=== PATIENT | female | born 1985 | race Caucasian/White ===

== ENCOUNTER 2023-05-04 15:25 | Outpatient (OUT) | payer OTHER, SELFPAY ==
[2023-05-04 16:00] LABS: Microalbumin Urine Random <1.3 mg/dL (<=30.0)
[2023-05-04 16:38] LABS: Alanine Aminotransferase 21 U/L (14-59); Albumin Globulin Ratio 0.9; Albumin Level 3.6 g/dL (3.4-5.0); Alkaline Phosphatase 139 U/L (46-116); Anion Gap 12.1; Aspartate Amino Transferase 11 U/L (15-37); Bilirubin Total 0.2 mg/dL (0.2-1.0); Calcium 8.8 mg/dL (8.5-10.1); Carbon Dioxide 26.2 mmol/L (21.0-32.0); Chloride 107 mmol/L (98-107); Estimated GFR (African America >60 (>=60); Estimated GFR (Non-African Ame >60 (>=60); Glucose 77 mg/dL (74-106); Potassium 3.3 mmol/L (3.5-5.1); Sodium 142 mmol/L (136-145); Total Protein 7.6 g/dL (6.4-8.2)
[2023-05-04 16:55] LABS: Estimated Average Glucose 117 mg/dL; Glycohemoglobin A1C 5.7 % (4.5-6.2)
[2023-05-05 06:08] LABS: HIV Ab/p24 Ag Screen Non Reactive (Non Reactive)
[2023-05-05 10:55] LABS: Gamma Glutamyl Transpeptidase 23 U/L (8-55)
== END 2023-05-04 15:26 | disposition home or self-care (01) ==
LOC: LAB 15:29
PROVIDERS: PCP Nurse Practitioner Primary Care; Visit Provider Nurse Practitioner Primary Care
DX: R73.03 Prediabetes (principal)
CPT/HCPCS: 36415; 80053; 82043; 82977; 83036; 87389

== ENCOUNTER 2023-05-12 15:46 | Outpatient (OUT) | payer OTHER, SELFPAY ==
[2023-05-12 16:17] LABS: Erythrocyte Sedimentation Rate 27 mm/hr (<=20)
[2023-05-14 04:07] LABS: Immunoglobulin A, Qn 586 mg/dL (87-352); Rheumatoid Factor (RF) <10.0 IU/mL (<14.0)
[2023-05-14 14:12] LABS: ANA Direct Negative (Negative); C-Peptide, Serum 2.4 ng/mL (1.1-4.4)
[2023-05-14 21:07] LABS: Anti-MPO Antibodies 1.3 units (0.0-0.9); Anti-PR3 Antibodies <0.2 units (0.0-0.9); Cytoplasmic (C-ANCA) <1:20 titer (Neg:<1:20); Perinuclear (P-ANCA) <1:20 titer (Neg:<1:20)
== END 2023-05-12 15:47 | disposition home or self-care (01) ==
LOC: LAB 15:47
PROVIDERS: PCP Nurse Practitioner Primary Care; Visit Provider Internal Medicine
DX: D47.2 Monoclonal gammopathy (principal); R21 Rash and other nonspecific skin eruption
CPT/HCPCS: 36415; 82784; 83516; 84681; 85652; 86038; 86430

== ENCOUNTER 2023-05-14 10:15 | Emergency (ER) | payer OTHER, SELFPAY ==
[2023-05-14 10:23] VITALS: BP 136/82; PULSE 98; RESP 20; TEMP 36.7; O2SAT 96; BMI 53.0
--- NOTE | 2023-05-14 11:17 | ED_ITS ---
HPI - General Adult General Chief complaint: Abdominal Pain Stated complaint: L KIDNEY PAIN/FATIGUE/SWELLING Time Seen by Provider: 05/14/23 11:05 History of Present Illness HPI narrative: patient here for evaluation of weight gain. She says she has gained approximately 20 pounds in the last several days. She has not had a change in her medications at all. She has a number of medical disorders including pseudotumor cerebri thyroid disorder elevation of her cholesterol and hypertension. She also has some underlying psychiatric disease. 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 She does not any chest pain or shortness of breath. No history of congestive heart failure. She also has a thyroid disorder. She does have a neurologist and primary care doctor they're seeing her. To her knowledge her kidneys recovered fine and they've never been a problem previously. She's had a history of kidney stone in the past but she passed it spontaneously. She's not been running a fever. She does not have any history of deep vein thrombosis. No shortness of breath. Is not have a redness or tenderness in her thighs. Related Data Home Medications Medication Instructions Recorded Confirmed acetazolamide 500 mg 500 mg PO Q24H 05/14/23 05/14/23 capsule,extended release acetylcysteine 600 mg capsule (NAC) 600 mg PO BID 05/14/23 05/14/23 albuterol sulfate 2.5 mg/3 mL 2.5 mg continuous nebulization Q6H 05/14/23 05/14/23 (0.083 %) solution for nebulization PRN shortness of breath or wheezing albuterol sulfate 90 mcg/actuation 2 inh inhalation Q4H PRN shortness 05/14/23 05/14/23 aerosol inhaler (Ventolin HFA) of breath or wheezing azelastine 137 mcg (0.1 %) nasal 1 spray intranasal DAILY 05/14/23 05/14/23 spray aerosol baclofen 10 mg tablet 10 mg PO Q12H PRN muscle spasm 05/14/23 05/14/23 cdbeorryzthjdfb-tlzzaygotfkjxhj-FK 5 ml PO Q8H PRN cold symptoms 05/14/23 05/14/23 2 mg-30 mg-10 mg/5 mL oral syrup cetirizine 10 mg tablet 10 mg PO Q12H 05/14/23 05/14/23 diclofenac sodium 1 % topical gel 2 g topical BID 05/14/23 05/14/23 duloxetine 30 mg capsule,delayed 30 mg PO DAILY 05/14/23 05/14/23 release duloxetine 60 mg capsule,delayed 60 mg PO DAILY 05/14/23 05/14/23 release (Cymbalta) fluconazole 150 mg tablet 150 mg PO DAILY 05/14/23 05/14/23 fluticasone 500 mcg-salmeterol 50 1 inh inhalation Q12H 05/14/23 05/14/23 mcg/dose blistr powdr for inhalation (Wixela Inhub) gabapentin 300 mg capsule 300 mg PO Q12H 05/14/23 05/14/23 hydroxyzine HCl 50 mg tablet 50 mg PO Q6H 05/14/23 05/14/23 levothyroxine 25 mcg tablet 25 mcg PO DAILY 05/14/23 05/14/23 liraglutide 0.6 mg/0.1 mL (18 mg/3 0.6 mg subcut DAILY 05/14/23 05/14/23 mL) subcutaneous pen injector ([email or web address] 3-True) lisdexamfetamine 30 mg capsule 30 mg PO DAILY 05/14/23 05/14/23 (Vyvanse) losartan 100 mg tablet 100 mg PO DAILY 05/14/23 05/14/23 nicotine 14 mg/24 hr daily 1 patch transdermal DAILY 05/14/23 05/14/23 transdermal patch omeprazole 20 mg capsule,delayed 20 mg PO DAILY 05/14/23 05/14/23 release pregabalin 75 mg capsule (Lyrica) 75 mg PO BID 05/14/23 05/14/23 quetiapine 300 mg tablet 300 mg PO DAILY 05/14/23 05/14/23 sumatriptan succinate 100 mg See Rx Instructions PO .COMPLEX 05/14/23 05/14/23 tablet (Imitrex) tiotropium bromide 1.25 2 inh inhalation QAM 05/14/23 05/14/23 mcg/actuation mist for inhalation (Spiriva Respimat) verapamil 180 mg 24 hr 180 mg PO DAILY 05/14/23 05/14/23 capsule,extended release Allergies Allergy/AdvReac Type Severity Reaction Status Date / Time amoxicillin AdvReac Severe yeast Verified 05/14/23 10:31 infection lithium AdvReac Severe kidney Verified 05/14/23 10:31 failure NSAIDS (Non-Steroidal AdvReac Severe kidney Verified 05/14/23 10:31 Anti-Inflamma failure PFSH PFSH Social History Smoking status: Light tobacco smoker Exam Narrative Exam Narrative: awake alert pleasant oriented ?3 in no distress vital signs are essentially normalGENERAL: Well hydrated, appears well, No obvious distress, Awake, Alert, Oriented x 3, Cognition intact HEENT: Normocephalic, No evidence of trauma, injury or infection, airway intact. Conjuntiva normal, no pallor or scleral icterus NECK: Supple, no meningeal irritation, full ROM, non-tender, No JVD CHEST: Symmetrical, no injury, non-tender, RESP: LCTA, no wheeze, rales, rhonchi,no subcutaneous emphysema, no labored respirations CARDIO: Normal rate and rhythm, No murmur, Rub, or ectopy during auscultation. ABD: Non-tender, normal BS, no guarding, rebound or rigidity. No pulsatile, masses. No organomegaly NEURO: Neuro at baseline, No motor deficits, CN 2-12 Normal, Mentation inctact. EXTREMITIES: No edema, good tissue perfusion, no venous cords, non-tender SKIN: No petechiae, purpura, or abnormal bruising, warm, dry, no rash Constitutional Vital Signs, click to edit/add: Last Vital Signs Temp 98.1 F 05/14/23 10:23 Pulse 98 H 05/14/23 10:23 Resp 20 05/14/23 10:23 BP 136/82 H 05/14/23 10:23 Pulse Ox 96 05/14/23 10:23 Course Vital Signs Vital signs: Vital Signs Temperature 98.1 F 05/14/23 10:23 Pulse Rate 98 H 05/14/23 10:23 Respiratory Rate 20 05/14/23 10:23 Blood Pressure 136/82 H 05/14/23 10:23 Pulse Oximetry 96 05/14/23 10:23 Temperature 98.1 F 05/14/23 10:23 Pulse Rate 98 H 05/14/23 10:23 Respiratory Rate 20 05/14/23 10:23 Blood Pressure 136/82 H 05/14/23 10:23 Pulse Oximetry 96 05/14/23 10:23 Medical Decision Making MDM Narrative Medical decision making narrative: patient's BUN/creatinine are essentially normal. Her potassium is a touch on the low side which may be from medication. Her chest x-ray does not show any evidence of failure and her also to her examination [place] does not disclose any rales either. She does have substantial weight gain but I don't see any evidence of heart failure based on her clinical exam imaging or laboratory testing. Will give her prescription for potassium supplementation MR follow-up with her primary care physician Lab Data Labs: Lab Results 05/14/23 Range/Units 10:38 WBC 10.2 (4.0-11.0) 10^3/uL RBC 4.42 (4.20-5.40) 10^6/uL Hgb 11.7 L (12.0-16.0) g/dL Hct 37.8 (36.0-48.0) % MCV 85.5 (81.0-99.0) fL MCH 26.5 L (26.7-34.0) pg MCHC 31.0 (29.9-35.2) g/dL RDW 19.1 H (11.0-15.0) % Plt Count 485 H (150-450) 10^3/uL MPV 10.1 (9.5-13.5) fL Neut % (Auto) 65.1 (43.0-75.0) % Lymph % (Auto) 27.5 (20.5-60.0) % [place] % (Auto) 4.7 (1.7-12.0) % Eos % (Auto) 1.7 (0.9-7.0) % Baso % (Auto) 0.6 (0.2-2.0) % Neut # (Auto) 6.6 H (1.4-6.5) 10^3/uL Lymph # (Auto) 2.8 (1.2-3.8) 10^3/uL [place] # (Auto) 0.5 (0.3-0.8) 10^3/uL Eos # (Auto) 0.2 (0.0-0.7) 10^3/uL Baso # (Auto) 0.1 (0.0-0.1) 10^3/uL Abs Immat Gran (auto) 0.04 H (0.00-0.03) 10^3/uL Imm/Tot Granulo (auto) 0.4 (0.0-0.5) % Sodium 138 (136-145) mmol/L Potassium 3.1 L (3.5-5.1) mmol/L Chloride 104 (98-107) mmol/L Carbon Dioxide 22.6 (21.0-32.0) mmol/L Anion Gap 14.5 BUN 9.0 (7.0-18.0) mg/dL Creatinine 0.87 (0.55-1.02) mg/dL Est GFR ( Amer) >60 (>=60) Est GFR (Non-Af Amer) >60 (>=60) BUN/Creatinine Ratio 10.3 Glucose 97 (74-106) mg/dL Calcium 8.7 (8.5-10.1) mg/dL Total Bilirubin 0.2 (0.2-1.0) mg/dL AST 9 L (15-37) U/L ALT 22 (14-59) U/L Alkaline Phosphatase 160 H (46-116) U/L Troponin I High Sens <4.0 L (4.0-51.3) pg/mL Total Protein 8.0 (6.4-8.2) g/dL Albumin 3.7 (3.4-5.0) g/dL Globulin 4.3 g/dL Albumin/Globulin Ratio 0.9 TSH 2.464 (0.358-3.740) uIU/mL Discharge Plan Discharge Chief Complaint: Abdominal Pain Clinical Impression: Acute hypokalemia Patient Disposition: Home, Self-Care Time of Disposition Decision: 12:59 Prescriptions / Home Meds: No Action acetazolamide 500 mg capsule, extended release 500 mg PO Q24H acetylcysteine [NAC] 600 mg capsule 600 mg PO BID albuterol sulfate 2.5 mg /3 mL (0.083 %) solution for nebulization 2.5 mg continuous nebulization Q6H PRN (Reason: shortness of breath or wheezing) albuterol sulfate [Ventolin HFA] 90 mcg/actuation HFA aerosol inhaler 2 inh INHALATION Q4H PRN (Reason: shortness of breath or wheezing) azelastine 137 mcg (0.1 %) aerosol,spray 1 spray INTRANASAL DAILY baclofen 10 mg tablet 10 mg PO Q12H PRN (Reason: muscle spasm) ojhxuxzlxqoqzsa-fibvywfuq-OV 2-30-10 mg/5 mL syrup 5 ml PO Q8H PRN (Reason: cold symptoms) cetirizine 10 mg tablet 10 mg PO Q12H diclofenac sodium 1 % gel 2 g TOPICAL BID duloxetine 30 mg capsule,delayed release(DR/EC) 30 mg PO DAILY fluconazole 150 mg tablet 150 mg PO DAILY fluticasone propion-salmeterol [Wixela Inhub] 500-50 mcg/dose blister with device 1 inh INHALATION Q12H gabapentin 300 mg capsule 300 mg PO Q12H levothyroxine 25 mcg tablet 25 mcg PO DAILY Vyvanse 30 mg capsule 30 mg PO DAILY duloxetine [Cymbalta] 60 mg capsule,delayed release(DR/EC) 60 mg PO DAILY quetiapine 300 mg tablet 300 mg PO DAILY hydroxyzine HCl 50 mg tablet 50 mg PO Q6H pregabalin [Lyrica] 75 mg capsule 75 mg PO BID nicotine 14 mg/24 hr patch 24 hour 1 patch transdermal DAILY Spiriva Respimat 1.25 mcg/actuation mist 2 inh inhalation QAM verapamil 180 mg capsule,ext rel. pellets 24 hr 180 mg PO DAILY sumatriptan succinate [Imitrex] 100 mg tablet See Rx Instructions .ROUTE .COMPLEX Rx Instructions: take 1 tab at onset of headache; if no relief, may repeat 1 tab after at least 2 hrs; max = 2 tabs/24 hrs losartan 100 mg tablet 100 mg PO DAILY omeprazole 20 mg capsule,delayed release(DR/EC) 20 mg PO DAILY Victoza 3-True 0.6 mg/0.1 mL (18 mg/3 mL) pen injector 0.6 mg subcut DAILY Instructions: Hypokalemia (ED) Additional Instructions: potassium supplementation, follow up with her primary care doctor or neurologist for any medication adjustments Stand Alone Forms: Portal Instructions Referrals: RAFI HARTMANN APRN [Primary Care Provider] - 1 week
--- NOTE | 2023-05-14 11:21 | ECG_ITS ---
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
--- NOTE | 2023-05-14 11:21 | XR_ITS ---
The [address] [address] Patient Name: GERBER GARCIA MRN: [id number] date: 1985 Sex: F Assigned Patient Location: ER Current Patient Location: ER Accession/Order Number: [id number] Exam Date: 05/14/2023 11:38 Report Date: 05/14/2023 12:03 At the request of: MELVIN KEITH Procedure: XR chest 1V EXAM: XR chest 1V HISTORY: Dyspnea. COMPARISON: None. TECHNIQUE: AP erect portable chest radiograph performed. FINDINGS: The trachea is midline. The cardiomediastinal silhouette and hilar shadows are normal. The lung volumes are normal. The lung shahid are clear. There is no pneumothorax or osseous abnormality. XR/XR chest 1V IMPRESSION: Unremarkable AP erect portable chest radiograph. Electronically authenticated by: MARLENE REYNOLDS Date: 05/14/2023 12:03
[2023-05-14 11:30] LABS: Basophils Absolute Auto 0.1 10^3/uL (0.0-0.1); Basophils Percent Auto 0.6 % (0.2-2.0); Eosinophils Absolute Auto 0.2 10^3/uL (0.0-0.7); Eosinophils Percent Auto 1.7 % (0.9-7.0); Hematocrit 37.8 % (36.0-48.0); Hemoglobin 11.7 g/dL (12.0-16.0); Immature Granulocytes Abs Auto 0.04 10^3/uL (0.00-0.03); Immature Granulocytes Pct Auto 0.4 % (0.0-0.5); Lymphocytes Absolute Auto 2.8 10^3/uL (1.2-3.8); Lymphocytes Percent Auto 27.5 % (20.5-60.0); Mean Corpuscular Hemoglobin 26.5 pg (26.7-34.0); Mean Corpuscular Volume 85.5 fL (81.0-99.0); Mean Platelet Volume 10.1 fL (9.5-13.5); Monocytes Absolute Auto 0.5 10^3/uL (0.3-0.8); Monocytes Percent Auto 4.7 % (1.7-12.0); Neutrophils Absolute Auto 6.6 10^3/uL (1.4-6.5); Neutrophils Percent Auto 65.1 % (43.0-75.0); Platelet Count 485 10^3/uL (150-450); Red Blood Count 4.42 10^6/uL (4.20-5.40); Red Cell Distribution Width 19.1 % (11.0-15.0); White Blood Count 10.2 10^3/uL (4.0-11.0)
[2023-05-14 11:45] LABS: Alanine Aminotransferase 22 U/L (14-59); Albumin Globulin Ratio 0.9; Albumin Level 3.7 g/dL (3.4-5.0); Alkaline Phosphatase 160 U/L (46-116); Anion Gap 14.5; Aspartate Amino Transferase 9 U/L (15-37); BUN Creatinine Ratio 10.3; Bilirubin Total 0.2 mg/dL (0.2-1.0); Calcium 8.7 mg/dL (8.5-10.1); Carbon Dioxide 22.6 mmol/L (21.0-32.0); Chloride 104 mmol/L (98-107); Estimated GFR (African America >60 (>=60); Estimated GFR (Non-African Ame >60 (>=60); Globulin 4.3 g/dL; Glucose 97 mg/dL (74-106); Potassium 3.1 mmol/L (3.5-5.1); Sodium 138 mmol/L (136-145)
[2023-05-14 11:53] LABS: Thyroid Stimulating Hormone 2.464 uIU/mL (0.358-3.740); Troponin I High Sensitivity <4.0 pg/mL (4.0-51.3)
[2023-05-14] MEDS: POTASSIUM CHLORIDE 10 MEQ ER TABLET 20 MEQ PO (12:44)
== END 2023-05-14 13:08 | disposition home or self-care (01) ==
PROVIDERS: Emergency Provider Emergency Medicine Emergency Medical Services; PCP Nurse Practitioner Primary Care
DX: E87.6 Hypokalemia (principal); I10 Essential (primary) hypertension; E78.00 Pure hypercholesterolemia, unspecified; E07.9 Disorder of thyroid, unspecified; G93.2 Benign intracranial hypertension; F99 Mental disorder, not otherwise specified; Z79.890 Hormone replacement therapy; F17.210 Nicotine dependence, cigarettes, uncomplicated; Z79.899 Other long term (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
CPT/HCPCS: 36415; 71045; 80053; 84443; 84484; 85025; 93005; 99285

== ENCOUNTER 2023-05-21 09:16 | Outpatient (OUT) | payer OTHER, SELFPAY ==
[2023-05-22 13:09] LABS: Albumin 3.4 g/dL (2.9-4.4); Alpha-1-Globulin 0.2 g/dL (0.0-0.4); Alpha-2-Globulin 0.7 g/dL (0.4-1.0); Anti-CCP Ab, IgG/IgA 3 units (0-19); Gamma Globulin 0.9 g/dL (0.4-1.8); Protein, Total 6.4 g/dL (6.0-8.5)
[2023-05-22 15:08] LABS: Free Lambda Lt Chains,S 19.8 mg/L (5.7-26.3); Kappa/Lambda Ratio,S 1.82 (0.26-1.65)
[2023-05-22 21:07] LABS: Anti-GBM Antibodies <0.2 units (0.0-0.9)
== END 2023-05-21 09:17 | disposition home or self-care (01) ==
LOC: LAB 09:17
PROVIDERS: PCP Nurse Practitioner Primary Care; Visit Provider Internal Medicine
DX: R30.0 Dysuria (principal); D47.2 Monoclonal gammopathy; R21 Rash and other nonspecific skin eruption; R74.8 Abnormal levels of other serum enzymes
CPT/HCPCS: 36415; 81003; 83516; 84155; 84165; 86200; 87086

== ENCOUNTER 2023-05-21 14:26 | Outpatient (REF) | payer OTHER, SELFPAY ==
[2023-05-21 14:50] LABS: Bilirubin Urine NEGATIVE (NEGATIVE); Blood Urine MODERATE (NEGATIVE); Clarity Urine CLEAR (CLEAR); Color Urine LT. YELLOW (YELLOW); Glucose Urine UA NEGATIVE (NEGATIVE); Ketones Urine NEGATIVE (NEGATIVE); Leukocyte Esterase Urine NEGATIVE (NEGATIVE); Nitrite Urine NEGATIVE (NEGATIVE); Protein Urine NEGATIVE (NEG/TRACE); Specific Gravity Urine <=1.005 (1.005-1.025); Urobilinogen Urine 0.2 EU/dL (0.2-1.0)
== END 2023-05-21 14:27 | disposition home or self-care (01) ==
LOC: LAB 14:26
PROVIDERS: PCP Nurse Practitioner Primary Care; Visit Provider Nurse Practitioner Primary Care
DX: R30.0 Dysuria (principal)
CPT/HCPCS: 81003; 87086

== ENCOUNTER 2023-06-04 12:41 | Emergency (ER) | payer OTHER, SELFPAY ==
[2023-06-04 12:51] VITALS: BP 153/88; PULSE 88; RESP 18; TEMP 36.6; O2SAT 99; BMI 53.0
--- NOTE | 2023-06-04 13:01 | US_ITS ---
The [place] [id number] Patient Name: GERBER GARCIA MRN: [id number] date: 1985 Sex: F Assigned Patient Location: ER Current Patient Location: ED.MAIN Accession/Order Number: [id number] Exam Date: 06/04/2023 13:10 Report Date: 06/04/2023 13:47 At the request of: BONNIE NARAYANAN Procedure: US venous doppler LE LT EXAMINATION: US venous doppler LE LT HISTORY: pain, swelling of left leg COMPARISON: No relevant comparison available. FINDINGS: REGION: Left lower extremity THROMBI: None. COMPRESSIBILITY: Normal compressibility. FLOW: Normal waveform and antegrade flow between 5 and 20 cm/s. OTHER: None. US/US venous doppler LE LT IMPRESSION: 1. No deep vein thrombus within the left lower extremity. Electronically authenticated by: MARIVEL JOHNSON Date: 06/04/2023 13:47
--- NOTE | 2023-06-04 13:01 | ED_ITS ---
HPI - General Adult General Chief complaint: Extremity Injury, Lower Stated complaint: LT LEG SWELLING/PAIN Time Seen by Provider: 06/04/23 12:51 Source: patient Mode of arrival: walk-in Limitations: no limitations History of Present Illness HPI narrative: [age] female presents for pain and swelling in her left leg. She's had it for about five days. No injury or back pain. She is worried about a blood clot. The entire leg is symptomatic. She's never had a deep vein thrombosis. No chest pain or shortness of breath and the pain is moderate and it feels like it feels like tightness. Related Data Home Medications Medication Instructions Recorded Confirmed acetazolamide 500 mg 500 mg PO Q24H 05/14/23 05/14/23 capsule,extended release acetylcysteine 600 mg capsule (NAC) 600 mg PO BID 05/14/23 05/14/23 albuterol sulfate 2.5 mg/3 mL 2.5 mg continuous nebulization Q6H 05/14/23 05/14/23 (0.083 %) solution for nebulization PRN shortness of breath or wheezing albuterol sulfate 90 mcg/actuation 2 inh inhalation Q4H PRN shortness 05/14/23 05/14/23 aerosol inhaler (Ventolin HFA) of breath or wheezing azelastine 137 mcg (0.1 %) nasal 1 spray intranasal DAILY 05/14/23 05/14/23 spray aerosol baclofen 10 mg tablet 10 mg PO Q12H PRN muscle spasm 05/14/23 05/14/23 tkyjalyfupyqdlo-mwxqoqnkypgyhkq-KZ 5 ml PO Q8H PRN cold symptoms 05/14/23 05/14/23 2 mg-30 mg-10 mg/5 mL oral syrup cetirizine 10 mg tablet 10 mg PO Q12H 05/14/23 05/14/23 diclofenac sodium 1 % topical gel 2 g topical BID 05/14/23 05/14/23 duloxetine 30 mg capsule,delayed 30 mg PO DAILY 05/14/23 05/14/23 release duloxetine 60 mg capsule,delayed 60 mg PO DAILY 05/14/23 05/14/23 release (Cymbalta) fluconazole 150 mg tablet 150 mg PO DAILY 05/14/23 05/14/23 fluticasone 500 mcg-salmeterol 50 1 inh inhalation Q12H 05/14/23 05/14/23 mcg/dose blistr powdr for inhalation (Wixela Inhub) gabapentin 300 mg capsule 300 mg PO Q12H 05/14/23 05/14/23 hydroxyzine HCl 50 mg tablet 50 mg PO Q6H 05/14/23 05/14/23 levothyroxine 25 mcg tablet 25 mcg PO DAILY 05/14/23 05/14/23 liraglutide 0.6 mg/0.1 mL (18 mg/3 0.6 mg subcut DAILY 05/14/23 05/14/23 mL) subcutaneous pen injector ([employer] 3-True) lisdexamfetamine 30 mg capsule 30 mg PO DAILY 05/14/23 05/14/23 (Vyvanse) losartan 100 mg tablet 100 mg PO DAILY 05/14/23 05/14/23 nicotine 14 mg/24 hr daily 1 patch transdermal DAILY 05/14/23 05/14/23 transdermal patch omeprazole 20 mg capsule,delayed 20 mg PO DAILY 05/14/23 05/14/23 release pregabalin 75 mg capsule (Lyrica) 75 mg PO BID 05/14/23 05/14/23 quetiapine 300 mg tablet 300 mg PO DAILY 05/14/23 05/14/23 sumatriptan succinate 100 mg See Rx Instructions PO .COMPLEX 05/14/23 05/14/23 tablet (Imitrex) tiotropium bromide 1.25 2 inh inhalation QAM 05/14/23 05/14/23 mcg/actuation mist for inhalation (Spiriva Respimat) verapamil 180 mg 24 hr 180 mg PO DAILY 05/14/23 05/14/23 capsule,extended release Previous Rx's Medication Instructions Recorded acetaminophen 300 mg-codeine 30 mg 1 tab PO Q6H PRN pain #20 tabs 06/04/23 tablet methylprednisolone 4 mg tablets in 4 mg PO DAILY #21 ea 06/04/23 a dose pack (Medrol (Ture)) Allergies Allergy/AdvReac Type Severity Reaction Status Date / Time amoxicillin AdvReac Severe yeast Verified 05/14/23 10:31 infection lithium AdvReac Severe kidney Verified 05/14/23 10:31 failure NSAIDS (Non-Steroidal AdvReac Severe kidney Verified 05/14/23 10:31 Anti-Inflamma failure Review of Systems ROS Narrative A ten point review of systems is negative except as noted above. PFSH PFSH Social History Smoking status: Light tobacco smoker Exam Narrative Exam Narrative: Nurses note and vital signs reviewed and patient is not hypoxic. General: The patient appears well and in no apparent distress. Patient is resting comfortably on cart. Skin: Warm, dry, no pallor noted. There is no rash noted. Head: Normocephalic, atraumatic Eye: Normal conjunctiva, no drainage Ears, Nose, Mouth, and Throat: oral mucosa is moist. Nares patent. Cardiovascular: Regular Rate and Rhythm Respiratory: Patient is in no distress, no accessory muscle use, lungs are clear to auscultation, no wheezing, rales or rhonchi Back: non-tender GI: obese soft and nontender Musculoskeletal: both legs are obese. I cannot determine if there is swelling or not. There is no bruising or erythema. Neurological: A&O, normal speech Psychiatric: Cooperative Constitutional Vital Signs, click to edit/add: Last Vital Signs Temp 97.8 F 06/04/23 12:51 Pulse 88 06/04/23 12:51 Resp 18 06/04/23 12:51 BP 153/88 H 06/04/23 12:51 Pulse Ox 99 06/04/23 12:51 Course Vital Signs Vital signs: Vital Signs Temperature 97.8 F 06/04/23 12:51 Pulse Rate 88 06/04/23 12:51 Respiratory Rate 18 06/04/23 12:51 Blood Pressure 153/88 H 06/04/23 12:51 Pulse Oximetry 99 06/04/23 12:51 Temperature 97.8 F 06/04/23 12:51 Pulse Rate 88 06/04/23 12:51 Respiratory Rate 18 06/04/23 12:51 Blood Pressure 153/88 H 06/04/23 12:51 Pulse Oximetry 99 06/04/23 12:51 Medical Decision Making MDM Narrative Medical decision making narrative: Doppler is negative and she'll be treated symptomatically. Follow up with PCP. Treatment diagnosis and follow-up were discussed with the patient. Differential Diagnosis Differential Diagnosis: deep vein thrombosis, muscle strain, lumbar radiculopathy Imaging Data venous Doppler: Radiologist's impression: no acute findings Discharge Plan Discharge Chief Complaint: Extremity Injury, Lower Clinical Impression: Left leg pain Patient Disposition: Home, Self-Care Time of Disposition Decision: 13:39 Condition: Good Mode of Transportation: Private Vehicle Prescriptions / Home Meds: New methylprednisolone [Medrol (True)] 4 mg tablets,dose pack 4 mg PO DAILY Qty: 21 0RF acetaminophen-codeine 300-30 mg tablet 1 tab PO Q6H PRN (Reason: pain) Qty: 20 0RF No Action acetazolamide 500 mg capsule, extended release 500 mg PO Q24H acetylcysteine [NAC] 600 mg capsule 600 mg PO BID albuterol sulfate 2.5 mg /3 mL (0.083 %) solution for nebulization 2.5 mg continuous nebulization Q6H PRN (Reason: shortness of breath or wheezing) albuterol sulfate [Ventolin HFA] 90 mcg/actuation HFA aerosol inhaler 2 inh INHALATION Q4H PRN (Reason: shortness of breath or wheezing) azelastine 137 mcg (0.1 %) aerosol,spray 1 spray INTRANASAL DAILY baclofen 10 mg tablet 10 mg PO Q12H PRN (Reason: muscle spasm) spdlyibswtjbgxv-xcyvdsorn-ZM 2-30-10 mg/5 mL syrup 5 ml PO Q8H PRN (Reason: cold symptoms) cetirizine 10 mg tablet 10 mg PO Q12H diclofenac sodium 1 % gel 2 g TOPICAL BID duloxetine 30 mg capsule,delayed release(DR/EC) 30 mg PO DAILY fluconazole 150 mg tablet 150 mg PO DAILY fluticasone propion-salmeterol [Wixela Inhub] 500-50 mcg/dose blister with device 1 inh INHALATION Q12H gabapentin 300 mg capsule 300 mg PO Q12H levothyroxine 25 mcg tablet 25 mcg PO DAILY Vyvanse 30 mg capsule 30 mg PO DAILY duloxetine [Cymbalta] 60 mg capsule,delayed release(DR/EC) 60 mg PO DAILY quetiapine 300 mg tablet 300 mg PO DAILY hydroxyzine HCl 50 mg tablet 50 mg PO Q6H pregabalin [Lyrica] 75 mg capsule 75 mg PO BID nicotine 14 mg/24 hr patch 24 hour 1 patch transdermal DAILY Spiriva Respimat 1.25 mcg/actuation mist 2 inh inhalation QAM verapamil 180 mg capsule,ext rel. pellets 24 hr 180 mg PO DAILY sumatriptan succinate [Imitrex] 100 mg tablet See Rx Instructions .ROUTE .COMPLEX Rx Instructions: take 1 tab at onset of headache; if no relief, may repeat 1 tab after at least 2 hrs; max = 2 tabs/24 hrs losartan 100 mg tablet 100 mg PO DAILY omeprazole 20 mg capsule,delayed release(DR/EC) 20 mg PO DAILY Victoza 3-True 0.6 mg/0.1 mL (18 mg/3 mL) pen injector 0.6 mg subcut DAILY Instructions: Leg Pain (ED) Stand Alone Forms: Portal Instructions Referrals: RAFI HARTMANN APRN [Primary Care Provider] - 1 week
== END 2023-06-04 13:58 | disposition home or self-care (01) ==
PROVIDERS: Emergency Provider Emergency Medicine; PCP Nurse Practitioner Primary Care
DX: M79.605 Pain in left leg (principal); E66.9 Obesity, unspecified; F17.210 Nicotine dependence, cigarettes, uncomplicated; Z79.899 Other long term (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; Z79.890 Hormone replacement therapy; Z68.43 Body mass index [BMI] 50.0-59.9, adult
CPT/HCPCS: 93971; 99284

== ENCOUNTER 2023-06-05 10:47 | Outpatient (OUT) | payer OTHER, SELFPAY ==
[2023-06-05 11:28] LABS: Alanine Aminotransferase 27 U/L (14-59); Albumin Globulin Ratio 0.9; Albumin Level 3.3 g/dL (3.4-5.0); Alkaline Phosphatase 129 U/L (46-116); Anion Gap 9.5; Aspartate Amino Transferase 15 U/L (15-37); BUN Creatinine Ratio 8.8; Bilirubin Total 0.2 mg/dL (0.2-1.0); Calcium 8.3 mg/dL (8.5-10.1); Carbon Dioxide 26.1 mmol/L (21.0-32.0); Chloride 106 mmol/L (98-107); Estimated GFR (African America >60 (>=60); Estimated GFR (Non-African Ame >60 (>=60); Globulin 3.7 g/dL; Glucose 111 mg/dL (74-106); Magnesium 2.1 mg/dL (1.8-2.4); Potassium 3.6 mmol/L (3.5-5.1); Sodium 138 mmol/L (136-145)
== END 2023-06-05 10:48 | disposition home or self-care (01) ==
PROVIDERS: PCP Nurse Practitioner Primary Care; Visit Provider Nurse Practitioner Primary Care
DX: R06.01 Orthopnea (principal); R06.09 Other forms of dyspnea; R60.9 Edema, unspecified
CPT/HCPCS: 36415; 80053; 83735; 83880

== ENCOUNTER 2023-06-10 13:38 | Outpatient (OUT) | payer OTHER, SELFPAY ==
--- NOTE | 2023-06-10 | ECG_ITS ---
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
--- NOTE | 2023-06-10 13:54 | XR_ITS ---
The [place] [id number] Patient Name: GERBER GARCIA MRN: [id number] date: 1985 Sex: F Assigned Patient Location: CARD Current Patient Location: Accession/Order Number: [id number] Exam Date: 06/10/2023 13:57 Report Date: 06/11/2023 09:08 At the request of: RAFI HARTMANN Procedure: XR chest 2V EXAMINATION: XR chest 2V HISTORY: Orthopnea R06.9, Dyspnea On Exertion R06.09 COMPARISON: XR chest 07/07/2022 FINDINGS: LUNGS: No significant pulmonary parenchymal abnormalities. VASCULATURE: No increased pulmonary vasculature. PLEURA: No pneumothorax, effusion, or pleural thickening. CARDIAC: No cardiomegaly or cardiac silhouette abnormality. MEDIASTINUM: No visible mass or adenopathy. BONES: No fracture or visible bone lesion. OTHER: Negative. XR/XR chest 2V IMPRESSION: 1. Normal chest. Electronically authenticated by: MARIVEL JOHNSON Date: 06/11/2023 09:08
== END 2023-06-10 13:39 | disposition home or self-care (01) ==
LOC: CARD 13:38
PROVIDERS: PCP Nurse Practitioner Primary Care; Visit Provider Nurse Practitioner Primary Care
DX: R06.01 Orthopnea (principal); R06.09 Other forms of dyspnea; R60.9 Edema, unspecified
CPT/HCPCS: 71046; 93005

== ENCOUNTER 2023-06-15 08:10 | Outpatient (OUT) | payer OTHER, SELFPAY ==
--- NOTE | 2023-06-15 08:45 | CA_ITS ---
Patient: GERBER GARCIA Exam Date: 06/15/2023 : 1985 Gender:F Ordering : RAFI HARTMANN Admission #: [id number] Family : Order #: [id number] CLICK HERE TO VIEW EXAM ECHOCARDIOGRAM REPORT PROCEDURE: CA ECHO DOPPLER COMPLETE INDICATIONS: Dyspnea on exertion, peripheral edema, hypertension COMPARISON: None. DESCRIPTION: COMPLETE ECHOCARDIOGRAM Real-time transthoracic echocardiography with 2D, M-mode, spectral and color flow Doppler performed. QUALITY: Technical quality was good. LEFT VENTRICLE: Normal chamber size. Borderline left ventricular hypertrophy. LV EF: Normal left ventricular ejection fraction, (>55%). DIASTOLIC: Normal diastolic function. ATRIAL SEPTUM: Visually appears intact. LEFT ATRIUM: Normal chamber size. RIGHT ATRIUM: Normal chamber size. RIGHT VENTRICLE: Normal chamber size. Normal right ventricular systolic function. TRICUSPID VALVE: Normal mobility and thickness. No stenosis with trivial regurgitation. No evidence of pulmonary hypertension. RVSP 17 mmHg MITRAL VALVE: Normal mobility and thickness. No evidence of mitral valve stenosis. There is no mitral annular calcification. No mitral regurgitation. AORTIC VALVE: Normal trileaflet appearance. No visible sclerosis. Normal leaflet mobility. No evidence of aortic valve stenosis. Trivial aortic regurgitation. AORTIC ROOT: Normal diameter and appearance. PULMONIC VALVE: Normal thickness and mobility. No stenosis. No regurgitation. PERICARDIUM: No evidence of pericardial effusion. IVC: Collapses with inspirations. CONCLUSION: Global left ventricular systolic function is normal; visually estimated ejection fraction is 60 to 65%. No regional wall motion abnormalities. Borderline left ventricular hypertrophy. Right ventricle is normal in size and systolic function. No significant valvular abnormalities. Adult Echocardiography Procedure Report Left Ventricle LVEDD (3.7 - 5.6 cm): 5.00 cm LVESD (2.2 - 4.0 cm): 3.22 cm LVIVS thickness (0.6 - 1.2 cm): 1.00 cm LVPW thickness (0.5 - 1.0 cm): 1.07 cm e': 0.15 m/s E - e': 7.81 LVOT Max Gradient: 4.04 mm[Hg] LVOT Area (cm2): 1.00 m/s Peak Velocity (LVOT): 1.00 m/s LVOT Diameter 2.27 cm Left Atrium LA Volume Index (2D A2C): 26.18 ml/m2 Left Atrium Systolic Dimension: 3.16 cm Mitral Valve MV E to A Ratio: 1.68 Mitral Valve A-Wave Peak Velocity: 0.69 m/s Mitral Valve E-Wave Peak Velocity: 1.17 m/s Right Ventricle Aorta AO Root Diam: 2.94 cm Ascending Ao Diam: 2.68 cm Aortic Valve AoV Area (Peak Negro): 2.89 cm2, 2.89 cm2 Peak Velocity(Antegrade Flow): 1.41 m/s Peak Gradient(Antegrade Flow): 7.93 mm[Hg] Tricuspid Valve Peak Velocity (Regurgitant Flow): 1.90 m/s Pulmonic Valve Peak Velocity: 1.12 m/s Peak Gradient: 4.86 mm[Hg], 5.12 mm[Hg] Right Atrium Right Atrium Systolic Pressure: 59.30 ml, 59.30 ml Dictated by: Kevin Baltazar M.D. on 06/16/2023 at 15:20 Approved by: Kevin Baltazar M.D. on 06/16/2023 at 15:22
== END 2023-06-15 08:11 | disposition home or self-care (01) ==
LOC: CARD 08:11
PROVIDERS: PCP Nurse Practitioner Primary Care; Visit Provider Nurse Practitioner Primary Care
DX: R06.01 Orthopnea (principal); R06.09 Other forms of dyspnea; R60.9 Edema, unspecified
CPT/HCPCS: 93306

== ENCOUNTER 2023-08-13 14:38 | Outpatient (OUT) | payer OTHER, SELFPAY ==
[2023-08-14 04:07] LABS: Immunoglobulin A, Qn 574 mg/dL (87-352)
== END 2023-08-13 14:39 | disposition home or self-care (01) ==
LOC: LAB 14:39
PROVIDERS: PCP Nurse Practitioner Primary Care; Visit Provider Internal Medicine
DX: D47.2 Monoclonal gammopathy (principal)
CPT/HCPCS: 36415; 82784

== ENCOUNTER 2023-08-18 11:47 | Outpatient (OUT) | payer OTHER, SELFPAY ==
[2023-08-20 10:09] LABS: Albumin, U 23.7 % (.); Alpha-2-Globulin, U 16.1 % (.); Beta Globulin, U 33.4 % (.); Gamma Globulin, U 23.9 % (.); M-Spike, % Comment: % (Not Observed); Protein,Total,Urine 7.6 mg/dL (Not Estab.)
== END 2023-08-18 11:48 | disposition home or self-care (01) ==
LOC: LAB 11:49
PROVIDERS: PCP Nurse Practitioner Primary Care; Visit Provider Internal Medicine
DX: D47.2 Monoclonal gammopathy (principal)
CPT/HCPCS: 84156; 84166; 86335

== ENCOUNTER 2023-09-22 11:24 | Outpatient (OUT) | payer OTHER, SELFPAY ==
[2023-09-22 17:58] LABS: Percent Iron Saturation 13.9 %
== END 2023-09-22 11:25 | disposition home or self-care (01) ==
LOC: LAB 11:26
PROVIDERS: PCP Nurse Practitioner Primary Care
DX: G25.81 Restless legs syndrome (principal); D50.9 Iron deficiency anemia, unspecified
CPT/HCPCS: 36415; 83540; 83550

== ENCOUNTER 2024-01-22 15:41 | Outpatient (OUT) | payer OTHER, SELFPAY ==
--- OUTSIDE RECORDS SUMMARY | 2024-01-22 15:48 | XMS_ITS | CCD ---
Author Organization [facility] Care Team Providers Care Parachute Supervisor Name Role Phone PHYSICIAN, DEFAULT Unavailable Unavailable PHYSICIAN, DEFAULT Unavailable Unavailable VICTORINA, GINA SKEEL Unavailable Unavailab le VICTORINA, GINA SKEEL Unavailable Unavailab le SELF, REFERRED Unavailable Unavailable ANTWAN CORNEJO Unavailable Unavailable Raji Guerrero Primary Care Provider [phone] Raji Guerrero Primary Care Provider [phone] ELTON RODRIGUEZ Referring Unavaila ble RAJI GUERRERO Primary Care Unavailable Raji Guerrero DO Primary Care Provider RAJI GUERRERO Primary Care Unavailable ELTON RODRIGUEZ Referring Unavaila ble RAJI GUERRERO Primary Care Unavailable FAROOQ SON W Referring Unavailable RAJI GUERRERO Primary Care Unavailable NILAM UNGER Referring Unavailabl e JESUS MORA Admitting Unavailable JESUS MORA Attending Unavailable CHODISETTJazmyne, SUBRAHMANYAM Consulting Unavail able KIANA ALCANTARA Consulting Unavailable JACKS, FAROOQ W Referring Unavailable YOLANDA RAJI E Primary Care Unavailable DO Raji Guerrero Primary Care Provider [phone] DO Desean Massey Emergency Provider [phone] MD Krzysztof Patel Admit Provider MD Krzysztof Patel Attending Provider MD Antwan Sierra Emergency Provider MD Licha Russ Admit Provider [phone] MD Licha Russ Attending Provider SHAMMO MIC Attending Unavailable SHAMMO, MIC Primary Care Unavailable SHAMMO, MIC Admitting Unavailable SHAMMO, MIC Consulting Unavailable SHAMMO, MIC Attending Unavailable SHAMMO, MIC Primary Care Unavailable SHAMMO, MIC Admitting Unavailable WEST, DR BUCK Rausch Consulting Unavailable SHAMMO, MIC Consulting Unavailable SHAMMO, MIC Admitting Unavailable SHAMMO, MIC Primary Care Unavailable SHAMMO, MIC Consulting Unavailable SHAMMO, MIC Attending Unavailable SAHRA ., MISSY Attending Unavailable SAHRA ., MISSY Admitting Unavailable SHAMMO, MIC Primary Care Unavailable SAHRA ., MISSY Consulting Unavailable ZIEBER, DR MARIVEL Mccormack Consulting Unavailable SAMSA, VALENTE Attending Unavailable SAMSA, VALENTE Admitting Unavailable SHAMMO, MIC Primary Care Unavailable SAMSA, VALENTE Consulting Unavailable SHAMMO, MIC Consulting Unavailable SHAMMO, MIC Attending Unavailable SHAMMO, MIC Admitting Unavailable SHAMMO, MIC Primary Care Unavailable SHAMMO, MIC Consulting Unavailable SHAMMO, MIC Attending Unavailable SHAMMO, MIC Admitting Unavailable SHAMMO, MIC Primary Care Unavailable SHAMMO, MIC Consulting Unavailable ZIEBER, DR MARIVEL Mccormack Consulting Unavailable SHAMMO, MIC Attending Unavailable SHAMMO, MIC Admitting Unavailable SHAMMO, MIC Primary Care Unavailable SHAMMO, MIC Consulting Unavailable BALL, DR SCOTT Attending Unavailable BALL, DR SCOTT Admitting Unavailable BALL, DR SCOTT Consulting Unavailable BALL, DR SCOTT Primary Care Unavailable ZIEBER, DR MARIVEL Mccormack Consulting Unavailable URMILA ., ESDRAS Attending Unavailable URMILA ., ESDRAS Admitting Unavailable BALL, DR SCOTT Primary Care Unavailable MARKER ., DR GUTIERREZ Consulting Unavailable URMILA ., ESDRAS Consulting Unavailable LORNA DIOP Consulting Unavailable BALL, DR SCOTT Primary Care Unavailable REINECK, DR MELVIN Bagley Attending Unavailabl e REINDHARMESH, DR MELVIN Bagley Admitting Unavailabl e REINECK, DR MELVIN Bagley Consulting Unavailabl e ZIEBMARY, DR MARIVEL Mccormack Consulting Unavailable REINECK, DR MELVIN Bagley Attending Unavailabl e REINECK, DR MELVIN Bagley Admitting Unavailabl e BALL, DR SCOTT Primary Care Unavailable SAHRA ., MISSY Consulting Unavailable Sarah Beth Deleon Unavailable Shammo, Mic Unavailable NILAM HANSON Referring Unavailab le VINCNILAM CUEVAS Referring Unavailab NILAM Ling Attending Unavailab le Shammo WATER PUMPER, Mic Primary Care Provider Shammo, Mic Unavailable Unavailable SHAMMO, MIC Primary Care Unavailable OEHLMAN DO, CHHAYA Attending Unavailable Shammo, Mic Unavailable Unavailable NILAM HANSON Attending Unavailab le SHAMMO, MIC Primary Care Unavailable KARAMLOU, ALEXIS Referring Unavailable SAMSA, VALENTE P Referring Unavailable KARAMLOU, ALEXIS Attending Unavailable SHAMMO, MIC Primary Care Unavailable LANE, SOMJITA Attending Unavailable SHAMMO, MIC Primary Care Unavailable LANE, SOMJITA Referring Unavailable LANE, SOMJITA Attending Unavailable DEION BOBBYYN Referring Unavailable BANDYOPADHYAY, ANASUA Attending Unavailabl e SHAMMO, MIC Primary Care Unavailable VINCENT, NILAM Mckeon Attending Unavailab le VINCENT, NILAM Mckeon Attending Unavailab le VINCENT, NILAM Mckeon Attending Unavailab le VINCENT, NILAM Mckeon Attending Unavailab le VINCENT, NILAM Mckeon Attending Unavailab le SHAMMO, MIC TWAN Primary Care Physician Shammo, Mic T Attending Unavailable Shammo, Mic T Primary Care Unavailable Shammo, Mic T Admitting Unavailable Sarmini, Mata Talal Attending Unavaila ble SHAMMO, MIC Primary Care Unavailable Sarmini, Mata Talal Admitting Unavaila ble Sarmini, Mata Talal Attending Unavaila ble SHAMMO, MIC Primary Care Unavailable NONE, XXXX Admitting Unavailable NONE, XXXX Attending Unavailable NONE, XXXX Referring Unavailable SHAMMO, MIC Primary Care Unavailable Allergies Allergy Classification Reported Allergen(s) Allergy Type Date of Onset Reaction(s) Facility NSAIDs (2 sources) Ibuprofen Drug Allergy 0 [facility] Penicillins (antibiotic) (2 sources) Amoxicillin Drug Allergy 0 [facility] (20 sources) Amoxicillin; Translations: [Amoxicillin] Drug Allergy 5 Other: See Comments, Intolerance, Eruption of skin (disorder) [facility] (20 sources) Gluten; Translations: [Gluten] Allergy to substance 9 GI Upset, Unknown [facility] (5 sources) Oats Allergy to substance 1 Diarrhea [facility] (5 sources) NSAIDS (Non-Steroidal Anti-Inflamma Allergy to substance 1 Unknown Reaction [facility] (5 sources) dairy Allergy to substance 2 Diarrhea [facility] (2 sources) Ibuprofen; Translations: [IBUPROFEN] Drug Allergy 0 [facility] (4 sources) NSAIDs; Translations: [NSAIDS (NON-STEROIDAL ANTI-INFLAMMATO RY DRUG)] Drug allergy (disorder) 3 [facility] (3 sources) Lisinopril Drug Allergy 4 Unknown, Unknown Reaction [facility] (14 sources) [place]; Translations: [LITHIUM] Drug Allergy 3 Mental Status Change, Unknown [facility] (20 sources) Non-steroidal anti-inflammato ry agent Drug allergy 3 Other: See Comments, Unknown [facility] (2 sources) Bee pollen Drug Allergy 4 Unknown, Unknown Reaction [facility] (6 sources) liraglutide; Translations: [LIRAGLUTIDE] Drug Allergy [address] [facility] (3 sources) Ibuprofen Drug Allergy 0 Other: See Comments [facility] (4 sources) Gluten; Translations: [Glutens] Drug allergy Diarrhea (finding) [facility] (3 sources) Non-steroidal anti-inflammato ry agent; Translations: [NSAIDs] Drug allergy History of - kidney disease (context-depend ent category) [facility] Comment on above: Has history of kidne y failure (1 source) NSAIDs; Translations: [NSAIDs] Propensity to adverse reactions (disorder) [facility] Repository Medications Current Medications Medication Drug Class(es) Dates Sig (Normalized) Sig (Original) [id number] 200 actuat albuterol 0.09 mg/actuat metered dose inhaler (20 sources) beta2-Adrenergic Agonist Start: 01-13-2024 Albuterol Sulfate Active INHALATION January 13, 2024 12:00am Start: 01-21-2023 take 1 puff(s) by in halation four times daily VENTOLIN HFA 90 mcg/actuation inhaler Inhale 1 Puff as instructed four times daily. 0 01/21/2023 Active Start: 01-26-2021 End: 08-25-2023 take 2 puff(s) by inhalation every four hours as needed albuterol HFA (VENTOLIN HFA) 90 mcg/actuation inhaler Inhale 2 Puffs as instructed every 4 hours as needed. 0 01/26/2021 08/25/2023 Discontinued (Discontinued by Patient) Start: 01-26-2021 albuterol sulf ate HFA 108 (90 Base) MCG/ACT inhaler Inhale 2 puffs into the lungs every 6-8 hours as needed 0 01/26/2021 Active Start: 01-31-2020 take 1 mg by inhalat ion every six hours albuterol 0.083% Inh Lynnette 3 mL mg, mL, NEB, q6hr, Refill(s) 0 Start Date: 01/31/20 Status: Ordered End: 08-25-2023 take 2.5 mg by inhalation every six hours as needed albuterol (PROVENTIL) 2.5 mg /3 mL (0.083 %) nebulizer solution Inhale 2.5 mg as instructed every 6 hours as needed. 0 08/25/2023 Discontinued (Discontinued by Patient) ALBUTEROL IN Inh ruth into the lungs 0 Active Comment on above: Inhale 1 Puff as ins tructed four times daily. Inhale 2.5 mg as ins tructed every 6 hours as needed. Inhale 2 Puffs as in structed every 4 hours as needed. ascorbic acid 1000 mg oral tablet (2 sources) Vitamin C Start: 12-17-2020 Ascorbic Acid (VITAMIN C) 1000 MG tablet baclofen 10 mg oral tablet (20 sources) gamma-Aminobutyric Acid-ergic Agonist Start: 01-13-2024 take 10 mg by mouth once daily Baclofen Active 10 MG PO Daily January 13, 2024 12:00am Start: 11-12-2023 BACLOFEN 10 MG TABLET BACLOFEN 10 MG TABLET Start Date: 11/12/23 Status: Ordered Start: 02-25-2023 End: 08-25-2023 take 5-10 mg by mouth every twelve hours as needed baclofen 10 mg tablet Take 0.5-1 tablets by mouth twice daily as needed (spasms or pain). 60 tablet 2 06/25/2023 Active Comment on above: Take 0.5-1 tablets b y mouth twice daily as needed (spasms or pain). Calcium Carbonate (3 sources) Start: 021 Tums as directed, Refills(s) 0 Start Date: 01/16/21 Status: Ordered cholecalciferol 0.025 mg oral capsule (15 sources) Vitamin D Start: End: take 1 capsule by mouth once daily Cholecalciferol (Vitamin D3) Active 1 CAP PO Daily January 18, 2019 12:00am Comment on above: Take 1 capsule by mo [facility] once daily. clindamycin 0.01 mg/mg topical gel (8 sources) Lincosamide Antibacterial Start: Clindamycin Phosphate Active 1 APPLIC TOPICAL Daily February 10, 2022 12:00am Start: 09-09-2020 clindamycin To p 1% Gel APPLY TO FACE EVERY MORNING Start Date: 01/16/21 Status: Ordered cyclobenzaprine hydrochloride 10 mg oral tablet (5 sources) Muscle Relaxant Start: 01-16-2021 take 1 tablet by mouth three times daily as needed for muscle spasms cyclobenzaprine 10 mg Tab 10 mg = 1 tab(s), Oral, TID, PRN for spasm, # 30 tab(s), Refills(s) 0 Start Date: 01/16/21 Status: Ordered Start: 09-23-2020 take 1 tablet by [facility] every eight hours as needed for pain cyclobenzaprine (FLEXERIL) 10 MG tablet TAKE 1 TABLET BY MOUTH EVERY 8 HOURS NEEDED FOR PAIN 0 09/23/2020 Active docusate sodium 50 mg / sennosides, half-way 8.6 mg oral tablet (2 sources) Start: 12-21-2020 senna-docusate (STOOL SOFTENER LAXATIVE) 8.6-50 MG per tablet doxepin hydrochloride 10 mg oral capsule (5 sources) Tricyclic Antidepressant Start: 11-21-2020 take 1-2 capsules by mouth once daily at bedtime doxepin 10 mg Cap TAKE 1 TO 2 CAPSULES BY MOUTH EVERY DAY AT BEDTIME Start Date: 01/16/21 Status: Ordered DULoxetine 30 mg delayed release oral capsule (20 sources) Serotonin and Norepinephrine Reuptake Inhibitor Start: 01-13-2024 take 30 mg by mouth once daily Duloxetine Active 30 MG PO Daily January 13, 2024 12:00am Start: 02-15-2022 End: 08-25-2023 take 60 mg by mouth once daily Duloxetine Active 60 MG PO Daily February 15, 2022 12:00am Start: 01-29-2022 End: 02-15-2022 take 40 mg by mouth once daily Duloxetine Discontinued 40 MG PO Daily January 29, 2022 12:00am February 15, 2022 10:32am Start: 03-29-2020 take 1 capsule by mo uth twice daily DULoxetine (CYMBALTA) 60 MG extended release capsule Take 60 mg by mouth 2 times daily 0 03/29/2020 Active Start: 01-25-2020 take 20 mg by mouth once daily duloxetine 20 mg, Oral, Daily, Refills(s) 0 Start Date: 01/25/20 Status: Ordered Start: 01-17-2019 End: 01-29-2022 take 20 mg by mouth twice daily Duloxetine Discontinue d 20 MG PO Twice daily January 17, 2019 12:00am January 29, 2022 4:57pm take 1 capsule by mo [facility] every twenty-four hours DULoxetine HCl 30 MG 1 capsule Orally Once a day Not-Taking take 1 capsule by mo uth once daily DULoxetine (CYMBALTA) 20 MG extended release capsule Take 20 mg by mouth daily 0 Active Comment on above: Take 60 mg by mouth every morning. Take 60 mg by mouth. famotidine 10 mg oral tablet (4 sources) Histamine-2 Receptor Antagonist Start: 10-03-2021 take 10 mg by mouth once daily before mealtime Pepcid AC 10 mg, Oral, Daily, Refills(s) 0 Start Date: 10/03/21 Status: Ordered take 1 tablet by guy every twenty-four hours Pepcid 20 MG 1 tablet at bedtime as needed Orally Once a day Active ferrous sulfate 325 mg delayed release oral tablet (7 sources) Start: 01-13-2024 take 325 mg by mouth once daily Ferrous Sulfate Active 325 MG PO Daily January 13, 2024 12:00am Start: 12-17-2020 take 1 tablet by guy th once daily ferrous sulfate (IRON 325) 325 (65 Fe) MG tablet TAKE 1 TABLET BY MOUTH EVERY DAY 0 12/17/2020 Active Ferrous Sulfate (IRON) 325 (65 Fe) MG TABS Take by mouth daily 0 Active fluticasone (6 sources) Corticosteroid Fluticasone Prop ionate (FLONASE NA) by Nasal route as needed 0 Active Fluticasone Propion-Salmeterol (19 sources) Corticosteroid, beta2-Adrenergic Agonist Start: 01-13-2024 Fluticasone Propion-Salmeterol (Wixela Inhub) 500-50 mcg/dose blister with device Active 1 INH INHALATION Twice daily January 13, 2024 12:00am Start: 02-04-2023 take 1 puff(s) by in halation twice daily WIXELA INHUB 500-50 mcg/dose dsdv Inhale 1 Puff as instructed twice daily. 0 02/04/2023 Active Start: 08-04-2022 End: 08-25-2023 take 1 puff(s) by mouth every twelve hours fluticasone-salmeterol (WIXELA INHUB) 500-50 mcg/dose dsdv INHALE 1 PUFF BY MOUTH EVERY 12 HOURS 0 08/04/2022 08/25/2023 Discontinued (Duplicate Entry) Start: 08-04-2022 take 1 puff(s) by mo uth every twelve hours fluticasone-salmeterol (WIXELA INHUB) 500-50 mcg/dose dsdv INHALE 1 PUFF BY MOUTH EVERY 12 HOURS 0 08/04/2022 Active take 1 puff(s) by mo uth every twelve hours in the morning Wixela Inhub 500-50 MCG/ACT INHALE 1 PUFF BY MOUTH EVERY 12 HOURS Inhalation for 30 Days 1 puff in the morning, 1 puff at night Active Comment on above: Inhale 1 Puff as ins tructed twice daily. INHALE 1 PUFF BY GUY EVERY 12 HOURS hydroCHLOROthiazide 25 mg oral tablet (4 sources) Thiazide Diuretic take 1 tablet by mouth once daily in the morning hydroCHLOROthiazide (HYDRODIURIL) 25 MG tablet Take 25 mg by mouth every morning 0 Active hydrOXYzine pamoate 25 mg oral capsule (9 sources) Antihistamine Start : 01-12 take 25 mg by mouth twice daily Hydroxyzine Pamoate Active 25 MG PO Twice daily January 13, 2024 12:00am Start: 06-23-2023 End: 08-25-2023 take 1 capsule by mouth twice daily as needed for anxiety hydrOXYzine pamoate (VISTARIL) 25 mg capsule TAKE 1 CAPSULE BY MOUTH 2 TIMES A DAY NEEDED FOR ANXIETY. 0 06/23/2023 08/25/2023 Discontinued (Duplicate Entry) Start: 02-15-2022 take 50 mg by mouth every six hours Hydroxyzine Pamoate Active 50 MG PO Q6H 30 February 15, 2022 12:00am End: 08-25-2023 take 1 tablet by mouth every six hours as needed hydrOXYzine HCl (ATARAX) 50 mg tablet Take 50 mg by mouth four times daily as needed. 0 08/25/2023 Discontinued (Discontinued by Patient) Comment on above: Take 50 mg by mouth four times daily as needed. TAKE 1 CAPSULE BY MO UTH 2 TIMES A DAY NEEDED FOR ANXIETY. lisdexamfetamine dimesylate 30 mg oral capsule (20 sources) Central Nervous System Stimulant Start: 024 take 1 capsule by mouth once daily Lisdexamfetamine (Vyvanse) 30 mg capsule Active 30 MG PO Daily January 13, 2024 12:00am Start: 11-12-2023 Vyvanse 30 mg oral capsule Refill(s) 0 Start Date: 11/12/23 Status: Ordered Start: 06-08-2023 End: 08-25-2023 lisdexamfetamine (VYVANSE) 3 0 mg capsule Take 30 mg by mouth. 0 06/08/2023 08/25/2023 Discontinued (Duplicate Entry) Start: 12-07-2020 take 1 capsule by mo uth in the morning VYVANSE 30 MG capsule TAKE 1 CAPSULE BY MOUTH IN THE MORNING 0 12/07/2020 Active Start: 01-25-2020 Vyvanse 40 mg, qAM, Refill(s) 0 Start Date: 01/25/20 Status: Ordered take 1 capsule by mo uth every twenty-four hours lisdexamfetamine (VYVANSE) 30 mg capsule Take 1 capsule by mouth q 24 HR. 0 Active take 1 capsule by mo uth once daily in the morning lisdexamfetamine (VYVANSE) 50 MG capsule Take 50 mg by mouth every morning. 0 Active Comment on above: Take 1 capsule by mo uth q 24 HR. Take 30 mg by mouth. lisinopril 10 mg oral tablet (14 sources) Angiotensin Converting Enzyme Inhibitor Start: 01-25-2020 take 10 mg by mouth once daily lisinopril 10 mg, Oral, Daily, Refills(s) 0 Start Date: 01/25/20 Status: Ordered Start: 01-17-2019 take 10 mg by mouth once daily Lisinopril Active 10 MG PO Daily January 17, 2019 12:00am take 1 tablet by guy th once daily in the morning lisinopril (PRINIVIL;ZESTRIL) 20 MG tablet Take 20 mg by mouth every morning 0 Active lithium carbonate 300 mg oral tablet (20 sources) Start: 04-07-2020 take 1 tablet by mouth twice daily, then take 1 tablet by mouth in the morning, then take 3 tablets by mouth in the evening lithium 300 MG tablet Take 300 mg by mouth 2 times daily Patient takes 300 mg in the morning and 900 mg in the evening 0 04/07/2020 Active Start: 01-21-2019 End: 08-28-2021 take 900 mg by mouth at bedtime [place] Carbonate Disc ontinued 900 MG PO Bedtime January 21, 2019 12:00am August 28, 2021 4:23pm Start: 01-17-2019 End: 08-28-2021 take 300 mg by mouth once daily in the morning [place] Carbonate Discontinued 300 MG PO Every morning January 21, 2019 10:04am August 28, 2021 4:23pm Start: 01-17-2019 End: 01-21-2019 take 600 mg by mouth at bedtime [place] Carbonate Disc ontinued 600 MG PO Bedtime January 17, 2019 12:00am January 21, 2019 10:03am losartan potassium 100 mg oral tablet (20 sources) Angiotensin 2 Receptor Candy Start: 01-13-2024 take 100 mg by mouth once daily Losartan Active 100 MG PO Daily January 13, 2024 12:00am Start: 11-12-2023 losartan 100 m g Tab Refills(s) 0 Start Date: 11/12/23 Status: Ordered Start: 06-09-2023 End: 08-25-2023 take 1 tablet by mouth once losartan (COZAAR) 100 mg t ablet Take 1 tablet by mouth every afternoon. 0 06/09/2023 Active Comment on above: Take 1 tablet by guy th once daily. Take 1 tablet by guy th every afternoon. Magnesium (1 source) Magnesium Active Multi-Day Plus Minerals (3 sources) Start: 01-17-20 21 take 1 tablet by mouth once daily Multi-Day Plus Minerals 1 tab(s), Oral, Daily, Refill(s) 0 Start Date: 01/16/21 Status: Ordered Multiple Vitamins-Minerals (THERAPEUTIC MULTIVITAMIN-MINERALS ) tablet (2 sources) take 1 tablet by mouth once daily Multiple Vitamins-Minerals (THERAPEUTIC MULTIVITAMIN-MINERAL S) tablet Take 1 tablet by mouth daily 0 Active Multivitamin preparation (1 source) Multivitamin Act ernestine NAC 600 MG (1 source) take 1 capsule by mouth twice daily NAC 600 MG 1 capsule Orally bid Active naproxen 500 mg oral tablet (4 sources) Nonsteroidal Anti-inflammatory Drug Start: 04-20-20 20 take 1 tablet by mouth twice daily as needed naproxen (NAPROSYN) 500 MG tablet Take 1 po bid PRN 60 tablet 3 04/20/2020 Active Nutritional Supplements (BOOST HIGH PROTEIN) POWD (2 sources) Nutritional Supplements (BOOST HIGH PROTEIN) POWD Take by mouth 0 Active OLANZapine 5 mg oral tablet (3 sources) Atypical Antipsychotic Start: 02-16-20 take 5 mg by mouth every twelve hours Olanzapine Active 5 MG PO Every 12 hours February 15, 2022 12:00am omeprazole 20 mg delayed release oral capsule (20 sources) Proton Pump Inhibitor Start: 08-28-20 21 End: 08-25-20 23 omeprazole 20 mg Cap-DR Refills(s) 0 Start Date: 11/12/23 Status: Ordered take 1 tablet by mouth once brandan y omeprazole 20 MG EC tablet Take 20 mg by mouth daily 0 Active Comment on above: Take 20 mg by mouth once daily. Take 20 mg by mouth. ondansetron 4 mg oral tablet (20 sources) Serotonin-3 Receptor Antagonist Start: 1 End: 3 take 1 tablet by mouth three times daily as needed for nausea ondansetron 4 mg Tab TAKE 1 TABLET BY MOUTH 3 TIMES DAILY NEEDED FOR NAUSEA OR VOMITING Start Date: 01/16/21 Status: Ordered Start: 04-20-2020 take 1 tablet by guy th three times daily as needed for nausea ondansetron (ZOFRAN) 4 MG tablet Take 1 tablet by mouth 3 times daily as needed for Nausea or Vomiting 30 tablet 2 04/20/2020 Active Ondansetron HCl (ZOFRAN PO) Take by mouth as needed 0 Active Comment on above: Take 4 mg by mouth. TAKE 1 TABLET BY GUY TH 3 TIMES DAILY NEEDED FOR NAUSEA OR VOMITING phentermine hydrochloride 37.5 mg oral tablet (2 sources) Sympathomimetic Amine Anorectic take 1 tablet by mouth once daily before breakfast phentermine (ADIPEX-P) 37.5 MG tablet Take 37.5 mg by mouth every morning (before breakfast). 0 Active polyethylene glycol 3350 58143 mg powder for oral solution (7 sources) Osmotic Laxative Start: take 17 g by mouth once daily Polyethylene Glycol 3350 Active 17 GM PO Daily January 13, 2024 12:00am Start: 11-12-2023 take 17 g by mouth once daily Miralax 3350 17 gram packet 17 gm, Oral, Daily, # 100 EA, Refills(s) 6, Pharmacy: [facility]/pharmacy #[id number], 160, cm, 11/12/23 13:15:00 EST, Height/Length Dosing, 135, kg, 11/12/23 13:15:00 EST, Weight Dosing Start Date: 11/12/23 Status: Ordered polyethylene gly col 3350 (MIRALAX) 17 gram/dose powder 1 scoop mixed with 8 ounces of fluid Orally Once a day 0 Active Comment on above: 1 scoop mixed with 8 ounces of fluid Orally Once a day pregabalin 100 mg oral capsule (16 sources) Start: 01-13-2024 take 100 mg by mouth three times daily Pregabalin Active 100 MG PO Three times daily January 13, 2024 12:00am Start: 02-25-2023 End: 08-25-2023 take 1 capsule by mouth twice daily pregabalin (LYRICA) 75 mg capsule TAKE 1 CAPSULE BY MOUTH TWICE DAILY FOR 150 DAYS. 0 03/25/2023 Active Comment on above: Take 1 capsule by mo [facility] twice daily for 150 days. Progesterone (2 sources) Progesterone PROGESTERONE [facility] vaginally as needed 0 Active 1 ml promethazine hydrochloride 25 mg/ml injection (2 sources) Phenothiazine Start: 05-03-2020 promethazine (PHENERGAN) injection 12.5 mg Start: 05-02-2020 promethazine ( PHENERGAN) tablet 12.5 mg 24 hr QUEtiapine 300 mg extended release oral tablet (20 sources) Atypical Antipsychotic Start: 01-13-2024 take 300 mg by mouth once daily Quetiapine Active 300 MG PO Daily January 13, 2024 12:00am Start: 11-12-2023 quetiapine 300 mg oral ER Tab Refills(s) 0 Start Date: 11/12/23 Status: Ordered Start: 03-26-2023 take 1 tablet by gyu th every twenty-four hours QUEtiapine XR (SEROQUEL XR) 300 mg 24 hr tablet Take 300 mg by mouth. 0 03/26/2023 Active Start: 02-05-2023 End: 08-25-2023 take 1 tablet by mouth once daily QUEtiapine ER (SEROQUEL XR) 200 mg 24 hr tablet Take 1 tablet by mouth once daily. Taking 300 mg daily 0 02/05/2023 08/25/2023 Discontinued (Discontinued by Patient) Start: 02-15-2022 take 100 mg by mouth once daily at bedtime Quetiapine Active 100 MG PO Daily at bedtime February 15, 2022 12:00am Comment on above: Take 1 tablet by guy th once daily. Take 300 mg by mouth . Take 1 tablet by guy th once daily. Taking 300 mg daily rizatriptan 10 mg oral tablet (9 sources) Serotonin-1b and Serotonin-1d Receptor Agonist Start: 01-13-2024 take 10 mg by mouth every two hours Rizatriptan Active 10 MG PO Every 2 hours January 13, 2024 12:00am Start: 11-12-2023 rizatriptan 10 mg Tab Refills(s) 0 Start Date: 11/12/23 Status: Ordered Start: 07-08-2023 rizatriptan (M AXALT) 10 mg tablet TAKE ONE TAB AT HEADACHE ONSET,MAY REPEAT IN 2 HOURS IF NEEDED, MAX 2/DAY 4 DAYS OUT OF THE WEEK 0 07/08/2023 Active Comment on above: TAKE ONE TAB AT HEAD ACHE ONSET,MAY REPEAT IN 2 HOURS IF NEEDED, MAX 2/DAY 4 DAYS OUT OF THE WEEK rOPINIRole 0.5 mg oral tablet (20 sources) Nonergot Dopamine Agonist Start: 01-31-2020 take 2 tablets by mouth at bedtime Requip 0.5 mg Tab mg tab(s), Oral, Bedtime, Refills(s) 0 Start Date: 01/31/20 Status: Ordered Start: 06-14-2018 End: 08-25-2023 take 0.5 mg by mouth at bedtime Ropinirole Active 0.5 MG PO Bedtime January 17, 2019 12:00am Comment on above: Take 1 tablet by guy th once daily. 3 ml sodium chloride 9 mg/ml injection (4 sources) Start: 06-16-2020 sodium chloride flush 0.9 % injection 10 mL Start: 05-02-2020 0.9 % sodium c hloride infusion Start: 05-02-2020 sodium chlorid e flush 0.9 % injection 10 mL SUMAtriptan 100 mg oral tablet (20 sources) Serotonin-1b and Serotonin-1d Receptor Agonist Start: 12-28-2021 End: 08-25-2023 take 100 mg by mouth once daily Sumatriptan Succinate Active 100 MG PO Daily January 29, 2022 12:00am Start: 01-16-2021 take 1 tablet by guy th every two hours, then take 2 tablets by mouth every twenty-four hours SUMAtriptan 100 mg Tab 100 mg = 1 tab(s), Oral, Daily, PRN for migraine headache, may repeat dose after 2 hours up to a maximum of 200 mg in 24 hours, # 18 tab(s), Refills(s) 0 Start Date: 01/16/21 Status: Ordered Start: 12-26-2020 SUMAtriptan (I MITREX) 100 MG tablet Take one at [place] onset . May repeat in 1 hour . No more 2 per day 4 days out of the wek 18 tablet 5 12/26/2020 Active Comment on above: Take 1 tablet by guy th as needed. TAKE 1 TAB BY MOUTH AT ONSET OF HEADACHE*MAY REPEAT IN 1 HOUR*NO MORE THAN 2 PER DAY/4 DAYS PER WEEK traZODone hydrochloride 50 mg oral tablet (7 sources) Serotonin Reuptake Inhibitor Start: take 50 mg by mouth once daily at bedtime Trazodone Active 50 MG PO Daily at bedtime 15 15 February 15, 2022 12:00am take 1 tablet by mouth once brandan y traZODone (DESYREL) 50 MG tablet Take 50 mg by mouth nightly 0 Active tretinoin 0.5 mg/ml topical cream (13 sources) Retinoid Start: 02-10-2022 Tretinoin Acti ve 1 APPLIC TOPICAL Daily at bedtime February 10, 2022 12:00am Start: 08-28-2021 End: 01-29-2022 Tretinoin Discontinued 1 VIVIANA LIC TOPICAL Daily at bedtime August 28, 2021 12:00am January 29, 2022 4:59pm Start: 01-16-2021 tretinoin topi grant 0.05% cream APPLY TO FACE EVERY DAY AT BEDTIME Start Date: 01/16/21 Status: Ordered tretinoin (RETIN -A) 0.05 % cream Apply topically nightly Apply topically nightly. 0 Active verapamil hydrochloride 180 mg extended release oral tablet (20 sources) Calcium Channel Candy Start: 01-13-2024 take 180 mg by mouth once daily Verapamil Active 180 MG PO Daily January 13, 2024 12:00am Start: 01-29-2022 End: 01-29-2022 Verapamil Discontinued MG PO January 29, 2022 12:00am January 29, 2022 5:00pm Start: 08-28-2021 take 180 mg by mouth at bedtim e Verapamil Active 180 MG PO Bedtime August 28, 2021 12:00am Start: 12-26-2020 End: 08-25-2023 take 180 mg by mouth once daily at bedtime verapamil 180 mg, Oral, Once a day (at bedtime), ER, Refills(s) 0 Start Date: 01/16/21 Status: Ordered Start: 06-25-2020 take 1 tablet by guy th once daily verapamil (CALAN SR) 120 MG extended release tablet Take 1 tablet by mouth nightly 30 tablet 5 06/25/2020 Active Start: 06-17-2020 verapamil ER 1 80 mg 24 hr capsule Comment on above: TAKE ONE TABLET BY M OUTH ONCE DAILY AT NIGHT Vitamin D (2 sources) Vitamin D 125mcg (5000 iu) 2 softgels in the morning Active Vitamin D Oral (3 sources) Start: 10-03-2021 Vitamin D Oral 50,000 International_Unit, Oral, Daily, Refills(s) 0 Start Date: 10/03/21 Status: Ordered Completed/Discontinued Medications Medication Drug Class(es) Dates Sig (Normalized) Sig (Original) acetaminophen 500 mg oral tablet (13 sources) Start: 08-28-2021 End: 01-29-2022 take 1000 mg by mouth every six hours Acetaminophen Discontinued 1000 MG PO Q6H August 28, 2021 12:00am January 29, 2022 4:58pm Start: 01-16-2021 take 1000 mg by mout h three times daily as needed for pain acetaminophen 1,000 mg, Oral, TID, PRN as needed for pain, Rapid release, Refills(s) 0 Start Date: 01/16/21 Status: Ordered Start: 05-02-2020 acetaminophen (TYLENOL) tablet 650 mg End: 08-25-2023 acetaminophen (TYLENOL) 500 mg tablet Take 500 mg by mouth. 0 08/25/2023 Discontinued (Discontinued by Patient) Comment on above: Take 500 mg by mouth . 12 hr acetaZOLAMIDE 500 mg extended release oral capsule (20 sources) Carbonic Anhydrase Inhibitor Start: take 1 capsule by mouth once daily acetaZOLAMIDE 500 mg oral capsule, extended release 500 mg = 1 cap(s), Oral, Daily, # 30 cap(s), Refills(s) 0 Start Date: 01/16/21 Status: Ordered Start: 12-26-2020 End: 08-25-2023 take 500 mg by mouth twice daily Acetazolamide Discontinued 500 MG PO Twice daily August 28, 2021 12:00am January 29, 2022 4:58pm Start: 05-01-2020 End: 07-30-2020 take 1 tablet by mouth twice daily acetaZOLAMIDE (DIAMOX) 250 MG tablet Indications: Pseudotumor cerebri Take 1 tablet by mouth 2 times daily 60 tablet 2 05/01/2020 07/30/2020 Active Comment on above: Take 500 mg by mouth twice daily. Take 1 capsule by mo uth twice daily. Albuterol Sulfate (Proair Hfa) 90 mcg/actuation Hfa Aerosol Inhaler (5 sources) Start: 9 End: take 1 puff(s) by inhalation every four to six hours Albuterol Sulfate (Proair Hfa) 90 mcg/actuation Hfa Aerosol Inhaler Discontinued 1 PUFF INHALATION EVERY 4-6 HOURS January 17, 2019 2:15am August 28, 2021 4:23pm Start: 01-17-2019 End: 08-28-2021 take 1 puff(s) by inhalation every four to six hours Albuterol Sulfate (Proair Hfa) 90 mcg/actuation Hfa Aerosol Inhaler Discontinued 1 PUFF INHALATION EVERY 4-6 HOURS January 17, 2019 12:00am August 28, 2021 4:23pm Start: 01-17-2019 End: 08-28-2021 take 1 puff(s) by inhalation every four to six hours Albuterol Sulfate (Proair Hfa) 90 mcg/actuation Hfa Aerosol Inhaler Discontinued 1 PUFF INHALATION EVERY 4-6 HOURS January 16, 2019 11:00pm August 28, 2021 3:23pm cariprazine 3 mg oral capsule (5 sources) Atypical Antipsychotic Start: 09-02-2019 End: 08-28-2021 take 1 capsule by mouth once daily Cariprazine (Vraylar) 3 mg Capsule Discontinued 3 MG PO Daily September 02, 2019 1:00am August 28, 2021 4:23pm Cinnamon Preparation (2 sources) Non-Standardized Food Allergenic Extract Cinnamon 600mg 2 capsules in the morning Not-Taking Cinnamon 600mg 2 capsules in the morning Active furosemide 20 mg oral tablet (2 sources) Loop Diuretic Start: 06-05-2023 End: 08-25-2023 furosemide (LASIX) 20 mg tablet gabapentin 300 mg oral capsule (13 sources) Anti-epileptic Agent Start: 02-09-2023 End: 02-25-2023 take 1 capsule by mouth twice daily gabapentin (NEURONTIN) 300 mg capsule Take 300 mg by mouth twice daily. 0 02/09/2023 02/25/2023 Discontinued Start: 08-28-2021 take 600 mg by mouth once brandan y Gabapentin Active 600 MG PO Daily August 28, 2021 4:18pm Start: 08-28-2021 take 600 mg by mouth twice jane ly Gabapentin Active 600 MG PO Twice daily August 28, 2021 12:00am Start: 12-26-2020 End: 03-28-2021 take 1 tablet by mouth three times daily gabapentin 600 mg Tab TAKE 1 TABLET BY MOUTH THREE TIMES A DAY Start Date: 01/16/21 Status: Ordered Comment on above: Take 300 mg by mouth twice daily. gadoteridol (PROHANCE) injection 20 mL (1 source) Start: 06-16-2020 End: 06-16-2020 gadoteridol (PROHANCE) injection 20 mL 1 ml heparin sodium, porcine 1000 unt/ml injection (5 sources) Unfractionated Heparin, Anti-coagulant Start: 05-02-2020 End: 05-02-2020 heparin (porcine) injection 1,200 Units Start: 05-02-2020 End: 05-02-2020 heparin (porcine) injection 1,300 Units Start: 05-02-2020 End: 05-02-2020 heparin (porcine) injection Start: 05-02-2020 heparin (porci ne) injection 5,000 Units iv contrast (will be provided with radiology test) (4 sources) Start: 02-25-2023 End: 02-26-2023 inject 1 dose intravenously once iv contrast (will be provided with radiology test) MRI Brain Inject, intravenously, once for 1 dose.No IV access, insert saline lock prior to beginning of sedation, infusion, injection of imaging exam.Discontinue saline lock post exam. If Pt. has a central line or IVAD, may access for administration according to line specific nursing protocol.Once exam is complete flush line and de-access according to line specific nursing protocol in the MR contrast administration guidelines link 1 Each 0 02/25/2023 02/26/2023 Start: 02-25-2023 End: 02-26-2023 iv contrast (will be provide d with radiology test) MRI CSP Inject, intravenously, once for 1 dose. No IV access, insert saline lock prior to the beginning of sedation, infusion, injection of imaging exam. Discontinue saline lock post exam. If Pt. has a central line or IVAD, may access for administration according to line specific nursing protocol. Once exam is complete flush line and de-access according to line specific nursing protocol in the MR contrast administration guidelines link. 1 Each 0 02/25/2023 02/26/2023 Start: 02-25-2023 End: 02-26-2023 inject 1 dose intravenously once iv contrast (will be provided with radiology test) MRI Brain Inject, intravenously, once for 1 dose.No IV access, insert saline lock prior to beginning of sedation, infusion, injection of imaging exam.Discontinue saline lock post exam. If Pt. has a central line or IVAD, may access for administration according to line specific nursing protocol.Once exam is complete flush line and de-access according to line specific nursing protocol in the MR contrast administration guidelines link 1 Each 0 02/25/2023 02/26/2023 Active Start: 02-25-2023 End: 02-26-2023 iv contrast (will be provide d with radiology test) MRI CSP Inject, intravenously, once for 1 dose. No IV access, insert saline lock prior to the beginning of sedation, infusion, injection of imaging exam. Discontinue saline lock post exam. If Pt. has a central line or IVAD, may access for administration according to line specific nursing protocol. Once exam is complete flush line and de-access according to line specific nursing protocol in the MR contrast administration guidelines link. 1 Each 0 02/25/2023 02/26/2023 Active Comment on above: MRI Brain Inject, in travenously, once for 1 dose.No IV access, insert saline lock prior to beginning of sedation, infusion, injection of imaging exam.Discontinue saline lock post exam. If Pt. has a central line or IVAD, may access for administration according to line specific nursing protocol.Once exam is complete flush line and de-access according to line specific nursing protocol in the MR contrast administration guidelines link MRI CSP Inject, intr avenously, once for 1 dose. No IV access, insert saline lock prior to the beginning of sedation, infusion, injection of imaging exam. Discontinue saline lock post exam. If Pt. has a central line or IVAD, may access for administration according to line specific nursing protocol. Once exam is complete flush line and de-access according to line specific nursing protocol in the MR contrast administration guidelines link. levothyroxine sodium 0.025 mg oral tablet (20 sources) l-Thyroxine Start: 023 take 0.5 tablet by mouth once daily levothyroxine (SYNTHROID) 25 mcg tablet Take 0.5 tablets by mouth once daily. 0 02/09/2023 Active Start: 01-25-2020 take 25 ug by mouth once daily Synthroid 25 mcg, Oral, Daily, Refills(s) 0 Start Date: 01/25/20 Status: Ordered Start: 01-17-2019 End: 08-25-2023 take 25 ug by mouth once daily in the morning Levothyroxine Active 25 MCG PO Every morning January 17, 2019 12:00am take 0.5 tablet by m outh once daily in the morning Levothyroxine Sodium 25 MCG TAKE 1/2 TABLET BY MOUTH IN THE MORNING ON AN EMPTY STOMACH Oral Once a day for 30 days E039,Unavailable Active take 25 ug by mouth once daily in the morning LEVOTHYROXINE SODIUM PO Take 25 mcg by mouth every morning 0 Active Comment on above: Take 0.5 tablets by mouth once daily. Take 1 tablet by guy th once daily. 3 ml liraglutide 6 mg/ml pen injector (12 sources) GLP-1 Receptor Agonist Start: 02-18-2023 End: 08-25-2023 VICTOZA 3-DEB 0.6 mg/0.1 mL (18 mg/3 mL) Inject 1 mg subcutaneously once daily. 0 02/18/2023 08/25/2023 Discontinued (Discontinued by Patient) inject 0.6 mg by sub cutaneous injection once daily Victoza 18 MG/3ML 0.6mg Subcutaneous Daily for 30 days Active Comment on above: Inject 1 mg subcutan eously once daily. lurasidone hydrochloride 40 mg oral tablet (20 sources) Atypical Antipsychotic Start: 08-28-20 End: 02-03-20 22 take 1 tablet by mouth once daily in the evening Lurasidone (Latuda) 40 mg Tablet Discontinued 80 MG PO Every evening August 28, 2021 12:00am February 02, 2022 11:13am Start: 01-21-2019 End: 09-02-2019 take 1 tablet by mouth once daily at bedtime Lurasidone (Latuda) 80 mg Tablet Discontinued 80 MG PO Daily at bedtime January 21, 2019 12:00am September 02, 2019 9:02am Start: 01-17-2019 End: 01-21-2019 take 1 tablet by mouth at bedtime Lurasidone (Latuda) 60 mg tablet Discontinued 60 MG PO Bedtime January 17, 2019 12:00am January 21, 2019 10:04am take 1 tablet by guy th once daily lurasidone (LATUDA) 20 MG TABS tablet Take 20 mg by mouth nightly 0 Active Medical Marijuana (5 sources) Start: 08-28-2021 End: 02-02-2022 Medical Marijuana Discontinu ed 1 DOSE PO As Directed August 28, 2021 4:18pm February 02, 2022 11:13am Start: 08-28-2021 Medical Mariju marcella Active 1 DOSE PO As Directed August 28, 2021 4:18pm Start: 08-28-2021 End: 02-02-2022 Medical Marijuana Discontinu ed 1 DOSE PO As Directed August 28, 2021 12:00am February 02, 2022 11:13am Start: 08-28-2021 End: 02-02-2022 Medical Marijuana Discontinu ed 1 DOSE PO As Directed August 27, 2021 11:00pm February 02, 2022 10:13am 24 hr nicotine 0.583 mg/hr transdermal system (16 sources) Cholinergic Nicotinic Agonist Start: 04-25-2023 End: 08-25-2023 apply 1 dose transdermal route every hour at bedtime nicotine (NICODERM) 14 mg/24 hr APPLY 1 PATCH IN THE AM, REMOVE AT BEDTIME 0 04/25/2023 08/25/2023 Discontinued (Discontinued by Patient) Start: 02-02-2022 Nicotine Activ e 1 EACH TRANSDERML Daily February 02, 2022 12:00am Start: 05-02-2020 nicotine (KAREN DERM CQ) 21 MG/24HR 1 patch Start: 01-21-2019 End: 08-28-2021 Nicotine Discontinued 1 EACH TRANSDERML Daily January 21, 2019 12:00am August 28, 2021 4:23pm apply 1 dose transde rmal route once daily Nicotine 14 MG/24HR 1 patch to skin Transdermal Once a day Active apply 1 dose transde rmal route every twenty-four hours nicotine (NICODERM CQ) 14 MG/24HR Place 1 patch onto the skin every 24 hours 0 Active Comment on above: APPLY 1 PATCH IN THE AM, REMOVE AT BEDTIME nystatin [id number] unt/ml oral suspension (18 sources) Polyene Antifungal Start: 01-21-2023 End: 08-25-2023 take 5 mL by mouth four times daily nystatin (MYCOSTATIN) 100,000 unit/mL suspension SWISH AND SWALLOW 5ML BY MOUTH 4 TIMES A DAY 0 01/21/2023 08/25/2023 Discontinued (Duplicate Entry) nystatin (MYCOST ATIN) 100,000 unit/mL suspension Take 1 Units by mouth as needed. 0 Active take 5 mL by mouth f our times daily as needed Nystatin [id number] UNIT/ML SWISH AND SWALLO W 5ML BY MOUTH 4 TIMES A DAY Mouth/Throat PRN for 5 days Active Comment on above: Take 1 Units by mout h as needed. SWISH AND SWALLOW 5M L BY MOUTH 4 TIMES A DAY 24 hr paliperidone 6 mg extended release oral tablet (4 sources) Atypical Antipsychotic Start: 02-03-20 End: 02-16-20 take 1 tablet by mouth once daily at bedtime Paliperidone (Invega) 6 mg tablet extended release 24 hr Discontinued 6 MG PO Daily at bedtime February 02, 2022 12:00am February 15, 2022 10:32am potassium chloride 20 meq extended release oral tablet (4 sources) Start: 06-05-20 End: 08-25-20 potassium chloride 20 mEq TbER Start: 05-03-2020 End: 05-03-2020 potassium chloride (KLOR-CON M) extended release tablet 20 mEq Start: 05-03-2020 potassium chlo ride 10 mEq/100 mL IVPB (Peripheral Line) 60 actuat tiotropium 0.13904 mg/actuat inhalation spray (18 sources) Anticholinergic Start: 12-13-2022 End: 08-25-2023 tiotropium bromide (SPIRIVA RESPIMAT) 1.25 mcg/actuation mist take 1.25 ug by inhalation in morning Spiriva Respimat 1.25 MCG/ACT 2 puffs Inhalation in the morning for 30 days Active Comment on above: Inhale 2 Puffs as in structed once daily. Problems Active Problems Problem Classification Problem Date Documented Da te Episodic/Chronic Acute and unspecified renal failure (4 sources) Acute injury of kidney; Translations: [Acute kidney failure, unspecified] Onset: 0 Resolved: 0 05-02-2020 Episodic Acute and unspecified renal failure (10 sources) Acute injury of kidney; Translations: [CARMENZA (acute kidney injury) ([facility])] Onset: 0 05-02-2020 Acute bronchitis (5 sources) Acute bronchitis due to other specified organisms; Translations: [Acute bronchitis] Onset: 2 Episodic Administrative/social admission (1 source) Persons encountering health services in other specified circumstances Episodic Alcohol-related disorders (3 sources) H/O: alcoholism 01-25-2020 Chronic Anxiety disorders (18 sources) Anxiety; Translations: [Anxiety disorder, unspecified] Onset: 2 01-17-2019 Chronic Asthma (19 sources) Asthma; Translations: [Unspecified asthma, uncomplicated] Onset: 2 01-17-2019 Chronic Attention-deficit, conduct, and disruptive behavior disorders (2 sources) Attention deficit hyperactivity disorder; Translations: [Attention-deficit hyperactivity disorder, unspecified type] Chronic Attention-deficit, conduct, and disruptive behavior disorders (2 sources) Attention-deficit hyperactivity disorder, unspecified type Chronic Blindness and vision defects (6 sources) Visual hallucinations; Translations: [Visual hallucinations] 01-30-2022 Episodic Calculus of urinary tract (1 source) Kidney stone; Translations: [Calculus of kidney] Episodic Cardiac dysrhythmias (2 sources) Palpitations; Translations: [Palpitations] Onset: 6 Episodic Coma; stupor; and brain damage (4 sources) Excessive daytime sleepiness - normal night sleep; Translations: [Somnolence] Episodic Contraceptive and procreative management (4 sources) Presence of (intrauterine) contraceptive device; Translations: [Initiation of transdermal contraception] Resolved: 0 Episodic Deficiency and other anemia (1 source) Anemia due to chronic blood loss; Translations: [Iron deficiency anemia secondary to blood loss (chronic)] Chronic Diabetes mellitus without complication (4 sources) Prediabetes; Translations: [Other abnormal glucose] Onset: 9 Resolved: 0 Episodic Diseases of mouth; excluding dental (1 source) Xerostomia; Translations: [Dry mouth, unspecified] Episodic Diseases of white blood cells (7 sources) Leukocytosis; Translations: [Elevated white blood cell count, unspecified] Onset: 0 05-02-2020 Chronic Disorders of lipid metabolism (5 sources) Pure hypercholesterolemia, unspecified; Translations: [Hyperlipidemia] Onset: 3 Chronic Endometriosis (4 sources) Endometriosis, unspecified; Translations: [Endometriosis] 01-25-2020 Chronic Esophageal disorders (10 sources) Gastroesophageal reflux disease; Translations: [Gastro-esophageal reflux disease without esophagitis] Onset: 5 01-17-2019 Chronic Essential hypertension (17 sources) Essential hypertension; Translations: [Essential (primary) hypertension] Onset: 0 05-02-2020 Chronic Fluid and electrolyte disorders (1 source) Hypokalemia; Translations: [Hypokalemia] Episodic Genitourinary symptoms and ill-defined conditions (5 sources) Urinary incontinence; Translations: [Unspecified urinary incontinence] 01-25-2020 Chronic Headache; including migraine (11 sources) Tension-type headache; Translations: [Tension-type headache, unspecified, not intractable] Onset: 6 01-17-2019 Chronic Immunizations and screening for infectious disease (6 sources) Encounter for screening for infections with a predominantly sexual mode of transmission; Translations: [Encounter for screening for other viral diseases] Onset: 2 Resolved: 2 01-13-2024 Episodic Inflammatory diseases of female pelvic organs (1 source) Acute vaginitis; Translations: [Acute vaginitis] Episodic Joint disorders and dislocations; trauma-related (4 sources) Chronic instability of knee, left knee; Translations: [CHRONIC INSTABILITY KNEE LEFT KNEE] Onset: 2 Chronic Menstrual disorders (4 sources) Irregular periods; Translations: [Irregular menstruation, unspecified] Resolved: 0 Chronic Miscellaneous mental health disorders (1 source) Abnormal sexual function; Translations: [Unspecified sexual dysfunction not due to a substance or known physiological condition] Chronic Mood disorders (20 sources) Bipolar disorder; Translations: [Bipolar disorder, unspecified] Onset: 6 Resolved: 0 05-02-2020 Chronic Multiple myeloma (2 sources) Multiple myeloma; Translations: [Multiple myeloma not having achieved remission] Onset: 3 08-25-2023 Chronic Mycoses (3 sources) Candidal vulvovaginitis; Translations: [Candidiasis of vulva and vagina] Onset: 2 Resolved: 2 Episodic Neoplasms of unspecified nature or uncertain behavior (1 source) Monoclonal gammopathy of uncertain significance; Translations: [Monoclonal gammopathy] 08-25-2023 Chronic Nutritional deficiencies (7 sources) Vitamin D deficiency; Translations: [Vitamin D deficiency, unspecified] 05-03-2020 Chronic Other aftercare (1 source) Long-term current use of inhaled steroid; Translations: [termite inspector (current) use of inhaled steroids] Episodic Other aftercare (1 source) History and physical examination, follow-up; Translations: [Encounter for follow-up examination after completed treatment for conditions other than malignant neoplasm] Episodic Other and unspecified benign neoplasm (1 source) Benign neoplasm of left adrenal gland; Translations: [BENIGN NEOPLASM LEFT ADRENAL GLAND] Onset: 2 Episodic Other circulatory disease (1 source) Elevated blood-pressure reading without diagnosis of hypertension; Translations: [Elevated blood-pressure reading, without diagnosis of hypertension] Episodic Other connective tissue disease (1 source) Muscle pain; Translations: [Myalgia, unspecified site] Episodic Other connective tissue disease (1 source) Pain in right foot; Translations: [Pain in right foot] Episodic Other connective tissue disease (4 sources) Fibromyalgia; Translations: [Fibromyalgia] 01-25-2020 Episodic Other diseases of veins and lymphatics (1 source) Peripheral venous insufficiency; Translations: [Venous insufficiency (chronic) (peripheral)] Episodic Other endocrine disorders (1 source) Disorder of adrenal gland; Translations: [Other specified disorders of adrenal gland] Chronic Other gastrointestinal disorders (1 source) Irritable bowel syndrome without diarrhea; Translations: [IRRITABLE BOWEL SYND W/O DIARRHEA] Onset: 2 Chronic Other gastrointestinal disorders (1 source) Irritable bowel syndrome; Translations: [Irritable bowel syndrome without diarrhea] Chronic Other hereditary and degenerative nervous system conditions (3 sources) Restless legs syndrome; Translations: [RESTLESS LEGS SYNDROME] Onset: 2 Chronic Other hereditary and degenerative nervous system conditions (3 sources) Restless legs; Translations: [Restless legs syndrome] Chronic Other hereditary and degenerative nervous system conditions (1 source) Mild cognitive disorder ; Translations: [Mild cognitive impairment, so stated] Chronic Other infections; including parasitic (5 sources) Lyme disease; Translations: [Lyme disease, unspecified] 01-17-2019 Episodic Other liver diseases (2 sources) Steatosis of liver; Translations: [Fatty (change of) liver, not elsewhere classified] Chronic Other liver diseases (2 sources) Fatty (change of) liver, not elsewhere classified Chronic Other liver diseases (1 source) Alkaline phosphatase raised; Translations: [Abnormal levels of other serum enzymes] 08-25-2023 Episodic Other lower respiratory disease (1 source) Other specified respiratory disorders; Translations: [OTHER SPEC RESPIRATORY DISORDERS] Onset: 2 Episodic Other lower respiratory disease (1 source) Disorder of respiratory system; Translations: [Other specified respiratory disorders] Episodic Other lower respiratory disease (1 source) Hemoptysis; Translations: [Hemoptysis] Episodic Other lower respiratory disease (1 source) Solitary nodule of lung; Translations: [Solitary pulmonary nodule] Episodic Other nervous system disorders (7 sources) Metabolic encephalopathy; Translations: [Metabolic encephalopathy] Onset: 0 05-02-2020 Chronic Other nervous system disorders (7 sources) Disorder of brain; Translations: [Encephalopathy, unspecified] 05-02-2020 Chronic Other nervous system disorders (13 sources) Benign intracranial hypertension; Translations: [Benign intracranial hypertension] Onset: 0 05-02-2020 Chronic Other nervous system disorders (2 sources) Chronic pain; Translations: [Other chronic pain] Chronic Other nervous system disorders (4 sources) Benign intracranial hypertension; Translations: [Benign intracranial hypertension] Onset: 3 Chronic Other nervous system disorders (2 sources) Other chronic pain Chronic Other nervous system disorders (1 source) Paresthesia; Translations: [Paresthesia of skin] Episodic Other non-traumatic joint disorders (2 sources) Multiple joint pain; Translations: [Pain in unspecified joint] 07-15-2023 Episodic Other non-traumatic joint disorders (1 source) Pain in unspecified joint; Translations: [Polyarthralgia] Onset: 3 Episodic Other nutritional; endocrine; and metabolic disorders (8 sources) Morbid obesity; Translations: [Morbid (severe) obesity due to excess calories] Onset: 0 05-02-2020 Chronic Other nutritional; endocrine; and metabolic disorders (2 sources) Obesity; Translations: [Obesity, unspecified] Chronic Other nutritional; endocrine; and metabolic disorders (2 sources) Obesity, unspecified Chronic Other nutritional; endocrine; and metabolic disorders (2 sources) Body mass index 40+ - severely obese; Translations: [Body mass index (BMI) 50.0-59.9, adult] Onset: 6 Chronic Other nutritional; endocrine; and metabolic disorders (3 sources) History of nutritional deficiency 01-25-2020 Episodic Other screening for suspected conditions (not mental disorders or infectious disease) (20 sources) Thyroid function tests abnormal; Translations: [Brightwood level high - toxic] Onset: 0 Resolved: 0 05-02-2020 Episodic Other skin disorders (4 sources) Localized swelling, mass and lump, neck; Translations: [LOCALIZED SWELLING MASS AND LUMP NECK] Onset: 3 Episodic Other upper respiratory disease (1 source) Allergic rhinitis due to pollen; Translations: [Allergic rhinitis due to pollen] Chronic Other upper respiratory disease (4 sources) Nasal congestion; Translations: [NASAL CONGESTION] Onset: 2 Episodic Other upper respiratory infections (2 sources) Chronic sinusitis; Translations: [Chronic sinusitis, unspecified] 01-13-2024 Chronic Pneumonia (except that caused by tuberculosis or sexually transmitted disease) (3 sources) Pneumonia, unspecified organism; Translations: [Pneumonia] Onset: 2 Episodic Poisoning by nonmedicinal substances (2 sources) Brightwood poisoning; Translations: [Toxic effect of other metals, accidental (unintentional), initial encounter] 05-02-2020 Chronic Poisoning by nonmedicinal substances (2 sources) Toxic effect of other metals, accidental (unintentional), subsequent encounter; Translations: [Late effect of toxic effects of nonmedical substances] Resolved: 0 Episodic Poisoning by psychotropic agents (5 sources) Brightwood poisoning; 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] 05-02-2020 Episodic Residual codes; unclassified (3 sources) Obstructive sleep apnea syndrome; Translations: [Obstructive sleep apnea (adult) (pediatric)] Chronic Residual codes; unclassified (2 sources) Obstructive sleep apnea (adult) (pediatric) Chronic Residual codes; unclassified (1 source) Periodic limb movement disorder; Translations: [Periodic limb movement disorder] Chronic Residual codes; unclassified (4 sources) Auditory hallucinations; Translations: [Auditory hallucinations] 01-30-2022 Episodic Residual codes; unclassified (2 sources) Auditory hallucinations; Translations: [Hallucinations] Episodic Residual codes; unclassified (1 source) Postprocedural state finding; Translations: [Other specified postprocedural states] Episodic Residual codes; unclassified (1 source) Edema, unspecified; Translations: [Edema, unspecified type] Onset: 3 Episodic Residual codes; unclassified (3 sources) H/O: Disorder 01-25-2020 Episodic Schizophrenia and other psychotic disorders (12 sources) Paranoid disorder; Translations: [Delusional disorders] 02-11-2022 Chronic Screening and history of mental health and substance abuse codes (1 source) Nicotine dependence; Translations: [Personal history of nicotine dependence] Episodic Sexually transmitted infections (not HIV or hepatitis) (1 source) Human papilloma virus deoxyribonucleic acid test positive, high risk on vaginal specimen; Translations: [Cervical high risk human papillomavirus (HPV) DNA test positive] Episodic Spondylosis; intervertebral disc disorders; other back problems (1 source) Cervical spondylosis with myelopathy; Translations: [Other spondylosis with myelopathy, cervical region] Chronic Spondylosis; intervertebral disc disorders; other back problems (10 sources) Sciatica; Translations: [Sciatica, unspecified side] Onset: 3 Episodic Substance-related disorders (9 sources) Nicotine dependence; Translations: [Nicotine dependence, unspecified, uncomplicated] Onset: 9 Resolved: 0 01-17-2019 Chronic Comment on above: Added secondary to d ocumentation in Social History. Suicide and intentional self-inflicted injury (7 sources) Suicidal thoughts; Translations: [Suicidal ideations] 01-17-2019 Episodic Thyroid disorders (15 sources) Hypothyroidism; Translations: [Hypothyroidism, unspecified] Onset: 9 Resolved: 0 01-17-2019 Chronic Unclassified (1 source) CONTACT W/AND (SUSP) EXPOS COVID-19; Translations: [CONTACT W/AND (SUSP) EXPOS COVID-19] Onset: 2 Unclassified (2 sources) COUGH, UNSPECIFIED; Translations: [COUGH, UNSPECIFIED] Onset: 2 Unclassified (1 source) Dietary counseling and surveillance; Translations: [Dietary counseling and surveillance] Onset: 3 Viral infection (3 sources) Cytomegalovirus infection 01-25-2020 Episodic Viral infection (1 source) COVID-19; Translations: [COVID-19] Onset: 2 Past or Other Problems Problem Classification Problem Date Documented Da te Episodic/Chronic Abdominal pain (1 source) Pelvic and perineal pain; Translations: [Pelvic and perineal pain] Resolved: 11-30-2017 Episodic Allergic reactions (1 source) Dermatitis, unspecified; Translations: [DERMATITIS UNSPECIFIED] Onset: 06-23-2022 Episodic Conditions associated with dizziness or vertigo (1 source) Dizziness and giddiness; Translations: [Dizziness and giddiness] Onset: 08-28-2014 Episodic Deficiency and other anemia (7 sources) Normocytic anemia; Translations: [Anemia, unspecified] Onset: 05-02-2020 05-02-2020 Episodic Esophageal disorders (1 source) Esophageal disorders; Translations: [Gastro-esophageal reflux disease with esophagitis, without bleeding] Onset: 06-21-2019 Resolved: 11-07-2019 Gastrointestinal hemorrhage (1 source) Hematemesis; Translations: [Hematemesis] Resolved: 02-11-2022 Episodic Genitourinary symptoms and ill-defined conditions (6 sources) Female genital organ symptoms; Translations: [Unspecified symptom associated with female genital organs] Onset: 08-11-2012 Episodic Lymphadenitis (1 source) Lymphadenopathy; Translations: [Enlargement of lymph nodes] Onset: 12-05-2015 Episodic Malaise and fatigue (4 sources) Asthenia; Translations: [Weakness] Onset: 12-05-2015 Resolved: 08-08-2020 Episodic Nausea and vomiting (1 source) Nausea; Translations: [Nausea] Resolved: 08-08-2020 Episodic Other aftercare (5 sources) Encounter for therapeutic drug level monitoring; Translations: [Other custodial (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] Onset: 12-07-2017 Episodic Other aftercare (1 source) Other 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 terminal (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; Translations: [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] Onset: 07-10-2022 Episodic Other aftercare (1 source) Encounter for follow-up examination after completed treatment for conditions other than malignant neoplasm; Translations: [Follow-up exam] Onset: 06-17-2023 Episodic Other and unspecified benign neoplasm (1 source) Benign neoplasm of left adrenal gland; Translations: [Benign neoplasm of left adrenal gland] Onset: 07-08-2022 Episodic Other eye disorders (1 source) Conjunctival hemorrhage; Translations: [Conjunctival hemorrhage] Onset: 12-06-2014 Episodic Other female genital disorders (4 sources) Other specified noninflammatory disorders of vagina; Translations: [OTH SPEC NONINFLAMMATORY D/O VAGINA] Onset: 10-06-2022 Episodic Other female genital disorders (1 source) Non-infective leukorrhea; Translations: [Leukorrhea, not specified as infective] Onset: 08-22-2012 Episodic Other female genital disorders (1 source) Noninflammatory disorder of the vagina; Translations: [Other specified noninflammatory disorders of vagina] Resolved: 02-11-2022 Episodic Other gastrointestinal disorders (1 source) Oropharyngeal dysphagia; Translations: [Dysphagia, oropharyngeal phase] Onset: 12-06-2014 Episodic Other lower respiratory disease (3 sources) Shortness of breath; Translations: [SHORTNESS OF BREATH] Onset: 07-08-2022 Episodic Other lower respiratory disease (3 sources) Wheezing; Translations: [WHEEZING] Onset: 07-07-2022 Episodic Other nervous system disorders (1 source) Normal pressure hydrocephalus; Translations: [(Idiopathic) normal pressure hydrocephalus] Resolved: 06-04-2020 Chronic Other nutritional; endocrine; and metabolic disorders (1 source) Abnormal weight gain; Translations: [Abnormal weight gain] Resolved: 08-08-2020 Episodic Other skin disorders (1 source) Hypertrophic condition of skin; Translations: [Other hypertrophic disorders of the skin] Resolved: 08-08-2020 Episodic Other upper respiratory disease (1 source) Acute bronchospasm; Translations: [ACUTE BRONCHOSPASM] Onset: 07-09-2022 Episodic Other upper respiratory infections (2 sources) Acute sinusitis; Translations: [Acute sinusitis, unspecified] Onset: 06-29-2013 Episodic Otitis media and related conditions (2 sources) Dysfunction of bilateral eustachian tubes; Translations: [Other specified disorders of Eustachian tube, bilateral] Onset: 03-16-2015 Resolved: 02-11-2022 Episodic Residual codes; unclassified (1 source) Acquired absence of other specified parts of digestive tract; Translations: [ACQ ABSENCE OTH PART DIGESTV TRACT] Onset: 06-23-2022 Episodic Residual codes; unclassified (1 source) Other specified health status; Translations: [Health status] Resolved: 08-08-2020 Episodic Residual codes; unclassified (1 source) Insomnia; Translations: [Insomnia, unspecified] Resolved: 12-17-2020 Episodic Systemic lupus erythematosus and connective tissue disorders (1 source) Autoimmune disease; Translations: [Autoimmune disease, not elsewhere classified] Onset: 06-20-2019 Resolved: 11-07-2019 Chronic Unclassified (1 source) COUGH, UNSPECIFIED; Translations: [COUGH, UNSPECIFIED] Onset: 06-21-2022 Urinary tract infections (8 sources) Acute cystitis; Translations: [Acute cystitis without hematuria] Onset: 05-02-2020 Resolved: 08-08-2020 05-02-2020 Episodic Results Test Name Value Interpretation Reference Range Facil ity Provider Letteron 12-09-2023 Provider Letter December 09, 2023 [facility] [address] [place] [id number] : 1985 Dear Mercy, We have been trying to reach you with no success. Please call our office at [phone] in regards to scheduling a follow up from your [facility]. Thank you for your prompt attention to this matter. Sincerely, [facility] Normal [facility] Physician Orderon 11-18-2023 Physician Order [id number]# 1.00TIFF Normal [facility] Postoperative Documentson Postoperative Documents [id number]# 1.00TIFF [facility] AMA Ab Scron 11-17-2023 Mitochondria M2 IgG Qn (S) <20.0 Invalid Interpretation Code 0.0-20.0 [facility] Comment on above: Result Comment: Nega tive 0.0 - 20.0 Equivocal 20.1 - 24.9 Positive >24.9 Mitochondrial (M2) Antibodies are found in 90-96% of patients with primary biliary cirrhosis. Performed at: [facility] [address] [place], [place] [id number] PhD Oswald Hanson Performed By: #### 2 697208, 0232142, 4228572, 53281686, 7416270, 49194687, 2615560495, 53304427, 45869449, 24635521, 41611074, 9124600, 63560418, 58365962, 3394123 #### [facility] [address] [place] [address] Mitochondria M2 IgG Qn (S) <20.0 Invalid Interpretation Code 0.0-20.0 [facility] Comment on above: Result Comment: Nega tive 0.0 - 20.0 Equivocal 20.1 - 24.9 Positive >24.9 Mitochondrial (M2) Antibodies are found in 90-96% of patients with primary biliary cirrhosis. Performed at: [facility] [address] [place], [place] [id number] PhD Oswald Hanson Performed By: #### 2 583332, 6647391, 3388620, 52445136, 3287776, 67521239, 5673250177, 69968412, 16132628, 54350366, 34239208, 1036958, 90542272, 35976981, 0653420 #### [facility] [address] [place] [address] MARCELLA w/Reflex if POSon 2023 Nuclear Ab Ql (S) Negative Invalid Interpretation Code Negative [facility] Comment on above: Result Comment: Perf ormed at: [facility] [address] [place], [place] [id number] PhD Oswald Hanson Performed By: #### 2 564124, 9878531, 0681565, 62698027, 4404897, 65880916, 0912579147, 93462915, 77932093, 73128548, 44745688, 8720578, 74294058, 58184835, 4801441 #### [facility] [address] [place] [address] Alpha 1 Antitrpon 11-17-2023 Alpha 1 antitrypsin [Mass/Vol] 137 mg/dL Invalid Interpretation Code 100-188 [facility] Comment on above: Result Comment: Perf ormed at: [facility] [address] [place], [place] [id number] PhD Oswald Hanson Performed By: #### 2 706904, 6214861, 1512938, 92080969, 9967284, 00293441, 9458709819, 98539570, 79645598, 37100341, 80931888, 7317164, 83707063, 04851200, 2363685 #### [facility] [address] [place] [address] Celiac Disease Comprehensive on 11-17-2023 Endomysium IgA Ql (S) Negative Invalid Interpretation Code Negative [facility] Comment on above: Performed By: #### 2 389797, 1200666, 7667633, 85493847, 6534957, 70951554, 1212280055, 69272641, 45794632, 37722743, 03148555, 2766402, 99138885, 55318495, 8178666 #### [facility] [address] [place] [address] Gliadin peptide IgA Qn (S) 8 unit(s) Invalid Interpretation Code 0 [facility] Comment on above: Result Comment: Nega tive 0 - 19 Weak Positive 20 - 30 Moderate to Strong Positive >30 Performed By: #### 2 488348, 0680693, 8486647, 98908263, 2841740, 35358062, 1574408826, 19254790, 07048998, 60021575, 71786708, 2911629, 13678076, 67809324, 7964324 #### [facility] [address] [place] [address] Gliadin peptide IgG Qn (S) 4 unit(s) Invalid Interpretation Code 0 [facility] Comment on above: Result Comment: Nega tive 0 - 19 Weak Positive 20 - 30 Moderate to Strong Positive >30 Performed By: #### 2 505999, 5792745, 5256129, 09628121, 0129651, 25828907, 9287834071, 62368043, 29777088, 05921094, 74900937, 1169621, 13965745, 28810260, 9158985 #### [facility] [address] [place] [address] IgA [Mass/Vol] 590 mg/dL High 87-352 [facility] Comment on above: Result Comment: Perf ormed at: [facility] [id number] PhD Oswald Hanson Performed By: #### 2 329769, 5721820, 9952453, 95262302, 4826589, 74967586, 9638152550, 49052218, 12997215, 53960772, 57266449, 7612163, 17758565, 23867435, 7228839 #### [facility] [address] [place] [address] tTG IgA Qn (S) <2 Invalid Interpretation Code 0-3 [facility] Comment on above: Result Comment: Nega tive 0 - 3 Weak Positive 4 - 10 Positive >10 Tissue Transglutaminase (tTG) has been identified as the endomysial antigen. Studies have demonstr- ated that endomysial IgA antibodies have over 99% specificity for gluten sensitive enteropathy. Performed By: #### 2 867547, 8327914, 0866062, 60005269, 4643336, 71373586, 0114678254, 30810071, 64012711, 71653153, 21464577, 0867577, 87100616, 90010759, 3216775 #### [facility] [address] [place] [address] tTG IgG Qn (S) <2 Invalid Interpretation Code 0-5 [facility] Comment on above: Result Comment: Nega tive 0 - 5 Weak Positive 6 - 9 Positive >9 Performed By: #### 2 414103, 3261638, 8259456, 96925843, 5509393, 90292429, 6213471274, 26123966, 28552924, 44846628, 22417198, 6301105, 74244723, 23821344, 2571930 #### [facility] [address] [place] [address] Ceruloplasminon 11-17-2023 Ceruloplasmin [Mass/Vol] 35.5 mg/dL Invalid Interpretation Code 19.0-39.0 [facility] Comment on above: Result Comment: Perf ormed at: [facility] [address] [id number] PhD Oswald Hanson Performed By: #### 2 328467, 3533632, 4731321, 55320669, 0133752, 97513491, 3752439494, 93283032, 08595966, 20200310, 83049677, 1293810, 27616955, 39913225, 9282603 #### [facility] [address] [place] [address] IgG, Quant.on 11-17-2023 IgG [Mass/Vol] 999 mg/dL Invalid Interpretation Code 295-2686 [facility] Comment on above: Result Comment: Perf ormed at: [address] [id number] PhD Oswald Hanson Performed By: #### 2 625251, 3601241, 8337077, 92485008, 3817653, 24296255, 9133868891, 16683340, 77521885, 24499550, 10269958, 0366133, 48557217, 49266337, 1517842 #### [facility] [address] [place] [address] Smooth Muscle Abon 4 Actin smooth muscle IgG Qn (S) 2 unit(s) Invalid Interpretation Code 0-19 [facility] Comment on above: Result Comment: Nega tive 0 - 19 Weak positive 20 - 30 Moderate to strong positive >30 Actin Antibodies are found in 52-85% of patients with autoimmune hepatitis or chronic active hepatitis and in 22% of patients with primary biliary cirrhosis. Performed at: [address] [id number] PhD Oswald Hanson Performed By: #### 2 676902, 4745091, 5261488, 60954765, 3078545, 67857477, 1859581794, 29993308, 72900611, 60724956, 30017798, 6653355, 96822907, 74870292, 6894226 #### [facility] [address] [place] [address] CBC w/ Auto Diffon 4 Platelet SEE COMMENT Invalid Interpretation Code 150.0-500.0 [facility] Comment on above: Result Comment: Plat elet clumping present, platelet count appears increased on slide. Performed By: #### 2 446641, 2612615, 2033800, 44363231, 9682853, 43216101, 6886005151, 99720383, 61534263, 87439343, 01156890, 6259581, 91076787, 27309953, 1840285 #### [facility] [address] [place] [address] Basophil Absolute 0.0 E9/L Normal 0.0-0.2 [facility] Comment on above: Performed By: #### 2 712525, 3420963, 7351366, 80561757, 0257238, 59751255, 2706240065, 93571108, 00983455, 56536581, 21593446, 6905333, 21403322, 24007347, 7031778 #### [facility] [address] [place] [address] Basophils/100 WBC (Bld) 0.4 % Normal 0.0-2.0 [facility] Comment on above: Performed By: #### 2 323516, 7602268, 0509930, 03116131, 0105420, 46964770, 5378410418, 98804563, 99535435, 81044317, 61602612, 7846208, 94523969, 26790933, 7336282 #### [facility] [address] [place] [address] Eos Absolute 0.1 E9/L Normal 0.0-0.5 [facility] Comment on above: Performed By: #### 2 981632, 9626986, 6975381, 39130168, 9214868, 41063145, 2504770362, 49554812, 72032653, 66495337, 43667907, 9588853, 71090008, 11018276, 8467282 #### [facility] [address] [place] [address] Eosinophils/100 WBC (Bld) 1.1 % Normal 0.0-8.0 [facility] Comment on above: Performed By: #### 2 570630, 9298652, 9795957, 30820899, 0868321, 06015614, 3440897915, 98918652, 59463252, 92031049, 70843502, 1242723, 29557694, 86439658, 3710539 #### [facility] [address] [place] [address] Erythrocyte distribution width (RBC) [Ratio] 21.0 % High 10.9-14.2 [facility] Comment on above: Performed By: #### 2 168972, 9533752, 5787180, 64309117, 1559947, 34646300, 7944417782, 02268831, 57454087, 30090087, 50091032, 2028705, 93209857, 01661395, 7655630 #### [facility] [address] [place] [address] Hematocrit (Bld) [Volume fraction] 38.0 % Normal 34.0-46.0 [facility] Comment on above: Performed By: #### 2 607933, 7296799, 8590677, 89713074, 2365455, 12408759, 9965389090, 92581403, 57359178, 03350471, 43521665, 3674419, 37586304, 41022124, 9931962 #### [facility] [address] [place] [address] Hemoglobin (Bld) [Mass/Vol] 12.1 g/dL Normal 12.0-16.0 [facility] Comment on above: Performed By: #### 2 738638, 1468241, 2352794, 53709824, 8530116, 70149008, 8320355005, 07172907, 40194014, 46515820, 66028079, 4874181, 57249639, 84964548, 6413338 #### [facility] [address] [place] [address] Lymph Absolute 2.9 E9/L Normal 1.0-4.0 [facility] Comment on above: Performed By: #### 2 518768, 0257316, 8520023, 38786917, 5721138, 11864325, 1690689067, 20979702, 95565648, 92948729, 82641159, 6769473, 46931631, 05881365, 2383449 #### [facility] [address] [place] [address] Lymphocytes/100 WBC (Bld) 24.2 % Normal 14.0-50.0 [facility] Comment on above: Performed By: #### 2 826112, 9509240, 9050245, 19361908, 1387540, 94830615, 3767461176, 98728562, 03291547, 41294047, 28169365, 6676046, 72197536, 73001703, 9862633 #### [facility] [address] [place] [address] MCH (RBC) [Entitic mass] 27.0 pg Normal 27.0-34.0 [facility] Comment on above: Performed By: #### 2 223641, 4368603, 4503211, 39413093, 1818559, 43894541, 3075313142, 32443954, 10626568, 80146968, 68517658, 9480297, 63277874, 65202201, 3061448 #### [facility] [address] [place] [address] MCHC (RBC) [Mass/Vol] 31.8 g/dL Normal 31.4-36.0 [facility] Comment on above: Performed By: #### 2 104363, 5279118, 3726008, 80985181, 1470701, 19865201, 0194086114, 25601565, 04432252, 20433207, 24451913, 6801381, 63853809, 87012776, 1970774 #### [facility] [address] [place] [address] MCV (RBC) [Entitic vol] 84.9 fL Normal 80.0-100.0 [facility] Comment on above: Performed By: #### 2 877269, 7902967, 5493746, 71499487, 8577297, 47411903, 8142486214, 95456031, 61045288, 53370898, 97098264, 3868970, 50382343, 58452263, 8798924 #### [facility] [address] [place] [address] [place] Absolute 0.6 E9/L Normal 0.2-1.0 [facility] Comment on above: Performed By: #### 2 557800, 5942033, 2405500, 71953057, 8423574, 78229718, 6698462786, 37092202, 91355221, 69239749, 99746518, 8312259, 25109777, 15390110, 6287803 #### [facility] [address] [place] [address] Monocytes/100 WBC (Bld) 4.8 % Normal 4.0-14.0 [facility] Comment on above: Performed By: #### 2 637523, 6535778, 8705858, 15413030, 6022772, 33478310, 4536311082, 11170245, 98105372, 33252326, 90204838, 3046362, 36673689, 53277315, 4105397 #### [facility] [address] [place] [address] Neutro Absolute 8.4 E9/L High 2.0-7.5 [facility] Comment on above: Performed By: #### 2 216891, 3705204, 9613085, 60765785, 1076267, 30997971, 8017626077, 34646614, 93611934, 44572657, 32581355, 1427558, 00415942, 16665574, 9569372 #### [facility] [address] [place] [address] Neutro Auto 69.5 % Normal 36.0-75.0 [facility] Comment on above: Performed By: #### 2 725613, 4919763, 1612364, 86369634, 0129412, 26502901, 5054663941, 15874215, 82169355, 68633747, 81514750, 0047234, 77056380, 44096749, 8809868 #### [facility] [address] [place] [address] Platelet mean volume (Bld) [Entitic vol] 8.8 fL Normal 6.4-10.8 [facility] Comment on above: Performed By: #### 2 962110, 7758302, 8025314, 54022735, 7507319, 52506812, 0994567751, 24764168, 67105669, 38204652, 65764443, 0572113, 84180117, 69518818, 2517830 #### [facility] [address] [place] [address] RBC 4.5 E12/L Normal 4.3-5.9 [facility] Comment on above: Performed By: #### 2 892453, 0319329, 8548920, 13100045, 7503395, 19352523, 8062453956, 32663583, 26635374, 34067881, 71790436, 4599515, 76109870, 13364923, 4605520 #### [facility] [address] [place] [address] WBC 12.0 E9/L High 4.0-11.0 [facility] Comment on above: Performed By: #### 2 391367, 1207808, 7735320, 86644851, 0477547, 78094705, 2546549888, 11271597, 16435802, 59836876, 82294562, 3001976, 14554191, 40192287, 0544162 #### [facility] [address] [place] [address] CHEMISTRYOrdered By: SYSTEM SYSTEM on 11-16-2023 Albumin [Mass/Vol] 4.0 g/dL Normal 3.3 - 5.0 gm/dL R emisol Chem Albumin/Globulin [Mass ratio] 1.4 {ratio} Normal 1.1 - 2.2 Remisol Chem Alk Phos 138 [iU]/d High 21 - 98 Int._Unit/L Remisol Chem ALT 15 [iU]/d Normal 6 - 46 Int._Unit/L Remiso l Chem Anion gap [Moles/Vol] 10 mmol/L Normal 6 - 16 mEq/L Remisol Chem AST 13 [iU]/d Normal 5 - 43 Int._Unit/L Remiso l Chem Bili Total 0.2 mg/dL Normal 0.0 - 1.1 mg/dL Remisol Chem Calcium [Mass/Vol] 8.9 mg/dL Normal 8.9 - 11.1 mg/dL Remisol Chem Chloride [Moles/Vol] 111 mmol/L Normal 101 - 111 mmol/ L Remisol Chem CO2 [Moles/Vol] 21 mmol/L Normal 21 - 31 mmol/L Remis ol Chem Cobalamin (Vitamin B12) [Mass/Vol] 159 pg/mL Normal 50 - 1500 pg/mL Remisol Chem Creatinine [Mass/Vol] 0.9 mg/dL Normal 0.5 - 1.3 mg/dL Remisol Chem eGFR 84 mL/min/1.73 m2 Normal >=59mL/min/1.73 m2 Remisol Chem Ferritin Lvl 4 ng/mL Low 11 - 307 ng/mL Remisol Chem Folate Lvl 7.2 ng/mL Normal >=6.7ng/mL Remisol Chem Globulin (S) [Mass/Vol] 2.9 g/dL Normal 1.4 - 4.0 gm/dL Remisol Chem Glucose [Mass/Vol] 107 mg/dL Normal 55 - 199 mg/dL Re misol Chem Iron [Mass/Vol] 13 ug/dL Low 35 - 153 mcg/dL Oneil lynnette Chem Potassium [Moles/Vol] 3.4 mmol/L Low 3.5 - 5.3 mmol/L Remisol Chem Protein [Mass/Vol] 6.9 g/dL Normal 6.0 - 7.8 gm/dL R emisol Chem Sodium [Moles/Vol] 139 mmol/L Normal 135 - 145 mmol/L Remisol Chem TIBC 445 ug/dL High 250 - 400 mcg/dL Remisol Chem Transferrin [Mass/Vol] 318 mg/dL Normal 200 - 370 mg/dL Remisol Chem Urea nitrogen [Mass/Vol] 6 mg/dL Normal 5 - 21 mg/dL Remisol Chem Urea nitrogen/Creatinine [Mass ratio] 7 mg/mg Low 10 - 20 Remisol Chem CMPon 11-16-2023 Albumin [Mass/Vol] 4.0 g/dL Normal 3.3-5.0 [facility] Comment on above: Performed By: #### 2 750612, 7476002, 0429030, 72568965, 4007752, 71654954, 9109884120, 58688141, 16936330, 41770238, 79075233, 1364370, 64767354, 00862652, 7623691 #### [facility] [address] [place] [address] Albumin/Globulin [Mass ratio] 1.4 {ratio} Normal 1.1-2.2 [facility] Comment on above: Performed By: #### 2 418284, 8111831, 3941268, 74317634, 0708481, 45575422, 3809200290, 89746314, 02681906, 82793260, 73541172, 7452678, 24808118, 78424969, 0174879 #### [facility] [address] [place] [address] Alk Phos 138 Int._Unit/L High 21-98 [facility] Comment on above: Performed By: #### 2 902442, 3724782, 5291960, 40567211, 1158672, 30751231, 7269111308, 45369618, 25600202, 83990406, 92754483, 5380899, 54436394, 38304742, 1655291 #### [facility] [address] [place] [address] ALT 15 Int._Unit/L Normal 6-46 [facility] Comment on above: Performed By: #### 2 058852, 5595684, 3996885, 95696933, 8251800, 47489999, 1491098158, 85477136, 89554149, 35737978, 06971904, 1800760, 12001899, 17628870, 0263750 #### [facility] [address] [place] [address] Anion gap [Moles/Vol] 10 mmol/L Normal 6-16 [facility] Comment on above: Performed By: #### 2 929515, 1040794, 1934589, 44962943, 9508422, 93669093, 4528122766, 37821973, 53920810, 72319450, 16350786, 1131486, 46134272, 60282408, 7987442 #### [facility] [address] [place] [address] AST 13 Int._Unit/L Normal 5-43 [facility] Comment on above: Performed By: #### 2 926592, 4084952, 2832220, 21187341, 4691680, 42397843, 8686023549, 59370635, 44173978, 90065056, 68931397, 1881293, 06240931, 77468237, 6392228 #### [facility] [address] [place] [address] Bili Total 0.2 mg/dL Normal 0.0-1.1 [facility] Comment on above: Performed By: #### 2 895621, 4061231, 4151304, 55654513, 3475838, 33760994, 7832623722, 89943939, 00182628, 89244887, 27084074, 2404410, 93075344, 49912174, 1152965 #### [facility] [address] [place] [address] BUN/Creat Ratio 7 No Units Low 10-20 [facility] Comment on above: Performed By: #### 2 766338, 9856223, 1464151, 74077659, 1807838, 13412517, 9453841239, 64818056, 82195298, 20736765, 60120701, 5998380, 12688450, 13327441, 7138779 #### [facility] [address] [place] [address] Calcium [Mass/Vol] 8.9 mg/dL Normal 8.9-11.1 [facility] Comment on above: Performed By: #### 2 866107, 9025370, 4966772, 06374088, 0754733, 53469229, 2471748030, 29383218, 76773428, 21433696, 61420376, 3864650, 05242310, 34788255, 8980043 #### [facility] [address] [place] [address] Chloride [Moles/Vol] 111 mmol/L Normal 101-111 [facility] Comment on above: Performed By: #### 2 461945, 9363100, 2600721, 10265611, 9662119, 60772932, 7693338162, 43572422, 43758152, 17400227, 66865036, 9146034, 39161333, 34733768, 6992076 #### [facility] [address] [place] [address] CO2 [Moles/Vol] 21 mmol/L Normal 21-31 [facility] Comment on above: Performed By: #### 2 158769, 2894965, 9355090, 63509921, 2567843, 55592460, 5797428451, 07616133, 13391077, 92599409, 63819469, 8899513, 68001202, 69499005, 7068367 #### [facility] [address] [place] [address] Creatinine [Mass/Vol] 0.9 mg/dL Normal 0.5-1.3 [facility] Comment on above: Performed By: #### 2 113560, 7447690, 0370160, 57969382, 1066275, 84717059, 2818754111, 21250733, 22254033, 59455916, 93218139, 4052158, 26852391, 69450187, 9912041 #### [facility] [address] [place] [address] Globulin (S) [Mass/Vol] 2.9 g/dL Normal 1.4-4.0 [facility] Comment on above: Performed By: #### 2 305215, 2745465, 1565742, 71266874, 1455972, 13863584, 6053002542, 15291824, 49985421, 41382304, 70448637, 4037623, 13596574, 97862706, 4241748 #### [facility] [address] [place] [address] Glucose [Mass/Vol] 107 mg/dL Normal 55-199 [facility] Comment on above: Performed By: #### 2 591029, 8910348, 8546931, 34856487, 4100391, 06305047, 7971920120, 04759310, 10453071, 97884075, 50119189, 1356333, 50810338, 65099129, 2457444 #### [facility] [address] [place] [address] Potassium [Moles/Vol] 3.4 mmol/L Low 3.5-5.3 [facility] Comment on above: Performed By: #### 2 328464, 5506186, 8087515, 98268789, 4879038, 52810727, 6974575699, 08351429, 77908690, 20283280, 46122921, 8102708, 07126989, 32342470, 8228346 #### [facility] [address] [place] [address] Protein [Mass/Vol] 6.9 g/dL Normal 6.0-7.8 [facility] Comment on above: Performed By: #### 2 905306, 1153114, 4041087, 13349157, 7833037, 67258476, 3576366453, 87434940, 19891555, 11095001, 28560929, 8253166, 62093331, 49373302, 2054358 #### [facility] [address] [place] [address] Sodium [Moles/Vol] 139 mmol/L Normal 135-145 [facility] Comment on above: Performed By: #### 2 320297, 2903702, 4653764, 37787790, 9003508, 00120905, 9562104788, 39358522, 86778668, 54245947, 30954092, 0545581, 33769529, 31872699, 7401577 #### [facility] [address] [place] [address] Urea nitrogen [Mass/Vol] 6 mg/dL Normal 5-21 [facility] Comment on above: Performed By: #### 2 517062, 0706337, 2641508, 48171171, 9797186, 03713849, 8850813579, 01391469, 52095449, 10164717, 42679352, 6170253, 11448309, 64050866, 6939746 #### [facility] [address] [place] [address] Consent for Treatmenton 10-27 Consent for Treatment [id number] .00TIFF Normal [facility] Consent for Treatment [id number]#1 .00TIFF Normal [facility] Ferritinon 11-16-2023 Ferritin Lvl 4 ng/mL Low 11-307 [facility] Comment on above: Performed By: #### 2 243018, 3455443, 6936793, 55674958, 3288283, 51011135, 7261226096, 79310966, 37532181, 20455430, 85399437, 6901963, 52446629, 74665395, 3700698 #### [facility] [address] [place] [address] Folateon 11-16-2023 Folate Lvl 7.2 ng/mL Normal >=6.7 [facility] Comment on above: Performed By: #### 2 822424, 0526569, 7809239, 57159007, 8482689, 92516616, 0686197521, 74312497, 57890049, 87375391, 08270763, 6815813, 60841157, 68314209, 2880002 #### [facility] [address] [place] [address] HEMATOLOGYOrdered By: SYSTEM SYSTEM on 11-16-2023 Basophil Absolute 0.0 E9/L Normal 0.0 - 0.2 E9/L Rem isol Heme Basophils/100 WBC (Bld) 0.4 % Normal 0.0 - 2.0 % Remisol Heme Eos Absolute 0.1 E9/L Normal 0.0 - 0.5 E9/L Remisol Heme Eosinophils/100 WBC (Bld) 1.1 % Normal 0.0 - 8.0 % Remisol Heme Erythrocyte distribution width (RBC) [Ratio] 21.0 % High 10.9 - 14.2 % Remisol Heme Hematocrit (Bld) [Volume fraction] 38.0 % Normal 34.0 - 46.0 % Remisol Heme Hemoglobin (Bld) [Mass/Vol] 12.1 g/dL Normal 12.0 - 16.0 gm/dL Remisol Heme Lymph Absolute 2.9 E9/L Normal 1.0 - 4.0 E9/L Remiso l Heme Lymphocytes/100 WBC (Bld) 24.2 % Normal 14.0 - 50.0 % Remisol Heme MCH (RBC) [Entitic mass] 27.0 pg Normal 27.0 - 34.0 pg Remisol Heme MCHC (RBC) [Mass/Vol] 31.8 g/dL Normal 31.4 - 36.0 gm/dL Remisol Heme MCV (RBC) [Entitic vol] 84.9 fL Normal 80.0 - 100.0 fL Remisol Heme [place] Absolute 0.6 E9/L Normal 0.2 - 1.0 E9/L Remisol Heme Monocytes/100 WBC (Bld) 4.8 % Normal 4.0 - 14.0 % Remisol Heme Neutro Absolute 8.4 E9/L High 2.0 - 7.5 E9/L Remis ol Heme Neutro Auto 69.5 % Normal 36.0 - 75.0 % Remisol Heme Platelet mean volume (Bld) [Entitic vol] 8.8 fL Normal 6.4 - 10.8 fL Remisol Heme RBC 4.5 E12/L Normal 4.3 - 5.9 E12/L Remisol Heme WBC 12.0 E9/L High 4.0 - 11.0 E9/L Rem[facility] Hem[facility] HEMATOLOGYOrdered By: Radha Koenig on 11-16-2023 Platelet SEE COMMENT Invalid Interpretation Code 150.0 - 500.0 [facility] Comment on above: Result Comment: Plat elet clumping present, platelet count appears increased on slide. Ironon 11-16-2023 Iron 13 microgram/dL Low 35-153 [facility] Comment on above: Performed By: #### 2 305590, 6892180, 7533706, 87436588, 7980203, 32232571, 3658853827, 07104951, 31146218, 38573302, 87643855, 1991071, 70615048, 44571533, 4639491 #### [facility] [address] [place] [address] TIBC Calculatedon 11-16-2023 TIBC 445 microgram/dL High 250-400 [facility] Comment on above: Performed By: #### 2 727816, 6570711, 7611561, 75159761, 7781144, 04549348, 4324134001, 19241918, 51684433, 21902705, 56736834, 1762430, 66403835, 35868098, 8199425 #### [facility] [address] [place] [address] Transferrin [Mass/Vol] 318 mg/dL Normal 200-370 [facility] Comment on above: Performed By: #### 2 812878, 8163652, 7350867, 42827468, 3335915, 76621702, 2581649200, 75791789, 33604022, 92386617, 39392951, 8405773, 34619832, 06750933, 0750022 #### [facility] [address] [place] [address] Vit B12on 11-16-2023 Cobalamin (Vitamin B12) [Mass/Vol] 159 pg/mL Normal 50-1500 [facility] Comment on above: Performed By: #### 2 937812, 4276899, 1478334, 83884361, 7711663, 96546170, 0039676237, 13992247, 23440661, 77446834, 61232620, 4181127, 93345558, 06876271, 9890864 #### [facility] [address] [place] [address] eGFRon 11-16-2023 eGFR 84 mL/min/1.73 m2 Normal >=59 [facility] Comment on above: Order Comment: Order added by Discern Expert. Performed By: #### 2 914772, 9184422, 4112746, 44908648, 3489932, 22291011, 7669002731, 32473367, 72233021, 21281144, 85601305, 2847931, 47723047, 47469395, 5836147 #### [facility] [address] [place] [address] Consent for Procedure/Surger yon 11-13-2023 Consent for Procedure/Surgery [id number] .00TIFF Normal [facility] Consent for Procedure/Surgery [id number]. 00TIFF Normal [facility] Ambulatory Visit Summaryon 0 11-12-2023 Ambulatory Visit Summary [facility] :1985 Visit Date:11/12/2023 Ambulatory Visit Instructions Your Diagnosis Elevated LFTs Anemia Your Care Team Attending Physician - Esperanza Cerna MD Primary Care Physician - MIC MADDOX CNP This Is Your Medications List polyethylene glycol 3350 (Miralax 3350 17 gram packet) Contact prescribing physician if questions or concerns Misc Prescription (BACLOFEN 10 MG TABLET) acetaZOLAMIDE (acetaZOLAMIDE 500 mg oral capsule, extended release) acetaminophen albuterol (albuterol 0.083% Inh Lynnette 3 mL) calcium carbonate (Tums) clindamycin topical (clindamycin Top 1% Gel) cyclobenzaprine (cyclobenzaprine 10 mg Tab) doxepin (doxepin 10 mg Cap) duloxetine ergocalciferol (Vitamin D Oral) famotidine (Pepcid AC) gabapentin (gabapentin 600 mg Tab) levothyroxine (Synthroid) lisdexamfetamine (Vyvanse 30 mg oral capsule) lisdexamfetamine (Vyvanse) lisinopril losartan (losartan 100 mg Tab) lurasidone (Latuda 40 mg oral tablet) multivitamin with minerals (Multi-Day Plus Minerals) omeprazole (omeprazole 20 mg Cap-DR) ondansetron (ondansetron 4 mg Tab) quetiapine (quetiapine 300 mg oral ER Tab) rizatriptan (rizatriptan 10 mg Tab) ropinirole (Requip 0.5 mg Tab) sumatriptan (SUMAtriptan 100 mg Tab) tretinoin topical (tretinoin topical 0.05% cream) verapamil Procedures Performed Ablation (08/2020), Lumbar puncture (05/2020), Extraction of impacted wisdom tooth (2002), Cholecystectomy, Colonoscopy, CS - section, H/O: tubal ligation. Discharge Vitals Heart Rate (Peripheral) 86 Respiratory Rate 18 Blood Pressure 137/77 Height 160 cm Height 63 in Weight 135 kg Weight 297 lb BMI 52.73 What to do next You Need to Complete the Following [id number], Blood, Routine collect, 11/12/23, Order for future visit, Lab Collect, Anemia, Print Label By Order Location [facility] w/Reflex if POS, Blood, Routine collect, 11/12/23, Order for future visit, Lab Collect, Elevated LFTs Invalid Interpretation Code Anemia, Print Label By Order Location\.br\ Antimitochondrial Antibody, Quantitative, Blood, Routine collect, 11/12/23, Order for future visit, Lab Collect, Anemia, Print Label By Order Location\.br\ CBC w/ Auto Diff, Blood, Routine collect, 11/12/23, Order for future visit, Lab Collect, Anemia, Print Label By Order Location\.br\ Celiac Disease Comprehensive, Blood, Routine collect, 11/12/23, Order for future visit, Lab Collect, Elevated LFTs [facility] Gastroenterology Office/Clin ic Noteon 11-12-2023 Gastroenterology Office/Clinic Note HPI Staff Patient is a 38 year old female who was referred by [facility] for elevated LFT's. Oncology note states they referred patient for ongoing elevated alk phos to rule out underlying autoimmune processes such as primary sclerosing cholangitis . Denies previous EGD. No recent US, but had a full body CT and labs at outside facility (see below). Had Colonoscopy at [facility] with Dr. Cornejo in 2014 & 2016? She had a full body CT completed 09/11/23 @ [facility]: IMPRESSION: NO OSTEOLYTIC LESION. 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 ABDOMEN/Pelvis: The unenhanced appearance of the liver, spleen, right adrenal gland, and pancreas are unremarkable. Cholecystectomy clips. No hydroureteronephrosis . 2.6 cm hypoattenuating structure in the region of the left adrenal gland. No dilated bowel. No lymphadenopathy by size criteria. Scattered atherosclerotic calcifications without aneurysmal dilatation. Iron/TIBC drawn 09/22/23 @ [facility] CBC/CMP 06/16/23 @ [facility]: HGB (L) 10.8 HCT (L) 35.8 MCH (L) 25.8 MCHC (L) 30.2 RDW (H) 19.9 Platelet (H) 454 ALP (H) 137 Sodium (L) 133 Anion Gap (L) 7 Glucose (H) 102 TSH 1.29 HCV AB <0.1 (09/17/22 @ [facility]) HEP A AB, IGM - NEGATIVE HBsAG Screen - NEGATIVE HEP B CORE AB, IGM - NEGATIVE HEP B SUF AG - NONREACTIVE History of Present Illness has chronic constipation, controlled with miralax and prune juice, just started 2 years ago, before that she had loose stools 2-3 BM day Reports she was told she had mild elevation in LFTs since 2019 per her report Reports toxic level of lithium at that time required dialysis, in [place] has chronic itching for years due to eczema, no FH of liver disease no alcohol use She is following with hematology for normocytic anemia, Hb >10 recently Assessment/Plan 1. Elevated LFTs (R79.89: Other specified abnormal findings of blood chemistry) We do not have the most recent blood work done from month ago, but from [facility] labs, she had minimal elevation in alk phos, she reported she had abnormal liver enzymes since 2019 when she had the lithium toxic level Will repeat CBC and CMP with chronic liver disease panel Will get celiac disease panel and FibroScan Given the anemia, it is reasonable to get an EGD and colonoscopy as well and confirm B12 and folate levels She had negative hepatitis panel with A, B and C serologies For the constipation continue MiraLAX and prune juice, if not controlled will upgrade therapy, TSH was checked recently normal Imaging in August 2023 at [facility] showed incidental adrenal lesion, otherwise unremarkable Follow-up No qualifying data available Problem List/Past Medical History Ongoing Bipolar depression CMV infection Endometriosis Fibromyalgia H/O insomnia H/O vitamin D deficiency History of alcoholism Hypertension Mixed stress and urge urinary incontinence Post traumatic stress disorder (PTSD) Smoker Historical No qualifying data Procedure/Surgical History Ablation (08/2020), Lumbar puncture (05/2020), Extraction of impacted wisdom tooth (2002), Cholecystectomy, Colonoscopy, CS - section, H/O: tubal ligation. Medications acetaminophen, 1000 mg, Oral, TID, PRN acetaZOLAMIDE 500 mg oral capsule, extended release, 500 mg= 1 cap(s), Oral, Daily albuterol 0.083% Inh Lynnette 3 mL, NEB, q6hr, Not taking BACLOFEN 10 MG TABLET, 0 clindamycin Top 1% Gel, Not taking cyclobenzaprine 10 mg Tab, 10 mg= 1 tab(s), Oral, TID, PRN, Not taking doxepin 10 mg Cap, Not taking duloxetine, 20 mg, Oral, Daily gabapentin 600 mg Tab, Not taking Latuda 40 mg oral tablet, 40 mg= 1 tab(s), Oral, Daily, Not taking lisinopril, 10 mg, Oral, Daily, Not taking losartan 100 mg Tab Multi-Day Plus Minerals, 1 tab(s), Oral, Daily, Not taking omeprazole 20 mg Cap-DR ondansetron 4 mg Tab, Not taking Pepcid AC, 10 mg, Oral, Daily, Not taking quetiapine 300 mg oral ER Tab Requip 0.5 mg Tab, Oral, Bedtime, Not taking rizatriptan 10 mg Tab SUMAtriptan 100 mg Tab, 100 mg= 1 tab(s), Oral, Daily, PRN, Not taking Synthroid, 25 mcg, Oral, Daily tretinoin topical 0.05% cream, Not taking Tums, Not taking verapamil, 180 mg, Oral, Once a day (at bedtime) Vitamin D Oral, [address] International_Unit, Oral, Daily, Not taking Vyvanse, 40 mg, qAM, Not taking Vyvanse 30 mg oral capsule Allergies Glutens (Diarrhea) NSAIDs (History of kidney disease) amoxicillin (Rash) Social History Alcohol - High Risk, 01/31/2020 Past, Wine, Liquor, Previous treatment: Outpatient., 01/16/2021 Substance Abuse - High Risk, 01/31/2020 Marijuana, benzo and opiates, 01/31/2020 Tobacco - High Risk, 01/31/2020 Former smoker, quit more than 30 days ago Tobacco Use:. Current vaping or e-cigarette use Smokeless Tobacco Use:. Cigarettes, Vaping, Yes, 11/12/2023 Family History Alcoholism: Father. Anemia: Grandparent. Cancer: Father and (more content not included)... [facility] Comment on above: Result Comment: Elec tronically Signed By: Nehemiah BARBER, Esperanza Shankar\.br\Date and Time Signed: 11/12/23 13:33 EST Insurance Correspondenceon 0 11-12-2023 Insurance Correspondence [id number]# 1.00TIFF [facility] ([facility]) [facility] ([id number]) 1985 F T Date Time Provider Department 09/30/23 [facility] During your visit today, we recorded the following information about you: Munira Marrero 09/30/2023 3:48 PM Signed Patient was notified about rescheduling appointment. She is going to follow up with gastro closer to home. Allergies As of Date: 09/30/2023 Noted Allergy Reaction AMOXICILLIN 02/25/2023 14 - Other: See Comments AMOXICILLIN 06/16/2023 5 - Intolerance Comments: Pt reports it gives her bad yeast infections GLUTEN 09/02/2019 8 - GI Upset 16 - Unknown IBUPROFEN 10/26/2019 14 - Other: See Comments LIRAGLUTIDE 05/28/2023 7 - Swelling LITHIUM 06/16/2023 1 - Mental Status Change LITHIUM 07/15/2023 16 - Unknown NSAIDS (NON-STEROIDAL ANTI-INFLAM* 3 14 - Other: See Comments Comments: kidney failure NSAIDS (NON-STEROIDAL ANTI-INFLAM* 3 16 - Unknown Comments: Pt reports it effects her kdineys Date Reviewed: 08/25/2023 Reviewed by: Alexis Hussein MD - Fully Assessed Prescriptions as of 10/01/2023 - polyethylene glycol 3350 (MIRALAX) 17 gram/dose powder 1 scoop mixed with 8 ounces of fluid Orally Once a day - ondansetron (ZOFRAN) 4 mg tablet TAKE 1 TABLET BY MOUTH 3 TIMES DAILY NEEDED FOR NAUSEA OR VOMITING - rizatriptan (MAXALT) 10 mg tablet TAKE ONE TAB AT HEADACHE ONSET,MAY REPEAT IN 2 HOURS IF NEEDED, MAX 2/DAY 4 DAYS OUT OF THE WEEK - verapamil ER 180 mg 24 hr capsule - baclofen 10 mg tablet Take 0.5-1 tablets by mouth twice daily as needed (spasms or pain). - pregabalin (LYRICA) 75 mg capsule TAKE 1 CAPSULE BY MOUTH TWICE DAILY FOR 150 DAYS. - QUEtiapine XR (SEROQUEL XR) 300 mg 24 hr tablet Take 300 mg by mouth. - acetaZOLAMIDE SR (DIAMOX SEQUELS) 500 mg capsule Take 500 mg by mouth twice daily. - VENTOLIN HFA 90 mcg/actuation inhaler Inhale 1 Puff as instructed four times daily. - DULoxetine (CYMBALTA) 60 mg capsule Take 60 mg by mouth every morning. - WIXELA INHUB 500-50 mcg/dose dsdv Inhale 1 Puff as instructed twice daily. - levothyroxine (SYNTHROID) 25 mcg tablet Take 0.5 tablets by mouth once daily. - lisdexamfetamine (VYVANSE) 30 mg capsule Take 1 capsule by mouth q 24 HR. - losartan (COZAAR) 100 mg tablet Take 1 tablet by mouth once daily. - nystatin (MYCOSTATIN) 100,000 unit/mL suspension Take 1 Units by mouth as needed. - omeprazole (PRILOSEC) 20 mg capsule Take 20 mg by mouth once daily. - tiotropium bromide (SPIRIVA RESPIMAT) 1.25 mcg/actuation mist Inhale 2 Puffs as instructed once daily. Problem List As Of Date: 09/30/2023 (None) Encounter Status:Closed by MUNIRA MARRERO on 10/01/23 Normal [facility] Physician Referralon 023 Physician Referral [id number]# 1.00TIFF Normal [facility] 09-21-2023 CNPN Telephone ([facility]) [facility] ([id number]) 1985 F T Date Time Provider Department 09/21/23 ALEXIS HUSSEIN [facility] During your visit today, we recorded the following information about you: An Cisneros 09/21/2023 1:50 PM Signed This patient called this morning wanting to be referred to Dr. Esperanza Cerna (digestive health at [facility] in [place], [place]). Originally, she was referred to Dr. Carey, but would now like to follow-up with Dr. Cerna instead. Eva AND Fernando: Can we send the referral to Dr. Cerna at [facility] in [place], [place] and follow-up please? Thank you, Brittany Bey 09/21/2023 2:09 PM Signed Eva: Information ready for you. Lucila Segundo 09/21/2023 2:38 PM Signed Records faxed to Dr. Cerna. Brittany Thayer 09/23/2023 11:[address] Cerna office spoke with Brissa. Patient is scheduled to see Dr Cerna on 11/12/23 @ 1:00. Brittany Flores Allergies As of Date: 09/21/2023 Noted Allergy Reaction AMOXICILLIN 02/25/2023 14 - Other: See Comments AMOXICILLIN 06/16/2023 5 - Intolerance Comments: Pt reports it gives her bad yeast infections GLUTEN 09/02/2019 8 - GI Upset 16 - Unknown IBUPROFEN 10/26/2019 14 - Other: See Comments LIRAGLUTIDE 05/28/2023 7 - Swelling LITHIUM 06/16/2023 1 - Mental Status Change LITHIUM 07/15/2023 16 - Unknown NSAIDS (NON-STEROIDAL ANTI-INFLAM* 3 14 - Other: See Comments Comments: kidney failure NSAIDS (NON-STEROIDAL ANTI-INFLAM* 3 16 - Unknown Comments: Pt reports it effects her kdineys Date Reviewed: 08/25/2023 Reviewed by: Alexis Hussein MD - Fully Assessed Prescriptions as of 09/24/2023 - polyethylene glycol 3350 (MIRALAX) 17 gram/dose powder 1 scoop mixed with 8 ounces of fluid Orally Once a day - ondansetron (ZOFRAN) 4 mg tablet TAKE 1 TABLET BY MOUTH 3 TIMES DAILY NEEDED FOR NAUSEA OR VOMITING - rizatriptan (MAXALT) 10 mg tablet TAKE ONE TAB AT HEADACHE ONSET,MAY REPEAT IN 2 HOURS IF NEEDED, MAX 2/DAY 4 DAYS OUT OF THE WEEK - verapamil ER 180 mg 24 hr capsule - baclofen 10 mg tablet Take 0.5-1 tablets by mouth twice daily as needed (spasms or pain). - pregabalin (LYRICA) 75 mg capsule TAKE 1 CAPSULE BY MOUTH TWICE DAILY FOR 150 DAYS. - QUEtiapine XR (SEROQUEL XR) 300 mg 24 hr tablet Take 300 mg by mouth. - acetaZOLAMIDE SR (DIAMOX SEQUELS) 500 mg capsule Take 500 mg by mouth twice daily. - VENTOLIN HFA 90 mcg/actuation inhaler Inhale 1 Puff as instructed four times daily. - DULoxetine (CYMBALTA) 60 mg capsule Take 60 mg by mouth every morning. - WIXELA INHUB 500-50 mcg/dose dsdv Inhale 1 Puff as instructed twice daily. - levothyroxine (SYNTHROID) 25 mcg tablet Take 0.5 tablets by mouth once daily. - lisdexamfetamine (VYVANSE) 30 mg capsule Take 1 capsule by mouth q 24 HR. - losartan (COZAAR) 100 mg tablet Take 1 tablet by mouth once daily. - nystatin (MYCOSTATIN) 100,000 unit/mL suspension Take 1 Units by mouth as needed. - omeprazole (PRILOSEC) 20 mg capsule Take 20 mg by mouth once daily. - tiotropium bromide (SPIRIVA RESPIMAT) 1.25 mcg/actuation mist Inhale 2 Puffs as instructed once daily. Problem List As Of Date: 09/21/2023 (None) Encounter Status:Closed by AN CISNEROS on 09/24/23 [facility] 09-14-2023 CNPN Telephone (HEMASA) [facility] ([id number]) 1985 [facility] Date Time Provider Department 09/14/23 NATHAN ESCAMILLA During your visit today, we recorded the following information about you: Ntahan Escamilla RN 09/14/2023 10:57 AM Signed ----- Message from Shelia Jorge RN sent at 09/14/2023 10:52 AM EST ----- ----- Message ----- From: Alexis Hussein MD Sent: 09/13/2023 6:40 PM EST To: Shelia Jorge RN Call with engative CT and she has an adenoma on the adrenal gland which needs to be monitored Nathan Escamilla RN 09/14/2023 10:59 AM Signed Pt notified of Danny message and results. She was unaware of the adenoma within the adrenal gland. Discussed finding with her and the recommendation to monitor. She is agreeable and denies any additional questions, needs or concerns at this time. Danny: will you monitor or would you like a referral placed? CHANG Pinto Kasra, MD 09/14/2023 12:01 PM Signed I can when I see her next Allergies As of Date: 09/14/2023 Noted Allergy Reaction AMOXICILLIN 02/25/2023 14 - Other: See Comments AMOXICILLIN 06/16/2023 5 - Intolerance Comments: Pt reports it gives her bad yeast infections GLUTEN 09/02/2019 8 - GI Upset 16 - Unknown IBUPROFEN 10/26/2019 14 - Other: See Comments LIRAGLUTIDE 05/28/2023 7 - Swelling LITHIUM 06/16/2023 1 - Mental Status Change LITHIUM 07/15/2023 16 - Unknown NSAIDS (NON-STEROIDAL ANTI-INFLAM* 3 14 - Other: See Comments Comments: kidney failure NSAIDS (NON-STEROIDAL ANTI-INFLAM* 3 16 - Unknown Comments: Pt reports it effects her kdineys Date Reviewed: 08/25/2023 Reviewed by: Alexis Hussein MD - Fully Assessed Reason for Visit: Results [95] Prescriptions as of 09/14/2023 - polyethylene glycol 3350 (MIRALAX) 17 gram/dose powder 1 scoop mixed with 8 ounces of fluid Orally Once a day - ondansetron (ZOFRAN) 4 mg tablet TAKE 1 TABLET BY MOUTH 3 TIMES DAILY NEEDED FOR NAUSEA OR VOMITING - rizatriptan (MAXALT) 10 mg tablet TAKE ONE TAB AT HEADACHE ONSET,MAY REPEAT IN 2 HOURS IF NEEDED, MAX 2/DAY 4 DAYS OUT OF THE WEEK - verapamil ER 180 mg 24 hr capsule - baclofen 10 mg tablet Take 0.5-1 tablets by mouth twice daily as needed (spasms or pain). - pregabalin (LYRICA) 75 mg capsule TAKE 1 CAPSULE BY MOUTH TWICE DAILY FOR 150 DAYS. - QUEtiapine XR (SEROQUEL XR) 300 mg 24 hr tablet Take 300 mg by mouth. - acetaZOLAMIDE SR (DIAMOX SEQUELS) 500 mg capsule Take 500 mg by mouth twice daily. - VENTOLIN HFA 90 mcg/actuation inhaler Inhale 1 Puff as instructed four times daily. - DULoxetine (CYMBALTA) 60 mg capsule Take 60 mg by mouth every morning. - WIXELA INHUB 500-50 mcg/dose dsdv Inhale 1 Puff as instructed twice daily. - levothyroxine (SYNTHROID) 25 mcg tablet Take 0.5 tablets by mouth once daily. - lisdexamfetamine (VYVANSE) 30 mg capsule Take 1 capsule by mouth q 24 HR. - losartan (COZAAR) 100 mg tablet Take 1 tablet by mouth once daily. - nystatin (MYCOSTATIN) 100,000 unit/mL suspension Take 1 Units by mouth as needed. - omeprazole (PRILOSEC) 20 mg capsule Take 20 mg by mouth once daily. - tiotropium bromide (SPIRIVA RESPIMAT) 1.25 mcg/actuation mist Inhale 2 Puffs as instructed once daily. Problem List As Of Date: 09/14/2023 (None) Encounter Status:Closed by NATHAN ESCAMILLA on 09/14/23 Normal [facility] CT WB SKULL TO KNEE WO IVCON on 09-11-2023 CT WB SKULL TO KNEE WO IVCON * * *Final Report* * * DATE OF EXAM: Sep 11 2023 3:38PM [facility] [place] WB SKULL TO KNEE WO IVCON / PROCEDURE REASON: Multiple myeloma not having achieved remission (HCC) * * * * Physician Interpretation * * * * HISTORY: Multiple myeloma not having achieved remission (HCC) . Examination: Whole-Body Low Dose CT Without Contrast 09/11/2023 3:38 PM History: 37 years old Female with Multiple myeloma not having achieved remission (HCC) Technique: Low dose whole body CT protocol was acquired in the axial plane without contrast from the vertex to the mid tibial diaphysis. MQ: [id number] CT Dose-Length Product (DLP): [address] Dose Reduction Employed: mAs-kVp adjusted based on patient size-age Comparison: None available. RESULT: Please note that this low dose non-contrast examination with free breathing technique is limited for detection of some intrathoracic, solid abdominal organ, and vascular pathologies. Additionally, study is insensitive for detection of diffuse pattern of myelomatous marrow infiltration. OSSEOUS STRUCTURES: Counting reference: Lumbosacral junction. For the purposes of this report, L4-5 is considered the level of the iliac crest and assume there are 5 lumbar-type vertebrae. Anatomic variant: None. Calvarium: There is no well circumscribed lytic lesion measuring 5 mm or greater. Spine: There is no well circumscribed lytic lesion measuring 5 mm or greater. Vertebral body heights are preserved. There are mild degenerative changes throughout the cervical spine. Upper extremities: There is no well circumscribed lytic lesion measuring 5 mm or greater. There are no suspicious findings noted in the intramedullary cavities. Ribs/Sternum: There is no well circumscribed lytic lesion measuring 5 mm or greater. Bony pelvis: : There is no well circumscribed lytic lesion measuring 5 mm or greater. Lower extremities: There is no well circumscribed lytic lesion measuring 5 mm or greater. There are no suspicious findings noted in the intramedullary cavities. NON-OSSEOUS STRUCTURES Soft tissues: No soft tissue mass. Head/neck: Limited low dose evaluation of intra-cranial structures show No acute intracranial process.. No pathologically enlarged cervical adenopathy. Mucosal thickening in the bilateral maxillary sinuses, more prominent on the left. CHEST: Lines, tubes, and devices: None. Thoracic inlet, heart, and mediastinum: No lymphadenopathy in the axillary, mediastinal, or hilar regions within limitations of non-contrast exam. No gross cardiac enlargement or pericardial effusion. Chest wall is unremarkable. No coronary artery atherosclerotic calcifications are noted, although the study is not optimized for coronary assessment. Lung parenchyma and pleura: No consolidation. No suspicious pulmonary nodule is noted within limitations of reduced dose and free breathing technique. No pleural effusion. Central airways are patent. ABDOMEN/Pelvis: The unenhanced appearance of the liver, spleen, right adrenal gland, and pancreas are unremarkable. Cholecystectomy clips. No hydroureteronephrosis . 2.6 cm hypoattenuating structure in the region of the left adrenal gland. No dilated bowel. No lymphadenopathy by size criteria. Scattered atherosclerotic calcifications without aneurysmal dilatation. Unremarkable unenhanced appearance of pelvic organs and urinary bladder. IMPRESSION: NO OSTEOLYTIC LESION. 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 [facility] Transcribe Date/Time: Sep 11 2023 7:21P Dictated by : STEPHANE SIDHU MD This examination was interpreted and the report reviewed and electronically signed by: STEPHANE SIDHU MD on Sep 12 2023 9:07PM EST [id number] N Normal [facility] CNOVSPon 08-25-2023 CNOVSP Visit (SP) Office (HEMASA) [facility] ([id number]) 1985 F [facility] Date Time Provider Department 08/25/23 11:30 AM ALEXIS HUSSEIN During your visit today, we recorded the following information about you: Temperature Pulse Respiration Blood pressure 97.8 degrees 81/minute 16/minute 128/67 Weight Height 139.6 kg 1.6 m Alexis Hussein MD 08/25/2023 1:01 PM Signed PATIENT NAME: Mercy Hebert CLINIC NO.: [id number] ATTENDING PHYSICIAN: Alexis Hussein MD DATE OF SERVICE: August 25, [address] Valente Andino thank you for referring Miss Mercy Hebert for an opinion regarding IgA gammopathy. CHIEF COMPLAINT: I have abnormal labs HPI: Mercy Hebert is a 37 year old year old female with past medical history significant for obesity, bipolar disorder, fibromyalgia follows rheum on Lyrica and baclofen, asthma followed by Dr. Chakraborty, hypertension, previous history of mono: During close follow-up with Dr. Dow was noted to have an elevated IgA. Additional laboratory studies were done including a serum protein electrophoresis which did not reveal an M spike. Serum free light chain ratio which was slightly elevated free kappa light chain and a ratio of 1.82. Urine protein at pheresis in which the M protein could not be quantified due to low numbers but Bence-Betancourt protein was identified. The patient has had chronic pain mostly in the mid back to the hips for more than a year and a half. She states that marijuana smoke helps. She has undergone an autoimmune work-up by Dr. Andino including negative MARCELLA negative ANCA titers. Antimyeloperoxidase antibody slightly elevated, HIV negative. She is clinic for evaluation of monoclonal gammopathy. Current Outpatient Medications Medication Sig polyethylene glycol 3350 (MIRALAX) 17 gram/dose powder 1 scoop mixed with 8 ounces of fluid Orally Once a day ondansetron (ZOFRAN) 4 mg tablet TAKE 1 TABLET BY MOUTH 3 TIMES DAILY NEEDED FOR NAUSEA OR VOMITING rizatriptan (MAXALT) 10 mg tablet TAKE ONE TAB AT HEADACHE ONSET,MAY REPEAT IN 2 HOURS IF NEEDED, MAX 2/DAY 4 DAYS OUT OF THE WEEK verapamil ER 180 mg 24 hr capsule baclofen 10 mg tablet Take 0.5-1 tablets by mouth twice daily as needed (spasms or pain). acetaZOLAMIDE SR (DIAMOX SEQUELS) 500 mg capsule Take 1 capsule by mouth twice daily. pregabalin (LYRICA) 75 mg capsule TAKE 1 CAPSULE BY MOUTH TWICE DAILY FOR 150 DAYS. QUEtiapine XR (SEROQUEL XR) 300 mg 24 hr tablet Take 300 mg by mouth. acetaZOLAMIDE SR (DIAMOX SEQUELS) 500 mg capsule Take 500 mg by mouth twice daily. VENTOLIN HFA 90 mcg/actuation inhaler Inhale 1 Puff as instructed four times daily. DULoxetine (CYMBALTA) 60 mg capsule Take 60 mg by mouth every morning. WIXELA INHUB 500-50 mcg/dose dsdv Inhale 1 Puff as instructed twice daily. levothyroxine (SYNTHROID) 25 mcg tablet Take 0.5 tablets by mouth once daily. lisdexamfetamine (VYVANSE) 30 mg capsule Take 1 capsule by mouth q 24 HR. losartan (COZAAR) 100 mg tablet Take 1 tablet by mouth once daily. nystatin (MYCOSTATIN) 100,000 unit/mL suspension Take 1 Units by mouth as needed. omeprazole (PRILOSEC) 20 mg capsule Take 20 mg by mouth once daily. tiotropium bromide (SPIRIVA RESPIMAT) 1.25 mcg/actuation mist Inhale 2 Puffs as instructed once daily. hydrOXYzine pamoate (VISTARIL) 25 mg capsule TAKE 1 CAPSULE BY MOUTH 2 TIMES A DAY NEEDED FOR ANXIETY. nicotine (NICODERM) 14 mg/24 hr APPLY 1 PATCH IN THE AM, REMOVE AT BEDTIME baclofen 10 mg tablet TAKE 0.5-1 TABLETS BY MOUTH TWICE DAILY NEEDED (SPASMS OR PAIN). acetaminophen (TYLENOL) 500 mg tablet Take 500 mg by mouth. albuterol (PROVENTIL) 2.5 mg /3 mL (0.083 %) nebulizer solution Inhale 2.5 mg as instructed every 6 hours as needed. albuterol HFA (VENTOLIN HFA) 90 mcg/actuation inhaler Inhale 2 Puffs as instructed every 4 hours as needed. DULoxetine (CYMBALTA) 60 mg capsule Take 60 mg by mouth. fluticasone-salmetero l (WIXELA INHUB) 500-50 mcg/dose dsdv INHALE 1 PUFF BY MOUTH EVERY 12 HOURS furosemide (LASIX) 20 mg tablet levothyroxine (SYNTHROID) 25 mcg tablet Take 1 tablet by mouth once daily. lisdexamfetamine (VYVANSE) 30 mg capsule Take 30 mg by mouth. losartan (COZAAR) 100 mg tablet Take 1 tablet by mouth every afternoon. nystatin (MYCOSTATIN) 100,000 unit/mL suspension SWISH AND SWALLOW 5ML BY MOUTH 4 TIMES A DAY omeprazole (PRILOSEC) 20 mg capsule Take 20 mg by mouth. ondansetron (ZOFRAN) 4 mg tablet Take 4 mg by mouth. potassium chloride 20 mEq TbER SUMAtriptan (IMITREX) 100 mg tablet TAKE 1 TAB BY MOUTH AT ONSET OF HEADACHE*MAY REPEAT IN 1 HOUR*NO MORE THAN 2 PER DAY/4 DAYS PER WEEK tiotropium bromide (SPIRIVA RESPIMAT) 1.25 mcg/actuation mist verapamil SR (CALAN SR) 180 mg CR tablet TAKE ONE TABLET BY MOUTH ONCE DAILY AT NIGHT hydrOXYzine HCl (ATARAX) 50 mg tablet Take 50 mg by mouth four time (more content not included)... Normal [facility] 08-25-2023 [facility] Telephone ([facility]) [facility] ([id number]) 1985 F T Date Time Provider Department 08/25/23 ALEXIS HUSSEIN [facility] During your visit today, we recorded the following information about you: Thalia Anguiano 08/25/2023 11:56 AM Signed GI consult Aurelio Hernandez, Dr. Hussein saw this patient today and he would like to refer her to Dr. Carey. Thanks! Dx: Elevated alkaline phosphatase level Lucila Noel RN 08/26/2023 10:57 AM Signed Schedulers, please schedule pt for next available, non-urgent office visit Patient is referred to GI for elevated alk phos, which is not new Alk phos in 2019 was 138, May 2023 137 Thank you Lucila Tay Ma Radha 08/27/2023 3:45 PM Signed Spoke with patient and scheduled as requested. Allergies As of Date: 08/25/2023 Noted Allergy Reaction AMOXICILLIN 02/25/2023 14 - Other: See Comments AMOXICILLIN 06/16/2023 5 - Intolerance Comments: Pt reports it gives her bad yeast infections GLUTEN 09/02/2019 8 - GI Upset 16 - Unknown IBUPROFEN 10/26/2019 14 - Other: See Comments LIRAGLUTIDE 05/28/2023 7 - Swelling LITHIUM 06/16/2023 1 - Mental Status Change LITHIUM 07/15/2023 16 - Unknown NSAIDS (NON-STEROIDAL ANTI-INFLAM* 14 - Other: See Comments Comments: kidney failure NSAIDS (NON-STEROIDAL ANTI-INFLAM* 16 - Unknown Comments: Pt reports it effects her kdineys Date Reviewed: 08/25/2023 Reviewed by: Alexis Hussein MD - Fully Assessed Reason for Visit: Consult [173] Prescriptions as of 08/27/2023 - polyethylene glycol 3350 (MIRALAX) 17 gram/dose powder 1 scoop mixed with 8 ounces of fluid Orally Once a day - ondansetron (ZOFRAN) 4 mg tablet TAKE 1 TABLET BY MOUTH 3 TIMES DAILY NEEDED FOR NAUSEA OR VOMITING - rizatriptan (MAXALT) 10 mg tablet TAKE ONE TAB AT HEADACHE ONSET,MAY REPEAT IN 2 HOURS IF NEEDED, MAX 2/DAY 4 DAYS OUT OF THE WEEK - verapamil ER 180 mg 24 hr capsule - baclofen 10 mg tablet Take 0.5-1 tablets by mouth twice daily as needed (spasms or pain). - pregabalin (LYRICA) 75 mg capsule TAKE 1 CAPSULE BY MOUTH TWICE DAILY FOR 150 DAYS. - QUEtiapine XR (SEROQUEL XR) 300 mg 24 hr tablet Take 300 mg by mouth. - acetaZOLAMIDE SR (DIAMOX SEQUELS) 500 mg capsule Take 500 mg by mouth twice daily. - VENTOLIN HFA 90 mcg/actuation inhaler Inhale 1 Puff as instructed four times daily. - DULoxetine (CYMBALTA) 60 mg capsule Take 60 mg by mouth every morning. - WIXELA INHUB 500-50 mcg/dose dsdv Inhale 1 Puff as instructed twice daily. - levothyroxine (SYNTHROID) 25 mcg tablet Take 0.5 tablets by mouth once daily. - lisdexamfetamine (VYVANSE) 30 mg capsule Take 1 capsule by mouth q 24 HR. - losartan (COZAAR) 100 mg tablet Take 1 tablet by mouth once daily. - nystatin (MYCOSTATIN) 100,000 unit/mL suspension Take 1 Units by mouth as needed. - omeprazole (PRILOSEC) 20 mg capsule Take 20 mg by mouth once daily. - tiotropium bromide (SPIRIVA RESPIMAT) 1.25 mcg/actuation mist Inhale 2 Puffs as instructed once daily. Problem List As Of Date: 08/25/2023 (None) Encounter Status:Closed by RADHA TAY MA on 08/27/23 [facility] CNOVkaycee 07-15-2023 CNOV Office Visit (RHEUMN ) [facility] ([id number]) 1985 F Date Time Provider Department 07/15/23 1:00 PM ROMERO SHERMAN During your visit today, we recorded the following information about you: Pulse Blood pressure Weight 68/minute 127/71 140 kg Romero Sherman APRN.WATER PUMPER 07/15/2023 5:12 PM Signed Rheumatology CONSULTATION Date of Service: 07/15/2023 Patient: Mercy Hebert Medical Record: [id number] Primary Care Physician: No primary care provider on file. Last Rheumatology visit: None at [facility] Referring Provider: No referring provider defined for this encounter. History of Present Illness Mercy Hebert is a 37 year old Declined female who presents on 07/15/2023 for an in-person visit for evaluation of Joint Pain. Mercy reports a current pain level of 6 (Other: See Comment). She describes the pain as Aching, Bloating, Burning, Contraction, Numbness, Radiating, Sharp, Shooting, Sore, Spasm, Stiffness, Tightness, Tingling. The pain is Continuous, and has lasted for 36 Unknown. Interventions tried include Medication, Reposition, Relaxation, Aromatherapy to promote a healing environment, Cold, Distractions, Education, Emotional Support/Reassurance, Exercise, Heat, Music, Pillow support, Positioning, Other: See comment. Pain is all the time (full body spasms often) and gets worse throughout the day with joint stiffness all the time. I medicate with medical marijuana in the evening to relax my body to get more comfortable for sleep.. Mercy Hebert has a past medical history of ADD (attention deficit disorder), Anxiety state, Asthma, Bipolar 2 disorder (HCC), Cervical stenosis of spine, Chronic pain, Essential hypertension, GERD (gastroesophageal reflux disease), Hypothyroidism, Insomnia, Intracranial hypertension, Migraines, PTSD (post-traumatic stress disorder), Renal lithiasis, Restless leg syndrome, Schizoaffective disorder ([facility]), and Sleep apnea.. There is no problem list on file for this patient. Self referred - fatigue, chronic pain Dr Mic Maddox is her PCP. Overall body pain all the time. States her joints are very stiff. Feels Pain in her both heels which is more prominent in the AM. Stopped gluten for a week which she thinks helping her. Stiffness in the AM from mid back to buttock areas. Noticed Joint swelling intermittently in her wrists. 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 She had lumbar puncture in 2019 secondary to suspicion of intracranial hypertension. Result was unremarkable per patient. C/o LBP since then. New Rash medial side of the left elbow for a week. Dry rash between 2nd and 3rd fingers for a month. C/o Brain fog all the time. Had seen neurologist in [place]. Hx of schizoaffective disorder sees psychiatrist every 4-6 weeks. Also sees therapist. C/o body spasm. Takes baclofen which helps has Medical marijuana card. Uses marijuana in different forms - smoke, edible and lotion. She also uses vape. Every day she feel Off balance - feels wobbly. Cardiac work up was unremarkable. Reports had EKG, ECHO She logged in to online account which showed Previous lab from outside of [facility], CCP, ANCA, ESR are negative Did PT couple of years ago. Chronic pain got worse. No known family hx of autoimmune disorder. Denies Chest pain, shortness of breath, history of pleural effusion or pericarditis, oral/nasal ulcers, photosensitivity, rash, history of DVT/PE/ANDor miscarriages (X1, very early in the ), renal disease, seizures, dry eyes, dry mouth, cervical lymphadenopathy or parotid gland swelling, Raynaud's phenomenon, alopecia, psoriasis, history of iritis/uveitis or scleritis, nail pitting, dactylitis, history of sacroilitis or inflammatory bowel disease, arm weakness in raising arms above head, leg weakness in standing up from a seated position, skin tightening, dysphagia, changes in vision, scalp tenderness, jaw claudication, stiffness in shoulders/hip girdle, auricular or nasal chondritis Pain Evaluation Pain Evaluation 04/11/2023 07/13/2023 07/13/2023 07/15/2023 07/15/2023 Pain Score 7 6 6 6 6 Location Other: See Comment Other: See Comment Other: See Comment Other: See Comment - Description Burning;Numbness;Radi ating;Shooting;Sore;S pasm;Stiffness;Tightn ess Aching;Bloating;Burni ng;Contraction;Numbne ss;Radiating;Sharp;Sh ooting;Sore; Spasm;Stiffness;Tight ness;Tingling Aching;Bloating;Burni ng;Contraction;Numbne ss;Radiating;Sharp;Sh ooting;Sore; Spasm;Stiffness;Tight ness;Tingling Aching;Bloating;Burni ng;Contraction;Numbne ss;Radiating;Sharp;Sh ooting;Sore; Spasm;Stiffness;Tight ness;Tingling - Duration (#) 36 36 36 36 - Duration (Timeframe) Months Months Months Months Unknown Frequency Continuous Continuous Continuous Continuous Continuous Intervention Medication;Reposition ;Relaxation;Aromather apy to promote a healing environment;Cold;Dist ractions;Ed (more content not included)... Normal [facility] No Panel Informationon 07-15 [facility] XR HAND/WRIST SURVEY 1V PA B ILon 07-15-2023 XR HAND/WRIST SURVEY 1V PA ERNESTO * * *Final Report* * * DATE OF EXAM: Jul 15 2023 3:53PM AOX [id number] - XR HAND/WRIST SURVEY 1V PA ERNESTO / PROCEDURE REASON: Polyarthralgia * * * * Physician Interpretation * * * * HISTORY (as given from clinical provider): Polyarthralgia . Additional history provided by the performing technologist (if any): None TECHNIQUE: XR HAND/WRIST SURVEY 1V PA ERNESTO COMPARISON: None RESULT: No evidence of fracture or other acute bone abnormality. Joints are normal. No erosions. No other significant abnormality. [employer] Former: [facility] Transcribe Date/Time: Jul 15 2023 4:34P Dictated by : BHAVANI NAVARRETE MD This examination was interpreted and the report reviewed and electronically signed by: BHAVANI NAVARRETE MD on Jul 15 2023 4:34PM EST [id number] N Normal [facility] XR KNEE 4V AP/PA/LAT/MERCH B ILon 07-15-2023 XR KNEE 4V AP/PA/LAT/MERCH ERNESTO * * *Final Report* * * DATE OF EXAM: Jul 15 2023 3:53PM AOX [id number] - XR KNEE 4V AP/PA/LAT/MERCH ERNESTO / PROCEDURE REASON: Polyarthralgia * * * * Physician Interpretation * * * * HISTORY (as given from clinical provider): Polyarthralgia . Additional history provided by the performing technologist (if any): None TECHNIQUE: XR KNEE 4V AP/PA/LAT/MERCH ERNESTO COMPARISON: None RESULT: Mild tricompartmental osteoarthritis bilaterally. No erosions. No other significant abnormality. [employer] Former: [facility] Transcribe Date/Time: Jul 15 2023 4:34P Dictated by : BHAVANI NAVARRETE MD This examination was interpreted and the report reviewed and electronically signed by: BHAVANI NAVARRETE MD on Jul 15 2023 4:34PM EST [id number] N Normal [facility] XR SHLDR >/=3V AP/WILMER AP/OTH R LTon 07-15-2023 XR SHLDR >/=3V AP/WILMER AP/OTHR LT * * *Final Report* * * DATE OF EXAM: Jul 15 2023 3:53PM AOX [id number] - XR SHLDR >/=3V AP/WILMER AP/OTHR LT / PROCEDURE REASON: Polyarthralgia * * * * Physician Interpretation * * * * HISTORY (as given from clinical provider): Polyarthralgia . Additional history provided by the performing technologist (if any): None TECHNIQUE: XR SHLDR >/=3V AP/WILMER AP/OTHR LT COMPARISON: RESULT: No evidence of fracture or other acute bone abnormality. Joints are normal. No erosions. No other significant abnormality. [employer] Former: [facility] Transcribe Date/Time: Jul 15 2023 4:33P Dictated by : BHAVANI NAVARRETE MD This examination was interpreted and the report reviewed and electronically signed by: BHAVANI NAVARRETE MD on Jul 15 2023 4:33PM EST [id number] N Normal [facility] XR SHLDR >/=3V AP/WILMER AP/OTH R RTon 07-15-2023 XR SHLDR >/=3V AP/WILMER AP/OTHR RT * * *Final Report* * * DATE OF EXAM: Jul 15 2023 3:53PM AOX 5253 - XR SHLDR >/=3V AP/WILMER AP/OTHR RT / PROCEDURE REASON: Polyarthralgia * * * * Physician Interpretation * * * * HISTORY (as given from clinical provider): Polyarthralgia . Additional history provided by the performing technologist (if any): None TECHNIQUE: XR SHLDR >/=3V AP/WILMER AP/OTHR RT COMPARISON: None RESULT: No evidence of fracture or other acute bone abnormality. Joints are normal. No erosions. No other significant abnormality. [facility] Former: [facility] Transcribe Date/Time: Jul 15 2023 4:33P Dictated by : BHAVANI NAVARRETE MD This examination was interpreted and the report reviewed and electronically signed by: BHAVANI NAVARRETE MD on Jul 15 2023 4:33PM EST [id number] Normal [facility] CNOVon 06-17-2023 CNOV Office Visit (UROLMN ) MERCY HEBERT ([id number]) 1985 F Date Time Provider Department 06/17/23 9:30 AM CHER LYNCH During your visit today, we recorded the following information about you: Pulse Blood pressure Weight 79/minute 112/79 140.1 kg Cher Lynch PA 06/17/2023 11:17 AM Signed [facility] FEMALE PATIENT - HISTORY AND PHYSICAL EXAMINATION Consultation requested by Dr. Bobby for an opinion regarding microscopic hematuria. My final recommendations will be communicated back to the requesting physician by way of shared Medical record or letter to requesting physician via US mail. PATIENT: Mercy Hebert (37 year old) PCP: Mic Maddox CNP CHIEF COMPLAINT: ED follow up, microscopic hematuria HISTORY OF PRESENT ILLNESS: Mercy Hebert is a 37 year old female who presents for ED follow up and microscopic hematuria She is referred by Dr. Bobby She presented to [place] ED on 06/16/2023 for general body swelling. An acute process was not found, however she was incidentally noted to have microscopic hematuria on UA 3+ hemoglobin and 6-10 RBC/HPF Notes that May 09, she gained 20 lbs overnight. 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 No longer takes lithium She notes that she is currently menstruating - this began about 2 days ago She has never had microscopic or gross hematuria before Positive hx of kidney stones 2 years ago - passed this on her own Denies any current urinary issues - denies frequency, urgency or dysuria Denies recent unintentional weight loss, fever or chills PMH: hx of CARMENZA requiring dialysis, pseudotumor cerebri, asthma, HTN, hypothyroidism, hx of encephalopathy, bipolar disorder, hx of vitamin D deficiency, hx of anemia, GERD, IBS, fatty liver, endometriosis, CARMEN on C-PAP, schizoaffective disorder PSH: , cholecystectomy, 2 ex-laps, tubal ligation Social hx: former smoker quit 1.5 years ago 10 pack year hx Family hx: father with kidney cancer REVIEW OF SYSTEMS: CONSTITUTIONAL: no recent illnesses, normal energy levels, no pain GASTROINTESTINAL: positive constipation, no diarrhea, no bloody stool GENITOURINARY: see history of present illness HISTORY: No past medical history on file. No past surgical history on file. No family history on file. MEDICATIONS: Current Outpatient Medications Medication Sig baclofen 10 mg tablet TAKE 0.5-1 TABLETS BY MOUTH TWICE DAILY NEEDED (SPASMS OR PAIN). acetaminophen (TYLENOL) 500 mg tablet Take 500 mg by mouth. acetaZOLAMIDE SR (DIAMOX SEQUELS) 500 mg capsule Take 1 capsule by mouth twice daily. albuterol (PROVENTIL) 2.5 mg /3 mL (0.083 %) nebulizer solution Inhale 2.5 mg as instructed every 6 hours as needed. albuterol HFA (VENTOLIN HFA) 90 mcg/actuation inhaler Inhale 2 Puffs as instructed every 4 hours as needed. DULoxetine (CYMBALTA) 60 mg capsule Take 60 mg by mouth. fluticasone-salmetero l (WIXELA INHUB) 500-50 mcg/dose dsdv INHALE 1 PUFF BY MOUTH EVERY 12 HOURS furosemide (LASIX) 20 mg tablet levothyroxine (SYNTHROID) 25 mcg tablet Take 1 tablet by mouth once daily. lisdexamfetamine (VYVANSE) 30 mg capsule Take 30 mg by mouth. losartan (COZAAR) 100 mg tablet Take 1 tablet by mouth every afternoon. nystatin (MYCOSTATIN) 100,000 unit/mL suspension SWISH AND SWALLOW 5ML BY MOUTH 4 TIMES A DAY omeprazole (PRILOSEC) 20 mg capsule Take 20 mg by mouth. ondansetron (ZOFRAN) 4 mg tablet Take 4 mg by mouth. potassium chloride 20 mEq TbER pregabalin (LYRICA) 75 mg capsule TAKE 1 CAPSULE BY MOUTH TWICE DAILY FOR 150 DAYS. QUEtiapine XR (SEROQUEL XR) 300 mg 24 hr tablet Take 300 mg by mouth. SUMAtriptan (IMITREX) 100 mg tablet TAKE 1 TAB BY MOUTH AT ONSET OF HEADACHE*MAY REPEAT IN 1 HOUR*NO MORE THAN 2 PER DAY/4 DAYS PER WEEK tiotropium bromide (SPIRIVA RESPIMAT) 1.25 mcg/actuation mist verapamil SR (CALAN SR) 180 mg CR tablet TAKE ONE TABLET BY MOUTH ONCE DAILY AT NIGHT hydrOXYzine HCl (ATARAX) 50 mg tablet Take 50 mg by mouth four times daily as needed. No current facility-administered medications for this visit. PHYSICAL EXAMINATION: VITALS: BP 112/79 (BP Site: Left Arm, BP Position: Sitting, BP Cuff Size: Extra Large Adult) Pulse 79 Wt (!) 140.1 kg (308 lb 12.8 oz) BMI 54.70 kg/m? GENERAL: alert, in no acute distress, normal affect RESPIRATORY: normal effort, regular rate, no audible wheeze ABDOMEN: soft, non-tender, non-distended GENITOURINARY: no flank tenderness EXTREMITIES: warm, no dependent edema, no malformations OFFICE DATA: URINALYSIS: pending OTHER DATA: Creatinine Date Value Ref Range Status 06/16/2023 0.89 0.58 - 0.96 mg/dL Final ASSESSMENT: Mercy Hebert is (more content not included)... Normal [facility] URINALYSIS, REFLEX MICROSCOP ICon 06-17-2023 Bilirubin Ql (U) Negative Negative [facility] Clarity (Unsp spec) Clear Clear [facility] Color (U) Colorless Yellow [facility] Epithelial cells LM.HPF (Urine sed) [#/Area] Few [facility] Glucose Test strip (U) [Mass/Vol] Negative Trace, Negative [facility] Hemoglobin Ql (U) 2+ Abnormal Negative, Trace Cl [facility] Ketones Ql (U) Negative Negative, Trace [facility] Leukocyte esterase Test strip Ql (U) Negative Negative, 25 Sukhi/uL [facility] Nitrite Ql (U) Negative Negative [facility] pH (U) 6.5 [pH] 5.0 - 8.0 [facility] Protein (U) [Mass/Vol] Negative Trace, Negative [facility] RBC LM.HPF (Urine sed) [#/Area] 0-3 /HPF 0-3 /HPF [facility] Specific gravity (U) [Rel density] 1.005 1.005 - 1.030 [facility] Urobilinogen Ql (U) Negative Negative [facility] WBC LM.HPF (Urine sed) [#/Area] 0-5 /HPF 0-5 /HPF [facility] Bilirubin Ql (U) Negative Normal Negative [facility] Comment on above: Order Comment: Speci men Type: URINE SPECIMENOrdering Facility: [facility] Address: [address] [place] [address] Performed By: #### L [id number] ####[facility] [id number] [place] [address] [place] Clarity (Unsp spec) Clear Normal Clear [facility] Comment on above: Order Comment: Speci men Type: URINE SPECIMENOrdering Facility: [facility] Address: [address] [place] [address] Performed By: #### L [id number] ####[facility] [id number] [place] [address] [place] Color (U) Colorless Normal Yellow [facility] Comment on above: Order Comment: Speci men Type: URINE SPECIMENOrdering Facility: [facility] Address: [address] [place] [address] Performed By: #### L [id number] ####[facility] [id number] [place] [address] [place] Epithelial cells LM.HPF (Urine sed) [#/Area] Few Normal [facility] Comment on above: Order Comment: Speci men Type: URINE SPECIMENOrdering Facility: [facility] Address: [address] [place] [address] Performed By: #### L [id number] ####[facility] [id number] [place] [address] [place] Glucose Test strip (U) [Mass/Vol] Negative Normal Trace, Negative [facility] Comment on above: Order Comment: Speci men Type: URINE SPECIMENOrdering Facility: [facility] Address: [address] [place] [address] Performed By: #### L [id number] ####[facility] [id number] [place] [address] [place] Hemoglobin Ql (U) 2+ Abnormal Negative, Trace Cl [facility] Comment on above: Order Comment: Speci men Type: URINE SPECIMENOrdering Facility: [facility] Address: [address] [place] [address] Performed By: #### L [id number] ####[facility] [id number] [place] [address] [place] Ketones Ql (U) Negative Normal Negative, Trace [facility] Comment on above: Order Comment: Speci men Type: URINE SPECIMENOrdering Facility: [facility] Address: [address] [place] [address] Performed By: #### L [id number] ####[facility] [id number] [place] [address] [place] Leukocyte esterase Test strip Ql (U) Negative Normal Negative, 25 Sukhi/uL [facility] Comment on above: Order Comment: Speci men Type: URINE SPECIMENOrdering Facility: [facility] Address: [address] [place] [address] Performed By: #### L [id number] ####[facility] [id number] [place] [address] [place] Nitrite Ql (U) Negative Normal Negative [facility] Comment on above: Order Comment: Speci men Type: URINE SPECIMENOrdering Facility: [facility] Address: [address] [place], [place] [id number] Performed By: #### L [id number] ####[facility] [id number] [place] [address] [place] pH (U) 6.5 [pH] Normal 5.0-8.0 [facility] Comment on above: Order Comment: Speci men Type: URINE SPECIMENOrdering Facility: [facility] Address: [address] [address] Performed By: #### L [id number] ####[facility] [id number] [address] STATES [facility] Protein (U) [Mass/Vol] Negative Normal Trace, Negative [facility] Comment on above: Order Comment: Speci men Type: URINE SPECIMENOrdering Facility: [facility] Address: [address] [address] Performed By: #### L [id number] ####[facility] [id number] [place] [address] [place] RBC LM.HPF (Urine sed) [#/Area] 0-3 /HPF Normal 0-3 /HPF [facility] Comment on above: Order Comment: Speci men Type: URINE SPECIMENOrdering Facility: [facility] Address: [address] Performed By: #### L [id number] ####[facility] [id number] [place] [address] [place] Specific gravity (U) [Rel density] 1.005 Normal 1.005-1.030 [facility] Comment on above: Order Comment: Speci men Type: URINE SPECIMENOrdering Facility: [facility] Address: [address] [place], [place] [id number] Performed By: #### L [id number] ####[facility] [id number] [place] [address] [place] Urobilinogen Ql (U) Negative Normal Negative [facility] Comment on above: Order Comment: Speci men Type: URINE SPECIMENOrdering Facility: [facility] Address: [address] [place], [place] [address] Performed By: #### L [id number] ####[facility] [id number] [place] [address] [place] WBC LM.HPF (Urine sed) [#/Area] 0-5 /HPF Normal 0-5 /HPF [facility] Comment on above: Order Comment: Speci men Type: URINE SPECIMENOrdering Facility: [facility] Address: [address] [place] [address] Performed By: #### L [id number] ####[facility] [id number] [place] [address] [place] CBC W Auto Differential pane l (Bld)on 06-16-2023 Basophils (Bld) [#/Vol] 0.04 10*3/uL Normal <0.11 [facility] Comment on above: Order Comment: Speci men Type: BLOOD SPECIMEN [facility] Address: [address] [place] [address] Performed By: #### 5 7021-8 #### [facility] [place] [id number] [address] [place] [address] [place] Basophils/100 WBC (Bld) 0.4 % Normal [facility] Comment on above: Order Comment: Speci men Type: BLOOD SPECIMEN [facility] Address: [address] [place] [address] Performed By: #### 5 7021-8 #### [facility] [place] [id number] [address] [place] [address] [place] Differential cell count method Nom (Bld) Auto Normal [facility] Comment on above: Order Comment: Speci men Type: BLOOD SPECIMEN [facility] Address: [address] [place] [address] Performed By: #### 5 7021-8 #### [facility] [place] [id number] [address] [place] [address] [place] Eosinophils (Bld) [#/Vol] 0.11 10*3/uL Normal <0.46 [facility] Comment on above: Order Comment: Speci men Type: BLOOD SPECIMEN [facility] Address: [address] [address] Performed By: #### 5 7021-8 #### [facility] [place] [id number] [address] [place] [address] [place] Eosinophils/100 WBC (Bld) 1.0 % Normal [facility] Comment on above: Order Comment: Speci men Type: BLOOD SPECIMEN [facility] Address: [address] [address] Performed By: #### 5 7021-8 #### [facility] [place] [id number] [address] [place] [address] [place] Erythrocyte distribution width (RBC) [Ratio] 19.9 % High 11.5-15.0 [facility] Comment on above: Order Comment: Speci men Type: BLOOD SPECIMEN [facility] Address: [address] [address] Performed By: #### 5 7021-8 #### [facility] [place] [id number] [address] [place] [address] [place] Hematocrit (Bld) [Volume fraction] 35.8 % Low 36.0-46.0 [facility] Comment on above: Order Comment: Speci men Type: BLOOD SPECIMEN [facility] Address: [address] [address] Performed By: #### 5 7021-8 #### [facility] [place] [id number] [address] [place] [address] [place] Hemoglobin (Bld) [Mass/Vol] 10.8 g/dL Low 11.5-15.5 [facility] Comment on above: Order Comment: Speci men Type: BLOOD SPECIMEN [facility] Address: [address] [address] Performed By: #### 5 7021-8 #### [facility] [place] [id number] [address] [place] [address] [place] Immature granulocytes (Bld) [#/Vol] 0.04 10*3/uL Normal <0.10 [facility] Comment on above: Order Comment: Speci men Type: BLOOD SPECIMEN [facility] Address: [address] [address] Performed By: #### 5 7021-8 #### [facility] CLIA [id number] [place] Immature granulocytes/100 WBC (Bld) 0.4 % Normal [facility] Comment on above: Order Comment: Speci men Type: BLOOD SPECIMEN [facility] Address: [address] [address] Performed By: #### 5 7021-8 #### [facility] [place] [id number] [address] [place] [address] [place] Lymphocytes (Bld) [#/Vol] 3.25 10*3/uL Normal 1.00-4.00 [facility] Comment on above: Order Comment: Speci men Type: BLOOD SPECIMEN [facility] Address: [address] [address] Performed By: #### 5 7021-8 #### [facility] [place] [id number] [address] [place] Lymphocytes/100 WBC (Bld) 30.5 % Normal [facility] Comment on above: Order Comment: Speci men Type: BLOOD SPECIMEN [facility] Address: [address] [address] Performed By: #### 5 7021-8 #### [facility] [place] [id number] [address] [place] [address] [place] MCH (RBC) [Entitic mass] 25.8 pg Low 26.0-34.0 [facility] Comment on above: Order Comment: Speci men Type: BLOOD SPECIMEN [facility] Address: [address] [address] Performed By: #### 5 7021-8 #### [facility] CLIA [id number] [address] [place] [address] [place] MCHC (RBC) [Mass/Vol] 30.2 g/dL Low 30.5-36.0 [facility] Comment on above: Order Comment: Speci men Type: BLOOD SPECIMEN [facility] Address: [address] [place] [address] Performed By: #### 5 7021-8 #### [facility] [place] [id number] [place] [address] [place] MCV (RBC) [Entitic vol] 85.6 fL Normal 80.0-100.0 [facility] Comment on above: Order Comment: Speci men Type: BLOOD SPECIMEN [facility] Address: [address] [place] [address] Performed By: #### 5 7021-8 #### [facility] [place] [id number] [address] [place] [address] [place] Monocytes (Bld) [#/Vol] 0.52 10*3/uL Normal <0.87 [facility] Comment on above: Order Comment: Speci men Type: BLOOD SPECIMEN [facility] Address: [address] [place] [address] Performed By: #### 5 7021-8 #### [facility] [place] [id number] [place] [address] [place] Monocytes/100 WBC (Bld) 4.9 % Normal [facility] Comment on above: Order Comment: Speci men Type: BLOOD SPECIMEN [facility] Address: [address] [place] [address] Performed By: #### 5 7021-8 #### [facility] [place] [id number] [address] [place] [address] [place] Neutrophils (Bld) [#/Vol] 6.69 10*3/uL Normal 1.45-7.50 [facility] Comment on above: Order Comment: Speci men Type: BLOOD SPECIMEN [facility] Address: [address] Performed By: #### 5 7021-8 #### [facility] [place] [id number] [address] [place] [address] [place] Neutrophils/100 WBC (Bld) 62.8 % Normal [facility] Comment on above: Order Comment: Speci men Type: BLOOD SPECIMEN [facility] Address: [address] Performed By: #### 5 7021-8 #### [facility] IA [id number] [address] [place] [address] [place] Nucleated RBC (Bld) [#/Vol] 10*3/uL Normal <0.01 [facility] Comment on above: Order Comment: Speci men Type: BLOOD SPECIMEN [facility] Address: [address] Performed By: #### 5 7021-8 #### [facility] IA [id number] [address] [place] [address] [place] Nucleated RBC/100 WBC (Bld) [Ratio] 0.0 /100 WBC Normal [facility] Comment on above: Order Comment: Speci men Type: BLOOD SPECIMEN [facility] Address: [address] Performed By: #### 5 7021-8 #### [facility] [place] [id number] [address] [place] [address] [place] Platelet mean volume (Bld) [Entitic vol] 9.5 fL Normal 9.0-12.7 [facility] Comment on above: Order Comment: Speci men Type: BLOOD SPECIMEN [facility] Address: [address] Performed By: #### 5 7021-8 #### [facility] [place] [id number] [address] [facility] [address] [place] Platelets (Bld) [#/Vol] 454 10*3/uL High 150-400 [facility] Comment on above: Order Comment: Speci men Type: BLOOD SPECIMEN [facility] Address: [address] Performed By: #### 5 7021-8 #### [facility] CLIA [id number] [address] [place], [place] [address] [place] [address] [place] [facility] RBC (Bld) [#/Vol] 4.18 10*6/uL Normal 3.90-5.20 [facility] Comment on above: Order Comment: Speci men Type: BLOOD SPECIMEN [facility] Address: [address] Performed By: #### 5 7021-8 #### [facility] CLIA [id number] [address] OF [facility] WBC (Bld) [#/Vol] 10.65 10*3/uL Normal 3.70-11.00 [facility] Comment on above: Order Comment: Speci men Type: BLOOD SPECIMEN [facility] Address: [address] Performed By: #### 5 7021-8 #### [facility] [place] [id number] [address] [place] [address] [place] [facility] [place] Comprehensive metabolic 2000 panelon 06-16-2023 Albumin [Mass/Vol] 4.0 g/dL Normal 3.9-4.9 [facility] Comment on above: Order Comment: Speci men Type: BLOOD SPECIMEN [facility] Address: [address] Performed By: #### 1 9123-9, 45199-1, 01002-5, 3016-3 #### [facility] IA [id number] OF [facility] ALP [Catalytic activity/Vol] 137 U/L High 34-123 [facility] Comment on above: Order Comment: Speci men Type: BLOOD SPECIMEN [facility] Address: [address] [address] Performed By: #### 1 9123-9, 25786-1, 07074-6, 3016-3 #### [facility] CLIA [id number] [address] [place] [address] [place] ALT [Catalytic activity/Vol] 12 U/L Normal 7-38 [facility] Comment on above: Order Comment: Speci men Type: BLOOD SPECIMEN [facility] Address: [address] Performed By: #### 1 9123-9, 53019-3, 90657-2, 3016-3 #### [facility] CLIA [id number] [address] [place] [address] [place] Anion gap [Moles/Vol] 7 mmol/L Low 9-18 [facility] Comment on above: Order Comment: Speci men Type: BLOOD SPECIMEN [facility] Address: [address] [place] [address] Performed By: #### 1 9123-9, 78917-7, 74318-8, 3016-3 #### [facility] CLIA [id number] [address] [place], [place] [address] [place] [address] [place] AST [Catalytic activity/Vol] 13 U/L Normal 13-35 [facility] Comment on above: Order Comment: Speci men Type: BLOOD SPECIMEN [facility] Address: [address] [place] [address] Performed By: #### 1 9123-9, 93935-2, 50114-9, 3016-3 #### [facility] CLIA [id number] [address] [place] [address] [place] Bilirubin [Mass/Vol] 0.2 mg/dL Normal 0.2-1.3 [facility] Comment on above: Order Comment: Speci men Type: BLOOD SPECIMEN [facility] Address: [address] [place] [address] Performed By: #### 1 9123-9, 35117-9, 18359-3, 3016-3 #### [facility] CLIA [id number] [address] [place] [address] [place] Calcium [Mass/Vol] 9.1 mg/dL Normal 8.5-10.2 [facility] Comment on above: Order Comment: Speci men Type: BLOOD SPECIMEN [facility] Address: [address] [place] [address] Performed By: #### 1 9123-9, 69214-8, 74077-0, 3016-3 #### [facility] CLIA [id number] [address] [place] [address] [place] Chloride [Moles/Vol] 103 mmol/L Normal 97-105 [facility] Comment on above: Order Comment: Speci men Type: BLOOD SPECIMEN [facility] Address: [address] [place] [address] Performed By: #### 1 9123-9, 38926-9, 74962-6, 3016-3 #### [facility] CLIA [id number] [address] [place] [address] [place] CO2 [Moles/Vol] 23 mmol/L Normal 22-30 [facility] Comment on above: Order Comment: Speci men Type: BLOOD SPECIMEN [facility] Address: [address] [place] [address] Performed By: #### 1 9123-9, 99086-4, 52682-5, 3016-3 #### [facility] CLIA [id number] [address] [place] [address] [place] Creatinine [Mass/Vol] 0.89 mg/dL Normal 0.58-0.96 [facility] Comment on above: Order Comment: Speci men Type: BLOOD SPECIMEN Ordering Facility: [facility] Address: [address] [place] [address] Performed By: #### 1 9123-9, 00628-8, 57576-1, 3016-3 #### [facility] CLIA [id number] [address] [place] [address] [place] Creatinine and Glomerular filtration rate.predicted panel (S/P/Bld) 86 mL/min/1.73m??? Normal >=60 [facility] Comment on above: Order Comment: Rylie ha Type: BLOOD SPECIMEN Ordering Facility: [facility] Address: [address] [place], [place] [address] Result Comment: Caitlin mated Glomerular Filtration Rate (eGFR) is calculated using the 2020 CKD-EPI creatinine equation. This equation utilizes serum creatinine, sex, and age as parameters. The creatinine assay has traceable calibration to isotope dilution-mass spectrometry. Refer to KDIGO guidelines for clinical interpretation. In patients with unstable renal function, e.g. those with acute kidney injury, the eGFR may not accurately reflect actual GFR. Performed By: #### 1 9123-9, 24831-9, 89587-2, 3016-3 #### [facility] CLIA [id number] [place] [address] [place] Glucose [Mass/Vol] 102 mg/dL High 74-99 [facility] Comment on above: Order Comment: Rylie ha Type: BLOOD SPECIMEN Ordering Facility: [facility] Address: [address] [place], [place] [id number] Result Comment: The [place] Diabetes Association (ADA) provides guidance for cutoff values for fasting glucose and random glucose. The ADA defines fasting as no caloric intake for at least 8 hours. Fasting plasma glucose results between 100 to 125 mg/dL indicate increased risk for diabetes (prediabetes). Fasting plasma glucose results greater than or equal to 126 mg/dL meet the criteria for diagnosis of diabetes. In the absence of unequivocal hyperglycemia, results should be confirmed by repeat testing. In a patient with classic symptoms of hyperglycemia or hyperglycemic crisis, random plasma glucose results greater than or equal to 200 mg/dL meet the criteria for diagnosis of diabetes. Reference: Standards of Medical Care in Diabetes 2016, [place] Diabetes Association. Diabetes Care. 2016.39(Suppl 1). Performed By: #### 1 9123-9, 13131-0, 14964-1, 3016-3 #### [facility] CLIA [id number] [address] [place] [address] [place] Potassium [Moles/Vol] 3.8 mmol/L Normal 3.7-5.1 [facility] Comment on above: Order Comment: Speci men Type: BLOOD SPECIMEN Ordering Facility: [facility] Address: [address] [place] [address] Performed By: #### 1 9123-9, 64473-2, 17073-8, 3016-3 #### [facility] CLIA [id number] [address] [place] [address] [place] Protein [Mass/Vol] 6.9 g/dL Normal 6.3-8.0 [facility] Comment on above: Order Comment: Speci men Type: BLOOD SPECIMEN Ordering Facility: [facility] Address: [place] [address] Performed By: #### 1 9123-9, 26928-1, 97106-0, 3016-3 #### [facility] CLIA [id number] [address] [place] [address] [place] Sodium [Moles/Vol] 133 mmol/L Low 136-144 [facility] Comment on above: Order Comment: Speci men Type: BLOOD SPECIMEN Ordering Facility: [facility] Address: [address] [place] [address] Performed By: #### 1 9123-9, 42685-8, 56146-4, 3016-3 #### [facility] CLIA [id number] [address] [place] [address] [place] Urea nitrogen [Mass/Vol] 7 mg/dL Normal 7-21 [facility] Comment on above: Order Comment: Speci men Type: BLOOD SPECIMEN Ordering Facility: [facility] Address: [address] [place] [address] Performed By: #### 1 9123-9, 09671-3, 27013-7, 3016-3 #### [facility] CLIA [id number] [address] [place] [address] [place] ED NOTEon 06-16-2023 ED NOTE HNO ID: [id number] Author: Crystal Alberto RN Service: ? Author Type: Registered Nurse Type: ED Notes Filed: 06/16/2023 6:38 PM Note Text: .Patient discharged home in stable condition. Patient verbalized understanding of discharge instructions and paperwork. Patient aware to follow up with PCP. Patient verbalized understand to return to ED if S/S return. Patient left ED in no acute distress. [facility] ED NOTE HNO ID: [id number] Author: Jessica Gutierrez RN Service: ? Author Type: Registered Nurse Type: ED Notes Filed: 06/16/2023 2:28 PM Note Text: Pt arrived to the ED from home with complaints of generalized body swelling, weakness, and intermittent confusion since May 09. Pt AAOx3 in triage and stable at this time. [facility] ED PROV NOTEon 06-16-2023 ED PROV NOTE HNO ID: [id number] Author: Chhaya Bobby DO Service: Emergency Medicine Author Type: Physician Type: ED Provider Notes Filed: 06/16/2023 7:21 PM Note Text: ED Provider Note Patient Name: Mercy Greenberg : 1985 SERVICE DATE: 06/16/23 History Patient presents with: Edema: Generalized all over body Weakness HPI Pt is a 37 yoF with a hx of migraines, chronic pain and PTSD on medical marijuana, presenting to the ED for evaluation of edema. Patient reports approximately 1 month ago she woke up and gained 22 pounds overnight. States she has been seen at an outside ED several times however they have not found a cause. Reports she feels that her entire body is swollen from her ankles up to her neck. Also reports intermittent shortness of breath and chest discomfort. None currently. Reports a nonproductive cough worse when lying flat. No history of heart failure or heart disease. Denies any fever but endorses chills and nasal congestion. No calf pain. Denies any urinary symptoms. Does report generalized weakness and fatigue. Chart reviewed: - following with neurology for migraines No past medical history on file. No past surgical history on file. No family history on file. Social History Tobacco Use Smoking status: Not on file Smokeless tobacco: Not on file Substance and Sexual Activity Alcohol use: Not on file Drug use: Not on file Sexual activity: Not on file ALLERGIES Allergen Reactions Amoxicillin Intolerance Pt reports it gives her bad yeast infections [place] Mental Status Change Nsaids (Non-Steroid* Unknown Pt reports it effects her kdineys Review of Systems Constitutional: Positive for chills and fatigue. Negative for appetite change and fever. HENT: Positive for congestion. Negative for sore throat. Respiratory: Positive for shortness of breath (none currently). Cardiovascular: Positive for chest pain (none currently) and leg swelling. Gastrointestinal: Positive for diarrhea and nausea. Negative for abdominal pain and vomiting. Genitourinary: Negative for difficulty urinating, dysuria and hematuria. Musculoskeletal: Negative for arthralgias. Skin: Negative for wound. Allergic/Immunologic: Negative for immunocompromised state. Neurological: Negative for dizziness, light-headedness and headaches. Hematological: Does not bruise/bleed easily. Psychiatric/Behaviora l: Negative for agitation. Physical Exam Vitals BP Pulse Temp Temp src Resp SpO2 Weight Height 06/16/23 1427 06/16/23 1427 06/16/23 1427 06/16/23 1427 06/16/23 1427 06/16/23 1427 06/16/23 1424 06/16/23 1424 136/66 72 36.8 ?C (98.2 ?F) Oral 18 98 % (!) 137 kg (302 lb) 1.6 m (5' 3 ) Physical Exam Constitutional: Nursing triage notes reviewed. Vital signs reviewed. Awake, Alert, and No acute distress HENT Head atraumatic, normocephalic Eyes No discharge and Nonicteric Neck Supple Lungs Clear to auscultation. No wheezes, rales, or rhonchi Heart Regular rate and rhythm, No murmurs, No rubs, and No gallops Abdomen Soft, Nondistended, Nontender. No rebound or guarding Back ROM to spine normal. Extremities. Full ROM all 4 extremities. Trace nonpitting edema equal to bilateral lower extremities. No calf tenderness. Neuro Alert and oriented. No gross focal deficit Skin No rash or lesion. Warm and dry Psych Normal affect, Good eye contact, Cooperative Diagnostic Testing ED Labs Ordered and Reviewed - No data to display Procedures ED Course / Clinical Impression ED Course as of 06/16/231917 Chhaya Bobby's Documentation ThuJun 16, 2023 1607 EKG personally reviewed and interpreted-normal sinus rhythm, heart rate 65. Normal axis, normal intervals. No ST elevations or depressions. No T wave inversions. 1630 XR CHEST 1V FRONTAL PORT No acute process 1652 CBC with Differential(!): WBC 10.65 RBC 4.18 Hemoglobin 10.8(!) Hematocrit 35.8(!) MCV 85.6 MCH 25.8(!) MCHC 30.2(!) RDW-CV 19.9(!) Platelet Count 454(!) MPV 9.5 Neut% 62.8 Abs Neut (ANC) 6.69 Lymph% 30.5 Abs Lymph 3.25 [place]% 4.9 Abs [place] 0.52 Eosin% 1.0 Abs Eosin 0.11 Baso% 0.4 Abs Baso 0.04 Immature Gran % 0.4 IMMATURE GRANS (ABS) 0.04 NRBC 0.0 Absolute nRBC <0.01 DTYPE Auto No leukocytosis. No clinically significant anemia or thrombocytosis. 1706 HCG Qualitative, Urine: Negative 1706 Urinalysis w Microscopic, reflex Culture(!): Color Light Yellow Clarity Clear Glucose, Urine Negative Bilirubin, Urine Negative Ketones, Urine Negative Specific [place], Ur 1.019 Hemoglobin/Blood,Ur 3+(!) pH, Urine 7.0 Protein, Urine 1+(!) Urobilinogen Normal Nitrites Negative Leukest Negative WBC, Urine 0-5 /HPF RBC, Urine 6-10 /HPF(!) Epithelial Cells Few Mild proteinuria and hgb. No signs of infection. 1725 Comp Metabolic Panel(!): Protein, Total 6.9 Albumin 4.0 Calcium 9.1 Bilirubin, Total 0.2 Alkaline Phosphatase 137 (more content not included)... Normal [facility] EKGon 06-16-2023 Electrocardiogram Ventricular Rate : 6 5 BPM Atrial Rate : 65 BPM P-R Interval : 171 ms QRS Duration : 102 ms Q-T Interval : 414 ms QTC Calculation(Bazett) : 431 ms Calculated P [place] : 70 degrees Calculated R [place] : 35 degrees Calculated T [place] : 42 degrees Sinus rhythm Low voltage, precordial leads Otherwise Normal ECG 1605 no STEMI Confirmed by CHHAYA BOBBY DO ([id number]), order editor LIZANDRO ROJO ([id number]) on 06/17/2023 8:38:25 AM NAME : MERCY GREENBERG PID : [id number] : 1985 Gender : Female Race : ORD : Procedure Date : Jun 16 2023 16:02:49 Edit Date : Jun 17 2023 08:38:27 Diagnosis: Sinus rhythm Low voltage, precordial leads Otherwise Normal ECG 1605 no STEMI Confirmed by CHHAYA BOBBY DO ([id number]), order editor LIZANDRO ROJO ([id number]) on 06/17/2023 8:38:25 AM Test Reason : Location : 302 : ED [facility] [place] [facility]- Overread By : CHHAYA BOBBY DO Edited By : LIZANDRO ROJO Referred By : , Acquired by : [id number], Normal [facility] HCG Preg Ur Qlon 06-16-2023 HCG ( test) Ql (U) Negative Normal Negative [facility] Comment on above: Order Comment: Rylie ha Type: BLOOD SPECIMEN Ordering Facility: [facility] Address: [address] [place] [phone] Result Comment: This test is intended to aid in the early detection of . Very dilute urine samples, as indicated by a low specific gravity, may not contain provider relations representative levels of hCG. This test detects intact hCG only. This test does not reliably detect hCG degradation products, including free-beta subunit and beta-core fragment. Therefore, this test may show reduced reactivity in urine after 8 weeks gestation. A number of conditions other than , including trophoblastic disease and certain non-trophoblastic neoplasms cause elevated levels of hCG. As with any assay employing mouse antibodies, the possibility exists for interference by human anti-mouse antibodies (HAMA) in the specimen. The test provides a presumptive diagnosis for . Performed By: #### 1 9123-9, 53619-4, 24059-0, 3016-3 #### [facility] CLIA [id number] [address] [facility] [place] [address] [place] HIGH SENSITIVITY TROPONIN T (INITIAL)on 06-16-2023 Troponin T.cardiac High sensitivity method [Mass/Vol] <6 Normal <12 [facility] Comment on above: Order Comment: Rylie ha Type: BLOOD SPECIMEN Ordering Facility: [facility] Address: [address] [place] [phone] Result Comment: When assessing risk for acute coronary syndromes: In patients undergoing blood draw greater than or equal to 2 hours from symptom onset, with history of very low to moderate risk and non-ischemic ECG, an initial hs-Troponin T less than 12 ng/L AND a 1 hour delta hs-Troponin T less than 3 ng/L should be considered very low risk for 30 day MACE. Performed By: #### 1 9123-9, 38850-1, 56874-5, 3016-3 #### [facility] CLIA [id number] [address] [facility] [place] [address] [place] HIGH SENSITIVITY TROPONIN T (SECOND)on 06-16-2023 Troponin T.cardiac High sensitivity method [Mass/Vol] <6 Normal <12 [facility] Comment on above: Order Comment: Rylie ha Type: BLOOD SPECIMEN Ordering Facility: [facility] Address: [address] [place] [place] [address] Result Comment: When assessing risk for acute coronary syndromes: In patients undergoing blood draw greater than or equal to 2 hours from symptom onset, with history of very low to moderate risk and non-ischemic ECG, an initial hs-Troponin T less than 12 ng/L AND a 1 hour delta hs-Troponin T less than 3 ng/L should be considered very low risk for 30 day MACE. Performed By: #### 1 9123-9, 45035-8, 18308-1, 6-3 #### [facility] CLIA [id number] [address] [facility] [place] [address] [place] Magnesium SerPl-mCncon 06-16 Magnesium [Mass/Vol] 2.2 mg/dL Normal 1.7-2.3 [facility] Comment on above: Order Comment: Rylie ha Type: BLOOD SPECIMEN Ordering Facility: [facility] Address: [address] [place] [id number] Performed By: #### 1 9123-9, 39393-7, 83141-3, 3016-3 #### [facility] CLIA [id number] [address] [facility] [place] [address] [place] NT-proBNP SerPl-ncon 06-16 Natriuretic peptide.B prohormone N-Terminal [Mass/Vol] 43 pg/mL Normal <125 [facility] Comment on above: Order Comment: Speci dilcia Type: BLOOD SPECIMEN Ordering Facility: [facility] Address: [place] Performed By: #### 1 9123-9, 70380-9, 99726-1, 3016-3 #### [facility] CLIA [id number] [address] [place] [address] [place] TSH SerPl-aCncon 06-16-2023 TSH Qn 1.290 m[IU]/L Normal 0.270-4.200 [facility] Comment on above: Order Comment: Specedilberto ha Type: BLOOD SPECIMEN Ordering Facility: [facility] Address: [place] [address] Result Comment: If t he patient is , TSH reference range varies by gestational period: First Trimester (weeks 9-12): 0.180-2.990 mIU/L Second Trimester: 0.110-3.980 mIU/L Third Trimester: 0.480-4.710 mIU/L Francisco Javier Siddiqui et al. A Practical Approach for the Verifications and Determination of Site- and Trimester-Specific Reference Intervals for Thyroid Function tests in . Thyroid, 2019:29:3:412-420. Desean E, et al. 2017 Guidelines of the [place] Thyroid Association for the Diagnosis and Management of Thyroid Disease during and the . Thyroid, 2017:27:3:315-389. Performed By: #### 1 9123-9, 60400-1, 44790-2, 3016-3 #### [facility] CLIA [id number] [address] [place] [address] [place] Urinalysis complete panel (U )on 06-16-2023 Bilirubin Ql (U) Negative Normal Negative [facility] Comment on above: Order Comment: Rylie ha Type: BLOOD SPECIMEN Ordering Facility: [facility] Address: [address] [place] [id number] Performed By: #### 1 9123-9, 37798-9, 79336-7, 3016-3 #### [facility] CLIA [id number] [address] [place] [place] [address] [place] Clarity (Unsp spec) Clear Normal Clear [facility] Comment on above: Order Comment: Speci men Type: BLOOD SPECIMEN Ordering Facility: [facility] Address: [address] [address] Performed By: #### 1 9123-9, 79943-9, 42727-0, 3016-3 #### [facility] CLIA [id number] [address] [place] [address] [place] Color (U) Light Yellow Normal yellow [facility] Comment on above: Order Comment: Speci men Type: BLOOD SPECIMEN Ordering Facility: [facility] Address: [address] [address] Performed By: #### 1 9123-9, 29087-7, 54128-2, 3016-3 #### [facility] [place] [id number] [place] [address] [place] Epithelial cells LM.HPF (Urine sed) [#/Area] Few Normal [facility] Comment on above: Order Comment: Speci men Type: BLOOD SPECIMEN Ordering Facility: [facility] Address: [address] [address] Performed By: #### 1 9123-9, 77168-4, 12146-7, 3016-3 #### [facility] [place] [id number] [address] [place] [address] [place] Glucose Test strip (U) [Mass/Vol] Negative Normal Trace, Negative [facility] Comment on above: Order Comment: Speci men Type: BLOOD SPECIMEN Ordering Facility: [facility] Address: [address] Performed By: #### 1 9123-9, 75991-2, 99799-0, 3016-3 #### [facility] [place] [id number] [place] [address] [place] Hemoglobin Ql (U) 3+ Abnormal Negative, Trace [facility] Comment on above: Order Comment: Speci men Type: BLOOD SPECIMEN Ordering Facility: [facility] Address: [address] [address] Performed By: #### 1 9123-9, 47623-3, 50905-9, 3016-3 #### [facility] CLIA [id number] [address] [place] [address] [place] Ketones Ql (U) Negative Normal Negative, Trace [facility] Comment on above: Order Comment: Speci men Type: BLOOD SPECIMEN Ordering Facility: [facility] Address: [address] [address] Performed By: #### 1 9123-9, 51515-1, 48155-4, 3016-3 #### [facility] CLIA [id number] [address] [place] [address] [place] Leukocyte esterase Test strip Ql (U) Negative Normal Negative, 25 [place]/uL [facility] Comment on above: Order Comment: Speci men Type: BLOOD SPECIMEN Ordering Facility: [facility] Address: [address] [address] Performed By: #### 1 9123-9, 09611-3, 76750-6, 3016-3 #### [facility] CLIA [id number] [address] [place] [address] [place] Nitrite Ql (U) Negative Normal Negative [facility] Comment on above: Order Comment: Speci men Type: BLOOD SPECIMEN Ordering Facility: [facility] Address: [address] [address] Performed By: #### 1 9123-9, 96071-0, 16541-5, 3016-3 #### [facility] CLIA [id number] [address] [place] [address] [place] pH (U) 7.0 [pH] Normal 5.0-8.0 [facility] Comment on above: Order Comment: Speci men Type: BLOOD SPECIMEN Ordering Facility: [facility] Address: [address] [address] Performed By: #### 1 9123-9, 95881-6, 32876-3, 3016-3 #### [facility] CLIA [id number] [address] [place] [address] [place] Protein (U) [Mass/Vol] 1+ Abnormal Trace, Negative [facility] Comment on above: Order Comment: Speci men Type: BLOOD SPECIMEN Ordering Facility: [facility] Address: [address] [place] [address] Performed By: #### 1 9123-9, 02165-4, 63811-6, 3016-3 #### [facility] [place] [id number] [address] [place] [address] [place] RBC LM.HPF (Urine sed) [#/Area] 6-10 /HPF Abnormal 0-3 /HPF [facility] Comment on above: Order Comment: Speci men Type: BLOOD SPECIMEN Ordering Facility: [facility] Address: [address] [place] [address] Performed By: #### 1 9123-9, 77137-6, 77157-7, 3016-3 #### [facility] [place] [id number] [address] [place] [address] [place] Specific gravity (U) [Rel density] 1.019 Normal 1.005-1.030 [facility] Comment on above: Order Comment: Speci men Type: BLOOD SPECIMEN Ordering Facility: [facility] Address: [address] [place] [address] Performed By: #### 1 9123-9, 84591-1, 91840-3, 3016-3 #### [facility] [place] [id number] [address] [place] [address] [place] Urobilinogen Ql (U) Normal Normal Negative [facility] Comment on above: Order Comment: Speci men Type: BLOOD SPECIMEN Ordering Facility: [facility] Address: [address] [place] [address] Performed By: #### 1 9123-9, 44898-8, 99500-8, 3016-3 #### [facility] CLIA [id number] [address] [place] [address] [place] WBC LM.HPF (Urine sed) [#/Area] 0-5 /HPF Normal 0-5 /HPF [facility] Comment on above: Order Comment: Speci men Type: BLOOD SPECIMEN Ordering Facility: [facility] Address: [place] [address] Performed By: #### 1 9123-9, 16706-9, 67491-1, 3016-3 #### [facility] CLIA [id number] [address] [facility] XR CHEST 1V FRONTAL PORTon 0 06-16-2023 XR CHEST 1V FRONTAL PORT * * *Final Report* * * DATE OF EXAM: Jun 16 2023 4:22PM VHX [id number] - XR CHEST 1V FRONTAL PORT / PROCEDURE REASON: Chest pain, nonspecific * * * * Physician Interpretation * * * * EXAMINATION: CHEST RADIOGRAPH (PORTABLE SINGLE VIEW AP) Exam Date/Time: 06/16/2023 4:22 PM CLINICAL HISTORY: Chest pain, nonspecific MQ: XCPR_5 Comparison: No prior RESULT: Lines, tubes, and devices: None. Lungs and pleura: The lungs are free of airspace opacities. No pleural effusion or pneumothorax is seen. Cardiomediastinal silhouette: Stable cardiomediastinal silhouette. Other: . IMPRESSION: No acute process [employer] Former: [facility] Transcribe Date/Time: Jun 16 2023 4:23P Dictated by : KOFI HERRERA MD This examination was interpreted and the report reviewed and electronically signed by: KOFI HERRERA MD on Jun 16 2023 4:25PM EST [id number] N Normal [facility] MERCY HEBERT ([id number]) 1985 F Date Time Provider Department 04/22/23 NILAM HANSONAV4 During your visit today, we recorded the following information about you: Snehal Small 04/24/2023 3:10 PM Signed 04/24/2023 Pt at this time wants to continue with medication management per my phone call to her and will reach out via COM DEV if she has any changes to this plan. Snehal Small [employer] Allergies As of Date: 04/22/2023 Noted Allergy Reaction AMOXICILLIN 02/25/2023 14 - Other: See Comments GLUTEN 09/02/2019 8 - GI Upset 16 - Unknown NSAIDS (NON-STEROIDAL ANTI-INFLAM* 14 - Other: See Comments Comments: kidney failure Date Reviewed: 04/09/2023 Reviewed by: Emili Greene RN - Fully Assessed Reason for Visit: Results [95] Prescriptions as of 04/24/2023 - acetaZOLAMIDE SR (DIAMOX SEQUELS) 500 mg capsule Take 500 mg by mouth twice daily. - VENTOLIN HFA 90 mcg/actuation inhaler Inhale 1 Puff as instructed four times daily. - Cholecalciferol, Vitamin D3, 25 mcg (1,000 unit) cap Take 1 capsule by mouth once daily. - DULoxetine (CYMBALTA) 60 mg capsule Take 60 mg by mouth every morning. - WIXELA INHUB 500-50 mcg/dose dsdv Inhale 1 Puff as instructed twice daily. - levothyroxine (SYNTHROID) 25 mcg tablet Take 0.5 tablets by mouth once daily. - VICTOZA 3-DEB 0.6 mg/0.1 mL (18 mg/3 mL) Inject 1 mg subcutaneously once daily. - lisdexamfetamine (VYVANSE) 30 mg capsule Take 1 capsule by mouth q 24 HR. - losartan (COZAAR) 100 mg tablet Take 1 tablet by mouth once daily. - nystatin (MYCOSTATIN) 100,000 unit/mL suspension Take 1 Units by mouth as needed. - omeprazole (PRILOSEC) 20 mg capsule Take 20 mg by mouth once daily. - EASY COMFORT PEN NEEDLES 31 gauge x 3/16 Inject 1 Each subcutaneously once daily. - QUEtiapine ER (SEROQUEL XR) 200 mg 24 hr tablet Take 1 tablet by mouth once daily. - rOPINIRole (REQUIP) 0.5 mg tablet Take 1 tablet by mouth once daily. - SUMAtriptan (IMITREX) 100 mg tablet Take 1 tablet by mouth as needed. - tiotropium bromide (SPIRIVA RESPIMAT) 1.25 mcg/actuation mist Inhale 2 Puffs as instructed once daily. - pregabalin (LYRICA) 75 mg capsule Take 1 capsule by mouth twice daily for 150 days. - baclofen (LIORESAL) 10 mg tablet Take 0.5-1 tablets by mouth twice daily as needed (spasms or pain). Problem List As Of Date: 04/22/2023 (None) Encounter Status:Closed by SNEHAL SMALL on 04/24/23 [facility] 04-09-2023 [facility] HNO ID: [id number] Author: RT Ryan(R) Service: Radiology Author Type: Inside Technical Sales Representative Type: Allied Health Filed: 04/09/2023 5:17 PM Note Text: Radiology Service Progress Note PATIENT NAME: [facility] He[facility] DATE OF SERVICE: April 09, 2023 TIME: 4:45 PM PATIENT IDENTITY VERIFICATION COMPLETED USING TWO (2) IDENTIFIERS: Name and Date of confirmed by patient verbally and Name and Date of confirmed by identification band. FALL SCREENING: Has the patient had 2 falls in the last year or 1 fall with injury or currently using an Ambulatory Assistive Device (Walker, Cane, Wheelchair, Crutches, etc.)? No PATIENT GENDER DATA: Female. status: : No status: NO. PATIENT RELEVANT IMPLANT DATA REVIEWED: Yes RADIOLOGY DEPARTMENT: MR; Exam(s) Completed: Head: Multiple Sclerosis PERIPHERAL IV DATA: Site assessment: Clean,Dry and Intact, Site disposition Discontinued SIGNED BY: RT Ryan(R) April 09, 2023 4:45 PM [facility] MRI BRAIN WO/W IVCONon 04-09 MRI BRAIN WO/W IVCON * * *Final Report* * * DATE OF EXAM: Apr 09 2023 5:25PM [facility] 0295 - MRI BRAIN WO/W IVCON / PROCEDURE REASON: Benign intracranial hypertension * * * * Physician Interpretation * * * * EXAMINATION: MRI BRAIN WO/W IVCON HISTORY: Benign intracranial hypertension. TECHNIQUE: Demyelinating brain MRI protocol without and with contrast including diffusion images. MQ: [id number] Contrast: 20 mL Dotarem IV COMPARISON: Images from prior outside CT head dated 05/02/2020 were referenced. Images from prior outside MRI brain dated 06/16/2020 were referenced. RESULT: Acute Change: There is no evidence of restricted diffusion to suggest an acute infarct. Hemorrhage: No evidence of acute hemorrhage on sequences obtained. Mass Lesion/ Mass Effect: No evidence of an intracranial mass or extra-axial fluid collection. No abnormal parenchymal or leptomeningeal enhancement is noted following contrast administration. No significant mass effect. Chronic Change: The white matter is within normal limits of signal intensity for age. Parenchyma: No significant volume loss for age. The brain parenchyma is otherwise within normal limits of signal intensity and morphology. Ventricles: Normal caliber and morphology. Skull Base: Hypothalamic and pituitary region are grossly normal. Craniocervical junction is normal. No significant marrow replacement process. Vasculature: Major intracranial arterial structures, and dural venous sinuses show typical flow void, suggesting patency by spin echo criteria. Other: The visualized paranasal sinuses and mastoid air cells are clear. The orbits and extracranial soft tissues are unremarkable. IMPRESSION: Unremarkable MRI brain with and without contrast. [employer] Former: [facility] Transcribe Date/Time: Apr 10 2023 8:26A Dictated by : TAE VICK MD This examination was interpreted and the report reviewed and electronically signed by: TAE VICK MD on Apr 10 2023 8:30AM EST [id number] Normal [facility] HEALTH 04-08-2023 ALLIED HEALTH HNO ID: [id number] Author: RT Barak(R) Service: Radiology Author Type: Technologist Type: Allied Health Filed: 04/08/2023 4:49 PM Note Text: Radiology Service Progress Note PATIENT NAME: Mercy Hebert DATE OF SERVICE: April 08, 2023 TIME: 4:49 PM PATIENT IDENTITY VERIFICATION COMPLETED USING TWO (2) IDENTIFIERS: Name and Date of confirmed by patient verbally and Name and Date of confirmed by identification band. FALL SCREENING: Has the patient had 2 falls in the last year or 1 fall with injury or currently using an Ambulatory Assistive Device (Walker, Cane, Wheelchair, Crutches, etc.)? No PATIENT GENDER DATA: Female. status: : No status: NO. PATIENT RELEVANT IMPLANT DATA REVIEWED: Yes RADIOLOGY DEPARTMENT: MR; Exam(s) Completed: Spine: Cervical spine PERIPHERAL IV DATA: Site assessment: Clean,Dry and Intact, Site disposition Discontinued SIGNED BY: Mary Nuñez RT(R) April 08, 2023 4:49 PM Normal [facility] MRI CERVICAL SPINE WO/W IVCO Non 04-08-2023 MRI CERVICAL SPINE WO/W IVCON * * *Final Report* * * DATE OF EXAM: Apr 08 2023 4:42PM [facility] 0298 - MRI CERVICAL SPINE WO/W IVCON / PROCEDURE REASON: Spinal stenosis of cervical region * * * * Physician Interpretation * * * * EXAMINATION: MRI CERVICAL SPINE WO/W IVCON CLINICAL HISTORY: Spinal stenosis of cervical region TECHNIQUE: Routine cervical spine MR protocol without and with intravenous gadolinium. 20 cc of intravenous Dotarem. MQ: [id number] COMPARISON: MR imaging dated 01/17/2021. RESULT: Counting reference: Craniocervical junction. Anatomic Variants: None. Localizer images: Noncontributory. Alignment: Slight straightening cervical lordosis with alignment otherwise normal. Craniocervical junction: Craniocervical junction is normal. Cord: Extradural defects are detailed below. Bone marrow signal/fracture: No evidence of pathologic marrow infiltration. No evidence of prior fracture. Posterior elements are intact. Cervical soft tissues: The paraspinal soft tissues are within normal limits. C2-C3: Canal and foramina are patent. C3-C4: Canal and foramina are patent. C4-C5: Canal and foramina are patent. C5-C6: Minimal flattening ventral cord by disc osteophyte formation. Unchanged. C6-C7: Disc osteophyte formation with mild flattening ventral cord. Comparable to prior exam. C7-T1: Minimal disc osteophyte formation without canal or foraminal stenosis. IMPRESSION: Degenerative changes most severe at C5-C6 and C6-C7 as itemized above. Findings appear comparable to prior exam. Anatomic Variant: None. Assume 7 cervical vertebrae with counting from the craniocervical junction. [employer] Former: JAG[employer] Transcribe Date/Time: Apr 09 2023 8:26A Dictated by : DAVE JONES MD This examination was interpreted and the report reviewed and electronically signed by: DAVE JONES MD on Apr 09 2023 8:30AM EST [id number] N [facility] NURSING PROGon 04-08-2023 NURSING PROG HNO ID: [id number] Author: Mitali Dang RN Service: Radiology Author Type: Registered Nurse Type: Nursing Progress Note Filed: 04/08/2023 3:38 PM Note Text: Radiology Service Progress Note DATE OF SERVICE: April 08, 2023 TIME: 3:31 PM PATIENT WEIGHT: 305 LBS PATIENT IDENTITY VERIFICATION COMPLETED USING TWO (2) STANDARD IDENTIFIERS: Name and Date of confirmed by patient verbally and Name and Date of confirmed by identification band. FALL SCREENING: Has the patient had 2 falls in the last year or 1 fall with injury or currently using an Ambulatory Assistive Device (Walker, Cane, Wheelchair, Crutches, etc.)? No PATIENT GENDER DATA: Female. status: : No status: NO. ALLERGIES: Reviewed and unchanged CONTRAST ALLERGY: No EXAM: MRI - CONTRAST TYPE: GROUP II IV SITE: Ambulatory: A peripheral IV was started in the Right forearm with a Angio cath: 20 gauge. 2 inch catheter via ultrasound IV SITE APPEARANCE: Clean,Dry and Intact SIGNATURE: Mitali Dang RN PATIENT NAME: [facility] Hebert DATE: April 08, 2023 TIME: 3:31 [facility] ([id number]) 1985 F Date Time Provider Department 04/07/23 NILAM HANSON During your visit today, we recorded the following information about you: Nilam Hanson DO 04/07/2023 12:17 PM Signed Received email regarding MRI brain needing [id number]. Called and spoke with Dr. Lewis and after discussion she approved the MRI brain with approval number [id number] exp 03/27-05/26/2923. 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 - VENTOLIN HFA 90 mcg/actuation inhaler Inhale 1 Puff as instructed four times daily. - Cholecalciferol, Vitamin D3, 25 mcg (1,000 unit) cap Take 1 capsule by mouth once daily. - DULoxetine (CYMBALTA) 60 mg capsule Take 60 mg by mouth every morning. - WIXELA INHUB 500-50 mcg/dose dsdv Inhale 1 Puff as instructed twice daily. - levothyroxine (SYNTHROID) 25 mcg tablet Take 0.5 tablets by mouth once daily. - VICTOZA 3-DEB 0.6 mg/0.1 mL (18 mg/3 mL) Inject 1 mg subcutaneously once daily. - lisdexamfetamine (VYVANSE) 30 mg capsule Take 1 capsule by mouth q 24 HR. - losartan (COZAAR) 100 mg tablet Take 1 tablet by mouth once daily. - nystatin (MYCOSTATIN) 100,000 unit/mL suspension Take 1 Units by mouth as needed. - omeprazole (PRILOSEC) 20 mg capsule Take 20 mg by mouth once daily. - EASY COMFORT PEN NEEDLES 31 gauge x 3/16 Inject 1 Each subcutaneously once daily. - QUEtiapine ER (SEROQUEL XR) 200 mg 24 hr tablet Take 1 tablet by mouth once daily. - rOPINIRole (REQUIP) 0.5 mg tablet Take 1 tablet by mouth once daily. - SUMAtriptan (IMITREX) 100 mg tablet Take 1 tablet by mouth as needed. - tiotropium bromide (SPIRIVA RESPIMAT) 1.25 mcg/actuation mist Inhale 2 Puffs as instructed once daily. - pregabalin (LYRICA) 75 mg capsule Take 1 capsule by mouth twice daily for 150 days. - baclofen (LIORESAL) 10 mg tablet Take 0.5-1 tablets by mouth twice daily as needed (spasms or pain). Problem List As Of Date: 04/07/2023 (None) Encounter Status:Closed by NILAM HANSON on 04/07/23 [facility] 04-02-2023 [facility] Telephone (NEUAV4) [facility] ([id number]) 1985 F Date Time Provider Department 04/02/23 NILAM HANSON NEUAV4 During your visit today, we recorded the following information about you: Nilam Hanson DO 04/02/2023 5:58 PM Signed Received email noting need for peer to peer for MRI Cervical spine. Called for peer to peer Reference # [id number] and discussed with Dr Jefferson and after discussion he reversed the denial and has approved the study. 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 - VENTOLIN HFA 90 mcg/actuation inhaler Inhale 1 Puff as instructed four times daily. - Cholecalciferol, Vitamin D3, 25 mcg (1,000 unit) cap Take 1 capsule by mouth once daily. - DULoxetine (CYMBALTA) 60 mg capsule Take 60 mg by mouth every morning. - WIXELA INHUB 500-50 mcg/dose dsdv Inhale 1 Puff as instructed twice daily. - levothyroxine (SYNTHROID) 25 mcg tablet Take 0.5 tablets by mouth once daily. - VICTOZA 3-DEB 0.6 mg/0.1 mL (18 mg/3 mL) Inject 1 mg subcutaneously once daily. - lisdexamfetamine (VYVANSE) 30 mg capsule Take 1 capsule by mouth q 24 HR. - losartan (COZAAR) 100 mg tablet Take 1 tablet by mouth once daily. - nystatin (MYCOSTATIN) 100,000 unit/mL suspension Take 1 Units by mouth as needed. - omeprazole (PRILOSEC) 20 mg capsule Take 20 mg by mouth once daily. - EASY COMFORT PEN NEEDLES 31 gauge x 3/16 Inject 1 Each subcutaneously once daily. - QUEtiapine ER (SEROQUEL XR) 200 mg 24 hr tablet Take 1 tablet by mouth once daily. - rOPINIRole (REQUIP) 0.5 mg tablet Take 1 tablet by mouth once daily. - SUMAtriptan (IMITREX) 100 mg tablet Take 1 tablet by mouth as needed. - tiotropium bromide (SPIRIVA RESPIMAT) 1.25 mcg/actuation mist Inhale 2 Puffs as instructed once daily. - pregabalin (LYRICA) 75 mg capsule Take 1 capsule by mouth twice daily for 150 days. - baclofen (LIORESAL) 10 mg tablet Take 0.5-1 tablets by mouth twice daily as needed (spasms or pain). Problem List As Of Date: 04/02/2023 (None) Encounter Status:Closed by [facility]ANSON on [facility]02/[facility] (NIQ) [facility] ([id number]) 1985 F Date Time Provider Department 03/11/23 NILAM HANSON During your visit today, we recorded the following information about you: Barbara Lundbergcarlosjorge luis Sandra 03/11/2023 3:58 PM Signed Patient called stating she hasn't been able to work due to the back pain and balance issues she saw Dr Hanson for on 02/24. 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 She is trying to apply for medicaid and food stamps and they are asking for a letter from the physician that says she cannot work. If Dr Hanson is willing to provide this, she would like the letter to be effective from her last appointment until her next appointment. Please let patient know. She can be reached at [phone]. Nilam Hanson DO 03/13/2023 12:42 PM Signed Amount of time being asked is rather excessive as next appointment with me is not until 07/2023. With her still seeing and co-managing her issues with local neurologist and family physician it may make more sense to have them be the ones to fill out this type of paperwork and would be seeing her more often. Snehal Small 03/13/2023 1:19 PM Signed 03/13/2023 Pt was called and this nurse spoke with [facility] regarding having the local Neurologist and PCP to address this request. Pt verbalized understanding and will proceed with them completing requested paperwork. Pt advise to reach out if any further issues. Snehal Small Lpn Allergies As of Date: 03/11/2023 Noted Allergy Reaction AMOXICILLIN 02/25/2023 14 - Other: See Comments GLUTEN 09/02/2019 8 - GI Upset 16 - Unknown NSAIDS (NON-STEROIDAL ANTI-INFLAM* 14 - Other: See Comments Comments: kidney failure Date Reviewed: 02/25/2023 Reviewed by: Nilam Hanson DO - Fully Assessed Reason for Visit: Patient Question [3117] Prescriptions as of 03/13/2023 - acetaZOLAMIDE SR (DIAMOX SEQUELS) 500 mg capsule Take 500 mg by mouth twice daily. - VENTOLIN HFA 90 mcg/actuation inhaler Inhale 1 Puff as instructed four times daily. - Cholecalciferol, Vitamin D3, 25 mcg (1,000 unit) cap Take 1 capsule by mouth once daily. - DULoxetine (CYMBALTA) 60 mg capsule Take 60 mg by mouth every morning. - WIXELA INHUB 500-50 mcg/dose dsdv Inhale 1 Puff as instructed twice daily. - levothyroxine (SYNTHROID) 25 mcg tablet Take 0.5 tablets by mouth once daily. - VICTOZA 3-DEB 0.6 mg/0.1 mL (18 mg/3 mL) Inject 1 mg subcutaneously once daily. - lisdexamfetamine (VYVANSE) 30 mg capsule Take 1 capsule by mouth q 24 HR. - losartan (COZAAR) 100 mg tablet Take 1 tablet by mouth once daily. - nystatin (MYCOSTATIN) 100,000 unit/mL suspension Take 1 Units by mouth as needed. - omeprazole (PRILOSEC) 20 mg capsule Take 20 mg by mouth once daily. - EASY COMFORT PEN NEEDLES 31 gauge x 3/16 Inject 1 Each subcutaneously once daily. - QUEtiapine ER (SEROQUEL XR) 200 mg 24 hr tablet Take 1 tablet by mouth once daily. - rOPINIRole (REQUIP) 0.5 mg tablet Take 1 tablet by mouth once daily. - SUMAtriptan (IMITREX) 100 mg tablet Take 1 tablet by mouth as needed. - tiotropium bromide (SPIRIVA RESPIMAT) 1.25 mcg/actuation mist Inhale 2 Puffs as instructed once daily. - pregabalin (LYRICA) 75 mg capsule Take 1 capsule by mouth twice daily for 150 days. - baclofen (LIORESAL) 10 mg tablet Take 0.5-1 tablets by mouth twice daily as needed (spasms or pain). Problem List As Of Date: 03/11/2023 (None) Encounter Status:Closed by SNEHAL SMALL on 03/13/23 [facility] 02-27-2023 [facility] Telephone (NEURAV) [facility] ([id number]) 1985 F Date Time Provider Department 02/27/23 NILAM HASNON During your visit today, we recorded the following information about you: Snehal Small 02/27/2023 11:34 AM Signed 02/27/2023 Pt's after visit note faxed to Dr. Alvin Das [phone], Valente Maddox [facility] [phone],Elton Rodriguez [place] [phone] all 3 with confirmations received. 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 - VENTOLIN HFA 90 mcg/actuation inhaler Inhale 1 Puff as instructed four times daily. - Cholecalciferol, Vitamin D3, 25 mcg (1,000 unit) cap Take 1 capsule by mouth once daily. - DULoxetine (CYMBALTA) 60 mg capsule Take 60 mg by mouth every morning. - WIXELA INHUB 500-50 mcg/dose dsdv Inhale 1 Puff as instructed twice daily. - levothyroxine (SYNTHROID) 25 mcg tablet Take 0.5 tablets by mouth once daily. - VICTOZA 3-DEB 0.6 mg/0.1 mL (18 mg/3 mL) Inject 1 mg subcutaneously once daily. - lisdexamfetamine (VYVANSE) 30 mg capsule Take 1 capsule by mouth q 24 HR. - losartan (COZAAR) 100 mg tablet Take 1 tablet by mouth once daily. - nystatin (MYCOSTATIN) 100,000 unit/mL suspension Take 1 Units by mouth as needed. - omeprazole (PRILOSEC) 20 mg capsule Take 20 mg by mouth once daily. - EASY COMFORT PEN NEEDLES 31 gauge x 3/16 Inject 1 Each subcutaneously once daily. - QUEtiapine ER (SEROQUEL XR) 200 mg 24 hr tablet Take 1 tablet by mouth once daily. - rOPINIRole (REQUIP) 0.5 mg tablet Take 1 tablet by mouth once daily. - SUMAtriptan (IMITREX) 100 mg tablet Take 1 tablet by mouth as needed. - tiotropium bromide (SPIRIVA RESPIMAT) 1.25 mcg/actuation mist Inhale 2 Puffs as instructed once daily. - pregabalin (LYRICA) 75 mg capsule Take 1 capsule by mouth twice daily for 150 days. - baclofen (LIORESAL) 10 mg tablet Take 0.5-1 tablets by mouth twice daily as needed (spasms or pain). Problem List As Of Date: 02/27/2023 (None) Encounter Status:Closed by SNEHAL SMALL on 02/27/23 [facility] 02-26-2023 [facility] Telephone (NEUAV4) [facility] ([id number]) 1985 F Date Time Provider Department 02/26/23 NILAM HANSONAV4 During your visit today, we recorded the following information about you: Snehal Small 02/26/2023 10:57 AM Signed 02/26/2023 Disc 1 [facility] testing from 02/06/21 through 05/02/2020 downloaded. Disc 2 [facility] testing from 10/15/2021 through 03/26/2020 downloaded. Original Discs mailed back to pts home address. 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 - VENTOLIN HFA 90 mcg/actuation inhaler Inhale 1 Puff as instructed four times daily. - Cholecalciferol, Vitamin D3, 25 mcg (1,000 unit) cap Take 1 capsule by mouth once daily. - DULoxetine (CYMBALTA) 60 mg capsule Take 60 mg by mouth every morning. - WIXELA INHUB 500-50 mcg/dose dsdv Inhale 1 Puff as instructed twice daily. - levothyroxine (SYNTHROID) 25 mcg tablet Take 0.5 tablets by mouth once daily. - VICTOZA 3-DEB 0.6 mg/0.1 mL (18 mg/3 mL) Inject 1 mg subcutaneously once daily. - lisdexamfetamine (VYVANSE) 30 mg capsule Take 1 capsule by mouth q 24 HR. - losartan (COZAAR) 100 mg tablet Take 1 tablet by mouth once daily. - nystatin (MYCOSTATIN) 100,000 unit/mL suspension Take 1 Units by mouth as needed. - omeprazole (PRILOSEC) 20 mg capsule Take 20 mg by mouth once daily. - EASY COMFORT PEN NEEDLES 31 gauge x 3/16 Inject 1 Each subcutaneously once daily. - QUEtiapine ER (SEROQUEL XR) 200 mg 24 hr tablet Take 1 tablet by mouth once daily. - rOPINIRole (REQUIP) 0.5 mg tablet Take 1 tablet by mouth once daily. - SUMAtriptan (IMITREX) 100 mg tablet Take 1 tablet by mouth as needed. - tiotropium bromide (SPIRIVA RESPIMAT) 1.25 mcg/actuation mist Inhale 2 Puffs as instructed once daily. - iv contrast (will be provided with radiology test) MRI Brain Inject, intravenously, once for 1 dose.No IV access, insert saline lock prior to beginning of sedation, infusion, injection of imaging exam.Discontinue saline lock post exam. If Pt. has a central line or IVAD, may access for administration according to line specific nursing protocol.Once exam is complete flush line and de-access according to line specific nursing protocol in the MR contrast administration guidelines link - iv contrast (will be provided with radiology test) MRI CSP Inject, intravenously, once for 1 dose. No IV access, insert saline lock prior to the beginning of sedation, infusion, injection of imaging exam. Discontinue saline lock post exam. If Pt. has a central line or IVAD, may access for administration according to line specific nursing protocol. Once exam is complete flush line and de-access according to line specific nursing protocol in the MR contrast administration guidelines link. - pregabalin (LYRICA) 75 mg capsule Take 1 capsule by mouth twice daily for 150 days. - baclofen (LIORESAL) 10 mg tablet Take 0.5-1 tablets by mouth twice daily as needed (spasms or pain). Problem List As Of Date: 02/26/2023 (None) Encounter Status:Closed by SNEHAL SMALL on 02/26/23 Normal [facility] CNOVon 02-25-2023 CNOV Office Visit (NEUAV4 ) [facility] ([id number]) 1985 F Date Time Provider Department 02/25/23 6:00 PM NILAM HANSON4 During your visit today, we recorded the following information about you: Pulse Blood pressure 93/minute 110/77 Nilam Hanson DO 02/26/2023 5:[address] [facility] [place] New Patient Consultation February 25, 2023 HPI: Ms. Hebert, who is accompanied today by her father, presents today secondary to issues of neurologic concerns. She states that she has a lumbar puncture in 06/22/2020 and had lower back pains since then. She describes having pain that began in the lower back that has spread to now involve the entire body. She notes activity seems to be the trigger. She states she has issues taking care of ADL's such as standing at the stove and cooking, cleaning. She has been seeing a local neurologist and had the spinal tap secondary to suspicion of intracranial hypertension. She believes the opening pressure was 27 and closing pressure 14 as via radiology.. In the spinal tap she states her anxiety was high and muscle were tense. She notes pain afterwards in the area of the procedure. She denies there was any redness or irritation. She did not have fever or stiffness in the neck afterwards. She cannot recall exactly how the pain spread onlyt that is begins in her lower back and then radiates down into her legs. After a few months she began to notice pain in other parts of the body including the neck. Currently she describes pain in her lower back that begins each morning and then pain throughout other parts of the body. She notes if she does any activities the pain intensifies and then lasts all day long. In the last two weeks she notes feeling weakness in the left upper extremity. She also feels a loss of balance as of two weeks ago. She can recall having a door handle hit her in the lower thoracic region as a door came back to hit her near the same time as only real change. In workup she saw the neurologist and had the spinal tap and was started on diamox at 500 mg BID and verapamil. She denies side effects to these and notes improvement in her overall headaches since these were started. For the weakness and pains she has had physical therapy targeted to the lower back and hips. She stopped this as it increased her overall pains. Her greatest pains are in the lower back. She had x-rays and MRI imaging brain and cervical, and lumbar spine. In this she was told that her brain and lumbar spine were normal. In the cervical spine showed two level discogenic changes with spinal stenosis C5-7 levels. She was referred to neurosurgery at [facility] in [place] and she was told that they did not want to pursue surgery at that time. This was all in 2020. After this she states not much else has been done. She has not had any repeat imaging since 2020. She walks 1/4 mile daily. She is taking gabapentin at 300 mg twice a day. She does not feels this controls he pains. She had been up to 600 mg twice a day but had tiredness with this so it was reduced back down to 300 mg twice a day as of 03/2022. She denies she has had wearing off effect. She can tell a difference when taken versus when not. She has been using essential oils on the bottom of her feet. She has also used tumeric with Devil's claw which she feels helps some. She is on duloxetine as via her psychiatrist for anxiety, depression, bipolar II, and schizoaffective, disorder. She takes the duloxetine at 60 mg in the AM. She denies side effects to this she is aware of. She tried a higher amount as of 2 weeks but then decreased this down due to her being on seroquel with manic episode/insomnia. She has an appointment with distributed generation project manager but has not seen one before. She has seen a pain specialist who wanted to try injections, she cannot recall to what area, she decided against this due to fear of needles. For pains she states she lies in bed. Tylenol is of minimal to no help, she cannot take NSAID's due to renal issues/failure. She has old prescription for muscle for cyclobenzaprine which helps reduce muscle tightness and spasms by 50%. She has not used this all that often until the last two weeks. She denies use of this or other muscle relaxant for the last 2 years. 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 He notes in the last 4-6 weeks she has not worked much and when working she stands or sits at the counter and the concrete floor felt to increase her pain. When trying to increase her work hours her lower back pains increased to the point she was off work for nearly 2 weeks. PAST MEDICAL HISTORY Diagnosis Date ADD (attention deficit disorder) Anxiety state Asthma Bipolar 2 disorder (HCC) Cervical stenosis of spine Chronic pain Essential hypertension GERD (gastroesophageal (more content not included)... Normal [facility] US THYROIDon 01-06-2023 US THYROID EXAMINATION: US THYROID HISTORY: Mass of neck COMPARISON: No relevant comparison available. FINDINGS: RIGHT LOBE: Incidental small colloid cyst. Normal size and echotexture of thyroid lobe. Lobe size: 4.4 x 1.3 x 1.6 cm LEFT LOBE: Normal size and echotexture. Lobe size: 3.2 x 1.2 x 1.5 cm ISTHMUS: Slightly thickened, but normal echotexture. Thickness: 5 mm IMPRESSION: 1. No abnormal or suspicious findings. Electronically authenticated by: MARIVEL JOHNSON Date: 2023-01-06 18:00 Normal [facility] GLYCOHEMOGLOBIN A1Con 2022 ADA RECOMMENDATION SEE BELOW Normal [facility] Comment on above: Result Comment: ADA RECOMMENDED LIMIT 4.0 - 6.0 ADA THERAPEUTIC TARGET < 7.0 ACTION SUGGESTED > 7.0 Performed By: #### I GETOT #### [facility] [address] [place] [address] Dr. Niharika Cortés Glucose [Mass/Vol] 117 mg/dL Normal [facility] Comment on above: Performed By: #### I GETOT #### [facility] [address] [place] [address] Dr. Niharika Cortés HbA1c (Bld) [Mass fraction] 5.7 % Normal 4.5-6.2 [facility] Comment on above: Performed By: #### I GETOT #### [facility] [address] [place] [address] Dr. Niharika Cortés LIPID PROFILEon 12-30-2022 CHOL-HDL RATIO NORM SEE BELOW Normal [facility] Comment on above: Result Comment: 3.3 - 4.4 LOW RISK 4.4 - 7.1 AVERAGE RISK 7.1 - 11.0 MODERATE RISK >11.0 HIGH RISK Performed By: #### I GETOT #### [facility] [address] [place] [address] Dr. Niharika Cortés Cholesterol [Mass/Vol] 151 mg/dL Normal <=200 [facility] Comment on above: Performed By: #### I GETOT #### [facility] [address] [place] [address] Dr. Niharika Cortés Cholesterol in HDL [Mass/Vol] 44 mg/dL Normal 40-60 [facility] Comment on above: Performed By: #### I GETOT #### [facility] [address] [place] [address] Dr. Niharika Cortés Cholesterol in LDL [Mass/Vol] 93.0 mg/dL Normal [facility] Comment on above: Performed By: #### I GETOT #### [facility] [address] [place] [address] Dr. Niharika Cortés Cholesterol.total/Ch olesterol in HDL [Mass ratio] 3.4 {ratio} Normal [facility] Comment on above: Performed By: #### I GETOT #### [facility] [address] [address] [address] Niharika Cortés HDL NORMAL > or = 60 mg/dl - LO W CARDIOVASCULAR RISK <40 mg/dl - HIGH CARDIOVASCULAR RISK Normal [facility] Comment on above: Performed By: #### I GETOT #### [facility] [address] [address] [address] Niharika Cortés LDL CALC NORMAL SEE BELOW Normal [facility] Comment on above: Result Comment: <100 mg/dl OPTIMAL 100 - 129 mg/dl NEAR OR ABOVE OPTIMAL 130 - 159 mg/dl BORDERLINE HIGH 160 - 189 mg/dl HIGH >190 mg/dl VERY HIGH Performed By: #### I GETOT #### [facility] [address] [address] [address] Niharika Cortés Triglyceride [Mass/Vol] 70 mg/dL Normal <=150 [facility] Comment on above: Performed By: #### I GETOT #### [facility] [address] [address] [address] Niharika Cortés VLDL CALC 14.0 mg/dL Normal [facility] Comment on above: Performed By: #### I GETOT #### [facility] [address] [address] [address] Niharika Cortés PROF 14(COMP METB)on 023 Albumin [Mass/Vol] 3.4 g/dL Normal 3.4-5.0 [facility] Comment on above: Performed By: #### I GETOT #### [facility] [address] [address] [address] Niharika Cortés Albumin/Globulin [Mass ratio] 0.9 {ratio} Normal [facility] Comment on above: Performed By: #### I GETOT #### [facility] [address] [address] [address] Niharika Cortés ALP [Catalytic activity/Vol] 137 U/L Critically high 46-116 [facility] Comment on above: Performed By: #### I GETOT #### [facility] [address] [address] [address] Niharika Cortés ALT [Catalytic activity/Vol] 20 U/L Normal 14-59 [facility] Comment on above: Performed By: #### I GETOT #### [facility] [address] [address] [address] Niharika Cortés Anion gap [Moles/Vol] 13.0 mmol/L Normal [facility] Comment on above: Performed By: #### I GETOT #### [facility] [address] [address] [address] Niharika Cortés AST [Catalytic activity/Vol] 14 U/L Critically low 15-37 [facility] Comment on above: Performed By: #### I GETOT #### [facility] [address] [place] [address] Dr. Niharika Cortés Bilirubin [Mass/Vol] 0.2 mg/dL Normal 0.2-1.0 [facility] Comment on above: Performed By: #### I GETOT #### [facility] [address] [address] [address] Niharika Cortés Calcium [Mass/Vol] 8.9 mg/dL Normal 8.5-10.1 [facility] Comment on above: Performed By: #### I GETOT #### [facility] [address] [address] [address] Niharika Cortés Chloride [Moles/Vol] 109 mmol/L Critically high 98-107 [facility] Comment on above: Performed By: #### I GETOT #### [facility] [address] [address] [address] Niharika Cortés CO2 [Moles/Vol] 24.2 mmol/L Normal 21.0-32.0 [facility] Comment on above: Performed By: #### I GETOT #### [facility] [address] [address] [address] Niharika Cortés Creatinine [Mass/Vol] 0.90 mg/dL Normal 0.55-1.02 [facility] Comment on above: Performed By: #### I GETOT #### [facility] [address] [address] [address] Niharika Cortés EGFR-AF BENINESE >60 Normal >=60 [facility] Comment on above: Performed By: #### I GETOT #### [facility] [address] [address] [address] Niharika Cortés EGFR-NON AF BENINESE >60 Normal >=60 [facility] Comment on above: Performed By: #### I GETOT #### [facility] [address] [address] [address] Niharika Cortés Globulin (S) [Mass/Vol] 3.5 g/dL Normal [facility] Comment on above: Performed By: #### I GETOT #### [facility] [address] [address] [address] Niharika Cortés Glucose [Mass/Vol] 96 mg/dL Normal 74-106 [facility] Comment on above: Performed By: #### I GETOT #### [facility] [address] [address] [address] Niharika Cortés Potassium [Moles/Vol] 3.5 mmol/L Normal 3.5-5.1 [facility] Comment on above: Performed By: #### I GETOT #### [facility] [address] [address] [address] Niharika Cortés Protein [Mass/Vol] 6.9 g/dL Normal 6.4-8.2 [facility] Comment on above: Performed By: #### I GETOT #### [facility] [address] [address] [address] Niharika Cortés Sodium [Moles/Vol] 143 mmol/L Normal 136-145 [facility] Comment on above: Performed By: #### I GETOT #### [facility] [address] [address] [address] Niharika Cortés Urea nitrogen [Mass/Vol] 9.0 mg/dL Normal 7.0-18.0 [facility] Comment on above: Performed By: #### I GETOT #### [facility] [address] [place] [address] Dr. Niharika Cortés Urea nitrogen/Creatinine [Mass ratio] 10.0 mg/mg Normal [facility] Comment on above: Performed By: #### I GETOT #### [facility] [address] [place] [address] Dr. Niharika Cortés TSH W/ REFLEX TO FT4on 12-30 TSH 0.963 uIU/mL Normal 0.358-3.740 [facility] Comment on above: Performed By: #### I GGSB #### [facility] [address] [place] [address] Dr. Niharika Cortés RESPIRATORY PANEL PLUSon Adenovirus Not detected Normal NOT DETECTED [facility] Comment on above: Performed By: #### I GETOT #### [facility] [address] [place] [address] Dr. Niharika Holder Parapertusis Not detected Normal NOT DETECTED [facility] Comment on above: Performed By: #### I GETOT #### [facility] [address] [place] [address] Dr. Niharika Holder Pertussis Not detected Normal NOT DETECTED [facility] Comment on above: Performed By: #### I GETOT #### [facility] [address] [place] [address] Dr. Niharika Cortés Chlamydia Pneumoniae Not detected Normal NOT DETECTED [facility] Comment on above: Performed By: #### I GETOT #### [facility] [address] [place] [address] Dr. Niharika Cortés Coronavirus 229E Not detected Normal NOT DETECTED [facility] Comment on above: Performed By: #### I GETOT #### [facility] [address] [place] [address] Dr. Niharika Cortés Coronavirus HKU1 Not detected Normal NOT DETECTED [facility] Comment on above: Performed By: #### I GETOT #### [facility] [address] [place] [address] Dr. Niharika Cortés Coronavirus NL63 Not detected Normal NOT DETECTED [facility] Comment on above: Performed By: #### I GETOT #### [facility] [address] [address] [address] Niharika Cortés Coronavirus OC43 Not detected Normal NOT DETECTED [facility] Comment on above: Performed By: #### I GETOT #### [facility] [address] [address] [address] Niharika Cortés Influenza A H1 2009 Not detected Normal NOT DETECTED [facility] Comment on above: Performed By: #### I GETOT #### [facility] [address] [address] [address] Niharika Cortés Influenza A H3 Not detected Normal NOT DETECTED [facility] Comment on above: Performed By: #### I GETOT #### [facility] [address] [address] [address] Niharika Cortés Influenza B Not detected Normal NOT DETECTED [facility] Comment on above: Performed By: #### I GETOT #### [facility] [address] [address] [address] Niharika Cortés Metapneumovirus Not detected Normal NOT DETECTED [facility] Comment on above: Performed By: #### I GETOT #### [facility] [address] [address] [address] Niharika Cortés Mycoplas. Pneumoniae Not detected Normal NOT DETECTED [facility] Comment on above: Performed By: #### I GETOT #### [facility] [address] [address] [address] Niharika Cortés Parainfluenza 1 Not detected Normal NOT DETECTED [facility] Comment on above: Performed By: #### I GETOT #### [facility] [address] [address] [address] Niharika Cortés Parainfluenza 2 Not detected Normal NOT DETECTED [facility] Comment on above: Performed By: #### I GETOT #### [facility] [address] [address] [address] Niharika Cortés Parainfluenza 3 Not detected Normal NOT DETECTED [facility] Comment on above: Performed By: #### I GETOT #### [facility] [address] [place] [address] Dr. Niharika Cortés Parainfluenza 4 Not detected Normal NOT DETECTED [facility] Comment on above: Performed By: #### I GETOT #### [facility] [address] [place] [address] Dr. Niharika Cortés Rhino/Enterovirus Not detected Normal NOT DETECTED [facility] Comment on above: Performed By: #### I GETOT #### [facility] [address] [place] [address] Dr. Niharika Cortés RP2 Header 1 RESPIRATORY PANEL: VIRUSES Normal [facility] Comment on above: Performed By: #### I GETOT #### [facility] [address] [place] [address] Dr. Niharika Cortés RP2 Header 2 RESPIRATORY PANEL: BACTERIA Normal [facility] Comment on above: Performed By: #### I GETOT #### [facility] [address] [place] [address] Dr. Niharika Cortés RSV Not detected Normal NOT DETECTED [facility] Comment on above: Performed By: #### I GETOT #### [facility] [address] [place] [address] Dr. Niharika Cortés SARS-CoV-2 (COVID-19) RNA ESTRELLITA+probe Ql (Unsp spec) Detected Critically abnormal NOT DETECTED [facility] Comment on above: Performed By: #### I GETOT #### [facility] [address] [place] [address] Dr. Niharika Cortés IMMUNOGLOBULIN E, TOTALon Immunoglobulin E, Total 5 IU/mL Critically low 6-495 [facility] Comment on above: Performed By: #### I GETOT #### [facility] [address] [place] [address] Dr. Niharika Cortés IGG SUBCLASSES (1-4) AND TOT Darryl 10-17-2022 IgG, Subclass 1 491 mg/dL Normal 248-810 [facility] Comment on above: Performed By: #### I GGSB #### [facility] [address] [place] [address] Dr. Niharika Cortés IgG, Subclass 2 235 mg/dL Normal 130-555 [facility] Comment on above: Performed By: #### I GGSB #### [facility] [address] [place], [place] [address] Dr. Niharika Cortés IgG, Subclass 3 25 mg/dL Normal 15-102 [facility] Comment on above: Performed By: #### I GGSB #### [facility] [address] [place], [place] [address] Dr. Niharika Cortés IgG, Subclass 4 86 mg/dL Normal 2-96 [facility] Comment on above: Performed By: #### I GGSB #### [facility] [address] [place], [place] [address] Dr. Niharika Cortés Immunoglobulin G, Qn, Serum 914 mg/dL Normal 586-1602 [facility] Comment on above: Performed By: #### I GGSB #### [facility] [id number] Niharika Cortés CT CHEST WO CONon 10-16-2022 CT CHEST WO CON EXAMINATION: CT CHES T WO CON HISTORY: Pneumonia , chronic sinus breath, wheezing, cough; follow-up pneumonia COMPARISON: CTA chest 07/08/2022 TECHNIQUE: Axial, Coronal, and Sagittal images were created without the administration of IV contrast material. Dose reduction techniques were achieved by using automated exposure control and/or adjustment of mA and/or kV according to patient size and/or use of iterative reconstruction technique. FINDINGS: LUNGS: No visible pulmonary disease. PLEURA: No mass, effusion, or pneumothorax. VASCULATURE: No abnormality. JULIO CESAR: No mass or adenopathy. MEDIASTINUM: No mass or adenopathy. CARDIAC: No enlargement or pericardial thickening. AORTA: No aneurysm or dissection. CHEST WALL: No mass or axillary adenopathy. BONES: No bone lesion or fracture. LIMITED ABDOMEN: 3.1 cm partially fatty left adrenal mass favoring a benign adenoma. Limited images of the upper abdomen. OTHER: Negative. IMPRESSION: 1. No pulmonary infiltrates or suspicious findings to account for patient's symptoms. 2. Chronic left adrenal adenoma. Electronically authenticated by: MARIVEL JOHNSON Date: 2022-10-16 17:11 Normal [facility] IMMUNOGLOBULIN IGA QUANTITIA VEon 10-16-2022 Immunoglobulin A, Qn, Serum 537 mg/dL Critically high 87-352 [facility] Comment on above: Performed By: #### I MIGAQN #### [facility] [address] [place] [address] Dr. Niharika Cortés IMMUNOGLOBULIN IGM QUANTITAT IVEon 10-16-2022 Immunoglobulin M, Qn, Serum 130 mg/dL Normal 26-217 [facility] Comment on above: Performed By: #### I GGSB #### [facility] [address] [place] [address] Dr. Niharika Cortés CBC AUTO DIFFon 10-15-2022 BASO # 0.1 103/ul Normal 0.0-0.1 [facility] Comment on above: Performed By: #### C BC #### [facility] [address] [place] [address] Dr. Niharika Cortés Basophils/100 WBC (Bld) 0.5 % Normal 0.2-2.0 [facility] Comment on above: Performed By: #### C BC #### [facility] [address] [place] [address] Dr. Niharika Cortés EO # 0.1 103/ul Normal 0.0-0.7 [facility] Comment on above: Performed By: #### C BC #### [facility] [address] [place] [address] Dr. Niharika Cortés Eosinophils/100 WBC (Bld) 1.0 % Normal 0.9-7.0 [facility] Comment on above: Performed By: #### C BC #### [facility] [address] [place] [address] Dr. Niharika Cortés Erythrocyte distribution width (RBC) [Ratio] 16.4 % Critically high 11.0-15.0 [facility] Comment on above: Performed By: #### C BC #### [facility] [address] [place] [address] Dr. Niharika Cortés Hematocrit (Bld) [Volume fraction] 36.5 % Normal 36.0-48.0 [facility] Comment on above: Performed By: #### C BC #### [facility] [address] [address] [address] Niharika Cortés Hemoglobin (Bld) [Mass/Vol] 11.2 g/dL Critically low 12.0-16.0 [facility] Comment on above: Performed By: #### C BC #### [facility] [address] [address] [address] Niharika Cortés IG # 0.07 10e3/ul Critically high 0.00-0.03 [facility] Comment on above: Performed By: #### C BC #### [facility] [address] [place] [address] Dr. Niharika Cortés IG % 0.6 % Critically high 0.0-0.5 [facility] Comment on above: Performed By: #### C BC #### [facility] [address] [place] [address] Dr. Niharika Cortés LYMPH # 3.3 103/ul Normal 1.2-3.8 [facility] Comment on above: Performed By: #### C BC #### [facility] [address] [place] [address] Dr. Niharika Cortés Lymphocytes/100 WBC (Bld) 29.7 % Normal 20.5-60.0 [facility] Comment on above: Performed By: #### C BC #### [facility] [address] [place] [address] Dr. Niharika Cortés MANUAL DIFF REQ NO Normal [facility] Comment on above: Performed By: #### C BC #### [facility] [address] [place] [address] Dr. Niharika Cortés MCH (RBC) [Entitic mass] 27.5 pg Normal 26.7-34.0 [facility] Comment on above: Performed By: #### C BC #### [facility] [address] [place] [address] Dr. Niharika Cortés MCHC (RBC) [Mass/Vol] 30.7 g/dL Normal 29.9-35.2 [facility] Comment on above: Performed By: #### C BC #### [facility] [address] [place] [address] Dr. Niharika Cortés MCV (RBC) [Entitic vol] 89.5 fL Normal 81.0-99.0 [facility] Comment on above: Performed By: #### C BC #### [facility] [address] [place] [address] Dr. Niharika Cortés MONO # 0.6 103/ul Normal 0.3-0.8 [facility] Comment on above: Performed By: #### C BC #### [facility] [address] [place] [address] Dr. Niharika Cortés Monocytes/100 WBC (Bld) 5.5 % Normal 1.7-12.0 [facility] Comment on above: Performed By: #### C BC #### [facility] [address] [place] [address] Dr. Niharika Cortés NEUT # 7.0 103/ul Critically high 1.4-6.5 [facility] Comment on above: Performed By: #### C BC #### [facility] [address] [place] [address] Dr. Niharika Cortés Neutrophils/100 WBC (Bld) 62.7 % Normal 43.0-75.0 [facility] Comment on above: Performed By: #### C BC #### [facility] [address] [place] [address] Dr. Niharika Cortés Platelet mean volume (Bld) [Entitic vol] 8.7 fL Critically low 9.5-13.5 [facility] Comment on above: Performed By: #### C BC #### [facility] [address] [place] [address] Dr. Niharika Cortés PLT 554 103/ul Critically high 150-450 [facility] Comment on above: Performed By: #### C BC #### [facility] [address] [place] [address] Dr. Niharika Cortés RBC 4.08 106/ul Critically low 4.20-5.40 [facility] Comment on above: Performed By: #### C BC #### [facility] [address] [place] [address] Dr. Niharika Cortés WBC 11.2 103/ul Critically high 4.0-11.0 [facility] Comment on above: Performed By: #### C BC #### [facility] [address] [place] [address] Dr. Niharika Cortés CHLAMYDIA/GONOCOCCUS ESTRELLITA (SW AB/URINE/PAPon 10-09-2022 Chlamydia trachomatis, ESTRELLITA Negative Normal Negative [facility] Comment on above: Performed By: #### I NFLUAB #### [facility] [address] [place] [address] Dr. Niharika Cortés Neisseria gonorrhoeae, ESTRELLITA Negative Normal Negative [facility] Comment on above: Performed By: #### I NFLUAB #### [facility] [address] [place] [address] Dr. Niharika Cortés VAGINITIS/VAGINOSIS DNA PROB Howie 10-08-2022 Karla species Negative Normal Negative [facility] Comment on above: Performed By: #### I GETOT #### [facility] [address] [place] [address] Dr. Niharika Cortés Gardnerella vaginalis Positive Abnormal Negative [facility] Comment on above: Performed By: #### I GETOT #### [facility] [address] [place] [address] Dr. Niharika Cortés Trichomonas vaginalis Negative Normal Negative [facility] Comment on above: Performed By: #### I GETOT #### [facility] [address] [place] [address] Dr. Niharika Cortés HEPATITIS C AB CASCADE TO QU ANT PCR GENOon 09-18-2022 HCV AB <0.1 Normal 0.0-0.9 [facility] Comment on above: Performed By: #### I GETOT #### [facility] [address] [place] [address] Dr. Niharika Cortés Interpretation: Comment Normal [facility] Comment on above: Result Comment: Nega tive Not infected with HCV, unless recent infection is suspected or other evidence exists to indicate HCV infection. Performed By: #### I GETOT #### [facility] [address] [place] [address] Dr. Niharika Cortés CBC AUTO DIFFon 09-17-2022 BASO # 0.1 103/ul Normal 0.0-0.1 [facility] Comment on above: Performed By: #### C BC #### [facility] [address] [place] [address] Dr. Niharika Cortés Basophils/100 WBC (Bld) 0.3 % Normal 0.2-2.0 [facility] Comment on above: Performed By: #### C BC #### [facility] [address] [place] [address] Dr. Niharika Cortés EO # 0.0 103/ul Normal 0.0-0.7 [facility] Comment on above: Performed By: #### C BC #### [facility] [address] [place] [address] Dr. Niharika Cortés Eosinophils/100 WBC (Bld) 0.1 % Critically low 0.9-7.0 [facility] Comment on above: Performed By: #### C BC #### [facility] [address] [place] [address] Dr. Niharika Cortés Erythrocyte distribution width (RBC) [Ratio] 15.9 % Critically high 11.0-15.0 [facility] Comment on above: Performed By: #### C BC #### [facility] [address] [place] [address] Dr. Niharika Cortés Hematocrit (Bld) [Volume fraction] 37.4 % Normal 36.0-48.0 [facility] Comment on above: Performed By: #### C BC #### [facility] [address] [place] [address] Dr. Niharika Cortés Hemoglobin (Bld) [Mass/Vol] 11.7 g/dL Critically low 12.0-16.0 [facility] Comment on above: Performed By: #### C BC #### [facility] [address] [place] [address] Dr. Niharika Cortés IG # 0.14 10e3/ul Critically high 0.00-0.03 [facility] Comment on above: Performed By: #### C BC #### [facility] [address] [place] [address] Dr. Niharika Cortés IG % 0.9 % Critically high 0.0-0.5 [facility] Comment on above: Performed By: #### C BC #### [facility] [address] [place] [address] Dr. Niharika Cortés LYMPH # 2.2 103/ul Normal 1.2-3.8 [facility] Comment on above: Performed By: #### C BC #### [facility] [address] [place] [address] Dr. Niharika Cortés Lymphocytes/100 WBC (Bld) 13.9 % Critically low 20.5-60.0 [facility] Comment on above: Performed By: #### C BC #### [facility] [address] [place] [address] Dr. Niharika Cortés MANUAL DIFF REQ NO Normal [facility] Comment on above: Performed By: #### C BC #### [facility] [address] [place] [address] Dr. Niharika Cortés MCH (RBC) [Entitic mass] 28.8 pg Normal 26.7-34.0 [facility] Comment on above: Performed By: #### C BC #### [facility] [address] [place] [address] Dr. Niharika Cortés MCHC (RBC) [Mass/Vol] 31.3 g/dL Normal 29.9-35.2 [facility] Comment on above: Performed By: #### C BC #### [facility] [address] [place] [address] Dr. Niharika Cortés MCV (RBC) [Entitic vol] 92.1 fL Normal 81.0-99.0 [facility] Comment on above: Performed By: #### C BC #### [facility] [address] [place] [address] Dr. Niharika Cortés MONO # 0.4 103/ul Normal 0.3-0.8 [facility] Comment on above: Performed By: #### C BC #### [facility] [address] [place] [address] Dr. Niharika Cortés Monocytes/100 WBC (Bld) 2.3 % Normal 1.7-12.0 [facility] Comment on above: Performed By: #### C BC #### [facility] [address] [place] [address] Dr. Niharika Cortés NEUT # 13.0 103/ul Critically high 1.4-6.5 [facility] Comment on above: Performed By: #### C BC #### [facility] [address] [place] [address] Dr. Niharika Cortés Neutrophils/100 WBC (Bld) 82.5 % Critically high 43.0-75.0 [facility] Comment on above: Performed By: #### C BC #### [facility] [address] [place] [address] Dr. Niharika Cortés Platelet mean volume (Bld) [Entitic vol] 8.9 fL Critically low 9.5-13.5 [facility] Comment on above: Performed By: #### C BC #### [facility] [address] [place] [address] Dr. Niharika Cortés PLT 501 103/ul Critically high 150-450 [facility] Comment on above: Performed By: #### C BC #### [facility] [address] [place] [address] Dr. Niharika Cortés RBC 4.06 106/ul Critically low 4.20-5.40 [facility] Comment on above: Performed By: #### C BC #### [facility] [address] [place] [address] Dr. Niharika Cortés WBC 15.7 103/ul Critically high 4.0-11.0 [facility] Comment on above: Performed By: #### C BC #### [facility] [address] [place] [address] Dr. Niharika Cortés GLYCOHEMOGLOBIN A1Con 2021 ADA RECOMMENDATION SEE BELOW Normal [facility] Comment on above: Result Comment: ADA RECOMMENDED LIMIT 4.0 - 6.0 ADA THERAPEUTIC TARGET < 7.0 ACTION SUGGESTED > 7.0 Performed By: #### A 1C #### [facility] [address] [place], [place] [id number] Dr. Niharika Cortés Glucose [Mass/Vol] 131 mg/dL Normal [facility] Comment on above: Performed By: #### A 1C #### [facility] [address] [address] [address] Niharika Cortés HbA1c (Bld) [Mass fraction] 6.2 % Normal 4.5-6.2 [facility] Comment on above: Performed By: #### A 1C #### [facility] [address] [address] [address] Niharika Cortés LIPID PROFILEon 09-17-2022 CHOL-HDL RATIO NORM SEE BELOW Normal [facility] Comment on above: Result Comment: 3.3 - 4.4 LOW RISK 4.4 - 7.1 AVERAGE RISK 7.1 - 11.0 MODERATE RISK >11.0 HIGH RISK Performed By: #### C MP, LIPID #### [facility] [address] [place] [address] Dr. Niharika Cortés Cholesterol [Mass/Vol] 189 mg/dL Normal <=200 [facility] Comment on above: Performed By: #### C MP, LIPID #### [facility] [address] [address] [address] Niharika Cortés Cholesterol in HDL [Mass/Vol] 63 mg/dL Critically high 40-60 [facility] Comment on above: Performed By: #### C MP, LIPID #### [facility] [address] [place] [address] Dr. Niharika Cortés Cholesterol in LDL [Mass/Vol] 110.8 mg/dL Normal [facility] Comment on above: Performed By: #### C MP, LIPID #### [facility] [address] [place] [address] Dr. Niharika Cortés Cholesterol.total/Ch olesterol in HDL [Mass ratio] 3.0 {ratio} Normal [facility] Comment on above: Performed By: #### C MP, LIPID #### [facility] [address] [place] [address] Dr. Niharika Cortés HDL NORMAL > or = 60 mg/dl - LO W CARDIOVASCULAR RISK <40 mg/dl - HIGH CARDIOVASCULAR RISK Normal [facility] Comment on above: Performed By: #### C MP, LIPID #### [facility] [address] [place] [address] Dr. Niharika Cortés LDL CALC NORMAL SEE BELOW Normal [facility] Comment on above: Result Comment: <100 mg/dl OPTIMAL 100 - 129 mg/dl NEAR OR ABOVE OPTIMAL 130 - 159 mg/dl BORDERLINE HIGH 160 - 189 mg/dl HIGH >190 mg/dl VERY HIGH Performed By: #### C MP, LIPID #### [facility] [address] [place] [address] Dr. Niharika Cortés Triglyceride [Mass/Vol] 76 mg/dL Normal <=150 [facility] Comment on above: Performed By: #### C MP, LIPID #### [facility] [address] [place] [address] Dr. Niharika Cortés VLDL CALC 15.2 mg/dL Normal [facility] Comment on above: Performed By: #### C MP, LIPID #### [facility] [address] [place] [address] Dr. Niharika Cortés PROF 14(COMP METB)on 022 Albumin [Mass/Vol] 3.6 g/dL Normal 3.4-5.0 [facility] Comment on above: Performed By: #### C MP, LIPID #### [facility] [address] [place] [address] Dr. Niharika Cortés Albumin/Globulin [Mass ratio] 0.9 {ratio} Normal [facility] Comment on above: Performed By: #### C MP, LIPID #### [facility] [address] [place] [address] Dr. Niharika Cortés ALP [Catalytic activity/Vol] 127 U/L Critically high 46-116 [facility] Comment on above: Performed By: #### C MP, LIPID #### [facility] [address] [place] [address] Dr. Niharika Cortés ALT [Catalytic activity/Vol] 20 U/L Normal 14-59 [facility] Comment on above: Performed By: #### C MP, LIPID #### [facility] [address] [place] [address] Dr. Niharika Cortés Anion gap [Moles/Vol] 10.5 mmol/L Normal [facility] Comment on above: Performed By: #### C MP, LIPID #### [facility] [address] [place] [address] Dr. Nihairka Cortés AST [Catalytic activity/Vol] 9 U/L Critically low 15-37 [facility] Comment on above: Performed By: #### C MP, LIPID #### [facility] [address] [place] [address] Dr. Niharika Cortés Bilirubin [Mass/Vol] 0.2 mg/dL Normal 0.2-1.0 [facility] Comment on above: Performed By: #### C MP, LIPID #### [facility] [address] [place] [address] Dr. Niharika Cortés Calcium [Mass/Vol] 8.6 mg/dL Normal 8.5-10.1 [facility] Comment on above: Performed By: #### C MP, LIPID #### [facility] [address] [place] [address] Dr. Niharika Cortés Chloride [Moles/Vol] 104 mmol/L Normal 98-107 [facility] Comment on above: Performed By: #### C MP, LIPID #### [facility] [address] [place] [address] Dr. Niharika Cortés CO2 [Moles/Vol] 25.7 mmol/L Normal 21.0-32.0 [facility] Comment on above: Performed By: #### C MP, LIPID #### [facility] [address] [place] [address] Dr. Niharika Cortés Creatinine [Mass/Vol] 0.99 mg/dL Normal 0.55-1.02 [facility] Comment on above: Performed By: #### C MP, LIPID #### [facility] [address] [place] [address] Dr. Niharika Cortés EGFR-AF BENINESE >60 Normal >=60 [facility] Comment on above: Performed By: #### C MP, LIPID #### [facility] [address] [place] [address] Dr. Niharika Cortés EGFR-NON AF BENINESE >60 Normal >=60 [facility] Comment on above: Performed By: #### C MP, LIPID #### [facility] [address] [place] [address] Dr. Niharika Cortés Globulin (S) [Mass/Vol] 3.8 g/dL Normal [facility] Comment on above: Performed By: #### C MP, LIPID #### [facility] [address] [place] [address] Dr. Niharika Cortés Glucose [Mass/Vol] 135 mg/dL Critically high 74-106 [facility] Comment on above: Performed By: #### C MP, LIPID #### [facility] [address] [place] [address] Dr. Niharika Cortés Potassium [Moles/Vol] 3.2 mmol/L Critically low 3.5-5.1 [facility] Comment on above: Performed By: #### C MP, LIPID #### [facility] [address] [place] [address] Dr. Niharika Cortés Protein [Mass/Vol] 7.4 g/dL Normal 6.4-8.2 [facility] Comment on above: Performed By: #### C MP, LIPID #### [facility] [address] [place] [address] Dr. Niharika Cortés Sodium [Moles/Vol] 137 mmol/L Normal 136-145 [facility] Comment on above: Performed By: #### C MP, LIPID #### [facility] [address] [place] [address] Dr. Niharika Cortés Urea nitrogen [Mass/Vol] 13.0 mg/dL Normal 7.0-18.0 [facility] Comment on above: Performed By: #### C MP, LIPID #### [facility] [address] [place] [address] Dr. Niharika Cortés Urea nitrogen/Creatinine [Mass ratio] 13.1 mg/mg Normal [facility] Comment on above: Performed By: #### C MP, LIPID #### [facility] [address] [place] [address] Dr. Niharika Cortés THYROID PEROXIDASE ABon 10-0 Thyroid Peroxidase (TPO) Ab 9 IU/mL Normal 0-34 [facility] Comment on above: Performed By: #### I GGSB #### [facility] [address] [place] [address] Dr. Niharika Cortés TSHon 07-31-2022 TSH 1.623 uIU/mL Normal 0.358-3.740 [facility] Comment on above: Performed By: #### T SH #### [facility] [address] [place] [address] Dr. Niharika Cortés BNPon 07-08-2022 Natriuretic peptide B (Bld) [Mass/Vol] 464.0 pg/mL Critically high <=450.0 [facility] Comment on above: Performed By: #### I GGSB #### [facility] [address] [place] [address] Dr. Niharika Cortés CBC W MANUAL DIFFon 07-08-20 22 ATYPICAL LYMPH # Normal [facility] Comment on above: Performed By: #### I GETOT #### [facility] [address] [place] [address] Dr. Niharika Cortés ATYPICAL LYMPH % Normal [facility] Comment on above: Performed By: #### I GETOT #### [facility] [address] [place] [address] Dr. Niharika Cortés BAND # 0.3 103/ul Normal 0.0-0.3 [facility] Comment on above: Performed By: #### I GETOT #### [facility] [address] [place] [address] Dr. Niharika Cortés BAND % 1 % Normal 0-5 [facility] Comment on above: Performed By: #### I GETOT #### [facility] [address] [place] [address] Dr. Niharika Cortés BASOM # 0.00 103/ul Normal 0.00-0.10 [facility] Comment on above: Performed By: #### I GETOT #### [facility] [address] [place] [address] Dr. Niharika Cortés BASOM % 0.0 % Critically low 0.2-2.0 [facility] Comment on above: Performed By: #### I GETOT #### [facility] [address] [place] [address] Dr. Niharika Cortés BLAST # Normal [facility] Comment on above: Performed By: #### I GETOT #### [facility] [address] [address] [address] Niharika Cortés BLAST % Normal [facility] Comment on above: Performed By: #### I GETOT #### [facility] [address] [place] [address] Dr. Niharika Cortés CORRECTED WBC Normal 4.0-11.0 [facility] Comment on above: Performed By: #### I GETOT #### [facility] [address] [place] [address] Dr. Niharika Cortés EOS # 0.26 103/ul Normal 0.00-0.70 [facility] Comment on above: Performed By: #### I GETOT #### [facility] [address] [place] [address] Dr. Niharika Cortés EOS% 1.0 % Normal 0.9-7.0 [facility] Comment on above: Performed By: #### I GETOT #### [facility] [address] [place] [address] Dr. Niharika Cortés HCT 36.0 % Normal 36.0-48.0 [facility] Comment on above: Performed By: #### I GETOT #### [facility] [address] [place] [address] Dr. Niharika Cortés HGB 11.5 g/dl Critically low 12.0-16.0 [facility] Comment on above: Performed By: #### I GETOT #### [facility] [address] [place] [address] Dr. Niharika Cortés LYMPHM # 0.77 103/ul Critically low 1.20-3.80 [facility] Comment on above: Performed By: #### I GETOT #### [facility] [address] [place] [address] Dr. Niharika Cortés LYMPHM% 3.0 % Critically low 20.5-60.0 [facility] Comment on above: Performed By: #### I GETOT #### [facility] [address] [place] [address] Dr. Niharika Cortés MCH 30.7 pg Normal 26.7-34.0 [facility] Comment on above: Performed By: #### I GETOT #### [facility] [address] [place] [address] Dr. Niharika Cortés MCHC 31.9 g/dl Normal 29.9-35.2 [facility] Comment on above: Performed By: #### I GETOT #### [facility] [address] [place] [address] Dr. Niharika Cortés MCV 96.3 fL Normal 81.0-99.0 [facility] Comment on above: Performed By: #### I GETOT #### [facility] [address] [place] [address] Dr. Niharika Cortés METAMYELOCYTE # Normal [facility] Comment on above: Performed By: #### I GETOT #### [facility] [address] [place] [address] Dr. Niharika Cortés METAMYELOCYTE % Normal [facility] Comment on above: Performed By: #### I GETOT #### [facility] [address] [place] [address] Dr. Niharika Cortés MONOM# 0.52 103/ul Normal 0.30-0.80 [facility] Comment on above: Performed By: #### I GETOT #### [facility] [address] [place] [address] Dr. Niharika Cortés MONOM% 2.0 % Normal 1.7-12.0 [facility] Comment on above: Performed By: #### I GETOT #### [facility] [address] [place] [address] Dr. Niharika Cortés MPV 9.3 fL Critically low 9.5-13.5 [facility] Comment on above: Performed By: #### I GETOT #### [facility] [address] [address] [address] Niharika Cortés MYELOCYTE # Normal [facility] Comment on above: Performed By: #### I GETOT #### [facility] [address] [address] [address] Niharika Cortés MYELOCYTE % Normal [facility] Comment on above: Performed By: #### I GETOT #### [facility] [address] [address] [address] Niharika Cortés NRBC Normal [facility] Comment on above: Performed By: #### I GETOT #### [facility] [address] [address] [address] Niharika Cortés PLT 452 103/ul Critically high 150-450 [facility] Comment on above: Performed By: #### I GETOT #### [facility] [address] [address] [address] Niharika Cortés RBC 3.74 106/ul Critically low 4.20-5.40 [facility] Comment on above: Performed By: #### I GETOT #### [facility] [address] [address] [address] Niharika Cortés RDW 17.4 % Critically high 11.0-15.0 [facility] Comment on above: Performed By: #### I GETOT #### [facility] [address] [address] [address] Niharika Cortés SEG # 23.99 103/ul Critically high 1.40-6.50 [facility] Comment on above: Performed By: #### I GETOT #### [facility] [address] [place] [address] Dr. Niharika Cortés SEG % 93.0 % Critically high 43.0-75.0 [facility] Comment on above: Performed By: #### I GETOT #### [facility] [address] [place] [address] Dr. Niharika Cortés WBC 25.8 103/ul Critically high 4.0-11.0 [facility] Comment on above: Performed By: #### I GETOT #### [facility] [address] [address] [address] Niharika Cortés CTA CHEST WO W CONon CTA CHEST WO W CON EXAMINATION: CTA CHEST WO W CON HISTORY: SHORTNESS OF BREATH COMPARISON: CT abdomen and pelvis 08/14/2021 and 10/05/2020, 09/21/2020 TECHNIQUE: CT angiography of the pulmonary arteries following the administration of intravenous contrast. Coronal and sagittal MIP (maximum intensity projection) images were performed. Dose reduction techniques were achieved by using automated exposure control and/or adjustment of mA and/or kV according to patient size and/or use of iterative reconstruction technique. FINDINGS: The study is technically adequate for the diagnosis of pulmonary embolism, with good contrast bolus to the pulmonary arteries. TUBES AND IMPLANTS: None. CHEST WALL AND LOWER NECK: Unremarkable. BONES: Unremarkable. UPPER ABDOMEN: A 2.0 centimeter left adrenal lesion with fat density likely representing an adenoma MEDIASTINUM AND JULIO CESAR: Unremarkable. AORTA: Unremarkable. PULMONARY ARTERIES: No embolism HEART: Not enlarged CORONARY ARTERIES: No coronary artery calcifications. LUNG AND AIRWAYS: Right middle lobe subsegmental atelectasis. PLEURA: Unremarkable. IMPRESSION: 1. No evidence for pulmonary embolism. 2. Left adrenal adenoma. Electronically authenticated by: LORNA DIOP Date: 2022-07-08 20:47 Normal [facility] CULTURE BLOODon 07-08-2022 Microscopic examination of blood, culture Culture Observations: NO GROWTH AT 5 DAYS. Normal [facility] Comment on above: Performed By: #### I NFLUAB #### [facility] [address] [place] [address] Dr. Niharika Cortés Microscopic examination of blood, culture Culture Observations: NO GROWTH AT 5 DAYS. Normal [facility] Comment on above: Performed By: #### I NFLUAB #### [facility] [address] [address] [address] Niharika Cortés LACTATE/LACTIC ACIDon 2021 Lactate [Moles/Vol] 1.3 mmol/L Normal 0.4-1.9 [facility] Comment on above: Performed By: #### I GETOT #### [facility] [address] [address] [address] Niharika Cortés PROF 14(COMP METB)on 09-13-2 022 Albumin [Mass/Vol] 3.1 g/dL Critically low 3.4-5.0 [facility] Comment on above: Performed By: #### I GGSB #### [facility] [address] [place] [address] Dr. Niharika Cortés Albumin/Globulin [Mass ratio] 0.9 {ratio} Normal [facility] Comment on above: Performed By: #### I GGSB #### [facility] [address] [place] [address] Dr. Niharika Cortés ALP [Catalytic activity/Vol] 123 U/L Critically high 46-116 [facility] Comment on above: Performed By: #### I GGSB #### [facility] [address] [place] [address] Dr. Niharika Cortés ALT [Catalytic activity/Vol] 18 U/L Normal 14-59 [facility] Comment on above: Performed By: #### I GGSB #### [facility] [address] [place] [address] Dr. Niharika Cortés Anion gap [Moles/Vol] 12.4 mmol/L Normal [facility] Comment on above: Performed By: #### I GGSB #### [facility] [address] [place] [address] Dr. Niharika Cortés AST [Catalytic activity/Vol] 11 U/L Critically low 15-37 [facility] Comment on above: Performed By: #### I GGSB #### [facility] [address] [place] [address] Dr. Niharika Cortés Bilirubin [Mass/Vol] 0.2 mg/dL Normal 0.2-1.0 [facility] Comment on above: Performed By: #### I GGSB #### [facility] [address] [place] [address] Dr. Niharika Cortés Calcium [Mass/Vol] 8.5 mg/dL Normal 8.5-10.1 [facility] Comment on above: Performed By: #### I GGSB #### [facility] [address] [place] [address] Dr. Niharika Cortés Chloride [Moles/Vol] 108 mmol/L Critically high 98-107 [facility] Comment on above: Performed By: #### I GGSB #### [facility] [address] [address] [address] Niharika Cortés CO2 [Moles/Vol] 20.8 mmol/L Critically low 21.0-32.0 [facility] Comment on above: Performed By: #### I GGSB #### [facility] [address] [address] [address] Niharika Cortés Creatinine [Mass/Vol] 0.82 mg/dL Normal 0.55-1.02 [facility] Comment on above: Performed By: #### I GGSB #### [facility] [address] [place] [address] Dr. Niharika Cortés EGFR-AF BENINESE >60 Normal >=60 [facility] Comment on above: Performed By: #### I GGSB #### [facility] [address] [address] [address] Niharika Cortés EGFR-NON AF BENINESE >60 Normal >=60 [facility] Comment on above: Performed By: #### I GGSB #### [facility] [address] [place] [address] Dr. Niharika Cortés Globulin (S) [Mass/Vol] 3.6 g/dL Normal [facility] Comment on above: Performed By: #### I GGSB #### [facility] [address] [address] [address] Niharika Cortés Glucose [Mass/Vol] 166 mg/dL Critically high 74-106 [facility] Comment on above: Performed By: #### I GGSB #### [facility] [address] [address] [address] Niharika Cortés Potassium [Moles/Vol] 4.2 mmol/L Normal 3.5-5.1 [facility] Comment on above: Performed By: #### I GGSB #### [facility] [address] [place] [address] Dr. Niharika Cortés Protein [Mass/Vol] 6.7 g/dL Normal 6.4-8.2 [facility] Comment on above: Performed By: #### I GGSB #### [facility] [address] [place] [address] Dr. Niharika Cortés Sodium [Moles/Vol] 137 mmol/L Normal 136-145 [facility] Comment on above: Performed By: #### I GGSB #### [facility] [address] [place] [address] Dr. Niharika Cortés Urea nitrogen [Mass/Vol] 9.0 mg/dL Normal 7.0-18.0 [facility] Comment on above: Performed By: #### I GGSB #### [facility] [address] [place] [address] Dr. Niharika Cortés Urea nitrogen/Creatinine [Mass ratio] 11.0 mg/mg Normal [facility] Comment on above: Performed By: #### I GGSB #### [facility] [address] [place] [address] Dr. Niharika Cortés PROTIMEon 07-08-2022 INR Coag (PPP) [Relative time] 0.96 {INR} Normal [facility] Comment on above: Performed By: #### I NFLUAB #### [facility] [address] [place] [address] Dr. Niharika Cortés INR GUIDELINES SEE BELOW Normal [facility] Comment on above: Result Comment: EDIN RED INR: 2.0 - 3.0 CONDITIONS NOT LISTED BELOW 2.5 - 3.5 FOR PROSTHETIC HEART VALVE REPLACEMENT 2.5 - 3.5 RECURRENT THROMBOSIS Performed By: #### I NFLUAB #### [facility] [address] [place] [address] Dr. Niharika Cortés PT Coag (PPP) [Time] 10.4 s Normal 9.0-11.6 [facility] Comment on above: Performed By: #### I NFLUAB #### [facility] [address] [place] [address] Dr. Niharika Cortés PTTon 07-08-2022 aPTT Coag (Bld) [Time] 25.9 s Normal 22.3-36.2 [facility] Comment on above: Performed By: #### I NFLUAB #### [facility] [address] [address] [address] Niharika Cortés TROPONIN, HIGH SENSITIVITYon 07-08-2022 HSTROP 19.7 pg/mL Normal 4.0-51.3 [facility] Comment on above: Result Comment: CUT- OFF POINTS HAVE BEEN ESTABLISHED BASED ON THE FOURTH UNIVERSAL DEFINITIONS OF MYOCARDIAL INFARCTION. THE UPPER REFERENCE LIMIT (URL) OF TROPONIN, DEFINED THE 99TH PERCENTILE OF cTnI DISTRIBUTION IN A REFERENCE POPULATION, HAS BEEN CONFIRMED THE DECISION THRESHOLD FOR OK DIAGNOSIS. Performed By: #### I GGSB #### [facility] [address] [address] [address] Niharika Cortés [facility]26 SARS-CoV-2 (COVID-19) RNA ESTRELLITA+probe Ql (Unsp spec) Not detected Normal NOT DETECTED [facility] Comment on above: Result Comment: When diagnostic testing is negative, the possibility of a false negative should be considered in the context of a patient's recent exposures and the presence of clinical signs and symptoms consistent with SARS-CoV-2. This test is not yet approved or cleared by the [place] FDA. When there are no FDA-approved or cleared tests available, and other criteria are met, FDA can make tests available under an emergency access mechanism called an Emergency Use Authorization (EUA). The EUA for this test is supported by the Engineering Documentation Specialist of Health and Human Service's declaration that circumstances exist to justify the emergency use of in vitro diagnostics for the detection and/or diagnosis of the virus that causes COVID-19. This EUA will remain in effect for the duration of the COVID-19 declaration justifying emergency of IVDs, unless it is terminated or revoked by the FDA (after which the test may no longer be used). Performed By: #### I GETOT #### [facility] [address] [address] [address] Niharika Cortés INFLUENZA A AND B AGon 07-07 INFLUANEGH SEE BELOW Normal [facility] Comment on above: Result Comment: Nega tive for Flu A protein angiten. Infection due to Flu A cannot be ruled out. Flu A angiten in the sample may be below the detection limit of the test. Performed By: #### I NFLUAB #### [facility] [address] [place] [address] Dr. Niharika Cortés [facility] SEE BEL[facility] Normal [facility] Comment on above: Result Comment: Nega tive for Flu B protein antigen. Infection due to Flu B cannot be ruled out. Flu B antigen in the sample may be below the detection limit of the test. Performed By: #### I NFLUAB #### [facility] [address] [place] [address] Dr. Niharika Cortés INFLUENZA A AG Negative Normal NEGATIVE SEE COMMENT [facility] Comment on above: Performed By: #### I NFLUAB #### [facility] [address] [place] [address] Dr. Niharika Cortés INFLUENZA B AG Negative Normal NEGATIVE SEE COMMENT [facility] Comment on above: Performed By: #### I NFLUAB #### [facility] [address] [place] [address] Dr. Niharika Cortés INTERNAL CONTROLS Within Normal Limits Normal Wi thin Normal Limits [facility] Comment on above: Performed By: #### I NFLUAB #### [facility] [address] [place] [address] Dr. Niharika Cortés XR CHEST 1 Von 07-07-2022 XR CHEST 1 V EXAMINATION: XR CHES T 1 V HISTORY: SHORTNESS OF BREATH COMPARISON: XR chest 06/20/2022 FINDINGS: LUNGS: No significant pulmonary parenchymal abnormalities. VASCULATURE: No increased pulmonary vasculature. PLEURA: No pneumothorax, effusion, or pleural thickening. CARDIAC: No cardiomegaly or cardiac silhouette abnormality. MEDIASTINUM: No visible mass or adenopathy. BONES: No fracture or visible bone lesion. OTHER: Negative. IMPRESSION: 1. No acute cardiopulmonary process. Electronically authenticated by: MARIVEL JOHNSON Date: 2022-07-07 18:03 Normal [facility] XR CHEST 2 Von 06-20-2022 XR CHEST 2 V EXAMINATION: XR CHES T 2 V HISTORY: Acute bronchitis , shortness breath, cough COMPARISON: No relevant comparison available. FINDINGS: LUNGS: Slight wall thickening of a few central bronchi. Mild haziness of the lung bases. VASCULATURE: No increased pulmonary vasculature. PLEURA: No pneumothorax, effusion, or pleural thickening. CARDIAC: No cardiomegaly or cardiac silhouette abnormality. MEDIASTINUM: No visible mass or adenopathy. BONES: No fracture or visible bone lesion. OTHER: Negative. IMPRESSION: 1. Interval development of mild right middle lobe and possibly lingular infiltrates versus atelectasis. Electronically authenticated by: MARIVEL JOHNSON Date: 2022-06-20 16:56 Normal [facility] Cholesterol [Mass/volume] in Serum or PlasmaOrdered By: Andres Russ on 02-11-2022 Cholesterol [Mass/Vol] 143 mg/dL 140-200 [facility] Comment on above: Chol less than 200 m g/dl low riskChol 201-239 mg/dl borderline riskChol 240 mg/dl and greater high risk Cholesterol in LDL Calc [Mas s/Vol]Ordered By: Andres Russ on 02-11-2022 Cholesterol in LDL [Mass/Vol] 93 mg/dL 0-100 [facility] Comment on above: LDL ATP III CLASSIFI CATIONLDL less than 100 mg/dL OptimalLDL 100-129 mg/dL Near or above optimalLDL 130-159 mg/dL Borderline highLDL 160-189 mg/dL HighLDL greater than 189 mg/dL Very high Cholesterol in VLDL Calc [Ma ss/Vol]Ordered By: Andres Russ on 02-11-2022 Cholesterol in VLDL [Mass/Vol] 12 mg/dL [facility] No Panel InformationOrdered By: Andres Russ on 02-11-2022 25-Hydroxy Vitamin D Total 43.1 ng/mL 30-100 [facility] Comment on above: VITAMIN D STATUS 25( [place])VITAMIN D RANGE (ng/mL) Deficient <20 Insufficient 20 to <30Sufficient 30 to 100Reference: John MF,Tian NC, Albina DEL VALLE, et al. Evaluation,treatment, and prevention of vitamin D deficiency; an Endocrine Society clinical practice guideline. JCEM. 2010; 96(7):1911-30. Serum or plasma high density lipoprotein (HDL) cholesterol measurementOrdered By: Andres Russ on 02-11-2022 Cholesterol in HDL [Mass/Vol] 38 mg/dL 35-85 [facility] Comment on above: HDL CHOL ATP-III CLA SSIFICATION Cardiovascular RiskHDL > or equal to 60 mg/dL LOWHDL < 40 mg/dL HIGH Serum or plasma total choles terol/high density lipoprotein (HDL) cholesterol mass ratOrdered By: Andres Russ on 02-11-2022 Cholesterol.total/Ch olesterol in HDL [Mass ratio] 3.8 {ratio} [facility] TSH DL <= 0.005 mIU/L QnOrde red By: Andres Russ on 02-11-2022 TSH Qn 1.48 m[IU]/L 0.45-5.33 [facility] Triglyceride [Mass/volume] i n Serum or PlasmaOrdered By: Andres Rsus on 02-11-2022 Triglyceride [Mass/Vol] 62 mg/dL 35-149 [facility] Comment on above: TRIG ATP III CLASSIF ICATIONTRIG less than 150 mg/dL NormalTRIG 150-199 mg/dL Borderline highTRIG 200-500 mg/dL High TRIG greater than 500 mg/dL Very highStandard traceable to the Center for Disease Conrtrol and Prevention (CDC) test method. Amphetamine Screen Ql (U)Ord ered By: Antwan Sierra on 02-10-2022 Amphetamines Ql (U) Negative Negative [facility] Barbiturates [Presence] in U rineOrdered By: Antwan Sierra on 02-10-2022 Barbiturates Ql (U) Negative Negative [facility] Basophils Auto (Bld) [#/Vol] Ordered By: Antwan Sierra on 02-10-2022 Basophils (Bld) [#/Vol] 0.1 10*3/uL 0.0-0.2 [facility] Basophils/100 WBC Auto (Bld) Ordered By: Antwan Sierra on 02-10-2022 Basophils/100 WBC (Bld) 0.7 % [facility] Benzodiazepines [Presence] i n UrineOrdered By: Antwan Sierra on 02-10-2022 Benzodiazepines Ql (U) Negative Negative [facility] Bilirubin Test strip Ql (U)O rdered By: Antwan Sierra on 02-10-2022 Bilirubin Ql (U) Negative Negative [facility] Blood hemoglobin measurement (mass/volume)Ordered By: Antwan Sierra on 02-10-2022 Hemoglobin (Bld) [Mass/Vol] 12.2 g/dL 11.8-15.4 [facility] Blood leukocytes automated c ount (number/volume)Ordered By: Antwan Sierra on 02-10-2022 WBC (Bld) [#/Vol] 11.0 10*3/uL 4.5-11.0 [facility] Body fluid albumin measureme nt (mass/volume)Ordered By: Antwan Sierra on 02-10-2022 Albumin (Body fld) [Mass/Vol] 3.6 g/dL 3.2-5.5 [facility] COVID-19 SOFIAOrdered By: Julissa Sierra on 02-10-2022 SARS-CoV+SARS-CoV-2 (COVID-19) Ag IA.rapid Ql (Resp) Negative Negative [facility] Comment on above: This is a duplicate Isadora SARS Antigen (YANA) result to be used for statistical tracking purpose only. Cannabinoids [Presence] in U rine by Screen methodOrdered By: Antwan Sierra on 02-10-2022 Cannabinoids Screen Ql (U) Negative Negative [facility] Comment on above: These are unconfirme d results and should not be used for legal purposes. Drug Cut-Off Concentration: AMPH 1000 ng/mL CIPRIANO 200 ng/mL HAYDEN 200 ng/mL COCM 300 ng/mL OP 300 ng/mL PCP 25 ng/mL THC 20 ng/mL Color Auto (U)Ordered By: Julissa Sierra on 02-10-2022 Color (U) Yellow Yellow [facility] Creatinine and Glomerular fi ltration rate.predicted panel (S/P/Bld)Ordered By: Antwan Sierra on 02-10-2022 Creatinine [Mass/Vol] 0.98 mg/dL 0.44-1.03 [facility] Eosinophils Auto (Bld) [#/Vo l]Ordered By: Antwan Sierra on 02-10-2022 Eosinophils (Bld) [#/Vol] 0.1 10*3/uL 0.0-0.45 [facility] Eosinophils/100 WBC Auto (Bl d)Ordered By: Antwan Sierra on 02-10-2022 Eosinophils/100 WBC (Bld) 0.6 % [facility] Erythrocyte distribution wid th Auto (RBC) [Ratio]Ordered By: Antwan Sierra on 02-10-2022 Erythrocyte distribution width (RBC) [Ratio] 15.6 % 11.9-15.3 [facility] Estimated glomerular filtrat ion rate (GFR) non- AmericanOrdered By: Antwan Sierra on 02-10-2022 GFR/1.73 sq M.predicted among non-blacks MDRD (S/P/Bld) [Vol rate/Area] > 60 mL/Min [facility] Globulin Calc (S) [Mass/Vol] Ordered By: Antwan Sierra on 02-10-2022 Globulin (S) [Mass/Vol] 3.3 g/dL [facility] HCG ( test) IA.rapi d Ql (U)Ordered By: Antwan Sierra on 02-10-2022 HCG ( test) Ql (U) Negative [facility] Hematocrit Auto (Bld) [Volum e fraction]Ordered By: Antwan Sierra on 02-10-2022 Hematocrit (Bld) [Volume fraction] 37.8 % 34.0-46.4 [facility] Ketones Auto test strip (U) [Mass/Vol]Ordered By: Antwan Sierra on 02-10-2022 Ketones (U) [Mass/Vol] Negative Negative [facility] Laboratory - Drug toxicology Ordered By: Antwan Sierra on 02-10-2022 Opiates Ql (U) Negative Negative [facility] Laboratory - Hematology and Cell countsOrdered By: Antwan Sierra on 02-10-2022 Nucleated RBC/100 WBC (Bld) [Ratio] 0.0 % 0-0.5 [facility] Lymphocytes Auto (Bld) [#/Vo l]Ordered By: Antwan Sierra on 02-10-2022 Lymphocytes (Bld) [#/Vol] 2.6 10*3/uL 1.00-4.8 [facility] Lymphocytes/100 WBC Auto (Bl d)Ordered By: Antwan Sierra on 02-10-2022 Lymphocytes/100 WBC (Bld) 24.1 % [facility] MCH Auto (RBC) [Entitic mass ]Ordered By: Antwan Sierra on 02-10-2022 MCH (RBC) [Entitic mass] 29.8 pg 24.7-34.3 [facility] MCHC Auto (RBC) [Mass/Vol]Or dered By: Antwan Sierra on 02-10-2022 MCHC (RBC) [Mass/Vol] 32.4 g/dL 32.0-35.0 [facility] MCV Auto (RBC) [Entitic vol] Ordered By: Antwan Sierra on 02-10-2022 MCV (RBC) [Entitic vol] 92.1 fL 80-100 [facility] Monocytes Auto (Bld) [#/Vol] Ordered By: Antwan Sierra on 02-10-2022 Monocytes (Bld) [#/Vol] 0.5 10*3/uL 0.0-0.8 [facility] Monocytes/100 WBC Auto (Bld) Ordered By: Antwan Sierra on 02-10-2022 Monocytes/100 WBC (Bld) 4.9 % [facility] Neutrophils Auto (Bld) [#/Vo l]Ordered By: Antwan Sierra on 02-10-2022 Neutrophils (Bld) [#/Vol] 7.7 10*3/uL 1.8-7.7 [facility] Neutrophils/100 WBC Auto (Bl d)Ordered By: Antwan Sierra on 02-10-2022 Neutrophils/100 WBC (Bld) 69.7 % [facility] Nitrite Test strip Ql (U)Ord ered By: Antwan Sierra on 02-10-2022 Nitrite Ql (U) Negative Negative [facility] No Panel InformationOrdered By: Antwan Sierra on 02-10-2022 SARS Antigen (LFIA) [facility] Estimated GFR () > 60 mL/Min [facility] Comment on above: GFR estimated refere nce range: According to KDOQI guidelines, <60 ml/min/1.73m2 is sufficient to diagnose a patient with chronic kidney disease. Pharmacy Creatinine Clearance (Chem 104.76 [facility] Phencyclidine Screen Ql (U)O rdered By: Antwan Sierra on 02-10-2022 Phencyclidine Ql (U) Negative Negative [facility] Platelet mean volume Auto (B ld) [Entitic vol]Ordered By: Antwan Sierra on 02-10-2022 Platelet mean volume (Bld) [Entitic vol] 7.3 fL 6.3-10.7 [facility] Platelets Auto (Bld) [#/Vol] Ordered By: Antwan Sierra on 02-10-2022 Platelets (Bld) [#/Vol] 434 10*3/uL 150-450 [facility] Protein Auto test strip (U) [Mass/Vol]Ordered By: Antwan Sierra on 02-10-2022 Protein (U) [Mass/Vol] Negative Negative [facility] Protein [Mass/volume] in Ser um or PlasmaOrdered By: Antwan Sierra on 02-10-2022 Protein [Mass/Vol] 6.9 g/dL 6.1-7.9 [facility] RBC Auto (Bld) [#/Vol]Ordere d By: Antwan Sierra on 02-10-2022 RBC (Bld) [#/Vol] 4.11 10*6/uL 3.60-5.00 [facility] Serum or plasma alanine koch otransferase measurement without P-5'-P (enzymatic activiOrdered By: Antwan Sierra on 02-10-2022 ALT No additional P-5'-P [Catalytic activity/Vol] 25 U/L 10-60 [facility] Serum or plasma albumin/glob ulin mass ratioOrdered By: Antwan Sierra on 02-10-2022 Albumin/Globulin [Mass ratio] 1.1 {ratio} [facility] Serum or plasma alkaline bel sphatase measurement (enzymatic activity/volume)Ordered By: Antwan Sierra on 02-10-2022 ALP [Catalytic activity/Vol] 120 U/L 32-92 [facility] Serum or plasma aspartate am inotransferase measurement (enzymatic activity/volume)Ordered By: Antwan Sierra on 02-10-2022 AST [Catalytic activity/Vol] 16 U/L 10-42 [facility] Serum or plasma calcium arash urement (mass/volume)Ordered By: Antwan Sierra on 02-10-2022 Calcium [Mass/Vol] 9.1 mg/dL 8.2-10.2 [facility] Serum or plasma chloride kaya surement (moles/volume)Ordered By: Antwan Sierra on 02-10-2022 Chloride [Moles/Vol] 107 mmol/L 95-114 [facility] Serum or plasma ethanol arash urement (mass/volume)Ordered By: Antwan Sierra on 02-10-2022 Ethanol [Mass/Vol] mg/dL [facility] Ethanol [Mass/Vol] TNP [facility] Comment on above: Test not performed Serum or plasma glucose arash urement (mass/volume)Ordered By: Antwan Sierra on 02-10-2022 Glucose [Mass/Vol] 112 mg/dL 70-100 [facility] Comment on above: ADA recommended refe rence rangeRandom Glucose Reference Range is dependent on time and content of last meal. Glucose of more than 200 mg/dL in a nonstressed, ambulatory subject supports the diagnosis of Diabetes Mellitus. Serum or plasma potassium me asurement (moles/volume)Ordered By: Antwan Sierra on 02-10-2022 Potassium [Moles/Vol] 3.7 mmol/L 3.5-5.1 [facility] Serum or plasma sodium measu rement (moles/volume)Ordered By: Antwan Sierra on 02-10-2022 Sodium [Moles/Vol] 139 mmol/L 136-146 [facility] Serum or plasma total biliru bin measurement (mass/volume)Ordered By: Antwan Sierra on 02-10-2022 Bilirubin [Mass/Vol] 0.4 mg/dL 0.3-1.2 [facility] Serum or plasma total carbon dioxide measurement (moles/volume)Ordered By: Antwan Sierra on 02-10-2022 CO2 [Moles/Vol] 23.0 mmol/L 22.0-30.0 [facility] Serum or plasma urea nitroge n measurement (mass/volume)Ordered By: Antwan Sierra on 02-10-2022 Urea nitrogen [Mass/Vol] 6 mg/dL 9-23 [facility] Specific gravity Auto test s trip (U) [Rel density]Ordered By: Antwan Sierra on 02-10-2022 Specific gravity (U) [Rel density] 1.006 1.001-1.030 [facility] Urine clarity by refractomet ry automatedOrdered By: Antwan Sierra on 02-10-2022 Clarity Refractometry automated (U) Clear Clear [facility] Urine cocaine detectionOrder ed By: Antwan Sierra on 02-10-2022 Cocaine Ql (U) Negative Negative [facility] Urine glucose measurement by automated test strip (mass/volume)Ordered By: Antwan Sierra on 02-10-2022 Glucose Auto test strip (U) [Mass/Vol] Normal mg/dL Normal [facility] Urine hemoglobin detection b y automated test stripOrdered By: Antwan Sierra on 02-10-2022 Hemoglobin Auto test strip Ql (U) Negative Negative [facility] Urine leukocyte esterase det ection by automated test stripOrdered By: Antwan Sierra on 02-10-2022 Leukocyte esterase Auto test strip Ql (U) Negative Negative [facility] Urobilinogen Auto test strip (U) [Mass/Vol]Ordered By: Antwan Sierra on 02-10-2022 Urobilinogen (U) [Mass/Vol] Normal mg/dL Normal [facility] pH Auto test strip (U)Ordere d By: Antwan Sierra on 02-10-2022 pH (U) 8.0 [pH] 5.0-9.0 [facility] Cholesterol [Mass/volume] in Serum or PlasmaOrdered By: Krzysztof Patel on 01-30-2022 Cholesterol [Mass/Vol] 154 mg/dL 140-200 [facility] Comment on above: Chol less than 200 m g/dl low riskChol 201-239 mg/dl borderline riskChol 240 mg/dl and greater high risk Cholesterol in LDL Calc [Mas s/Vol]Ordered By: Krzysztof Patel on 01-30-2022 Cholesterol in LDL [Mass/Vol] 97 mg/dL 0-100 [facility] Comment on above: LDL ATP III CLASSIFI CATIONLDL less than 100 mg/dL OptimalLDL 100-129 mg/dL Near or above optimalLDL 130-159 mg/dL Borderline highLDL 160-189 mg/dL HighLDL greater than 189 mg/dL Very high Cholesterol in VLDL Calc [Ma ss/Vol]Ordered By: Krzysztof Patel on 01-30-2022 Cholesterol in VLDL [Mass/Vol] 20 mg/dL [facility] No Panel InformationOrdered By: Krzysztof Patel on 01-30-2022 25-Hydroxy Vitamin D Total 46.0 ng/mL 30-100 [facility] Comment on above: VITAMIN D STATUS 25( [place])VITAMIN D RANGE (ng/mL) Deficient <20 Insufficient 20 to <30Sufficient 30 to 100Reference: John MF,Tian COSME, Albina DEL VALLE, et al. Evaluation,treatment, and prevention of vitamin D deficiency; an Endocrine Society clinical practice guideline. JCEM. 2010; 96(7):1911-30. Serum or plasma high density lipoprotein (HDL) cholesterol measurementOrdered By: Krzysztof Patel on 01-30-2022 Cholesterol in HDL [Mass/Vol] 37 mg/dL 35-85 [facility] Comment on above: HDL CHOL ATP-III CLA SSIFICATION Cardiovascular RiskHDL > or equal to 60 mg/dL LOWHDL < 40 mg/dL HIGH Serum or plasma total choles terol/high density lipoprotein (HDL) cholesterol mass ratOrdered By: Krzysztof Patel on 01-30-2022 Cholesterol.total/Ch olesterol in HDL [Mass ratio] 4.2 {ratio} [facility] TSH DL <= 0.005 mIU/L QnOrde red By: Krzysztof Patel on 01-30-2022 TSH Qn 1.08 m[IU]/L 0.45-5.33 [facility] Triglyceride [Mass/volume] i n Serum or PlasmaOrdered By: Krzysztof Patel on 01-30-2022 Triglyceride [Mass/Vol] 101 mg/dL 35-149 [facility] Comment on above: TRIG ATP III CLASSIF ICATIONTRIG less than 150 mg/dL NormalTRIG 150-199 mg/dL Borderline highTRIG 200-500 mg/dL High TRIG greater than 500 mg/dL Very highStandard traceable to the Center for Disease Conrtrol and Prevention (CDC) test method. Amphetamine Screen Ql (U)Ord ered By: Desean Massey on 01-29-2022 Amphetamines Ql (U) Negative Negative [facility] Barbiturates [Presence] in U rineOrdered By: Desean Massey on 01-29-2022 Barbiturates Ql (U) Negative Negative [facility] Basophils Auto (Bld) [#/Vol] Ordered By: Desean Massey on 01-29-2022 Basophils (Bld) [#/Vol] 0.0 10*3/uL 0.0-0.2 [facility] Basophils/100 WBC Auto (Bld) Ordered By: Desean Massey on 01-29-2022 Basophils/100 WBC (Bld) 0.4 % [facility] Benzodiazepines [Presence] i n UrineOrdered By: Desean Massey on 01-29-2022 Benzodiazepines Ql (U) Negative Negative [facility] Bilirubin Test strip Ql (U)O rdered By: Desean Massey on 01-29-2022 Bilirubin Ql (U) Negative Negative [facility] Blood hemoglobin measurement (mass/volume)Ordered By: Desean Massey on 01-29-2022 Hemoglobin (Bld) [Mass/Vol] 12.1 g/dL 11.8-15.4 [facility] Blood leukocytes automated c ount (number/volume)Ordered By: Desean Massey on 01-29-2022 WBC (Bld) [#/Vol] 9.0 10*3/uL 4.5-11.0 [facility] Body fluid albumin measureme nt (mass/volume)Ordered By: Desean Massey on 01-29-2022 Albumin (Body fld) [Mass/Vol] 3.6 g/dL 3.2-5.5 [facility] COVID-19 SOFIAOrdered By: Jesús Massey on 01-29-2022 SARS-CoV+SARS-CoV-2 (COVID-19) Ag IA.rapid Ql (Resp) Negative Negative [facility] Comment on above: This is a duplicate Isadora SARS Antigen (YANA) result to be used for statistical tracking purpose only. Cannabinoids [Presence] in U rine by Screen methodOrdered By: Desean Massey on 01-29-2022 Cannabinoids Screen Ql (U) Negative Negative [facility] Comment on above: These are unconfirme d results and should not be used for legal purposes. Drug Cut-Off Concentration: AMPH 1000 ng/mL CIPRIANO 200 ng/mL HAYDEN 200 ng/mL COCM 300 ng/mL OP 300 ng/mL PCP 25 ng/mL THC 20 ng/mL Color Auto (U)Ordered By: Jesús Massey on 01-29-2022 Color (U) Yellow Yellow [facility] Creatinine and Glomerular fi ltration rate.predicted panel (S/P/Bld)Ordered By: Desean Massey on 01-29-2022 Creatinine [Mass/Vol] 1.08 mg/dL 0.44-1.03 [facility] Eosinophils Auto (Bld) [#/Vo l]Ordered By: Desean Massey on 01-29-2022 Eosinophils (Bld) [#/Vol] 0.1 10*3/uL 0.0-0.45 [facility] Eosinophils/100 WBC Auto (Bl d)Ordered By: Desean Massye on 01-29-2022 Eosinophils/100 WBC (Bld) 0.9 % [facility] Erythrocyte distribution wid th Auto (RBC) [Ratio]Ordered By: Desean Massey on 01-29-2022 Erythrocyte distribution width (RBC) [Ratio] 15.9 % 11.9-15.3 [facility] Estimated glomerular filtrat ion rate (GFR) non- AmericanOrdered By: Desean Massey on 01-29-2022 GFR/1.73 sq M.predicted among non-blacks MDRD (S/P/Bld) [Vol rate/Area] 58 mL/Min [facility] Globulin Calc (S) [Mass/Vol] Ordered By: Desean Massey on 01-29-2022 Globulin (S) [Mass/Vol] 3.4 g/dL [facility] HCG ( test) IA.rapi d Ql (U)Ordered By: Desean Massey on 01-29-2022 HCG ( test) Ql (U) Negative [facility] Hematocrit Auto (Bld) [Volum e fraction]Ordered By: Desean Massey on 01-29-2022 Hematocrit (Bld) [Volume fraction] 37.4 % 34.0-46.4 [facility] Ketones Auto test strip (U) [Mass/Vol]Ordered By: Desean Massey on 01-29-2022 Ketones (U) [Mass/Vol] Negative Negative [facility] Laboratory - Drug toxicology Ordered By: Desean Massey on 01-29-2022 Opiates Ql (U) Negative Negative [facility] Laboratory - Hematology and Cell countsOrdered By: Desean Massey on 01-29-2022 Nucleated RBC/100 WBC (Bld) [Ratio] 0.1 % 0-0.5 [facility] Lymphocytes Auto (Bld) [#/Vo l]Ordered By: Desean Massey on 01-29-2022 Lymphocytes (Bld) [#/Vol] 2.8 10*3/uL 1.00-4.8 [facility] Lymphocytes/100 WBC Auto (Bl d)Ordered By: Desean Massey on 01-29-2022 Lymphocytes/100 WBC (Bld) 31.3 % [facility] MCH Auto (RBC) [Entitic mass ]Ordered By: Desean Massey on 01-29-2022 MCH (RBC) [Entitic mass] 29.4 pg 24.7-34.3 [facility] MCHC Auto (RBC) [Mass/Vol]Or dered By: Desean Massey on 01-29-2022 MCHC (RBC) [Mass/Vol] 32.3 g/dL 32.0-35.0 [facility] MCV Auto (RBC) [Entitic vol] Ordered By: Desean Massey on 01-29-2022 MCV (RBC) [Entitic vol] 91.0 fL 80-100 [facility] Monocytes Auto (Bld) [#/Vol] Ordered By: Desean Massey on 01-29-2022 Monocytes (Bld) [#/Vol] 0.4 10*3/uL 0.0-0.8 [facility] Monocytes/100 WBC Auto (Bld) Ordered By: Desean Massey on 01-29-2022 Monocytes/100 WBC (Bld) 4.6 % [facility] Neutrophils Auto (Bld) [#/Vo l]Ordered By: Desean Massey on 01-29-2022 Neutrophils (Bld) [#/Vol] 5.6 10*3/uL 1.8-7.7 [facility] Neutrophils/100 WBC Auto (Bl d)Ordered By: Desean Massey on 01-29-2022 Neutrophils/100 WBC (Bld) 62.8 % [facility] Nitrite Test strip Ql (U)Ord ered By: Desean Massey on 01-29-2022 Nitrite Ql (U) Negative Negative [facility] No Panel InformationOrdered By: Desean Massey on 01-29-2022 SARS Antigen (LFIA) [facility] Estimated GFR () > 60 mL/Min [facility] Comment on above: GFR estimated refere nce range: According to KDOQI guidelines, <60 ml/min/1.73m2 is sufficient to diagnose a patient with chronic kidney disease. Pharmacy Creatinine Clearance (Chem 94.39 [facility] Phencyclidine Screen Ql (U)O rdered By: Desean Massey on 01-29-2022 Phencyclidine Ql (U) Negative Negative [facility] Platelet mean volume Auto (B ld) [Entitic vol]Ordered By: Desean Massey on 01-29-2022 Platelet mean volume (Bld) [Entitic vol] 7.6 fL 6.3-10.7 [facility] Platelets Auto (Bld) [#/Vol] Ordered By: Desean Massey on 01-29-2022 Platelets (Bld) [#/Vol] 416 10*3/uL 150-450 [facility] Protein Auto test strip (U) [Mass/Vol]Ordered By: Desean Massey on 01-29-2022 Protein (U) [Mass/Vol] Negative Negative [facility] Protein [Mass/volume] in Ser um or PlasmaOrdered By: Desean Massey on 01-29-2022 Protein [Mass/Vol] 7.0 g/dL 6.1-7.9 [facility] RBC Auto (Bld) [#/Vol]Ordere d By: Desean Massey on 01-29-2022 RBC (Bld) [#/Vol] 4.11 10*6/uL 3.60-5.00 [facility] Serum or plasma alanine koch otransferase measurement without P-5'-P (enzymatic activiOrdered By: Desean Massey on 01-29-2022 ALT No additional P-5'-P [Catalytic activity/Vol] 19 U/L 10-60 [facility] Serum or plasma albumin/glob ulin mass ratioOrdered By: Desean Massey on 01-29-2022 Albumin/Globulin [Mass ratio] 1.1 {ratio} [facility] Serum or plasma alkaline bel sphatase measurement (enzymatic activity/volume)Ordered By: Desean Massey on 01-29-2022 ALP [Catalytic activity/Vol] 114 U/L 32-92 [facility] Serum or plasma aspartate am inotransferase measurement (enzymatic activity/volume)Ordered By: Desean Massey on 01-29-2022 AST [Catalytic activity/Vol] 16 U/L 10-42 [facility] Serum or plasma calcium arash urement (mass/volume)Ordered By: Desean Massey on 01-29-2022 Calcium [Mass/Vol] 8.9 mg/dL 8.2-10.2 [facility] Serum or plasma chloride kaya surement (moles/volume)Ordered By: Desean Massey on 01-29-2022 Chloride [Moles/Vol] 105 mmol/L 95-114 [facility] Serum or plasma ethanol arash urement (mass/volume)Ordered By: Desean Massey on 01-29-2022 Ethanol [Mass/Vol] mg/dL [facility] Ethanol [Mass/Vol] TNP [facility] Comment on above: Test not performed Serum or plasma glucose arash urement (mass/volume)Ordered By: Desean Massey on 01-29-2022 Glucose [Mass/Vol] 92 mg/dL 70-100 [facility] Comment on above: ADA recommended refe rence rangeRandom Glucose Reference Range is dependent on time and content of last meal. Glucose of more than 200 mg/dL in a nonstressed, ambulatory subject supports the diagnosis of Diabetes Mellitus. Serum or plasma potassium me asurement (moles/volume)Ordered By: Desean Massey on 01-29-2022 Potassium [Moles/Vol] 3.7 mmol/L 3.5-5.1 [facility] Serum or plasma sodium measu rement (moles/volume)Ordered By: Desean Massey on 01-29-2022 Sodium [Moles/Vol] 136 mmol/L 136-146 [facility] Serum or plasma total biliru bin measurement (mass/volume)Ordered By: Desean Massey on 01-29-2022 Bilirubin [Mass/Vol] 0.5 mg/dL 0.3-1.2 [facility] Serum or plasma total carbon dioxide measurement (moles/volume)Ordered By: Desean Massey on 01-29-2022 CO2 [Moles/Vol] 20.2 mmol/L 22.0-30.0 [facility] Serum or plasma urea nitroge n measurement (mass/volume)Ordered By: Desean Massey on 01-29-2022 Urea nitrogen [Mass/Vol] 10 mg/dL 07-18 [facility] Specific gravity Auto test s trip (U) [Rel density]Ordered By: Desean Massey on 01-29-2022 Specific gravity (U) [Rel density] 1.014 1.001-1.030 [facility] Urine clarity by refractomet ry automatedOrdered By: Desean Massey on 01-29-2022 Clarity Refractometry automated (U) Clear Clear [facility] Urine cocaine detectionOrder ed By: Desean Massey on 01-29-2022 Cocaine Ql (U) Negative Negative [facility] Urine glucose measurement by automated test strip (mass/volume)Ordered By: Desean Massey on 01-29-2022 Glucose Auto test strip (U) [Mass/Vol] Normal mg/dL Normal [facility] Urine hemoglobin detection b y automated test stripOrdered By: Desean Massey on 01-29-2022 Hemoglobin Auto test strip Ql (U) Negative Negative [facility] Urine leukocyte esterase det ection by automated test stripOrdered By: Desean Massey on 01-29-2022 Leukocyte esterase Auto test strip Ql (U) Negative Negative [facility] Urobilinogen Auto test strip (U) [Mass/Vol]Ordered By: Desean Massey on 01-29-2022 Urobilinogen (U) [Mass/Vol] Normal mg/dL Normal [facility] pH Auto test strip (U)Ordere d By: Desean Massey on 01-29-2022 pH (U) 7.5 [pH] 5.0-9.0 [facility] Release of Informationon Release of Information [id number] [facility] XR CERVICAL SPINE (4-5 VIEWS )on 02-06-2021 XR CERVICAL SPINE (4-5 VIEWS) EXAMINATION: XRAY VIEWS OF THE CERVICAL SPINE 02/06/2021 2:47 pm COMPARISON: None. HISTORY: ORDERING SYSTEM PROVIDED HISTORY: Cervical spondylosis with myelopathy TECHNOLOGIST PROVIDED HISTORY: cervical stenosis; evaluate alignment and for any instability FINDINGS: There Is moderate C5-C7 joint space compromise with mild to moderate anterior and mild posterior spurring at these levels. The remaining disc spaces and vertical heights of the vertebral bodies are maintained There is no fracture, dislocation or significant soft tissue finding There is no significant change in alignment on flexion versus extension views IMPRESSION: Multilevel degenerative changes There is no significant change in alignment on flexion versus extension views Interpreted by: Connie Gonzalez MD Signed by: Connie Gonzalez MD 02/06/21 Final result Normal [facility] XR CERVICAL SPINE (4-5 VIEWS )Ordered By: Farooq Son on 02-06-2021 Multilevel degenerative changes There is no significant change in alignment on flexion versus extension views [employer]: EXAMINATION: XRAY VIEWS OF THE CERVICAL SPINE 02/06/2021 2:47 pm COMPARISON: None. HISTORY: ORDERING SYSTEM PROVIDED HISTORY: Cervical spondylosis with myelopathy TECHNOLOGIST PROVIDED HISTORY: cervical stenosis; evaluate alignment and for any instability FINDINGS: There Is moderate C5-C7 joint space compromise with mild to moderate anterior and mild posterior spurring at these levels. The remaining disc spaces and vertical heights of the vertebral bodies are maintained There is no fracture, dislocation or significant soft tissue finding There is no significant change in alignment on flexion versus extension views [employer] Phone: Horacio, pn Incoming Radiant Results From [employer] - 02/06/2021 3:49 PM EDT EXAMINATION: XRAY VIEWS OF THE CERVICAL SPINE 02/06/2021 2:47 pm COMPARISON: None. HISTORY: ORDERING SYSTEM PROVIDED HISTORY: Cervical spondylosis with myelopathy TECHNOLOGIST PROVIDED HISTORY: cervical stenosis; evaluate alignment and for any instability FINDINGS: There Is moderate C5-C7 joint space compromise with mild to moderate anterior and mild posterior spurring at these levels. The remaining disc spaces and vertical heights of the vertebral bodies are maintained There is no fracture, dislocation or significant soft tissue finding There is no significant change in alignment on flexion versus extension views IMPRESSION: Multilevel degenerative changes There is no significant change in alignment on flexion versus extension views [employer] Phone: Physical Therapy Noteon 11-26 Physical Therapy Note [id number] Normal [facility] Cult,CSFon 06-25-2020 Cult,CSF Specimen Description .CSF Special Requests NOT REPORTED Direct Exam NO NEUTROPHILS SEEN NO BACTERIA SEEN Gram stain made from cytocentrifuged specimen. Organisms and cells will be concentrated. Culture NO GROWTH 3 DAYS Report Status FINAL 06/25/2020 Normal [facility] Comment on above: Performed By: #### B C #### [address] [address] Shop Firer/Fireman: Sinan Amezquita MD CSF Cell Counton 06-22-2020 Appearance (U) CLEAR Normal [facility] Comment on above: Performed By: #### L IC, BMPX #### [address] [address] Shop Firer/Fireman: Sinan Amezquita MD RBC Count 0 /mm3 Normal 0 [facility] Comment on above: Performed By: #### L IC, BMPX #### [address] [address] Shop Firer/Fireman: Sinan Amezquita MD Tube Number 3 Normal [facility] Comment on above: Performed By: #### L IC, BMPX #### [facility] [address] [place] [id number] Shop Firer/Fireman: Sinan Amezquita MD WBC Count 1 /mm3 Normal <5 [facility] Comment on above: Performed By: #### L IC, BMPX #### [facility] [address] [place] [id number] Shop Firer/Fireman: Sinan Amezquita MD Xanthochromia ABSENT Normal [facility] Comment on above: Performed By: #### L IC, BMPX #### [facility] [address] [place] [id number] Shop Firer/Fireman: Sinan Amezquita MD Volume 26 Normal [facility] Comment on above: Performed By: #### L IC, BMPX #### [facility] [address] [place] [address] Shop Firer/Fireman: Sinan Amezquita MD Color (U) NOT REPORTED Normal [facility] Comment on above: Performed By: #### L IC, BMPX #### [facility] [address] [place], [place] [id number] Shop Firer/Fireman: Sinan Amezquita MD Glucose,CSFon 06-22-2020 Glucose [Mass/Vol] 65 mg/dL Normal 40-70 [facility] Comment on above: Performed By: #### L IC, BMPX #### [employer] [address] [place] [id number] Shop Firer/Fireman: Sinan Amezquita MD IR LUMBAR PUNCTURE FOR DIAGN OSISon 06-22-2020 IR LUMBAR PUNCTURE FOR DIAGNOSIS EXAMINATION: FLUOROSCOPIC GUIDED LUMBAR PUNCTURE 06/22/2020 11:16 am HISTORY: ORDERING SYSTEM PROVIDED HISTORY: Pseudotumor cerebri TECHNOLOGIST PROVIDED HISTORY: Is the patient ?->No FLUOROSCOPY DOSE AND TYPE OR TIME AND EXPOSURES: 0.4 minutes; D AP 179 cGy cm2 PROCEDURE: PROGRAM PLANNER: Houston Pineda MD Informed consent was obtained after the risks and benefits of the procedure were discussed with the patient and all questions were answered fully. [place] protocol was observed and a standard timeout was performed. The patient was positioned prone and the back was prepped and draped in the normal sterile fashion. 1% lidocaine was used for local anesthesia. The subarachnoid space was accessed with a 20-gauge 4-3/4 spinal needle at the L3-L4 level. Free flow of clear CSF was noted. Approximately 30 ml of CSF was removed and sent for analysis. The stylet was reinserted, spinal needle was removed and brief pressure was applied at the puncture site. There were no immediate complications and the patient tolerated the procedure well. EBL: None Opening pressure (cm of water): 27. Closing pressure (cm of water): 14. IMPRESSION: Successful fluoroscopic-guided lumbar puncture. Opening pressure 27 cm H2O; closing pressure 14 cm H2O. Interpreted by: Houston Pineda MD Signed by: Houston Pineda MD 06/22/20 Final result Normal [facility] Protein, Total, CSFon 2019 Total Protein - CSF 25.1 mg/dL Normal 15.0-45.0 [facility] Comment on above: Performed By: #### L IC, BMPX #### [id number] [place] [address] Shop Firer/Fireman: Sinan Amezquita MD MRI BRAIN W WO CONTRASTon MRI BRAIN W WO CONTRAST EXAMINATION: MRI OF THE BRAIN WITHOUT AND WITH CONTRAST 06/16/2020 10:49 am TECHNIQUE: Multiplanar multisequence MRI of the head/brain was performed without and with the administration of intravenous contrast. COMPARISON: 05/02/2020. HISTORY: ORDERING SYSTEM PROVIDED HISTORY: Pseudotumor cerebri TECHNOLOGIST PROVIDED HISTORY: Is the patient ?->No Reason for Exam: pt c/o pressure mostly in right side of head and ear. Pt is sensitive to light. FINDINGS: INTRACRANIAL STRUCTURES/VENTRICLES : No areas of restricted diffusion. The cerebral and cerebellar parenchyma demonstrate normal volume. No abnormal extra-axial fluid collections. The ventricles are proportional to the cerebral sulci. Normal major intracranial flow voids are noted. There are no areas of blooming artifact noted on the gradient echo sequences to suggest sequela of acute or chronic hemorrhage. No areas of abnormal enhancement in the cerebral or cerebellar parenchyma. ORBITS: Susceptibility artifact along the eyelids is likely related to artifact from eye makeup. SINUSES: The visualized paranasal sinuses and mastoid air cells are well aerated. BONES/SOFT TISSUES: Is abnormal low T1 signal noted in the marrow which could be related to red marrow given the patient's age. No focal lesion is identified. Craniocervical junction is unremarkable. Pituitary gland is normal in appearance. IMPRESSION: 1. Unremarkable MRI of the brain. No evidence of acute infarct or intracranial mass. Interpreted by: Ace Medina MD Signed by: Ace Medina MD 06/16/20 Final result Normal [facility] MRI Brain W WO Contraston 1. Unremarkable MRI of the brain. No evidence of acute infarct or intracranial mass. [facility] [place] EXAMINATION: MRI OF THE BRAIN WITHOUT AND WITH CONTRAST 06/16/2020 10:49 am TECHNIQUE: Multiplanar multisequence MRI of the head/brain was performed without and with the administration of intravenous contrast. COMPARISON: 05/02/2020. HISTORY: ORDERING SYSTEM PROVIDED HISTORY: Pseudotumor cerebri TECHNOLOGIST PROVIDED HISTORY: Is the patient ?->No Reason for Exam: pt c/o pressure mostly in right side of head and ear. Pt is sensitive to light. FINDINGS: INTRACRANIAL STRUCTURES/VENTRICLES : No areas of restricted diffusion. The cerebral and cerebellar parenchyma demonstrate normal volume. No abnormal extra-axial fluid collections. The ventricles are proportional to the cerebral sulci. Normal major intracranial flow voids are noted. There are no areas of blooming artifact noted on the gradient echo sequences to suggest sequela of acute or chronic hemorrhage. No areas of abnormal enhancement in the cerebral or cerebellar parenchyma. ORBITS: Susceptibility artifact along the eyelids is likely related to artifact from eye makeup. SINUSES: The visualized paranasal sinuses and mastoid air cells are well aerated. BONES/SOFT TISSUES: Is abnormal low T1 signal noted in the marrow which could be related to red marrow given the patient's age. No focal lesion is identified. Craniocervical junction is unremarkable. Pituitary gland is normal in appearance. [facility] [place], [place] Hor[place], pn Incoming Radiant Results From [facility] - 06/16/2020 4:45 PM EDT EXAMINATION: MRI OF THE BRAIN WITHOUT AND WITH CONTRAST 06/16/2020 10:49 am TECHNIQUE: Multiplanar multisequence MRI of the head/brain was performed without and with the administration of intravenous contrast. COMPARISON: 05/02/2020. HISTORY: ORDERING SYSTEM PROVIDED HISTORY: Pseudotumor cerebri TECHNOLOGIST PROVIDED HISTORY: Is the patient ?->No Reason for Exam: pt c/o pressure mostly in right side of head and ear. Pt is sensitive to light. FINDINGS: INTRACRANIAL STRUCTURES/VENTRICLES : No areas of restricted diffusion. The cerebral and cerebellar parenchyma demonstrate normal volume. No abnormal extra-axial fluid collections. The ventricles are proportional to the cerebral sulci. Normal major intracranial flow voids are noted. There are no areas of blooming artifact noted on the gradient echo sequences to suggest sequela of acute or chronic hemorrhage. No areas of abnormal enhancement in the cerebral or cerebellar parenchyma. ORBITS: Susceptibility artifact along the eyelids is likely related to artifact from eye makeup. SINUSES: The visualized paranasal sinuses and mastoid air cells are well aerated. BONES/SOFT TISSUES: Is abnormal low T1 signal noted in the marrow which could be related to red marrow given the patient's age. No focal lesion is identified. Craniocervical junction is unremarkable. Pituitary gland is normal in appearance. IMPRESSION: 1. Unremarkable MRI of the brain. No evidence of acute infarct or intracranial mass. [facility], [place] Cult,Bloodon 05-08-2020 Cult,Blood Specimen Description .BLOOD Special Requests LT ARM 6ML Culture NO GROWTH 6 DAYS Report Status FINAL 05/08/2020 Normal [facility] Comment on above: Performed By: #### B C #### [facility] [address] [place] [address] [phone] Shop Firer/Fireman: Sinan Amezquita MD Basic Metab w/rfx MGon 05-04 (cont.) Normal [facility] Comment on above: Result Comment: Aver age GFR for 30-39 years old: 107 mL/min/1.73sq m Chronic Kidney Disease: <60 mL/min/1.73sq m Kidney failure: <15 mL/min/1.73sq m eGFR calculated using average adult body mass. Additional eGFR calculator available at: http://www.[employer]multiple_crcl_2012.htm Performed By: #### L IC, BMPX #### [facility] [address] [place] [address] 01273 Shop Firer/Fireman: Sinan Amezquita MD Anion gap [Moles/Vol] 12 mmol/L Normal 9-17 [facility] Comment on above: Performed By: #### L IC, BMPX #### [facility] [address] [place] [address] 95628 Shop Firer/Fireman: Sinan Amezquita MD Calcium [Mass/Vol] 9.3 mg/dL Normal 8.6-10.4 [facility] Comment on above: Performed By: #### L IC, BMPX #### [facility] [address] [place] [address] 18164 Shop Firer/Fireman: Sinan Amezquita MD Chloride [Moles/Vol] 109 mmol/L High 98-107 [facility] Comment on above: Performed By: #### L IC, BMPX #### [facility] [address] [place] [address] 22847 Shop Firer/Fireman: Sinan Amezquita MD CO2 [Moles/Vol] 20 mmol/L Normal 20-31 [facility] Comment on above: Performed By: #### L IC, BMPX #### [facility] [address] [place] [address] 59720 Shop Firer/Fireman: Sinan Amezquita MD Creatinine [Mass/Vol] 0.75 mg/dL Normal 0.50-0.90 [facility] Comment on above: Performed By: #### L IC, BMPX #### [address] [address] Shop Firer/Fireman: Sinan Amezquita MD GFR, Amer >60 Normal >60 [facility] Comment on above: Performed By: #### L IC, BMPX #### [address] [address] Shop Firer/Fireman: Sinan Amezquita MD GFR,non Amer >60 Normal >60 [facility] Comment on above: Performed By: #### L IC, BMPX #### [address] [address] Shop Firer/Fireman: Sinan Amezquita MD Glucose [Mass/Vol] 129 mg/dL High 70-99 [facility] Comment on above: Performed By: #### L IC, BMPX #### [facility] [address] [place] [address] 14901 Shop Firer/Fireman: Sinan Amezquita MD Potassium [Moles/Vol] 3.7 mmol/L Normal 3.7-5.3 [facility] Comment on above: Performed By: #### L IC, BMPX #### [facility] [address] [place] [address] Shop Firer/Fireman: Sinan Amezquita MD Sodium [Moles/Vol] 141 mmol/L Normal 135-144 [facility] Comment on above: Performed By: #### L IC, BMPX #### [facility] [address] [place] [phone] Shop Firer/Fireman: Sinan Amezquita MD Urea nitrogen [Mass/Vol] 9 mg/dL Normal 6-20 [facility] Comment on above: Performed By: #### L IC, BMPX #### [facility] [address] [place] [address] 21971 Shop Firer/Fireman: Sinan Ameqzuita MD BUN/CRE Ratio NOT REPORTED Normal -20 [facility] Comment on above: Performed By: #### L IC, BMPX #### [facility] [address] [place] [address] 53718 Shop Firer/Fireman: Sinan Amezquita MD Staging: NOT REPORTED Normal [facility] Comment on above: Performed By: #### L IC, BMPX #### [facility] [address] [place] [address] 86463 Shop Firer/Fireman: Sinan Amezquita MD (cont.) Normal [facility] Comment on above: Result Comment: Aver age GFR for 30-39 years old: 107 mL/min/1.73sq m Chronic Kidney Disease: <60 mL/min/1.73sq m Kidney failure: <15 mL/min/1.73sq m eGFR calculated using average adult body mass. Additional eGFR calculator available at: http://www.[employer].com/multiple_crcl_2012.htm Performed By: #### L IC, BMPX #### [facility] [address] [place] [phone] Shop Firer/Fireman: Sinan Amezquita MD Anion gap [Moles/Vol] 7 mmol/L Low 9-17 [facility] Comment on above: Performed By: #### L IC, BMPX #### [facility] [address] [place] [address] 27899 Shop Firer/Fireman: Sinan Amezquita MD Calcium [Mass/Vol] 9.1 mg/dL Normal 8.6-10.4 [facility] Comment on above: Performed By: #### L IC, BMPX #### [facility] [address] [place] [address] 55332 Shop Firer/Fireman: Sinan Amezquita MD Chloride [Moles/Vol] 104 mmol/L Normal 98-107 [facility] Comment on above: Performed By: #### L IC, BMPX #### [facility] [address] [place] [address] [phone] Shop Firer/Fireman: Sinan Amezquita MD CO2 [Moles/Vol] 22 mmol/L Normal 20-31 [facility] Comment on above: Performed By: #### L IC, BMPX #### [address] [address] Shop Firer/Fireman: Sinan Amezquita MD Creatinine [Mass/Vol] 0.75 mg/dL Normal 0.50-0.90 [facility] Comment on above: Performed By: #### L IC, BMPX #### [address] [address] Shop Firer/Fireman: Sinan Amezquita MD GFR, Amer >60 Normal >60 [facility] Comment on above: Performed By: #### L IC, BMPX #### [facility] [address] [place] [address] 72297 Shop Firer/Fireman: Sinan Amezquita MD GFR,non Amer >60 Normal >60 [facility] Comment on above: Performed By: #### L IC, BMPX #### [facility] [address] [place] [address] 53652 Shop Firer/Fireman: Sinan Amezquita MD Glucose [Mass/Vol] 112 mg/dL High 70-99 [facility] Comment on above: Performed By: #### L IC, BMPX #### [facility] [address] [place] [address] 18063 Shop Firer/Fireman: Sinan Amezquita MD Potassium [Moles/Vol] 3.7 mmol/L Normal 3.7-5.3 [facility] Comment on above: Performed By: #### L IC, BMPX #### [facility] [address] [place] [address] 54501 Shop Firer/Fireman: Sinan Amezquita MD Sodium [Moles/Vol] 133 mmol/L Low 135-144 [facility] Comment on above: Performed By: #### L IC, BMPX #### [facility] [address] [place] [address] 05747 Shop Firer/Fireman: Sinan Amezquita MD Urea nitrogen [Mass/Vol] 10 mg/dL Normal 6-20 [facility] Comment on above: Performed By: #### L IC, BMPX #### [facility] [address] [place] [address] 07088 Shop Firer/Fireman: Sinan Amezquita MD BUN/CRE Ratio NOT REPORTED Normal 9-20 [facility] Comment on above: Performed By: #### L IC, BMPX #### [facility] [address] [place] [address] 51357 Shop Firer/Fireman: Sinan Amezquita MD Staging: NOT REPORTED Normal [facility] Comment on above: Performed By: #### L IC, BMPX #### [facility] [address] [place] [address] 66449 Shop Firer/Fireman: Sinan Amezquita MD (cont.) Normal [facility] Comment on above: Result Comment: Aver age GFR for 30-39 years old: 107 mL/min/1.73sq m Chronic Kidney Disease: <60 mL/min/1.73sq m Kidney failure: <15 mL/min/1.73sq m eGFR calculated using average adult body mass. Additional eGFR calculator available at: http://www.[employer]multiple_crcl_2012.htm Performed By: #### L IC, BMPX #### [address] [address] Shop Firer/Fireman: Sinan Amezquita MD Anion gap [Moles/Vol] 12 mmol/L Normal 9-17 [facility] Comment on above: Performed By: #### L IC, BMPX #### [address] [address] Shop Firer/Fireman: Sinan Amezquita MD Calcium [Mass/Vol] 8.8 mg/dL Normal 8.6-10.4 [facility] Comment on above: Performed By: #### L IC, BMPX #### [address] [address] Shop Firer/Fireman: Sinan Amezquita MD Chloride [Moles/Vol] 104 mmol/L Normal 98-107 [facility] Comment on above: Performed By: #### L IC, BMPX #### [address] [address] Shop Firer/Fireman: Sinan Amezquita MD CO2 [Moles/Vol] 20 mmol/L Normal 20-31 [facility] Comment on above: Performed By: #### L IC, BMPX #### [address] [address] Shop Firer/Fireman: Sinan Amezquita MD Creatinine [Mass/Vol] 0.72 mg/dL Normal 0.50-0.90 [facility] Comment on above: Performed By: #### L IC, BMPX #### [address] [address] Shop Firer/Fireman: Sinan Amezquita MD GFR, Amer >60 Normal >60 [facility] Comment on above: Performed By: #### L IC, BMPX #### [address] [address] Shop Firer/Fireman: Sinan Amezquita MD GFR,non Amer >60 Normal >60 [facility] Comment on above: Performed By: #### L IC, BMPX #### [address] [address] Shop Firer/Fireman: Sinan Amezquita MD Glucose [Mass/Vol] 105 mg/dL High 70-99 [facility] Comment on above: Performed By: #### L IC, BMPX #### [address] [address] Shop Firer/Fireman: Sinan Amezquita MD Potassium [Moles/Vol] 3.8 mmol/L Normal 3.7-5.3 [facility] Comment on above: Performed By: #### L IC, BMPX #### [facility] [address] [place] [address] 19995 Shop Firer/Fireman: Sinan Amezquita MD Sodium [Moles/Vol] 136 mmol/L Normal 135-144 [facility] Comment on above: Performed By: #### L IC, BMPX #### [facility] [address] [place] [address] 84673 Shop Firer/Fireman: Sinan Amezquita MD Urea nitrogen [Mass/Vol] 9 mg/dL Normal 6-20 [facility] Comment on above: Performed By: #### L IC, BMPX #### [facility] [address] [place] [address]244 Shop Firer/Fireman: Sinan Amezquita MD BUN/CRE Ratio NOT REPORTED Normal 9-20 [facility] Comment on above: Performed By: #### L IC, BMPX #### [facility] [address] [place] [address] 21674 Shop Firer/Fireman: Sinan Amezquita MD Staging: NOT REPORTED Normal [facility] Comment on above: Performed By: #### L IC, BMPX #### [facility] [address] [phone] Shop Firer/Fireman: Sinan Amezquita MD Basic Metabolic Panel w/ Ref enma to MGon 05-04-2020 Anion gap [Moles/Vol] 12 mmol/L 9 - 17 mmol/L [place] Bun/Cre Ratio NOT REPORTED [place] Calcium [Mass/Vol] 9.3 mg/dL 8.6 - 10.4 mg/dL [place] Chloride [Moles/Vol] 109 mmol/L High 98 - 107 mmol/L [place] CO2 [Moles/Vol] 20 mmol/L 20 - 31 mmol/L [place] Creatinine [Mass/Vol] 0.75 mg/dL 0.5 - 0.9 mg/dL [place] GFR >60 >60 mL/min [place] GFR Non- >60 >60 mL/min [place] GFR/1.73 sq M predicted among non-blacks MDRD (S/P/Bld) [Vol rate/Area] NOT REPORTED [place] GFR/1.73 sq M predicted among non-blacks MDRD (S/P/Bld) [Vol rate/Area] [place] Comment on above: Average GFR for 30-3 9 years old: 107 mL/min/1.73sq m Chronic Kidney Disease: <60 mL/min/1.73sq m Kidney failure: <15 mL/min/1.73sq m eGFR calculated using average adult body mass. Additional eGFR calculator available at: http://www.[employer]multiple_crcl_2012.htm Glucose [Mass/Vol] 129 mg/dL High 70 - 99 mg/dL [place], [place] Interpretation and review of laboratory results Abnormal [place] Potassium [Moles/Vol] 3.7 mmol/L 3.7 - 5.3 mmol/L [place] Sodium [Moles/Vol] 141 mmol/L 135 - 144 mmol/L [place] Urea nitrogen [Mass/Vol] 9 mg/dL 6 - 20 mg/dL [place] Anion gap [Moles/Vol] 7 mmol/L Low 9 - 17 mmol/L [place] Bun/Cre Ratio NOT REPORTED [place] Calcium [Mass/Vol] 9.1 mg/dL 8.6 - 10.4 mg/dL [place] Chloride [Moles/Vol] 104 mmol/L 98 - 107 mmol/L [place] CO2 [Moles/Vol] 22 mmol/L 20 - 31 mmol/L [place] Creatinine [Mass/Vol] 0.75 mg/dL 0.5 - 0.9 mg/dL [place] GFR >60 >60 mL/min [place] GFR Non- >60 >60 mL/min [place] GFR/1.73 sq M predicted among non-blacks MDRD (S/P/Bld) [Vol rate/Area] NOT REPORTED [place] GFR/1.73 sq M predicted among non-blacks MDRD (S/P/Bld) [Vol rate/Area] [place] Comment on above: Average GFR for 30-3 9 years old: 107 mL/min/1.73sq m Chronic Kidney Disease: <60 mL/min/1.73sq m Kidney failure: <15 mL/min/1.73sq m eGFR calculated using average adult body mass. Additional eGFR calculator available at: http://www.[employer]multiple_crcl_2012.htm Glucose [Mass/Vol] 112 mg/dL High 70 - 99 mg/dL [place] Interpretation and review of laboratory results Abnormal [place] Potassium [Moles/Vol] 3.7 mmol/L 3.7 - 5.3 mmol/L [place] Sodium [Moles/Vol] 133 mmol/L Low 135 - 144 mmol/L [place] Urea nitrogen [Mass/Vol] 10 mg/dL 6 - 20 mg/dL [place] Anion gap [Moles/Vol] 12 mmol/L 9 - 17 mmol/L [place] Bun/Cre Ratio NOT REPORTED [place] Calcium [Mass/Vol] 8.8 mg/dL 8.6 - 10.4 mg/dL [place] Chloride [Moles/Vol] 104 mmol/L 98 - 107 mmol/L [place] CO2 [Moles/Vol] 20 mmol/L 20 - 31 mmol/L [place] Creatinine [Mass/Vol] 0.72 mg/dL 0.5 - 0.9 mg/dL [place] GFR >60 >60 mL/min [place] GFR Non- >60 >60 mL/min [place] GFR/1.73 sq M predicted among non-blacks MDRD (S/P/Bld) [Vol rate/Area] [place] Comment on above: Average GFR for 30-3 9 years old: 107 mL/min/1.73sq m Chronic Kidney Disease: <60 mL/min/1.73sq m Kidney failure: <15 mL/min/1.73sq m eGFR calculated using average adult body mass. Additional eGFR calculator available at: http://www.[employer]/multiple_crcl_2012.htm GFR/1.73 sq M predicted among non-blacks MDRD (S/P/Bld) [Vol rate/Area] NOT REPORTED [place] Glucose [Mass/Vol] 105 mg/dL High 70 - 99 mg/dL [place] Interpretation and review of laboratory results Abnormal [place] Potassium [Moles/Vol] 3.8 mmol/L 3.7 - 5.3 mmol/L [place] Sodium [Moles/Vol] 136 mmol/L 135 - 144 mmol/L [place] Urea nitrogen [Mass/Vol] 9 mg/dL 6 - 20 mg/dL [place] LITHIUM LEVELon 05-04-2020 [place] Date Last Dose NOT REPORTED [place] Dose Amount NOT REPORTED [facility] [place] Dose Time NOT REPORTED [facility], [place] Lvl 1 mmol/L 0.6 - 1.2 mmol/L [facility], [place] Date Last Dose NOT REPORTED [facility], [place] Dose Amount NOT REPORTED [facility] [place], [place] Dose Time NOT REPORTED [facility], [place] Lvl 1.1 mmol/L 0.6 - 1.2 mmol/L [facility], [place] Lithiumon 05-04-2020 [place] [Moles/Vol] 1.0 mmol/L Normal 0.6-1.2 [facility] Comment on above: Performed By: #### L IC, BMPX #### [employer] [address] [place] [address] Shop Firer/Fireman: Sinan Amezquita MD [place] [Moles/Vol] 1.1 mmol/L Normal 0.6-1.2 [facility] Comment on above: Performed By: #### L IC #### [employer] [address] [place] [address] Shop Firer/Fireman: Sinan Amezquita MD Date last dose, NOT REPORTED Normal [facility] Comment on above: Performed By: #### L IC, BMPX #### [employer] [address] [place] [address]478 Shop Firer/Fireman: Sinan Amezquita MD Dose amount, NOT REPORTED Normal [facility] Comment on above: Performed By: #### L IC, BMPX #### [employer] [facility] [address] [place] [address] Shop Firer/Fireman: Sinan Amezquita MD Time last dose, NOT REPORTED Normal [facility] Comment on above: Performed By: #### L IC, BMPX #### [employer] [facility] [address] [place] [address] Shop Firer/Fireman: Sinan Amezquita MD Date last dose, NOT REPORTED Normal [facility] Comment on above: Performed By: #### L IC #### [facility] [address] [place] [address] Shop Firer/Fireman: Sinan Amezquita MD Dose amount, NOT REPORTED Normal [facility] Comment on above: Performed By: #### L IC #### [facility] [address] [place] [address]6741 Shop Firer/Fireman: Sinan Amezquita MD Time last dose, NOT REPORTED Normal [facility] Comment on above: Performed By: #### L IC #### [facility] [address] [place] [address]2811 Shop Firer/Fireman: Sinan Amezquita MD [place] [Moles/Vol] 1.1 mmol/L Normal 0.6-1.2 [facility] Comment on above: Performed By: #### L IC, BMPX #### [facility] [address] [place] [address] Shop Firer/Fireman: Sinan Amezquita MD Date last dose, NOT REPORTED Normal [facility] Comment on above: Performed By: #### L IC, BMPX #### [facility] [address] [place] [address] Shop Firer/Fireman: Sinan Amezquita MD Dose amount, NOT REPORTED Normal [facility] Comment on above: Performed By: #### L IC, BMPX #### [facility] [address] [place] [address]347 Shop Firer/Fireman: Sinan Amezquita MD Time last dose, NOT REPORTED Normal [facility] Comment on above: Performed By: #### L IC, BMPX #### [facility] [address] [place] [address] Shop Firer/Fireman: Sinan Amezquita MD [facility] Levelon 05-04-2020 [place] Date Last Dose NOT REPORTED [facility] [place] Dose Amount NOT REPORTED [facility] [place] Dose Time NOT REPORTED [facility] [place] Lvl 1.1 mmol/L 0.6 - 1.2 mmol/L [facility], [place] Basic Metab w/rfx MGon 05-03 (cont.) Normal [facility] Comment on above: Result Comment: Aver age GFR for 30-39 years old: 107 mL/min/1.73sq m Chronic Kidney Disease: <60 mL/min/1.73sq m Kidney failure: <15 mL/min/1.73sq m eGFR calculated using average adult body mass. Additional eGFR calculator available at: http://www.[employer]/multiple_crcl_2012.htm Performed By: #### L IC, BMPX #### [address] [address] Shop Firer/Fireman: Sinan Amezquita MD Anion gap [Moles/Vol] 13 mmol/L Normal 9-17 [facility] Comment on above: Performed By: #### L IC, BMPX #### [facility] [address] [place] [address] Shop Firer/Fireman: Sinan Amezquita MD Calcium [Mass/Vol] 8.8 mg/dL Normal 8.6-10.4 [facility] Comment on above: Performed By: #### L IC, BMPX #### [facility] [address] [place] [address] Shop Firer/Fireman: Sinan Amezquita MD Chloride [Moles/Vol] 104 mmol/L Normal 98-107 [facility] Comment on above: Performed By: #### L IC, BMPX #### [facility] [address] [place] [address]448 Shop Firer/Fireman: Sinan Amezquita MD CO2 [Moles/Vol] 21 mmol/L Normal 20-31 [facility] Comment on above: Performed By: #### L IC, BMPX #### [facility] [address] [place] [address] Shop Firer/Fireman: Sinan Amezquita MD Creatinine [Mass/Vol] 0.80 mg/dL Normal 0.50-0.90 [facility] Comment on above: Performed By: #### L IC, BMPX #### [facility] [address] [place] [address] Shop Firer/Fireman: Sinan Amezquita MD GFR, Amer >60 Normal >60 [facility] Comment on above: Performed By: #### L IC, BMPX #### [facility] [address] [place] [address] Shop Firer/Fireman: Sinan Amezquita MD GFR,non Amer >60 Normal >60 [facility] Comment on above: Performed By: #### L IC, BMPX #### [facility] [address] [place] [address]10[address] Shop Firer/Fireman: Sinan Amezquita MD Glucose [Mass/Vol] 116 mg/dL High 70-99 [facility] Comment on above: Performed By: #### L IC, BMPX #### [facility] [address] [place] [address] Shop Firer/Fireman: Sinan Amezquita MD Potassium [Moles/Vol] 4.0 mmol/L Normal 3.7-5.3 [facility] Comment on above: Performed By: #### L IC, BMPX #### [address] [address] Shop Firer/Fireman: Sinan Amezquita MD Sodium [Moles/Vol] 138 mmol/L Normal 135-144 [facility] Comment on above: Performed By: #### L IC, BMPX #### [facility] [address] [place] [address] Shop Firer/Fireman: Sinan Amezquita MD Urea nitrogen [Mass/Vol] 10 mg/dL Normal 6-20 [facility] Comment on above: Performed By: #### L IC, BMPX #### [facility] [address] [place] [address] Shop Firer/Fireman: Sinan Amezquita MD BUN/CRE Ratio NOT REPORTED Normal -20 [facility] Comment on above: Performed By: #### L IC, BMPX #### [facility] [address] [place] [address] [phone] Shop Firer/Fireman: Sinan Amezquita MD Staging: NOT REPORTED Normal [facility] Comment on above: Performed By: #### L IC, BMPX #### [facility] [address] [place] [address] [phone] Shop Firer/Fireman: Sinan Amezquita MD (cont.) Normal [facility] Comment on above: Result Comment: Aver age GFR for 30-39 years old: 107 mL/min/1.73sq m Chronic Kidney Disease: <60 mL/min/1.73sq m Kidney failure: <15 mL/min/1.73sq m eGFR calculated using average adult body mass. Additional eGFR calculator available at: http://www.[employer]multiple_crcl_2012.htm Performed By: #### L IC, BMPX #### [facility] [address] [place] [address] [phone] Shop Firer/Fireman: Sinan Amezquita MD Anion gap [Moles/Vol] 13 mmol/L Normal -17 [facility] Comment on above: Performed By: #### L IC, BMPX #### [facility] [address] [place] [address] [phone] Shop Firer/Fireman: Sinan Amezquita MD Calcium [Mass/Vol] 8.7 mg/dL Normal 8.6-10.4 [facility] Comment on above: Performed By: #### L IC, BMPX #### [facility] [address] [place] [address] [phone] Shop Firer/Fireman: Sinan Amezquita MD Chloride [Moles/Vol] 108 mmol/L High 98-107 [facility] Comment on above: Performed By: #### L IC, BMPX #### [employer] [address] [place] [address] Shop Firer/Fireman: Sinan Amezquita MD CO2 [Moles/Vol] 20 mmol/L Normal 20-31 [facility] Comment on above: Performed By: #### L IC, BMPX #### [address] [address] Shop Firer/Fireman: Sinan Amezquita MD Creatinine [Mass/Vol] 0.75 mg/dL Normal 0.50-0.90 [facility] Comment on above: Performed By: #### L IC, BMPX #### [address] [address] Shop Firer/Fireman: Sinan Amezquita MD GFR, Amer >60 Normal >60 [facility] Comment on above: Performed By: #### L IC, BMPX #### [address] [address] Shop Firer/Fireman: Sinan Amezquita MD GFR,non Amer >60 Normal >60 [facility] Comment on above: Performed By: #### L IC, BMPX #### [address] [address] Shop Firer/Fireman: Sinan Amezquita MD Glucose [Mass/Vol] 109 mg/dL High 70-99 [facility] Comment on above: Performed By: #### L IC, BMPX #### [facility] [address] [place] [address] Shop Firer/Fireman: Sinan Amezquita MD Potassium [Moles/Vol] 4.0 mmol/L Normal 3.7-5.3 [facility] Comment on above: Performed By: #### L IC, BMPX #### [facility] [address] [place] [address] Shop Firer/Fireman: Sinan Amezquita MD Sodium [Moles/Vol] 141 mmol/L Normal 135-144 [facility] Comment on above: Performed By: #### L IC, BMPX #### [facility] [address] [place] [address] Shop Firer/Fireman: Sinan Amezquita MD Urea nitrogen [Mass/Vol] 11 mg/dL Normal -20 [facility] Comment on above: Performed By: #### L IC, BMPX #### [address] [address] Shop Firer/Fireman: Sinan Amezquita MD BUN/CRE Ratio NOT REPORTED Normal - [facility] Comment on above: Performed By: #### L IC, BMPX #### [address] [address] Shop Firer/Fireman: Sinan Amezquita MD Staging: NOT REPORTED Normal [facility] Comment on above: Performed By: #### L IC, BMPX #### [address] [address] Shop Firer/Fireman: Sinan Amezquita MD (cont.) Normal [facility] Comment on above: Result Comment: Aver age GFR for 30-39 years old: 107 mL/min/1.73sq m Chronic Kidney Disease: <60 mL/min/1.73sq m Kidney failure: <15 mL/min/1.73sq m eGFR calculated using average adult body mass. Additional eGFR calculator available at: http://www.[employer].com/multiple_crcl_2012.htm Performed By: #### L IC, BMPX #### [facility] [address] [place] [address] Shop Firer/Fireman: Sinan Amezquita MD Anion gap [Moles/Vol] 12 mmol/L Normal -17 [facility] Comment on above: Performed By: #### L IC, BMPX #### [facility] [address] [place] [address] Shop Firer/Fireman: Sinan Amezquita MD Calcium [Mass/Vol] 8.6 mg/dL Normal 8.6-10.4 [facility] Comment on above: Performed By: #### L IC, BMPX #### [address] [address] Shop Firer/Fireman: Sinan Amezquita MD Chloride [Moles/Vol] 107 mmol/L Normal 98-107 [facility] Comment on above: Performed By: #### L IC, BMPX #### [address] [address] Shop Firer/Fireman: Sinan Amezquita MD CO2 [Moles/Vol] 20 mmol/L Normal 20-31 [facility] Comment on above: Performed By: #### L IC, BMPX #### [address] [address] Shop Firer/Fireman: Sinan Amezquita MD Creatinine [Mass/Vol] 0.78 mg/dL Normal 0.50-0.90 [facility] Comment on above: Performed By: #### L IC, BMPX #### [address] [address] Shop Firer/Fireman: Sinan Amezquita MD GFR, Amer >60 Normal >60 [facility] Comment on above: Performed By: #### L IC, BMPX #### [address] [address] Shop Firer/Fireman: Sinan Amezquita MD GFR,non Amer >60 Normal >60 [facility] Comment on above: Performed By: #### L IC, BMPX #### [address] [address] Shop Firer/Fireman: Sinan Amezquita MD Glucose [Mass/Vol] 123 mg/dL High 70-99 [facility] Comment on above: Performed By: #### L IC, BMPX #### [facility] [address] [place] [address] [place] [address] Shop Firer/Fireman: Sinan Amezquita MD Potassium [Moles/Vol] 3.6 mmol/L Low 3.7-5.3 [facility] Comment on above: Performed By: #### L IC, BMPX #### [facility] [address] [place] [address] Shop Firer/Fireman: Sinan Amezquita MD Sodium [Moles/Vol] 139 mmol/L Normal 135-144 [facility] Comment on above: Performed By: #### L IC, BMPX #### [facility] [address] [place] [address] Shop Firer/Fireman: Sinan Amezquita MD Urea nitrogen [Mass/Vol] 12 mg/dL Normal 6-20 [facility] Comment on above: Performed By: #### L IC, BMPX #### [facility] [address] [place] [address] Shop Firer/Fireman: Sinan Amezquita MD BUN/CRE Ratio NOT REPORTED Normal 9-20 [facility] Comment on above: Performed By: #### L IC, BMPX #### [facility] [address] [place] [address] Shop Firer/Fireman: Sinan Amezquita MD Staging: NOT REPORTED Normal [facility] Comment on above: Performed By: #### L IC, BMPX #### [facility] [address] [place] [address] Shop Firer/Fireman: Sinan Amezquita MD (cont.) Normal [facility] Comment on above: Result Comment: Aver age GFR for 30-39 years old: 107 mL/min/1.73sq m Chronic Kidney Disease: <60 mL/min/1.73sq m Kidney failure: <15 mL/min/1.73sq m eGFR calculated using average adult body mass. Additional eGFR calculator available at: http://www.[employer]multiple_crcl_2012.htm Performed By: #### C RP, MG, BMPX, LIC #### [facility] [address] [place] [address] Shop Firer/Fireman: Sinan Amezquita MD Anion gap [Moles/Vol] 12 mmol/L Normal 9-17 [facility] Comment on above: Performed By: #### C RP, MG, BMPX, LIC #### [facility] [address] [place] [address] Shop Firer/Fireman: Sinan Amezquita MD Calcium [Mass/Vol] 8.0 mg/dL Low 8.6-10.4 [facility] Comment on above: Performed By: #### C RP, MG, BMPX, LIC #### [facility] [address] [place] [address] Shop Firer/Fireman: Sinan Amezquita MD Chloride [Moles/Vol] 104 mmol/L Normal 98-107 [facility] Comment on above: Performed By: #### C RP, MG, BMPX, LIC #### [facility] [address] [place] [address] Shop Firer/Fireman: Sinan Amezquita MD CO2 [Moles/Vol] 20 mmol/L Normal 20-31 [facility] Comment on above: Performed By: #### C RP, MG, BMPX, LIC #### [facility] [address] [place] [address] Shop Firer/Fireman: Sinan Amezquita MD Creatinine [Mass/Vol] 0.87 mg/dL Normal 0.50-0.90 [facility] Comment on above: Performed By: #### C RP, MG, BMPX, LIC #### [facility] [address] [place] [address] Shop Firer/Fireman: Sinan Amezquita MD GFR, Amer >60 Normal >60 [facility] Comment on above: Performed By: #### C RP, MG, BMPX, LIC #### [facility] [address] [place] [address] Shop Firer/Fireman: Sinan Amezquita MD GFR,non Amer >60 Normal >60 [facility] Comment on above: Performed By: #### C RP, MG, BMPX, LIC #### [facility] [address] [place] [address] Shop Firer/Fireman: Sinan Amezquita MD Glucose [Mass/Vol] 123 mg/dL High 70-99 [facility] Comment on above: Performed By: #### C RP, MG, BMPX, LIC #### [facility] [address] [place] [address] Shop Firer/Fireman: Sinan Amezquita MD Potassium [Moles/Vol] 3.4 mmol/L Low 3.7-5.3 [facility] Comment on above: Performed By: #### C RP, MG, BMPX, LIC #### [facility] [address] [place] [address] Shop Firer/Fireman: Sinan Amezquita MD Sodium [Moles/Vol] 136 mmol/L Normal 135-144 [facility] Comment on above: Performed By: #### C RP, MG, BMPX, LIC #### [facility] [address] [place] [address] Shop Firer/Fireman: Sinan Amezquita MD Urea nitrogen [Mass/Vol] 12 mg/dL Normal -20 [facility] Comment on above: Performed By: #### C RP, MG, BMPX, LIC #### [facility] [address] [place] [address] Shop Firer/Fireman: Sinan Amezquita MD BUN/CRE Ratio NOT REPORTED Normal -20 [facility] Comment on above: Performed By: #### C RP, MG, BMPX, LIC #### [facility] [address] [place] [address] Shop Firer/Fireman: Sinan Amezquita MD Staging: NOT REPORTED Normal [facility] Comment on above: Performed By: #### C RP, MG, BMPX, LIC #### [facility] [address] [place] [address] Shop Firer/Fireman: Sinan Amezquita MD Basic Metabolic Panel w/ Ref enma to MGon 05-03-2020 Anion gap [Moles/Vol] 13 mmol/L 9 - 17 mmol/L [place] Bun/Cre Ratio NOT REPORTED [place] Calcium [Mass/Vol] 8.8 mg/dL 8.6 - 10.4 mg/dL [place] Chloride [Moles/Vol] 104 mmol/L 98 - 107 mmol/L [place] CO2 [Moles/Vol] 21 mmol/L 20 - 31 mmol/L [place] Creatinine [Mass/Vol] 0.8 mg/dL 0.5 - 0.9 mg/dL [place] GFR >60 >60 mL/min [place] GFR Non- >60 >60 mL/min [place] GFR/1.73 sq M predicted among non-blacks MDRD (S/P/Bld) [Vol rate/Area] NOT REPORTED [place] GFR/1.73 sq M predicted among non-blacks MDRD (S/P/Bld) [Vol rate/Area] [place] Comment on above: Average GFR for 30-3 9 years old: 107 mL/min/1.73sq m Chronic Kidney Disease: <60 mL/min/1.73sq m Kidney failure: <15 mL/min/1.73sq m eGFR calculated using average adult body mass. Additional eGFR calculator available at: http://www.[employer]multiple_crcl_2012.htm Glucose [Mass/Vol] 116 mg/dL High 70 - 99 mg/dL [place] Interpretation and review of laboratory results Abnormal [place] Potassium [Moles/Vol] 4.0 mmol/L 3.7 - 5.3 mmol/L [place] Sodium [Moles/Vol] 138 mmol/L 135 - 144 mmol/L [place] Urea nitrogen [Mass/Vol] 10 mg/dL 6 - 20 mg/dL [place] Anion gap [Moles/Vol] 13 mmol/L 9 - 17 mmol/L [place] Bun/Cre Ratio NOT REPORTED [place] Calcium [Mass/Vol] 8.7 mg/dL 8.6 - 10.4 mg/dL [place] Chloride [Moles/Vol] 108 mmol/L High 98 - 107 mmol/L [place] CO2 [Moles/Vol] 20 mmol/L 20 - 31 mmol/L [place] Creatinine [Mass/Vol] 0.75 mg/dL 0.5 - 0.9 mg/dL [place] GFR >60 >60 mL/min [place] GFR Non- >60 >60 mL/min [place] GFR/1.73 sq M predicted among non-blacks MDRD (S/P/Bld) [Vol rate/Area] [place] Comment on above: Average GFR for 30-3 9 years old: 107 mL/min/1.73sq m Chronic Kidney Disease: <60 mL/min/1.73sq m Kidney failure: <15 mL/min/1.73sq m eGFR calculated using average adult body mass. Additional eGFR calculator available at: http://www.[employer]multiple_crcl_2012.htm GFR/1.73 sq M predicted among non-blacks MDRD (S/P/Bld) [Vol rate/Area] NOT REPORTED [place] Glucose [Mass/Vol] 109 mg/dL High 70 - 99 mg/dL [place] Interpretation and review of laboratory results Abnormal [place] Potassium [Moles/Vol] 4.0 mmol/L 3.7 - 5.3 mmol/L [place] Sodium [Moles/Vol] 141 mmol/L 135 - 144 mmol/L [place] Urea nitrogen [Mass/Vol] 11 mg/dL 6 - 20 mg/dL [place] Anion gap [Moles/Vol] 12 mmol/L 9 - 17 mmol/L [place] Bun/Cre Ratio NOT REPORTED [place] Calcium [Mass/Vol] 8.6 mg/dL 8.6 - 10.4 mg/dL [place] Chloride [Moles/Vol] 107 mmol/L 98 - 107 mmol/L [place] CO2 [Moles/Vol] 20 mmol/L 20 - 31 mmol/L [place] Creatinine [Mass/Vol] 0.78 mg/dL 0.5 - 0.9 mg/dL [place] GFR >60 >60 mL/min [place] GFR Non- >60 >60 mL/min [place] GFR/1.73 sq M predicted among non-blacks MDRD (S/P/Bld) [Vol rate/Area] NOT REPORTED [place] GFR/1.73 sq M predicted among non-blacks MDRD (S/P/Bld) [Vol rate/Area] [place] Comment on above: Average GFR for 30-3 9 years old: 107 mL/min/1.73sq m Chronic Kidney Disease: <60 mL/min/1.73sq m Kidney failure: <15 mL/min/1.73sq m eGFR calculated using average adult body mass. Additional eGFR calculator available at: http://www.[employer]/multiple_crcl_2012.htm Glucose [Mass/Vol] 123 mg/dL High 70 - 99 mg/dL [place] Interpretation and review of laboratory results Abnormal [place] Potassium [Moles/Vol] 3.6 mmol/L Low 3.7 - 5.3 mmol/L [place] Sodium [Moles/Vol] 139 mmol/L 135 - 144 mmol/L [place] Urea nitrogen [Mass/Vol] 12 mg/dL 6 - 20 mg/dL [place] Anion gap [Moles/Vol] 12 mmol/L 9 - 17 mmol/L [place] Bun/Cre Ratio NOT REPORTED [place] Calcium [Mass/Vol] 8.0 mg/dL Low 8.6 - 10.4 mg/dL [place] Chloride [Moles/Vol] 104 mmol/L 98 - 107 mmol/L [place] CO2 [Moles/Vol] 20 mmol/L 20 - 31 mmol/L [place] Creatinine [Mass/Vol] 0.87 mg/dL 0.5 - 0.9 mg/dL [place] GFR >60 >60 mL/min [place] GFR Non- >60 >60 mL/min [place] GFR/1.73 sq M predicted among non-blacks MDRD (S/P/Bld) [Vol rate/Area] [place] Comment on above: Average GFR for 30-3 9 years old: 107 mL/min/1.73sq m Chronic Kidney Disease: <60 mL/min/1.73sq m Kidney failure: <15 mL/min/1.73sq m eGFR calculated using average adult body mass. Additional eGFR calculator available at: http://www.[employer]/multiple_crcl_2012.htm GFR/1.73 sq M predicted among non-blacks MDRD (S/P/Bld) [Vol rate/Area] NOT REPORTED [place] Glucose [Mass/Vol] 123 mg/dL High 70 - 99 mg/dL [place] Potassium [Moles/Vol] 3.4 mmol/L Low 3.7 - 5.3 mmol/L [place] Sodium [Moles/Vol] 136 mmol/L 135 - 144 mmol/L [place] Urea nitrogen [Mass/Vol] 12 mg/dL 6 - 20 mg/dL [place] C-Reactive Proteinon 020 CRP [Mass/Vol] 63.8 mg/L High 0.0-5.0 [facility] Comment on above: Performed By: #### C RP, MG, BMPX, LIC #### [facility] [place] [address] Shop Firer/Fireman: Sinan Amezquita MD CRP [Mass/Vol] 63.8 mg/L High 0 - 5 mg/L [place] CBCon 05-03-2020 Erythrocyte distribution width (RBC) [Ratio] 19.9 % High 11.8-14.4 [facility] Comment on above: Performed By: #### B C #### [address] [address] Shop Firer/Fireman: Sinan Amezquita MD Hematocrit (Bld) [Volume fraction] 34.9 % Low 36.3-47.1 [facility] Comment on above: Performed By: #### B C #### [address] [address] Shop Firer/Fireman: Sinan Amezquita MD Hemoglobin (Bld) [Mass/Vol] 10.5 g/dL Low 11.9-15.1 [facility] Comment on above: Performed By: #### B C #### [address] [address] Shop Firer/Fireman: Sinan Amezquita MD MCH (RBC) [Entitic mass] 29.8 pg Normal 25.2-33.5 [facility] Comment on above: Performed By: #### B C #### [address] [address] Shop Firer/Fireman: Sinan Amezquita MD MCHC (RBC) [Mass/Vol] 30.1 g/dL Normal 28.4-34.8 [facility] Comment on above: Performed By: #### B C #### [address] [address] Shop Firer/Fireman: Sinan Amezquita MD MCV (RBC) [Entitic vol] 99.1 fL Normal 82.6-102.9 [facility] Comment on above: Performed By: #### B C #### [address] [address] Shop Firer/Fireman: Sinan Amezquita MD NRBC Automated 0.0 per 100 WBC Normal 0.0 [facility] Comment on above: Performed By: #### B C #### [address] [address] Shop Firer/Fireman: Sinan Amezquita MD Platelet mean volume (Bld) [Entitic vol] 9.9 fL Normal 8.1-13.5 [facility] Comment on above: Performed By: #### B C #### [address] [address] Shop Firer/Fireman: Sinan Amzequita MD Platelets (Bld) [#/Vol] 409 10*3/uL Normal 138-453 [facility] Comment on above: Performed By: #### B C #### [address] [address] Shop Firer/Fireman: Sinan Amezquita MD RBC (Bld) [#/Vol] 3.52 10*6/uL Low 3.95-5.11 [facility] Comment on above: Performed By: #### B C #### [address] [address] Shop Firer/Fireman: Sinan Amezquita MD WBC (Bld) [#/Vol] 17.8 10*3/uL High 3.5-11.3 [facility] Comment on above: Performed By: #### B C #### [address] [address] Shop Firer/Fireman: Sinan Amezquita MD Erythrocyte distribution width (RBC) [Ratio] 19.9 % High 11.8 - 14.4 % [place] Hematocrit (Bld) [Volume fraction] 34.9 % Low 36.3 - 47.1 % [place] Hemoglobin (Bld) [Mass/Vol] 10.5 g/dL Low 11.9 - 15.1 g/dL [place] Interpretation and review of laboratory results Abnormal [place] MCH (RBC) [Entitic mass] 29.8 pg 25.2 - 33.5 pg [place] MCHC (RBC) [Mass/Vol] 30.1 g/dL 28.4 - 34.8 g/dL [place] MCV (RBC) [Entitic vol] 99.1 fL 82.6 - 102.9 fL [place] Platelet mean volume (Bld) [Entitic vol] 9.9 fL 8.1 - 13.5 fL [place] Platelets (Bld) [#/Vol] 409 10*3/uL [place] RBC (Bld) [#/Vol] 3.52 10*6/uL Low 3.95 - 5.11 m/uL [place] WBC (Bld) [#/Vol] 0.0 10*3/uL 0.0 per 100 WBC M [place] WBC (Bld) [#/Vol] 17.8 10*3/uL [place] LITHIUM LEVELon 05-03-2020 [place] Date Last Dose NOT REPORTED [place] Dose Amount NOT REPORTED [place] Dose Time NOT REPORTED [place] Lvl 1.2 mmol/L 0.6 - 1.2 mmol/L [place] Date Last Dose NOT REPORTED [place] Dose Amount NOT REPORTED [place] Dose Time NOT REPORTED [place] Lvl 1.2 mmol/L 0.6 - 1.2 mmol/L [place] Date Last Dose NOT REPORTED [place] Dose Amount NOT REPORTED [place] Dose Time NOT REPORTED [place] Lvl 1.2 mmol/L 0.6 - 1.2 mmol/L [place] Date Last Dose NOT REPORTED [place] Dose Amount NOT REPORTED [place] Dose Time NOT REPORTED [place] Lvl 1.2 mmol/L 0.6 - 1.2 mmol/L [place] Lithiumon 05-03-2020 [place] [Moles/Vol] 1.2 mmol/L Normal 0.6-1.2 [facility] Comment on above: Performed By: #### L IC, BMPX #### [facility] [address] [place] [address] Shop Firer/Fireman: Sinan Amezquita MD Date last dose, NOT REPORTED Normal [facility] Comment on above: Performed By: #### L IC, BMPX #### [facility] [address] [place] [address] Shop Firer/Fireman: Sinan Amezquita MD Dose amount, NOT REPORTED Normal [facility] Comment on above: Performed By: #### L IC, BMPX #### [facility] [address] [place] [address] Shop Firer/Fireman: Sinan Amezquita MD Time last dose, NOT REPORTED Normal [facility] Comment on above: Performed By: #### L IC, BMPX #### [facility] [address] [place] [address] Shop Firer/Fireman: Sinan Amezquita MD Brightwood [Moles/Vol] 1.2 mmol/L Normal 0.6-1.2 [facility] Comment on above: Performed By: #### L IC, BMPX #### [facility] [address] [place] [address] Shop Firer/Fireman: Sinan Amezquita MD Date last dose, NOT REPORTED Normal [facility] Comment on above: Performed By: #### L IC, BMPX #### [facility] [address] [place] [address] Shop Firer/Fireman: Sinan Amezquita MD Dose amount, NOT REPORTED Normal [facility] Comment on above: Performed By: #### L IC, BMPX #### [facility] [address] [place] [address] Shop Firer/Fireman: Sinan Amezquita MD Time last dose, NOT REPORTED Normal [facility] Comment on above: Performed By: #### L IC, BMPX #### [facility] [address] [place] [address] Shop Firer/Fireman: Sinan Amezquita MD Brightwood [Moles/Vol] 1.2 mmol/L Normal 0.6-1.2 [facility] Comment on above: Performed By: #### L IC, BMPX #### [facility] [address] [place] [address] Shop Firer/Fireman: Sinan Amezquita MD Date last dose, NOT REPORTED Normal [facility] Comment on above: Performed By: #### L IC, BMPX #### [facility] [address] [place] [address] Shop Firer/Fireman: Sinan Amezquita MD Dose amount, NOT REPORTED Normal [facility] Comment on above: Performed By: #### L IC, BMPX #### [facility] [address] [place] [address] Shop Firer/Fireman: Sinan Amezquita MD Time last dose, NOT REPORTED Normal [facility] Comment on above: Performed By: #### L IC, BMPX #### [facility] [address] [place] [address] Shop Firer/Fireman: Sinan Amezquita MD [place]wood [Moles/Vol] 1.2 mmol/L Normal 0.6-1.2 [facility] Comment on above: Performed By: #### L IC, BMPX #### [facility] [address] [place] [address] Shop Firer/Fireman: Sinan Amezquita MD Date last dose, NOT REPORTED Normal [facility] Comment on above: Performed By: #### L IC, BMPX #### [facility] [address] [place] [address] [phone] Shop Firer/Fireman: Sinan Amezquita MD Dose amount, NOT REPORTED Normal [facility] Comment on above: Performed By: #### L IC, BMPX #### [address] [phone] Shop Firer/Fireman: Sinan Amezquita MD Time last dose, NOT REPORTED Normal [facility] Comment on above: Performed By: #### L IC, BMPX #### [address] [address] Shop Firer/Fireman: Sinan Amezquita MD Magnesiumon 05-03-2020 Magnesium [Mass/Vol] 2.2 mg/dL Normal 1.6-2.6 [facility] Comment on above: Performed By: #### C RP, MG, BMPX, LIC #### [address] [address] Shop Firer/Fireman: Sinan Amezquita MD Magnesium [Mass/Vol] 2.2 mg/dL 1.6 - 2.6 mg/dL [place] Otheron 05-03-2020 Interpretation and review of laboratory results Abnormal [place] PTon 05-03-2020 INR Coag (PPP) [Relative time] 1.0 {INR} Normal [facility] Comment on above: Result Comment: Therapeutic Range: Moderate Anticoagulant Intensity: INR = 2.0-3.0 High Anticoagulant Intensity: INR = 2.5-3.5 Performed By: #### B C #### [address] [address] Shop Firer/Fireman: Sinan Amezquita MD PT Coag (PPP) [Time] 10.6 s Normal 9.0-12.0 [facility] Comment on above: Performed By: #### B C #### [address] [address] Shop Firer/Fireman: Sinan Amezquita MD Protime-INRon 05-03-2020 INR Coag (PPP) [Relative time] 1.0 {INR} [place] Comment on above: Therapeutic Range: Moderate Anticoagulant Intensity: INR = 2.0-3.0 High Anticoagulant Intensity: INR = 2.5-3.5 PT Coag (PPP) [Time] 10.6 s [place] ACETAMINOPHEN LEVELon 2019 Acetaminophen [Mass/Vol] <5 Low 10 - 30 ug/mL [place] Acetaminophenon 05-02-2020 Acetaminophen [Mass/Vol] ug/mL Low 10-30 [facility] Comment on above: Performed By: #### L IC, BMPX #### [employer] [address] [place] [address] Shop Firer/Fireman: Sinan Amezquita MD Arterial Blood Gas, POCon Wing Test Positive [place], [place] aPTT Coag (Bld) [Time] NOT REPORTED [place] FIO2 21.0 [place] Interpretation and review of laboratory results Abnormal [place] Mode NOT REPORTED [place] Negative Base Excess, Art 10 High [place] O2 Device/Flow/% Room Air [place] Oxygen saturation in Blood 96 % 94 - 98 % [place] POC HCO3 15.6 mmol/L Low 21 - 28 mmol/L [place] POC pCO2 34.1 Low [place] POC pCO2 Temp NOT REPORTED mm Hg [place] POC pH 7.270 Low [place] POC pH Temp NOT [place]PORTED [place] POC PO2 94.0 [place] POC pO2 Temp NOT REPORTED mm Hg [place] Positive Base Excess, Art NOT REPORTED [place] Sample Site Right Radial Artery [place] TCO2 (calc), Art 17 mmol/L Low 22 - 29 mmol/L [place] B12/Folate Panelon 0 Folic Acid 7.6 ng/mL Normal >4.8 [facility] Comment on above: Performed By: #### L IC #### [employer] [address] [place] [address] Shop Firer/Fireman: Sinan Amezquita MD Cobalamin (Vitamin B12) [Mass/Vol] 809 pg/mL Normal 232-1245 [facility], [place] Comment on above: Performed By: #### L IC #### [address] [address] Shop Firer/Fireman: Sinan Amezquita MD Basic Metab w/rfx MGon 05-02 (cont.) Normal [facility] Comment on above: Result Comment: Aver age GFR for 30-39 years old: 107 mL/min/1.73sq m Chronic Kidney Disease: <60 mL/min/1.73sq m Kidney failure: <15 mL/min/1.73sq m eGFR calculated using average adult body mass. Additional eGFR calculator available at: http://www.RotoPop/multiple_crcl_2011.htm Performed By: #### L IC, BMPX #### [facility] [address] [place] [address] Shop Firer/Fireman: Sinan Amezquita MD Anion gap [Moles/Vol] 11 mmol/L Normal 9-17 [facility] Comment on above: Performed By: #### L IC, BMPX #### [facility] [address] [place] [address] Shop Firer/Fireman: Sinan Amezquita MD Calcium [Mass/Vol] 7.8 mg/dL Low 8.6-10.4 [facility] Comment on above: Performed By: #### L IC, BMPX #### [facility] [address] [place] [address] Shop Firer/Fireman: Sinan Amezquita MD Chloride [Moles/Vol] 113 mmol/L High 98-107 [facility] Comment on above: Performed By: #### L IC, BMPX #### [facility] [address] [place] [address] Shop Firer/Fireman: Sinan Amezquita MD CO2 [Moles/Vol] 12 mmol/L Low 20-31 [facility] Comment on above: Performed By: #### L IC, BMPX #### [facility] [address] [place] [address] Shop Firer/Fireman: Sinan Amezquita MD Creatinine [Mass/Vol] 1.86 mg/dL High 0.50-0.90 [facility] Comment on above: Performed By: #### L IC, BMPX #### [facility] [address] [place] [address] Shop Firer/Fireman: Sinan Amezquita MD GFR, Amer 38 mL/min Low >60 [facility] Comment on above: Performed By: #### L IC, BMPX #### [facility] [address] [place] [address] Shop Firer/Fireman: Sinan Amezquita MD GFR,non Amer 31 mL/min Low >60 [facility] Comment on above: Performed By: #### L IC, BMPX #### [facility] [address] [place] [address] Shop Firer/Fireman: Sinan Amezquita MD Glucose [Mass/Vol] 101 mg/dL High 70-99 [facility] Comment on above: Performed By: #### L IC, BMPX #### [facility] [address] [place] [address] Shop Firer/Fireman: Sinan Amezquita MD Potassium [Moles/Vol] 4.4 mmol/L Normal 3.7-5.3 [facility] Comment on above: Result Comment: SPEC IMEN MODERATELY HEMOLYZED, RESULTS MAY BE ADVERSELY AFFECTED Performed By: #### L IC, BMPX #### [facility] [address] [place] [address] Shop Firer/Fireman: Sinan Amezquita MD Sodium [Moles/Vol] 136 mmol/L Normal 135-144 [facility] Comment on above: Performed By: #### L IC, BMPX #### [facility] [address] [place], [place] [id number] Shop Firer/Fireman: Sinan Amezquita MD Urea nitrogen [Mass/Vol] 38 mg/dL High 6-20 [facility] Comment on above: Performed By: #### L IC, BMPX #### [facility] [address] [place], [place] [phone] Shop Firer/Fireman: Sinan Amezquita MD BUN/CRE Ratio NOT REPORTED Normal 9-20 [facility] Comment on above: Performed By: #### L IC, BMPX #### [facility] [address] [place], [place] [phone] Shop Firer/Fireman: Sinan Amezquita MD Staging: NOT REPORTED Normal [facility] Comment on above: Performed By: #### L IC, BMPX #### [facility] [address] [place] [address] [phone] Shop Firer/Fireman: Sinan Amezquita MD Basic Metabolic Panel w/ Ref enma to MGon 05-02-2020 Anion gap [Moles/Vol] 11 mmol/L 9 - 17 mmol/L [place] Bun/Cre Ratio NOT REPORTED [place] Calcium [Mass/Vol] 7.8 mg/dL Low 8.6 - 10.4 mg/dL [place] Chloride [Moles/Vol] 113 mmol/L High 98 - 107 mmol/L [place] CO2 [Moles/Vol] 12 mmol/L Low 20 - 31 mmol/L [place] Creatinine [Mass/Vol] 1.86 mg/dL High 0.5 - 0.9 mg/dL [place] GFR 38 mL/min Low >60 [place] GFR Non- 31 mL/min Low >60 [place] GFR/1.73 sq M predicted among non-blacks MDRD (S/P/Bld) [Vol rate/Area] NOT REPORTED [place] GFR/1.73 sq M predicted among non-blacks MDRD (S/P/Bld) [Vol rate/Area] [place] Comment on above: Average GFR for 30-3 9 years old: 107 mL/min/1.73sq m Chronic Kidney Disease: <60 mL/min/1.73sq m Kidney failure: <15 mL/min/1.73sq m eGFR calculated using average adult body mass. Additional eGFR calculator available at: http://www.RotoPop/multiple_crcl_2012.htm Glucose [Mass/Vol] 101 mg/dL High 70 - 99 mg/dL [place] Potassium [Moles/Vol] 4.4 mmol/L 3.7 - 5.3 mmol/L [place] Comment on above: SPECIMEN MODERATELY HEMOLYZED, RESULTS MAY BE ADVERSELY AFFECTED Sodium [Moles/Vol] 136 mmol/L 135 - 144 mmol/L [place] Urea nitrogen [Mass/Vol] 38 mg/dL High 6 - 20 mg/dL [place] C.trachomatis N.gonorrhoeae DNA, Urineon 05-02-2020 C. trachomatis DNA ,Urine Negative NEGATIVE [place] Comment on above: CHLAMYDIA TRACHOMATI S DNA not detected by nucleic acid amplification. This test is intended for medical purposes only and is not valid for the evaluation of suspected sexual abuse or for other forensic purposes. In certain contexts, culture may be required to meet applicable laws and regulations for diagnosis of C. trachomatis and N. gonorrhoeae infections. Per 2014 CDC recommendations, this test does not include confirmation of positive results by an alternative nucleic acid target. N. gonorrhoeae DNA, Urine Negative NEGATIVE [place] Comment on above: NEISSERIA GONORRHOEA E DNA not detected by nucleic acid amplification. This test is intended for medical purposes only and is not valid for the evaluation of suspected sexual abuse or for other forensic purposes. In certain contexts, culture may be required to meet applicable laws and regulations for diagnosis of C. trachomatis and N. gonorrhoeae infections. Per 2014 CDC recommendations, this test does not include confirmation of positive results by an alternative nucleic acid target. Specimen Description .URINE [place] CBCon 05-02-2020 Erythrocyte distribution width (RBC) [Ratio] 19.7 % High 11.8-14.4 [facility] Comment on above: Performed By: #### L IC #### [address] [address] Shop Firer/Fireman: Sinan Amezquita MD Hematocrit (Bld) [Volume fraction] 34.8 % Low 36.3-47.1 [facility] Comment on above: Performed By: #### L IC #### [address] [address] Shop Firer/Fireman: Sinan Amezquita MD Hemoglobin (Bld) [Mass/Vol] 10.8 g/dL Low 11.9-15.1 [facility] Comment on above: Performed By: #### L IC #### [address] [address] Shop Firer/Fireman: Sinan Amezquita MD MCH (RBC) [Entitic mass] 30.2 pg Normal 25.2-33.5 [facility] Comment on above: Performed By: #### L IC #### [address] [address] Shop Firer/Fireman: Sinan Amezquita MD MCHC (RBC) [Mass/Vol] 31.0 g/dL Normal 28.4-34.8 [facility] Comment on above: Performed By: #### L IC #### [address] [address] Shop Firer/Fireman: Sinan Amezquita MD MCV (RBC) [Entitic vol] 97.2 fL Normal 82.6-102.9 [facility] Comment on above: Performed By: #### L IC #### [address] [address] Shop Firer/Fireman: Sinan Amezquita MD NRBC Automated 0.0 per 100 WBC Normal 0.0 [facility] Comment on above: Performed By: #### L IC #### [id number] [place] [address] Shop Firer/Fireman: Sinan Amezquita MD Platelet mean volume (Bld) [Entitic vol] 10.2 fL Normal 8.1-13.5 [facility] Comment on above: Performed By: #### L IC #### [facility] [address] [place] [address] Shop Firer/Fireman: Sinan Amezquita MD Platelets (Bld) [#/Vol] 446 10*3/uL Normal 138-453 [facility] Comment on above: Performed By: #### L IC #### [address] [address] Shop Firer/Fireman: Sinan Amezquita MD RBC (Bld) [#/Vol] 3.58 10*6/uL Low 3.95-5.11 [facility] Comment on above: Performed By: #### L IC #### [address] [address] Shop Firer/Fireman: Sinan Amezquita MD WBC (Bld) [#/Vol] 25.9 10*3/uL High 3.5-11.3 [facility] Comment on above: Performed By: #### L IC #### [address] [address] Shop Firer/Fireman: Sinan Amezquita MD Erythrocyte distribution width (RBC) [Ratio] 19.7 % High 11.8 - 14.4 % [place] Hematocrit (Bld) [Volume fraction] 34.8 % Low 36.3 - 47.1 % [place] Hemoglobin (Bld) [Mass/Vol] 10.8 g/dL Low 11.9 - 15.1 g/dL [place] Interpretation and review of laboratory results Abnormal [place] MCH (RBC) [Entitic mass] 30.2 pg 25.2 - 33.5 pg [place] MCHC (RBC) [Mass/Vol] 31.0 g/dL 28.4 - 34.8 g/dL [place] MCV (RBC) [Entitic vol] 97.2 fL 82.6 - 102.9 fL [place] Platelet mean volume (Bld) [Entitic vol] 10.2 fL 8.1 - 13.5 fL [place] Platelets (Bld) [#/Vol] 446 10*3/uL [place] RBC (Bld) [#/Vol] 3.58 10*6/uL Low 3.95 - 5.11 m/uL [place] WBC (Bld) [#/Vol] 25.9 10*3/uL High [place] WBC (Bld) [#/Vol] 0.0 10*3/uL 0.0 per 100 WBC M [place] COVID-19on 05-02-2020 SARS-CoV-2 [place] SARS-CoV-2, PCR [place] SARS-CoV-2, Rapid Not Detected Not Detected [place], [place] Comment on above: Rapid NAAT: The specimen is NEGATIVE for SARS-CoV-2, the novel coronavirus associated with COVID-19. Negative results should be treated as presumptive and, if inconsistent with clinical signs and symptoms or necessary for patient management, should be tested with an alternative molecular assay. Negative results do not preclude SARS-CoV-2 infection and should not be used as the sole basis for patient management decisions. Fact sheet for Healthcare Providers: https://www.fda.gov/media/725332/download Fact sheet for Patients: https://www.fda.gov/media/343312/download Methodology: Isothermal Nucleic Acid Amplification Source .NASOPHARYNGEAL SWAB [place] CT CERVICAL SPINE WO CONTRAS Ton 05-02-2020 CT CERVICAL SPINE WO CONTRAST EXAMINATION: CT OF THE CERVICAL SPINE WITHOUT CONTRAST 05/02/2020 7:56 am TECHNIQUE: CT of the cervical spine was performed without the administration of intravenous contrast. Multiplanar reformatted images are provided for review. Dose modulation, iterative reconstruction, and/or weight based adjustment of the mA/kV was utilized to reduce the radiation dose to as low as reasonably achievable. COMPARISON: None. HISTORY: Reason for Exam: Possible neck injury weankness on left side FINDINGS: BONES/ALIGNMENT: No acute fracture or traumatic malalignment. DEGENERATIVE CHANGES: Mild C6-C7 and inferior endplate C5 anterior osteophytosis. Minimal osteophytosis along the atlantodental interval. SOFT TISSUES: No prevertebral soft tissue swelling. IMPRESSION: Negative CT examination with no acute abnormality of the cervical spine. Interpreted by: Florin Wiley MD Signed by: Florin Wiley MD 05/02/20 Final result Normal [facility] Horacio, Mhpn Incoming Radiant Results From [employer] - 05/02/2020 8:27 AM EDT EXAMINATION: CT OF THE CERVICAL SPINE WITHOUT CONTRAST 05/02/2020 7:56 am TECHNIQUE: CT of the cervical spine was performed without the administration of intravenous contrast. Multiplanar reformatted images are provided for review. Dose modulation, iterative reconstruction, and/or weight based adjustment of the mA/kV was utilized to reduce the radiation dose to as low as reasonably achievable. COMPARISON: None. HISTORY: Reason for Exam: Possible neck injury weankness on left side FINDINGS: BONES/ALIGNMENT: No acute fracture or traumatic malalignment. DEGENERATIVE CHANGES: Mild C6-C7 and inferior endplate C5 anterior osteophytosis. Minimal osteophytosis along the atlantodental interval. SOFT TISSUES: No prevertebral soft tissue swelling. IMPRESSION: Negative CT examination with no acute abnormality of the cervical spine. [place] Negative CT examination with no acute abnormality of the cervical spine. [place] EXAMINATION: CT OF THE CERVICAL SPINE WITHOUT CONTRAST 05/02/2020 7:56 am TECHNIQUE: CT of the cervical spine was performed without the administration of intravenous contrast. Multiplanar reformatted images are provided for review. Dose modulation, iterative reconstruction, and/or weight based adjustment of the mA/kV was utilized to reduce the radiation dose to as low as reasonably achievable. COMPARISON: None. HISTORY: Reason for Exam: Possible neck injury weankness on left side FINDINGS: BONES/ALIGNMENT: No acute fracture or traumatic malalignment. DEGENERATIVE CHANGES: Mild C6-C7 and inferior endplate C5 anterior osteophytosis. Minimal osteophytosis along the atlantodental interval. SOFT TISSUES: No prevertebral soft tissue swelling. [place], [place] CT HEAD WO CONTRASTon 2019 CT HEAD WO CONTRAST EXAMINATION: CT OF THE HEAD WITHOUT CONTRAST 05/02/2020 7:56 am TECHNIQUE: CT of the head was performed without the administration of intravenous contrast. Dose modulation, iterative reconstruction, and/or weight based adjustment of the mA/kV was utilized to reduce the radiation dose to as low as reasonably achievable. COMPARISON: None. HISTORY: ORDERING SYSTEM PROVIDED HISTORY: Alert mental status Reason for Exam: ams FINDINGS: BRAIN/VENTRICLES: No acute intracranial hemorrhage, mass effect or midline shift. No abnormal extra-axial fluid collection. The mckeon-white differentiation is maintained without evidence of an acute infarct. No evidence of hydrocephalus. ORBITS: The visualized portion of the orbits demonstrate no acute abnormality. SINUSES: The visualized paranasal sinuses and mastoid air cells appear clear. SOFT TISSUES/SKULL: No acute abnormality of the visualized skull or soft tissues. IMPRESSION: Negative CT brain with no acute intracranial abnormality. Interpreted by: Florin Wiley MD Signed by: Florin Wiley MD 05/02/20 Final result Normal [facility] EXAMINATION: CT OF THE HEAD WITHOUT CONTRAST 05/02/2020 7:56 am TECHNIQUE: CT of the head was performed without the administration of intravenous contrast. Dose modulation, iterative reconstruction, and/or weight based adjustment of the mA/kV was utilized to reduce the radiation dose to as low as reasonably achievable. COMPARISON: None. HISTORY: ORDERING SYSTEM PROVIDED HISTORY: Alert mental status Reason for Exam: ams FINDINGS: BRAIN/VENTRICLES: No acute intracranial hemorrhage, mass effect or midline shift. No abnormal extra-axial fluid collection. The mckeon-white differentiation is maintained without evidence of an acute infarct. No evidence of hydrocephalus. ORBITS: The visualized portion of the orbits demonstrate no acute abnormality. SINUSES: The visualized paranasal sinuses and mastoid air cells appear clear. SOFT TISSUES/SKULL: No acute abnormality of the visualized skull or soft tissues. [place], [place] Horacio, M[facility] Incoming Radiant Results From [employer] - 05/02/2020 8:25 AM EDT EXAMINATION: CT OF THE HEAD WITHOUT CONTRAST 05/02/2020 7:56 am TECHNIQUE: CT of the head was performed without the administration of intravenous contrast. Dose modulation, iterative reconstruction, and/or weight based adjustment of the mA/kV was utilized to reduce the radiation dose to as low as reasonably achievable. COMPARISON: None. HISTORY: ORDERING SYSTEM PROVIDED HISTORY: Alert mental status Reason for Exam: ams FINDINGS: BRAIN/VENTRICLES: No acute intracranial hemorrhage, mass effect or midline shift. No abnormal extra-axial fluid collection. The mckeon-white differentiation is maintained without evidence of an acute infarct. No evidence of hydrocephalus. ORBITS: The visualized portion of the orbits demonstrate no acute abnormality. SINUSES: The visualized paranasal sinuses and mastoid air cells appear clear. SOFT TISSUES/SKULL: No acute abnormality of the visualized skull or soft tissues. IMPRESSION: Negative CT brain with no acute intracranial abnormality. [place], [place] Negative CT brain with no acute intracranial abnormality. [place] Chlamydia/GC DNA, Uron 05-02 Chlamydia Probe, Ur Negative Normal NEG [facility] Comment on above: Result Comment: CHLA MYDIA TRACHOMATIS DNA not detected by nucleic acid amplification. This test is intended for medical purposes only and is not valid for the evaluation of suspected sexual abuse or for other forensic purposes. In certain contexts, culture may be required to meet applicable laws and regulations for diagnosis of C. trachomatis and N. gonorrhoeae infections. Per 2014 CDC recommendations, this test does not include confirmation of positive results by an alternative nucleic acid target. Performed By: #### U CGP #### [facility] [address] [place] [address] Shop Firer/Fireman: Sinan Amezquita MD Gonorrhea Probe, Ur Negative Normal NEG [facility] Comment on above: Result Comment: NEIS SERIA GONORRHOEAE DNA not detected by nucleic acid amplification. This test is intended for medical purposes only and is not valid for the evaluation of suspected sexual abuse or for other forensic purposes. In certain contexts, culture may be required to meet applicable laws and regulations for diagnosis of C. trachomatis and N. gonorrhoeae infections. Per 2014 CDC recommendations, this test does not include confirmation of positive results by an alternative nucleic acid target. Performed By: #### U CGP #### [facility] [address] [place] [address] [phone] Shop Firer/Fireman: Sinan Amezquita MD Chloride, Random Urineon Chloride, Ur 33 mmol/L [place] Comment on above: No normal range esta blished. Chloride,Random Uron 020 Chloride [Moles/Vol] 33 mmol/L Normal [facility] Comment on above: Result Comment: No n ormal range established. Performed By: #### L IC #### [facility] [place] [address] Shop Firer/Fireman: Sinan Amezquita MD Comp Metabolic Pr/rfx MGon 0 05-02-2020 Bilirubin [Mass/Vol] mg/dL Low 0.3-1.2 [facility] Comment on above: Performed By: #### L IC, BMPX #### [facility] [address] [place] [address] Shop Firer/Fireman: Sinan Amezquita MD Potassium [Moles/Vol] 3.5 mmol/L Low 3.7-5.3 [facility] Comment on above: Performed By: #### L IC, BMPX #### [facility] [address] [place] [phone] Shop Firer/Fireman: Sinan Amezquita MD (cont.) [facility] Comment on above: Result Comment: Aver age GFR for 30-39 years old: 107 mL/min/1.73sq m Chronic Kidney Disease: <60 mL/min/1.73sq m Kidney failure: <15 mL/min/1.73sq m eGFR calculated using average adult body mass. Additional eGFR calculator available at: http://www.[employer]multiple_crcl_2012.htm Performed By: #### L IC, BMPX #### [facility] [address] [place] [address] Shop Firer/Fireman: Sinan Amezquita MD Albumin [Mass/Vol] 3.0 g/dL Low 3.5-5.2 [facility] Comment on above: Performed By: #### L IC, BMPX #### [facility] [address] [place] [address] Shop Firer/Fireman: Sinan Amezquita MD Albumin/Glob Ratio 1.1 Normal 1.0-2.5 [facility] Comment on above: Performed By: #### L IC, BMPX #### [address] [address] Shop Firer/Fireman: Sinan Amezquita MD Alkaline Phos 138 U/L High 35-104 [facility] Comment on above: Performed By: #### L IC, BMPX #### [address] [address] Shop Firer/Fireman: Sinan Amezquita MD ALT [Catalytic activity/Vol] 16 U/L Normal 5-33 [facility] Comment on above: Performed By: #### L IC, BMPX #### [address] [address] Shop Firer/Fireman: Sinan Amezquita MD Anion gap [Moles/Vol] 12 mmol/L Normal 9-17 [facility] Comment on above: Performed By: #### L IC, BMPX #### [address] [address] Shop Firer/Fireman: Sinan Amezquita MD AST [Catalytic activity/Vol] 16 U/L Normal <32 [facility] Comment on above: Performed By: #### L IC, BMPX #### [address] [address] Shop Firer/Fireman: Sinan Amezquita MD Calcium [Mass/Vol] 7.8 mg/dL Low 8.6-10.4 [facility] Comment on above: Performed By: #### L IC, BMPX #### [facility] [address] [place] [address] Shop Firer/Fireman: Sinan Amezquita MD Chloride [Moles/Vol] 112 mmol/L High 98-107 [facility] Comment on above: Performed By: #### L IC, BMPX #### [facility] [address] [place] [address] Shop Firer/Fireman: Sinan Amezquita MD CO2 [Moles/Vol] 13 mmol/L Low 20-31 [facility] Comment on above: Performed By: #### L IC, BMPX #### [facility] [address] [place] [address] Shop Firer/Fireman: Sinan Amezquita MD Creatinine [Mass/Vol] 2.14 mg/dL High 0.50-0.90 [facility] Comment on above: Performed By: #### L IC, BMPX #### [facility] [address] [place] [address] Shop Firer/Fireman: Sinan Amezquita MD GFR, Amer 32 mL/min Low >60 [facility] Comment on above: Performed By: #### L IC, BMPX #### [facility] [address] [place] [address] Shop Firer/Fireman: Sinan Amezquita MD GFR,non Amer 27 mL/min Low >60 [facility] Comment on above: Performed By: #### L IC, BMPX #### [facility] [address] [place] [address] Shop Firer/Fireman: Sinan Amezquita MD Glucose [Mass/Vol] 106 mg/dL High 70-99 [facility] Comment on above: Performed By: #### L IC, BMPX #### [facility] [address] [place] [address] Shop Firer/Fireman: Sinan Amezquita MD Protein [Mass/Vol] 5.8 g/dL Low 6.4-8.3 [facility] Comment on above: Performed By: #### L IC, BMPX #### [facility] [address] [place] [address] Shop Firer/Fireman: Sinan Amezquita MD Sodium [Moles/Vol] 137 mmol/L Normal 135-144 [facility] Comment on above: Performed By: #### L IC, BMPX #### [facility] [address] [place] [address] Shop Firer/Fireman: Sinan Amezquita MD Urea nitrogen [Mass/Vol] 39 mg/dL High 6-20 [facility] Comment on above: Performed By: #### L IC, BMPX #### [facility] [address] [place] [address] Shop Firer/Fireman: Sinan Amezquita MD BUN/CRE Ratio NOT REPORTED Normal -20 [facility] Comment on above: Performed By: #### L IC, BMPX #### [facility] [address] [place] [address] Shop Firer/Fireman: Sinan Amezquita MD Staging: NOT REPORTED Normal [facility] Comment on above: Performed By: #### L IC, BMPX #### [facility] [address] [place] [address] Shop Firer/Fireman: Sinan Amezquita MD Comprehensive Metabolic Pane l w/ Reflex to [facility] 05-02-2020 Albumin [Mass/Vol] 3 g/dL Low 3.5 - 5.2 g/dL [place], [place] Albumin/Globulin [Mass ratio] 1.1 {ratio} [place] ALP [Catalytic activity/Vol] 138 U/L High 35 - 104 U/L [place] ALT [Catalytic activity/Vol] 16 U/L 5 - 33 U/L [place] Anion gap [Moles/Vol] 12 mmol/L 9 - 17 mmol/L [place] AST [Catalytic activity/Vol] 16 U/L <32 [place] Bilirubin Ql (U) <0.10 Low 0.3 - 1.2 mg/dL [place], [place] Bun/Cre Ratio NOT REPORTED [place] Calcium [Mass/Vol] 7.8 mg/dL Low 8.6 - 10.4 mg/dL [place] Chloride [Moles/Vol] 112 mmol/L High 98 - 107 mmol/L [place] CO2 [Moles/Vol] 13 mmol/L Low 20 - 31 mmol/L [place] Creatinine [Mass/Vol] 2.14 mg/dL High 0.5 - 0.9 mg/dL [place] GFR 32 mL/min Low >60 [place] GFR Non- 27 mL/min Low >60 [place] GFR/1.73 sq M predicted among non-blacks MDRD (S/P/Bld) [Vol rate/Area] NOT REPORTED [place] GFR/1.73 sq M predicted among non-blacks MDRD (S/P/Bld) [Vol rate/Area] [place] Comment on above: Average GFR for 30-3 9 years old: 107 mL/min/1.73sq m Chronic Kidney Disease: <60 mL/min/1.73sq m Kidney failure: <15 mL/min/1.73sq m eGFR calculated using average adult body mass. Additional eGFR calculator available at: http://www.RotoPop/multiple_crcl_2012.htm Glucose [Mass/Vol] 106 mg/dL High 70 - 99 mg/dL [place], [place] Interpretation and review of laboratory results Abnormal [place] Potassium [Moles/Vol] 3.5 mmol/L Low 3.7 - 5.3 mmol/L [place] Protein [Mass/Vol] 5.8 g/dL Low 6.4 - 8.3 g/dL [place], [place] Sodium [Moles/Vol] 137 mmol/L 135 - 144 mmol/L [place] Urea nitrogen [Mass/Vol] 39 mg/dL High 6 - 20 mg/dL [place] DRUG SCREEN MULTI URINEon Amphetamine Screen, Ur Positive Abnormal NEGATIVE [place] Comment on above: (Positive cutoff 1000 ng/mL) Barbiturate Screen, Ur Negative NEGATIVE [place] Comment on above: (Positive cutoff 200 ng/mL) Benzodiazepine Screen, Urine Negative NEGATIVE [place] Comment on above: (Positive cutoff 200 ng/mL) Buprenorphine Urine NOT REPORTED NEGATIVE [place] Cannabinoid Scrn, Ur Negative NEGATIVE [place] Comment on above: (Positive cutoff 50 ng/mL) Cocaine Metabolite, Urine Negative NEGATIVE [place] Comment on above: (Positive cutoff 300 ng/mL) Interpretation and review of laboratory results Abnormal [place] MDMA, Urine NOT REPORTED NEGATIVE [place] Methadone Screen, Urine Negative NEGATIVE [place] Comment on above: (Positive cutoff 300 ng/mL) Methamphetamine, Urine NOT REPORTED NEGATIVE [place] Opiates, Urine Negative NEGATIVE [place] Comment on above: (Positive cutoff 300 ng/mL) Oxycodone Screen, Ur Negative NEGATIVE [place] Comment on above: (Positive cutoff 100 ng/mL) Phencyclidine, Urine Negative NEGATIVE [place] Comment on above: (Positive cutoff 25 ng/mL) Propoxyphene, Urine NOT REPORTED NEGATIVE [place] Test Information Assay provides medical screening only. The absence of expected drug(s) and/or metabolite(s) may indicate diluted or adulterated urine, limitations of testing or timing of collection. [place] Comment on above: Testing for legal pu rposes should be confirmed by another method. To request confirmation of test result, please call the lab within 7 days of sample submission. Tricyclic Antidepressants, Urine NOT REPORTED NEGATIVE [place] Drug Scr, Abuse, Uron 2019 Amphetamine(s),Ur Positive Abnormal NEG [facility] Comment on above: Result Comment: (Positive cutoff 1000 ng/mL) Performed By: #### L IC #### [facility] [address] [place] [phone] Shop Firer/Fireman: Sinan Amezquita MD Barbiturate(s),Ur Negative Normal NEG [facility] Comment on above: Result Comment: (Positive cutoff 200 ng/mL) Performed By: #### L IC #### [facility] [address] [place] [address] Shop Firer/Fireman: Sinan Amezquita MD Benzodiazepine(s) Negative Normal NEG [facility] Comment on above: Result Comment: (Positive cutoff 200 ng/mL) Performed By: #### L IC #### [facility] [address] [place] [address] Shop Firer/Fireman: Sinan Amezquita MD Cannabinoid(s),Ur Negative Normal NEG [facility] Comment on above: Result Comment: (Positive cutoff 50 ng/mL) Performed By: #### L IC #### [facility] [address] [place] [address] Shop Firer/Fireman: Sinan Amezquita MD Cocaine Metabolite Negative Normal NEG [facility] Comment on above: Result Comment: (Positive cutoff 300 ng/mL) Performed By: #### L IC #### [facility] [address] [address] Shop Firer/Fireman: Sinan Amezquita MD Interpretive Info Assay provides medical screening only. The absence of expected drug(s) and/or Normal [facility] Comment on above: Result Comment: meta bolite(s) may indicate diluted or adulterated urine, limitations of testing or timing of collection. Testing for legal purposes should be confirmed by another method. To request confirmation of test result, please call the lab within 7 days of sample submission. Performed By: #### L IC #### [facility] [address] [place] [phone] Shop Firer/Fireman: Sinan Amezquita MD Methadone Ql (U) Negative Normal NEG [facility] Comment on above: Result Comment: (Positive cutoff 300 ng/mL) Performed By: #### L IC #### [facility] [address] [place] [phone] Shop Firer/Fireman: Sinan Amezquita MD Opiate(s), Ur Negative Normal NEG [facility] Comment on above: Result Comment: (Positive cutoff 300 ng/mL) Performed By: #### L IC #### [facility] [address] [place] [address] Shop Firer/Fireman: Sinan Amezquita MD Oxycodone, Urine Negative Normal NEG [facility] Comment on above: Result Comment: (Positive cutoff 100 ng/mL) Performed By: #### L IC #### [facility] [address] [place] [address] Shop Firer/Fireman: Sinan Amezquita MD Phencyclidine, Ur Negative Normal NEG [facility] Comment on above: Result Comment: (Positive cutoff 25 ng/mL) Performed By: #### L IC #### [facility] [address] [place] [phone] Shop Firer/Fireman: Sinan Amezquita MD Buprenorphrine, Ur NOT REPORTED Normal NEG [facility] Comment on above: Performed By: #### L IC #### [facility] [address] [place] [phone] Shop Firer/Fireman: Sinan Amezquita MD MDMA, Urine NOT REPORTED Normal NEG [facility] Comment on above: Performed By: #### L IC #### [facility] [address] [place] [phone] Shop Firer/Fireman: Sinan Amezquita MD Methamphetamine, Ur NOT REPORTED Normal NEG [facility] Comment on above: Performed By: #### L IC #### [facility] [address] [place] [address] Shop Firer/Fireman: Sinan Amezquita MD Propoxyphene,Urine NOT REPORTED Normal NEG [facility] Comment on above: Performed By: #### L IC #### [facility] [address] [place] [phone] Shop Firer/Fireman: Sinan Amezquita MD Tricyclic antidepressants Screen Ql (U) NOT REPORTED Normal NEG [facility] Comment on above: Performed By: #### L IC #### [facility] [address] [place] [phone] Shop Firer/Fireman: Sinan Amezquita MD Ferritinon 05-02-2020 Ferritin 70 ug/L Normal 13-150 [facility] Comment on above: Performed By: #### L IC #### [address] [address] Shop Firer/Fireman: Sinan Amezquita MD Ferritin [Mass/Vol] 70 ug/L 13 - 150 ug/L [facility], [place] HCG, ,Urineon 05-02 Beta HCG ( test) Ql (U) Negative Normal NEG [facility] Comment on above: Result Comment: Spec imens with hCG levels near the threshold of the test (25 mIU/mL) may give a negative or indeterminate result. In such cases, another test should be performed with a new specimen in 48-72 hours. If early is suspected clinically in this setting, correlation with quantitative serum b-hCG level is suggested. Performed By: #### B C #### [address] [address] Shop Firer/Fireman: Sinan Amezquita MD Hep B Core Abo 05-02-2020 Hep B Core Ab Non-Reactive Normal NR [facility] Comment on above: Performed By: #### Chen MUSA BMPX #### [address] [phone] Shop Firer/Fireman: Sinan Amezquita MD Hep B Surf Abon 05-02-2020 Hep B Surf Ab <3.50 Normal <10 [facility] Comment on above: Result Comment: REFERENCE RANGE: <10.0 NON-REACTIVE/NOT IMMUNE >=10.0 REACTIVE/IMMUNE Performed By: #### L IC, BMPX #### [facility] [address] [place] [phone] Shop Firer/Fireman: Sinan Amezquita MD Hep B Surf Agon 05-02-2020 Hep B Surf Ag Non-Reactive Normal NR [facility] Comment on above: Performed By: #### L IC, BMPX #### [facility] [address] [place] [address], [place] [address] Shop Firer/Fireman: Sinan Amezquita MD Hep C Abon 05-02-2020 Hep C Ab Non-Reactive Normal NR [facility] Comment on above: Result Comment: The hepatitis C procedure used in our laboratory is a Chemiluminescent test specific for three recombinant HCV antigens. A negative anti-HCV result indicates that the antibodies to hepatitis C virus are not present at this time. Individuals with reactive anti-HCV should be considered infected and infectious until proven otherwise. Confirmation of all equivocal or reactive results is recommended by ordering HCV RNA by PCR. Performed By: #### L IC, BMPX #### [facility] [address] [place] [address] Shop Firer/Fireman: Sinan Amezquita MD Hepatitis B Core Antibody, T otalon 05-02-2020 Hep B Core Total Ab NONREACTIVE NONREACTIVE [place] Hepatitis B Surface Antibody on 05-02-2020 HBV surface Ab (S) [Titer] <3.50 <10 mIU/mL [place] Comment on above: REFERENCE RANGE: <10.0 NON-REACTIVE/NOT IMMUNE >=10.0 REACTIVE/IMMUNE Hepatitis B Surface Antigeno n 05-02-2020 Hepatitis B Surface Ag NONREACTIVE NONREACTIVE [place] Hepatitis C Antibodyon 05-02 Hepatitis C Ab NONREACTIVE NONREACTIVE [place] Comment on above: The hepatitis C procedure used in our laboratory is a Chemiluminescent test specific for three recombinant HCV antigens. A negative anti-HCV result indicates that the antibodies to hepatitis C virus are not present at this time. Individuals with reactive anti-HCV should be considered infected and infectious until proven otherwise. Confirmation of all equivocal or reactive results is recommended by ordering HCV RNA by PCR. IR NONTUNNELED VASCULAR CATH ETER > 5 YEARSon 05-02-2020 Horacio, Mhpn Incoming Radiant Results From [employer] - 05/02/2020 4:24 PM EDT PROCEDURE: ULTRASOUND GUIDED VASCULAR ACCESS. FLUOROSCOPY GUIDED PLACEMENT OF A NON-TUNNELED CATHETER. 05/02/2020. HISTORY: ORDERING SYSTEM PROVIDED HISTORY: lithium toxicity TECHNOLOGIST PROVIDED HISTORY: lithium toxicity Is the patient ?->No [place] toxicity, acute kidney injury SEDATION: None FLUOROSCOPY DOSE AND TYPE OR TIME AND EXPOSURES: Fluoro time 1.0 minutes D AP 665 cGy cm 2 TECHNIQUE: This procedure was performed by Jose David ESTRADA under direct supervision of Dr. Abernathy. Informed consent was obtained after a detailed explanation of the procedure including risks, benefits, and alternatives. [place] protocol was observed. The right neck and chest were prepped and draped in sterile fashion using maximum sterile barrier technique. Local anesthesia was achieved with lidocaine. A micropuncture needle was used to access the right internal jugular vein using ultrasound guidance. An ultrasound image demonstrating patency of the vein with needle tip located within it. An image was obtained and stored in PACs. A 0.035 guidewire was used to place a 13 Uzbek by 15 cm duo split non tunneled hemodialysis catheter using fluoroscopic guidance with tip in the right atrium after fascial tract dilation. The catheter flushed easily and there was a good blood return. The catheter was sutured to the skin. The catheter was locked with heparinized saline. The patient tolerated the procedure well and there were no immediate complications. FINDINGS: Fluoroscopic image demonstrates the tip of the catheter in the right atrium. IMPRESSION: Successful ultrasound and fluoroscopy guided non-tunneled 13 Uzbek by 15 cm dual split hemodialysis catheter placement. [place], [place] Successful ultrasoun d and fluoroscopy guided non-tunneled 13 Uzbek by 15 cm dual split hemodialysis catheter placement. [place] PROCEDURE: ULTRASOUN D GUIDED VASCULAR ACCESS. FLUOROSCOPY GUIDED PLACEMENT OF A NON-TUNNELED CATHETER. 05/02/2020. HISTORY: ORDERING SYSTEM PROVIDED HISTORY: lithium toxicity TECHNOLOGIST PROVIDED HISTORY: lithium toxicity Is the patient ?->No [place] toxicity, acute kidney injury SEDATION: None FLUOROSCOPY DOSE AND TYPE OR TIME AND EXPOSURES: Fluoro time 1.0 minutes D AP 665 cGy cm 2 TECHNIQUE: This procedure was performed by Jose David ESTRADA under direct supervision of Dr. Abernathy. Informed consent was obtained after a detailed explanation of the procedure including risks, benefits, and alternatives. [place] protocol was observed. The right neck and chest were prepped and draped in sterile fashion using maximum sterile barrier technique. Local anesthesia was achieved with lidocaine. A micropuncture needle was used to access the right internal jugular vein using ultrasound guidance. An ultrasound image demonstrating patency of the vein with needle tip located within it. An image was obtained and stored in PACs. A 0.035 guidewire was used to place a 13 Uzbek by 15 cm duo split non tunneled hemodialysis catheter using fluoroscopic guidance with tip in the right atrium after fascial tract dilation. The catheter flushed easily and there was a good blood return. The catheter was sutured to the skin. The catheter was locked with heparinized saline. The patient tolerated the procedure well and there were no immediate complications. FINDINGS: Fluoroscopic image demonstrates the tip of the catheter in the right atrium. [place] Iron Binding Cap.on 05-02-20 20 % Fe Saturation 20 % Normal 20-55 [facility] Comment on above: Performed By: #### L IC #### [facility] [address] [place] [address] [phone] Shop Firer/Fireman: Sinan Amezquita MD Total Fe Binding Cap 240 ug/dL Low 250-450 [facility] Comment on above: Performed By: #### L IC #### [facility] [address] [place] [address] [phone] Shop Firer/Fireman: Sinan Amezquita MD Unbound Fe Bind Cap 193 ug/dL Normal 112-347 [facility] Comment on above: Performed By: #### L IC #### [facility] [address] [place] [address] [phone] Shop Firer/Fireman: Sinan Amezquita MD Iron [Mass/Vol] 47 ug/dL Normal 37-145 [place] Comment on above: Performed By: #### L IC #### [facility] [address] [place] [phone] Shop Firer/Fireman: Sinan Amezquita MD Iron and TIBCon 05-02-2020 Interpretation and review of laboratory results Abnormal [place] Iron Saturation 20 % 20 - 55 % [place] TIBC 240 ug/dL Low 250 - 450 ug/dL [place] UIBC 193 ug/dL 112 - 347 ug/dL [place] LITHIUM LEVELon 05-02-2020 Interpretation and review of laboratory results Abnormal [place] Date Last Dose NOT REPORTED [facility] Dose Amount NOT REPORTED [facility] Dose Time NOT REPORTED [facility] [place] Lvl 2.1 mmol/L Critically high 0.6 - 1.2 mmol/L Me [facility] [place], [place] Interpretation and review of laboratory results Abnormal [facility] [place] Date Last Dose NOT REPORTED [facility] Dose Amount NOT REPORTED [facility] Dose Time NOT REPORTED [facility] [place] Lvl 2.2 mmol/L Critically high 0.6 - 1.2 mmol/L Me [facility] [place], [place] Interpretation and review of laboratory results Abnormal [facility] [place] Date Last Dose NOT REPORTED [facility] [place] Dose Amount NOT REPORTED [facility] Dose Time NOT REPORTED [facility] [place] Lvl 2.3 mmol/L Critically high 0.6 - 1.2 mmol/L Me [facility], [place] Lithiumon 05-02-2020 [place] [Moles/Vol] 2.1 mmol/L Critically high 0.6-1.2 [facility] Comment on above: Performed By: #### L IC #### [facility] [address] [place] [address] Shop Firer/Fireman: Sinan Amezquita MD [place] [Moles/Vol] 2.2 mmol/L Critically high 0.6-1.2 [facility] Comment on above: Performed By: #### L IC, BMPX #### [facility] [address] [place] [address] Shop Firer/Fireman: Sinan Amezquita MD Date last dose, NOT REPORTED Normal [facility] Comment on above: Performed By: #### L IC, BMPX #### [facility] [address] [place] [phone] Shop Firer/Fireman: Sinan Amezquita MD Dose amount, NOT REPORTED Normal [facility] Comment on above: Performed By: #### L IC, BMPX #### [facility] [address] [place] [address] [phone] Shop Firer/Fireman: Sinan Amezquita MD Time last dose, NOT REPORTED Normal [facility] Comment on above: Performed By: #### L IC, BMPX #### [facility] [address] [place] [address] Shop Firer/Fireman: Sinan Amezquita MD Date last dose, NOT REPORTED Normal [facility] Comment on above: Performed By: #### L IC #### [facility] [address] [place] [phone] Shop Firer/Fireman: Sinan Amezquita MD Dose amount, NOT REPORTED Normal [facility] Comment on above: Performed By: #### L IC #### [facility] [address] [place] [address] Shop Firer/Fireman: Sinan Amezquita MD Time last dose, NOT REPORTED Normal [facility] Comment on above: Performed By: #### L IC #### [facility] [address] [place] [address] Shop Firer/Fireman: Sinan Amezquita MD [place] [Moles/Vol] 2.3 mmol/L Critically high 0.6-1.2 [facility] Comment on above: Performed By: #### L IC #### [facility] [address] [place] [phone] Shop Firer/Fireman: Sinan Amezquita MD Date last dose, NOT REPORTED Normal [facility] Comment on above: Performed By: #### L IC #### [facility] [place] [address] Shop Firer/Fireman: Sinan Amezquita MD Dose amount, NOT REPORTED Normal [facility] Comment on above: Performed By: #### L IC #### [facility] [address] [place] [phone] Shop Firer/Fireman: Sinan Amezquita MD Time last dose, NOT REPORTED Normal [facility] Comment on above: Performed By: #### L IC #### [facility] [address] [place], [place] [phone] Shop Firer/Fireman: Sinan Amezquita MD Magnesiumon 05-02-2020 Magnesium [Mass/Vol] 2.8 mg/dL High 1.6-2.6 [facility] Comment on above: Performed By: #### B C #### [facility] [address] [place] [address] [phone] Shop Firer/Fireman: Sinan Amezquita MD Interpretation and review of laboratory results Abnormal [place] Magnesium [Mass/Vol] 2.8 mg/dL High 1.6 - 2.6 mg/dL [place] Otheron 05-02-2020 Interpretation and review of laboratory results Abnormal [place] POC Glucose Fingerstickon Glucose [Mass/Vol] 99 mg/dL 65 - 105 mg/dL Me [place] Phosphoruson 05-02-2020 Phosphate [Mass/Vol] 2.8 mg/dL 2.6 - 4.5 mg/dL [place] Phosphorus, Inorg.on 020 Phosphorus, Inorg. 2.8 mg/dL Normal 2.6-4.5 [facility] Comment on above: Performed By: #### L IC, BMPX #### [facility] [address] [place] [address] [phone] Shop Firer/Fireman: Sinan Amezquita MD , Urineon 0 Beta HCG ( test) Ql (U) Negative NEGATIVE [place] Comment on above: Specimens with hCG l evels near the threshold of the test (25 mIU/mL) may give a negative or indeterminate result. In such cases, another test should be performed with a new specimen in 48-72 hours. If early is suspected clinically in this setting, correlation with quantitative serum b-hCG level is suggested. Procalcitoninon 05-02-2020 Procalcitonin 0.24 ng/mL High <0.09 [facility] Comment on above: Result Comment: Suspected Sepsis: <0.50 ng/mL Low likelihood of sepsis. 0.50-2.00 ng/mL Increased likelihood of sepsis. Antibiotics encouraged. >2.00 ng/mL High risk of sepsis/shock. Antibiotics strongly encouraged. Suspected Lower Resp Tract Infections: <0.24 ng/mL Low likelihood of bacterial infection. >0.24 ng/mL Increased likelihood of bacterial infection. Antibiotics encouraged. With successful antibiotic therapy, PCT levels should decrease rapidly. (Half-life of 24 to 36 hours.) Procalcitonin values from samples collected within the first 6 hours of systemic infection may still be low. Retesting may be indicated. Values from day 1 and day 4 can be entered into the Change in Procalcitonin Calculator ([id number]) to determine the patient's Mortality Risk Prognosis In healthy neonates, plasma Procalcitonin (PCT) concentrations increase gradually after , reaching peak values at about 24 hours of age then decrease to normal values below 0.5 ng/mL by 48-72 hours of age. Performed By: #### B C #### [facility] [place] [address] Shop Firer/Fireman: Sinan Amezquita MD Interpretation and review of laboratory results Abnormal [place] Procalcitonin 0.24 ng/mL High <0.09 [place] Comment on above: Suspected Sepsis: <0.50 ng/mL Low likelihood of sepsis. 0.50-2.00 ng/mL Increased likelihood of sepsis. Antibiotics encouraged. >2.00 ng/mL High risk of sepsis/shock. Antibiotics strongly encouraged. Suspected Lower Resp Tract Infections: <0.24 ng/mL Low likelihood of bacterial infection. >0.24 ng/mL Increased likelihood of bacterial infection. Antibiotics encouraged. With successful antibiotic therapy, PCT levels should decrease rapidly. (Half-life of 24 to 36 hours.) Procalcitonin values from samples collected within the first 6 hours of systemic infection may still be low. Retesting may be indicated. Values from day 1 and day 4 can be entered into the Change in Procalcitonin Calculator ([id number]) to determine the patient's Mortality Risk Prognosis In healthy neonates, plasma Procalcitonin (PCT) concentrations increase gradually after , reaching peak values at about 24 hours of age then decrease to normal values below 0.5 ng/mL by 48-72 hours of age. Protein / creatinine ratio, urineon 05-02-2020 Creatinine, Ur 106.8 mg/dL 28 - 217 mg/dL [place] Protein (U) [Mass/Vol] 15 mg/dL [place] Comment on above: No normal range esta blished. Urine Total Protein Creatinine Ratio 0.14 [place] Protein, urine, randomon Protein (U) [Mass/Vol] 8 mg/dL [place] Comment on above: No normal range esta blished. Protein,Tot,[place] Uron 2019 Creatinine [Mass/Vol] 106.8 mg/dL Normal 28.0-217.0 [facility] Comment on above: Performed By: #### B C #### [place] [address] Shop Firer/Fireman: Sinan Amezquita MD Tot Prot. Conc. 15 mg/dL Normal [facility] Comment on above: Result Comment: No n ormal range established. Performed By: #### B C #### [address] [address] Shop Firer/Fireman: Sinan Amezquita MD TP/Cre Ratio 0.14 Normal 0.00-0.20 [facility] Comment on above: Performed By: #### B C #### [facility] [address] [place] [address] Shop Firer/Fireman: Sinan Amezquita MD Tot Prot. Conc. 8 mg/dL Normal [facility] Comment on above: Result Comment: No n ormal range established. Performed By: #### B C #### [address] [address] Shop Firer/Fireman: Sinan Amezquita MD SALICYLATE LEVELon 0 Salicylate Lvl <1 Low 3 - 10 mg/dL [place] [id number] 05-02-2020 SARS-CoV-2 (COVID-19) RNA ESTRELLITA+probe Ql (Unsp spec) Normal [facility] Comment on above: Performed By: #### L DIMPLE, BMPX #### [facility] [address] [place] [phone] Shop Firer/Fireman: Sinan Amezquita MD SARS-CoV-2 (COVID-19) RNA ESTRELLITA+probe Ql (Unsp spec) Not detected Normal NOTDET [facility] Comment on above: Result Comment: Rapid NAAT: The specimen is NEGATIVE for SARS-CoV-2, the novel coronavirus associated with COVID-19. Negative results should be treated as presumptive and, if inconsistent with clinical signs and symptoms or necessary for patient management, should be tested with an alternative molecular assay. Negative results do not preclude SARS-CoV-2 infection and should not be used as the sole basis for patient management decisions. Fact sheet for Healthcare Providers: https://www.fda.gov/media/697835/download Fact sheet for Patients: https://www.fda.gov/media/096352/download Methodology: Isothermal Nucleic Acid Amplification Performed By: #### Chen MUSA BMPX #### [facility] [address] [place] [address] Shop Firer/Fireman: Sinan Amezquita MD SARS-CoV-2 (COVID-19) RNA ESTRELLITA+probe Ql (Unsp spec) .NASOPHARYNGEAL SWAB Normal [facility] Comment on above: Performed By: #### Chen MUSA, BMPX #### [facility] [address] [place] [address] Shop Firer/Fireman: Sinan Amezquita MD Salicylateon 05-02-2020 Salicylate <1 Low 3-10 [facility] Comment on above: Performed By: #### L IC, BMPX #### [facility] [address] [place] [address] Shop Firer/Fireman: Sinan Amezquita MD Sedimentation Rateon 020 Sedimentation Rate 16 mm Normal 0-20 [facility] Comment on above: Result Comment: Note new reference ranges. This automated method replaces the manual method, results may vary from previously resulted. If following the patient ESR, this result should be the new baseline. Performed By: #### L DIMPLE, BMPX #### [employer] [address] [place] [address] [phone] Shop Firer/Fireman: Sinan Amezquita MD Sed Rate 16 mm 0 - 20 mm [place] Comment on above: Note new reference r anges. This automated method replaces the manual method, results may vary from previously resulted. If following the patient ESR, this result should be the new baseline. Sodium, Random Uron 05-02-20 20 Sodium (U) [Moles/Vol] 58 mmol/L Normal [facility] Comment on above: Result Comment: No n ormal range established. Performed By: #### L IC #### [employer] [address] [place] [address] [phone] Shop Firer/Fireman: Sinan Amezquita MD Sodium (U) [Moles/Vol] 45 mmol/L Normal [facility] Comment on above: Result Comment: No n ormal range established. Performed By: #### B C #### [facility] [address] [place] [address] [phone] Shop Firer/Fireman: Sinan Amezquita MD Sodium, urine, randomon Sodium (U) [Moles/Vol] 58 mmol/L [place] Comment on above: No normal range esta blished. Sodium (U) [Moles/Vol] 45 mmol/L [place] Comment on above: No normal range esta blished. T4, Freeon 05-02-2020 Thyroxine, Free 1.11 ng/dL 0.93 - 1.7 ng/dL [place], [place] TSH w/reflex to FT4on 2019 TSH Qn 7.03 m[IU]/L High 0.30-5.00 [facility] Comment on above: Performed By: #### L IC, BMPX #### [employer] [address] [place] [address] Shop Firer/Fireman: Sinan Amezquita MD TSH with Reflexon 05-02-2020 Interpretation and review of laboratory results Abnormal [place] TSH Qn 7.03 m[IU]/L [place] Thyroxine, Freeon 05-02-2020 Thyroxine, Free 1.11 ng/dL Normal 0.93-1.70 [facility] Comment on above: Performed By: #### L IC, BMPX #### [employer] [address] [place] [address] Shop Firer/Fireman: Sinan Amezquita MD US RENAL COMPLETEon 05-02-20 20 US RENAL COMPLETE EXAMINATION: RETROPERITONEAL ULTRASOUND OF THE KIDNEYS AND URINARY BLADDER 05/02/2020 COMPARISON: None HISTORY: ORDERING SYSTEM PROVIDED HISTORY: ARF TECHNOLOGIST PROVIDED HISTORY: US RETROPERITONEAL COMPLETE ARF FINDINGS: Partially limited evaluation due to patient body habitus. KIDNEYS: Suboptimal visualization on the left due to rib shadowing. Normal size, echogenicity, and parenchymal thickness. No hydronephrosis, shadowing calculi, nor perinephric fluid. Renal lengths in longitudinal axis: 11.3 cm right, at least 10.4 cm left Increased echogenicity of the liver. URINARY BLADDER: Not visualized due to decompression by a Grubbs catheter. IMPRESSION: 1. Normal sonographic appearance of the kidneys. 2. No visualization of the decompressed urinary bladder. 3. Incidental note of hepatic steatosis. Interpreted by: Sami Perez MD Signed by: Sami Perez MD 05/02/20 Final result Normal [facility] Appearance (U) 1. Normal sonographi c appearance of the kidneys. 2. No visualization of the decompressed urinary bladder. 3. Incidental note of hepatic steatosis. [place] EXAMINATION: RETROPERITONEAL ULTRASOUND OF THE KIDNEYS AND URINARY BLADDER 05/02/2020 COMPARISON: None HISTORY: ORDERING SYSTEM PROVIDED HISTORY: ARF TECHNOLOGIST PROVIDED HISTORY: US RETROPERITONEAL COMPLETE ARF FINDINGS: Partially limited evaluation due to patient body habitus. KIDNEYS: Suboptimal visualization on the left due to rib shadowing. Normal size, echogenicity, and parenchymal thickness. No hydronephrosis, shadowing calculi, nor perinephric fluid. Renal lengths in longitudinal axis: 11.3 cm right, at least 10.4 cm left Increased echogenicity of the liver. URINARY BLADDER: Not visualized due to decompression by a Grubbs catheter. [facility] [place] Horacio, Mhpn Incoming Radiant Results From [employer] - 05/02/2020 8:43 AM EDT EXAMINATION: RETROPERITONEAL ULTRASOUND OF THE KIDNEYS AND URINARY BLADDER 05/02/2020 COMPARISON: None HISTORY: ORDERING SYSTEM PROVIDED HISTORY: ARF TECHNOLOGIST PROVIDED HISTORY: US RETROPERITONEAL COMPLETE ARF FINDINGS: Partially limited evaluation due to patient body habitus. KIDNEYS: Suboptimal visualization on the left due to rib shadowing. Normal size, echogenicity, and parenchymal thickness. No hydronephrosis, shadowing calculi, nor perinephric fluid. Renal lengths in longitudinal axis: 11.3 cm right, at least 10.4 cm left Increased echogenicity of the liver. URINARY BLADDER: Not visualized due to decompression by a Grubbs catheter. IMPRESSION: 1. Normal sonographic appearance of the kidneys. 2. No visualization of the decompressed urinary bladder. 3. Incidental note of hepatic steatosis. [facility] [place] Urinalysis w/ Microon 2019 ----- Normal [facility] Comment on above: Performed By: #### L IC #### [employer] [address] [place] [address] [phone] Shop Firer/Fireman: Sinan Amezquita MD Acetoacetic Acid,Ur Negative Normal NEG [facility] Comment on above: Performed By: #### L IC #### [employer] [address] [place] [address] [phone] Shop Firer/Fireman: Sinan Amezquita MD Bilirubin, SemiQt,Ur Negative Normal NEG [facility] Comment on above: Performed By: #### L IC #### [facility] [address] [place] [address] [phone] Shop Firer/Fireman: Sinan Amezquita MD Casts 0 TO 2 HYALINE Normal 0-8 [facility] Comment on above: Result Comment: Refe rence range defined for non-centrifuged specimen. Performed By: #### L IC #### [address] [address] Shop Firer/Fireman: Sinan Amezquita MD Color (U) YELLOW Normal YEL [facility] Comment on above: Performed By: #### L IC #### [address] [address] Shop Firer/Fireman: Sinan Amezquita MD Epithelial cells LM Ql (Urine sed) 0 TO 2 Normal 0-5 [facility] Comment on above: Performed By: #### L IC #### [address] [address] Shop Firer/Fireman: Sinan Amezquita MD Glucose Ql (U) Negative Normal NEG [facility] Comment on above: Performed By: #### L IC #### [address] [address] Shop Firer/Fireman: Sinan Amezquita MD Hemoglobin, Ur TRACE Abnormal NEG [facility] Comment on above: Performed By: #### L IC #### [address] [address] Shop Firer/Fireman: Sinan Amezquita MD Leukocyte esterase Test strip Ql (U) Negative Normal NEG [facility] Comment on above: Performed By: #### L IC #### [address] [address] Shop Firer/Fireman: Sinan Amezquita MD Nitrite,Ur Negative Normal NEG [facility] Comment on above: Performed By: #### L IC #### [address] [address] Shop Firer/Fireman: Sinan Amezquita MD PH,Ur 6.0 Normal 5.0-8.0 [facility] Comment on above: Performed By: #### L IC #### [address] [address] Shop Firer/Fireman: Sinan Amezquita MD Protein Ql (U) Negative Normal NEG [facility] Comment on above: Performed By: #### L IC #### [facility] [address] [place] [address] Shop Firer/Fireman: Sinan Amezquita MD Spec. [place],Ur 1.011 Normal 1.005-1.030 [facility] Comment on above: Performed By: #### L IC #### [facility] [address] [place] [address] Shop Firer/Fireman: Sinan Amezquita MD Turbidity CLEAR Normal CLEAR [facility] Comment on above: Performed By: #### L IC #### [address] [address] Shop Firer/Fireman: Sinan Amezquita MD Urine RBC's 2 TO 5 Normal 0-4 [facility] Comment on above: Result Comment: Refe rence range defined for non-centrifuged specimen. Performed By: #### L IC #### [address] [address] Shop Firer/Fireman: Sinan Amezquita MD Urine WBC's 2 TO 5 Normal 0-5 [facility] Comment on above: Performed By: #### L IC #### [address] [address] Shop Firer/Fireman: Sinan Amezquita MD Urobilinogen,Ur Normal Normal NORM [facility] Comment on above: Performed By: #### L IC #### [address] [address] Shop Firer/Fireman: Sinan Amezquita MD Amorphous sediment LM Ql (Urine sed) NOT REPORTED Normal NONE [facility] Comment on above: Performed By: #### L IC #### [address] [address] Shop Firer/Fireman: Sinan Amezquita MD Bacteria NOT REPORTED Normal NONE [facility] Comment on above: Performed By: #### L IC #### [address] [address] Shop Firer/Fireman: Sinan Amezquita MD Crystals LM Nom (Urine sed) NOT REPORTED Normal NONE [facility] Comment on above: Performed By: #### L IC #### [address] [address] Shop Firer/Fireman: Sinan Amezquita MD Epithelial, Renal NOT REPORTED Normal 0 [facility] Comment on above: Performed By: #### L IC #### [address] [address] Shop Firer/Fireman: Sinan Amezquita MD Mucus Strands NOT REPORTED Normal NONE [facility] Comment on above: Performed By: #### L IC #### [address] [address] Shop Firer/Fireman: Sinan Amezquita MD Other Observations NOT REPORTED Normal NREQ [facility] Comment on above: Performed By: #### L IC #### [address] [address] Shop Firer/Fireman: Sinan Amezquita MD Trichomonas NOT REPORTED Normal NONE [facility] Comment on above: Performed By: #### L IC #### [address] [address] Shop Firer/Fireman: Sinan Amezquita MD Yeast NOT REPORTED Normal NONE [facility] Comment on above: Performed By: #### L IC #### [address] [address] Shop Firer/Fireman: Sinan Amezquita MD ----- Normal [facility] Comment on above: Performed By: #### B C #### [address] [address] Shop Firer/Fireman: Sinan Amezquita MD Acetoacetic Acid,Ur Negative Normal NEG [facility] Comment on above: Performed By: #### B C #### [address] [address] Shop Firer/Fireman: Sinan Amezquita MD Bilirubin, SemiQt,Ur Negative Normal NEG [facility] Comment on above: Performed By: #### B C #### [address] [address] Shop Firer/Fireman: Sinan Amezquita MD Color (U) YELLOW Normal YEL [facility] Comment on above: Performed By: #### B C #### [address] [address] Shop Firer/Fireman: Sinan Amezquita MD Epithelial cells LM Ql (Urine sed) 0 TO 2 Normal 0-5 [facility] Comment on above: Performed By: #### B C #### [address] [address] Shop Firer/Fireman: Siann Amezquita MD Glucose Ql (U) Negative Normal NEG [facility] Comment on above: Performed By: #### B C #### [address] [address] Shop Firer/Fireman: Sinan Amezquita MD Hemoglobin, Ur Negative Normal NEG [facility] Comment on above: Performed By: #### B C #### [address] [address] Shop Firer/Fireman: Sinan Amezquita MD Leukocyte esterase Test strip Ql (U) Negative Normal NEG [facility] Comment on above: Performed By: #### B C #### [address] [address] Shop Firer/Fireman: Sinan Amezquita MD Nitrite,Ur Negative Normal NEG [facility] Comment on above: Performed By: #### B C #### [address] [address] Shop Firer/Fireman: Sinan Amezquita MD PH,Ur 6.0 Normal 5.0-8.0 [facility] Comment on above: Performed By: #### B C #### [address] [address] Shop Firer/Fireman: Sinan Amezquita MD Protein Ql (U) Negative Normal NEG [facility] Comment on above: Performed By: #### B C #### [address] [address] Shop Firer/Fireman: Sinan Amezquita MD Spec. [place],Ur 1.007 Normal 1.005-1.030 [facility] Comment on above: Performed By: #### B C #### [address] [address] Shop Firer/Fireman: Sinan Amezquita MD Turbidity CLEAR Normal CLEAR [facility] Comment on above: Performed By: #### B C #### [address] [address] Shop Firer/Fireman: Sinan Amezquita MD Urine RBC's 0 TO 2 Normal 0-4 [facility] Comment on above: Result Comment: Refe rence range defined for non-centrifuged specimen. Performed By: #### B C #### [address] [address] Shop Firer/Fireman: Sinan Amezquita MD Urine WBC's 0 TO 2 Normal 0-5 [facility] Comment on above: Performed By: #### B C #### [address] [address] Shop Firer/Fireman: Sinan Amezquita MD Urobilinogen,Ur Normal Normal NORM [facility] Comment on above: Performed By: #### B C #### [address] [address] Shop Firer/Fireman: Sinan Amezquita MD Amorphous sediment LM Ql (Urine sed) NOT REPORTED Normal NONE [facility] Comment on above: Performed By: #### B C #### [address] [address] Shop Firer/Fireman: Sinan Amezquita MD Bacteria NOT REPORTED Normal NONE [facility] Comment on above: Performed By: #### B C #### [address] [address] Shop Firer/Fireman: Sinan Amezquita MD Casts NOT REPORTED Normal 0-8 [facility] Comment on above: Performed By: #### B C #### [address] [address] Shop Firer/Fireman: Sinan Amezquita MD Crystals LM Nom (Urine sed) NOT REPORTED Normal NONE [facility] Comment on above: Performed By: #### B C #### [address] [address] Shop Firer/Fireman: Sinan Amezquita MD Epithelial, Renal NOT REPORTED Normal 0 [facility] Comment on above: Performed By: #### B C #### [address] [address] Shop Firer/Fireman: Sinan Amezquita MD Mucus Strands NOT REPORTED Normal [facility] Comment on above: Performed By: #### B C #### [address] [address] Shop Firer/Fireman: Sinan Amezquita MD Other Observations NOT REPORTED Normal NREQ [facility] Comment on above: Performed By: #### B C #### [address] [address] Shop Firer/Fireman: Sinan Amezquita MD Trichomonas NOT REPORTED Normal [facility] Comment on above: Performed By: #### B C #### [address] [place] [address] Shop Firer/Fireman: Sinan Amezquita MD Yeast NOT REPORTED Normal NONE [facility] Comment on above: Performed By: #### B C #### [facility] [address] [place] [address] Shop Firer/Fireman: Sinan Amezquita MD Urinalysis with Microscopico n 05-02-2020 Amorphous, UA NOT REPORTED None [place] Bacteria, UA NOT REPORTED None [place] Bilirubin Urine Negative NEGATIVE [place] Casts UA 0 TO 2 HYALINE Reference range defined for non-centrifuged specimen. [place] Color, UA YELLOW YELLOW [place] Crystals, UA NOT REPORTED None /HPF [place] Epithelial Cells UA 0 TO 2 [place] Glucose, Ur Negative NEGATIVE [place] Interpretation and review of laboratory results Abnormal [place] Ketones Ql (U) Negative NEGATIVE [place] Leukocyte esterase Test strip Ql (U) Negative NEGATIVE [place] Mucus, UA NOT REPORTED None [place] Nitrite, Urine Negative NEGATIVE [place] Other Observations UA NOT REPORTED NOT REQ. [place] pH, UA 6.0 [place] Protein (U) [Mass/Vol] Negative NEGATIVE [place] RBC (U) [#/Vol] 2 TO 5 [place] Comment on above: Reference range defi kelly for non-centrifuged specimen. Renal Epithelial, UA NOT REPORTED 0 /HPF [place], [place] Specific [place], UA 1.011 [place], [place] Trichomonas, UA NOT REPORTED None [place] Turbidity UA CLEAR CLEAR [place] Urine Hgb TRACE Abnormal NEGATIVE [place] Urobilinogen, Urine Normal Normal [place] WBC, UA 2 TO 5 [place] Yeast, UA NOT REPORTED None [place] Amorphous, UA NOT REPORTED None [place] Bacteria, UA NOT REPORTED None [place] Bilirubin Urine Negative NEGATIVE [place] Casts UA NOT REPORTED [place] Color, UA YELLOW YELLOW [place] Crystals, UA NOT REPORTED None /HPF [place] Epithelial Cells UA 0 TO 2 [place] Glucose, Ur Negative NEGATIVE [place] Ketones Ql (U) Negative NEGATIVE [place] Leukocyte esterase Test strip Ql (U) Negative NEGATIVE [place] Mucus, UA NOT REPORTED None [place] Nitrite, Urine Negative NEGATIVE [place] Other Observations UA NOT REPORTED NOT REQ. [place] pH, UA 6.0 [place] Protein (U) [Mass/Vol] Negative NEGATIVE [place] RBC (U) [#/Vol] 0 TO 2 [place] Comment on above: Reference range defi kelly for non-centrifuged specimen. Renal Epithelial, UA NOT REPORTED 0 /HPF [place] Specific [place], UA 1.007 [place], [place] Trichomonas, UA NOT REPORTED None [place] Turbidity UA CLEAR CLEAR [place] Urine Hgb Negative NEGATIVE [place] Urobilinogen, Urine Normal Normal [place] WBC, UA 0 TO 2 [place] Yeast, UA NOT REPORTED None [place] Vitamin B12 & Folateon 05-02 Folate 7.6 ng/mL >4.8 [place] TOX PANEL URINEon 12-07-2017 50 THC Negative Normal NEGATIVE [facility] Comment on above: Performed By: #### 3 1079 ####[facility] [facility] [place] [address], [facility] [employer] Negative Normal NEGATIVE [facility] Comment on above: Performed By: #### 3 1079 ####[facility] [facility] [place] [address], [facility] [employer]O [employer] Negative Normal NEGATIVE [facility] Comment on above: Performed By: #### 3 1079 ####[facility] [place] [address], [place] PROPOXYPHENE Negative Normal NEGATIVE [facility] Comment on above: Performed By: #### 3 1079 ####[facility] [place] [address], [place] TRICYCLICS Negative Normal NEGATIVE [facility] Comment on above: Performed By: #### 3 1079 ####[facility] [place] [address], [place] Urine, benzodiazepines presence Negative Normal NEGATIVE [facility] Comment on above: Performed By: #### 3 1079 ####[facility] [place] [address], [place] Urine, cocaine presence Negative Normal NEGATIVE [facility] Comment on above: Performed By: #### 3 1079 ####[facility] [place] [address], [place] Urine, methadone presence Negative Normal NEGATIVE [facility] Comment on above: Performed By: #### 3 1079 ####[facility] [place] [address], [place] Urine, opiates presence Negative Normal NEGATIVE [facility] Comment on above: Performed By: #### 3 1079 ####[facility] [place] [address], [place] Urine, phencyclidine presence Negative Normal NEGATIVE [facility] Comment on above: Performed By: #### 3 1079 ####[facility] [place] [address], [place] Vital Signs Date Time Vital Sign Value Performing Clinician Facility 01-13-2024 16:10-0400 Body height 160.02 cm [facility] 01-13-2024 16:10-0400 Body mass index (BMI) [Ratio] 52.4 kg/m2 [facility] 01-13-2024 16:10-0400 Body temperature 98.4 [degF] [facility] 01-13-2024 16:10-0400 Body weight 134.26 kg [facility] 01-13-2024 16:10-0400 Diastolic blood pressure 76 mm[Hg] [facility] 01-13-2024 16:10-0400 Heart rate 80 /min [facility] 01-13-2024 16:10-0400 Respiratory rate 18 /min [facility] 01-13-2024 16:10-0400 SaO2% (BldA) [Mass fraction] 96 % [facility] 01-13-2024 16:10-0400 Systolic blood pressure 123 mm[Hg] [facility] 11-12-2023 13:11-0500 Blood Pressure Location Mata Sarmini [facility] 11-12-2023 13:11-0500 Diastolic blood pressure 77 mm[Hg] [facility] 11-12-2023 13:11-0500 Heart rate 86 /min [facility] [facility] 11-12-2023 13:11-0500 Respiratory rate 18 /min Mata Sarmini [facility] 11-12-2023 13:11-0500 Systolic blood pressure 137 mm[Hg] Mata Sarmini [facility] 08-25-2023 11:04-0400 Body height 160 cm Alexis Hussein MD Work Phone: [facility] 08-25-2023 11:04-0400 Body temperature 97.81 [degF] Alexis Hussein MD Work Phone: [facility] 08-25-2023 11:04-0400 Body weight 139.62 kg Alexis Hussein MD Work Phone: [facility] 08-25-2023 11:04-0400 Diastolic blood pressure 67 mm[Hg] Alexis Hussein MD Work Phone: [facility] 08-25-2023 11:04-0400 Heart rate 81 /min Alexis Hussein MD Work Phone: [facility] 08-25-2023 11:04-0400 Respiratory rate 16 /min Alexis Hussein MD Work Phone: [facility] 08-25-2023 11:04-0400 SaO2% (BldA) [Mass fraction] 99 % Alexis Hussein MD Work Phone: [facility] 08-25-2023 11:04-0400 Systolic blood pressure 128 mm[Hg] Alexis Hussein MD Work Phone: [facility] 07-15-2023 13:05-0400 Body weight 139.[address] [employer] Work Phone: [facility] 07-15-2023 13:05-0400 Diastolic blood pressure 71 mm[Hg] Somjita Lane [employer] Work Phone: [facility] 07-15-2023 13:05-0400 Heart rate 68 /min Somjita Lane [employer] Work Phone: [facility] 07-15-2023 13:05-0400 Systolic blood pressure 127 mm[Hg] Somjita Lane [employer] Work Phone: [facility] 05-20-2023 14:45-0400 Body height 160.02 cm Sarah Beth Deleon Other [employer] Other 05-20-2023 14:45-0400 Body mass index (BMI) [Ratio] 54.7 kg/m2 Sarah Beth Deleon Other [employer] Other 05-20-2023 14:45-0400 Body weight 140.07 kg Sarah Beth Missler Other [employer] Other 05-20-2023 14:45-0400 Diastolic blood pressure 73 mm[Hg] Sarah Beth Missler Other [employer] Other 05-20-2023 14:45-0400 Respiratory rate 18 /min Sarah Beth Missler Other [employer] Other 05-20-2023 14:45-0400 SaO2% (BldA) [Mass fraction] 100 % Sarah Beth Missler Other [employer] Other 05-20-2023 14:45-0400 Systolic blood pressure 115 mm[Hg] Sarah Beth Missler Other [employer] Other 02-25-2023 18:08-0400 Diastolic blood pressure 77 mm[Hg] Nilam [employer] DO Work Phone: [facility] 02-25-2023 18:08-0400 Heart rate 93 /min [employer] DO Work Phone: [facility] 02-25-2023 18:08-0400 Systolic blood pressure 110 mm[Hg] Gliderer [employer] DO Work Phone: [facility] 02-18-2023 15:15-0400 Body height 160.02 cm Sarah Beth Missler Other [employer] Other 02-18-2023 15:15-0400 Body mass index (BMI) [Ratio] 56.2 kg/m2 Sarah Beth Missler Other [employer] Other 02-18-2023 15:15-0400 Body weight 143.93 kg Sarah Beth Missler Other [employer] Other 02-18-2023 15:15-0400 Diastolic blood pressure 79 mm[Hg] Sarah Beth Missler Other [employer] Other 02-18-2023 15:15-0400 Respiratory rate 16 /min Sarah Beth Missler Other [employer] Other 02-18-2023 15:15-0400 SaO2% (BldA) [Mass fraction] 100 % Sarah Beth Missler Other [employer] Other 02-18-2023 15:15-0400 Systolic blood pressure 136 mm[Hg] Sarah Beth Missler Other [employer] Other 02-15-2022 07:30-0400 Body temperature 98 [degF] DO Raji Ball Work Phone: [facility] 02-15-2022 07:30-0400 Diastolic blood pressure 68 mm[Hg] DO Raji Ball Work Phone: [facility] 02-15-2022 07:30-0400 Heart rate 91 /min DO Raji Ball Work Phone: [facility] 02-15-2022 07:30-0400 Respiratory rate 16 /min DO Raji Ball Work Phone: [facility] 02-15-2022 07:30-0400 SaO2% (BldA) [Mass fraction] 100 % DO Raji Ball Work Phone: [facility] 02-15-2022 07:30-0400 Systolic blood pressure 138 mm[Hg] DO Raji Ball Work Phone: [facility] 02-11-2022 15:29-0400 Body height 160.02 cm DO Raji Ball Work Phone: [facility] 02-10-2022 18:08-0400 Body mass index (BMI) [Ratio] 50.1 kg/m2 DO Raji Ball Work Phone: [facility] 02-10-2022 18:08-0400 Body weight 128.36 kg DO Raji Ball Work Phone: [facility] 02-02-2022 07:30-0400 Body temperature 97.8 [degF] DO Raji Ball Work Phone: [facility] 02-02-2022 07:30-0400 Diastolic blood pressure 82 mm[Hg] DO Raji Ball Work Phone: [facility] 02-02-2022 07:30-0400 Heart rate 98 /min DO Raji Ball Work Phone: [facility] 02-02-2022 07:30-0400 Respiratory rate 16 /min DO Raji Ball Work Phone: [facility] 02-02-2022 07:30-0400 SaO2% (BldA) [Mass fraction] 96 % DO Raji Ball Work Phone: [facility] 02-02-2022 07:30-0400 Systolic blood pressure 119 mm[Hg] DO Raji Ball Work Phone: [facility] 01-30-2022 11:59-0400 Body height 160.02 cm DO Raji Ball Work Phone: [facility] 01-29-2022 17:15-0400 Body mass index (BMI) [Ratio] 49.6 kg/m2 DO Raji Ball Work Phone: [facility] 01-29-2022 17:15-0400 Body weight 127 kg DO Raji Ball Work Phone: [facility] 01-29-2022 16:17-0400 Diastolic blood pressure 90 mm[Hg] DO Raji Ball Work Phone: [facility] 01-29-2022 16:17-0400 Heart rate 66 /min DO Raji Ball Work Phone: [facility] 01-29-2022 16:17-0400 Respiratory rate 16 /min DO Raji [employer] Work Phone: [facility] 01-29-2022 16:17-0400 SaO2% (BldA) [Mass fraction] 100 % DO Raji [employer] Work Phone: [facility] 01-29-2022 16:17-0400 Systolic blood pressure 151 mm[Hg] DO Raji [employer] Work Phone: [facility] 01-29-2022 13:50-0400 Body temperature 98 [degF] DO Mama Work Phone: [facility] 01-29-2022 13:49-0400 Body height 160.02 cm DO Mama Work Phone: [facility] 01-29-2022 13:49-0400 Body mass index (BMI) [Ratio] 49.6 kg/m2 DO Mama Work Phone: [facility] 01-29-2022 13:49-0400 Body weight 127 kg DO Mama Work Phone: [facility] 05-04-2020 08:00-0400 Body Temperature 97.9 [degF] [employer] 05-04-2020 08:00-0400 BP Diastolic 63 mm[Hg] [employer] , [place] 05-04-2020 08:00-0400 BP Systolic 121 mm[Hg] [employer] , [place] 05-04-2020 08:00-0400 Pulse (Heart Rate) 72 /min [employer] 05-04-2020 08:00-0400 Pulse Oximetry 98 % [employer] , [place] 05-04-2020 08:00-0400 Respiratory Rate 16 /min [employer] 05-02-2020 20:35-0400 BMI (Body Mass Index) 54.21 kg/m2 [facility], [place] 05-02-2020 20:35-0400 Body weight 138.8 kg [facility] [place] Encounters Encounter Date Encounter Type Care Provider Facility Start: 01-13-2024 End: 01-13-2024 ambulatory [facility] Work Phone: Start: 01-13-2024 End: 01-13-2024 Patient encounter procedure [facility] Y[facility] Work Phone: Start: 11-16-2023 End: 11-17-2023 ambulatory Mata Talal Sarmini Facility:[facility] Start: 11-16-2023 End: 11-16-2023 Patient encounter procedure XXXX NONE [facility] Start: 11-12-2023 End: 11-13-2023 ambulatory Mata Talal Sarmini [facility] Start: 11-12-2023 End: 11-12-2023 Patient encounter procedure Mata Talal Sarmini [facility] Start: 09-30-2023 Telephone encounter Buck rivas DO Work Phone: Gastgroenterology Start: 09-21-2023 ambulatory Mata Sarmini Facili ty:[facility] Start: 09-14-2023 Telephone encounter Nathan Medina Hematology/Oncology Comment on above: Results Start: 09-11-2023 End: 09-11-2023 ambulatory MIC SHAMMO Facility:[facility] Start: 08-25-2023 End: 08-25-2023 ambulatory VALENTE ANDINO Facility:[facility] Start: 08-25-2023 End: 08-25-2023 ambulatory Alexis Hussein MD Work Phone: Hematology/Oncology Comment on above: MGUS (monoclonal eriberto mopathy of unknown significance) (Primary Dx); Elevated alkaline phosphatase level; Multiple myeloma not having achieved remission (HCC) Start: 08-25-2023 End: 08-25-2023 Patient encounter procedure Alexis Hussein MD Work Phone: [facility] Start: 07-22-2023 End: 07-22-2023 ambulatory ROMERO SHERMAN Facility:[facility] Start: 07-15-2023 End: 07-15-2023 Subsequent hospital visit by physician Xr [facility] Radiology Comment on above: Polyarthralgia [M25. 50] Start: 07-15-2023 End: 07-15-2023 ambulatory ROMERO SHERMAN Facility:[facility] Start: 07-15-2023 End: 07-15-2023 Patient encounter procedure Romero Sherman [employer] Work Phone: Rheumatology Comment on above: Polyarthralgia (Prim dianne Dx) Start: 06-25-2023 Refill Nilam Hanson DO Work Phone: Neurology Comment on above: Refill Request Start: 06-17-2023 End: 06-18-2023 ambulatory Cher ESTRADA Work Phone: Urology Start: 06-16-2023 End: 06-16-2023 Emergency department patient visit [facility] Facility:[facility] Start: 06-05-2023 ambulatory Nilam Hanson DO Work Phone: Neurology Comment on above: Increased zaps/pain/ spasms Start: 05-20-2023 (FCCCWMNF/U) Weight Management f/u [facility] Start: 05-20-2023 End: 05-21-2023 ambulatory [facility] [employer] Other Start: 04-22-2023 ambulatory NILAM Martinez [facility] Start: 04-22-2023 Telephone encounter Sathya Hanson DO Work Phone: Neurology Comment on above: Results Start: 04-09-2023 ambulatory NILAM Landers acility:[facility] Start: 04-09-2023 End: 04-09-2023 Subsequent hospital visit by physician Mri [facility] (Istat/3t) Work Phone: [facility] Radiology MRI Comment on above: Benign intracranial hypertension [G93.2] Start: 04-08-2023 ambulatory NILAM Landers acility:[facility] Start: 04-08-2023 End: 04-08-2023 Subsequent hospital visit by physician [facility] (Istat/1.5) Work Phone: [facility] Radiology MRI Comment on above: Spinal stenosis of c ervical region [M48.02] Start: 04-07-2023 ambulatory NILAM Martinez [facility] Start: 04-02-2023 ambulatory NILAM Martinez [facility] Start: 03-25-2023 Refill Nilam Hanson DO Work Phone: Neurology Comment on above: Refill Request Start: 03-11-2023 ambulatory NILAM Martinez [facility] Start: 02-27-2023 ambulatory NILAM Martinez [facility] Start: 02-27-2023 Telephone encounter Sathya Hanson DO Work Phone: Neurology Comment on above: Patient Update Start: 02-26-2023 ambulatory NILAM Martinez [facility] Start: 02-26-2023 Telephone encounter Sathya Hanson DO Work Phone: Neurology Comment on above: Patient Update (Radi ology Disc's scanned and mailed back to home address) Start: 02-25-2023 End: 02-25-2023 ambulatory NILAM HANSON Facility:[facility] Start: 02-25-2023 End: 02-25-2023 Patient encounter procedure Nilam Hanson DO Work Phone: Neurology Comment on above: Weakness (Primary Dx ); Benign intracranial hypertension; Spinal stenosis of cervical region; Myalgia Start: 02-18-2023 End: 02-18-2023 ambulatory Sarah Beth Deleon Other [employer] Other Start: 02-18-2023 Nutrition therapy Sarah Bethher Deleon On license of [facility] Start: 01-06-2023 End: 01-07-[address] MARIVEL JOHNSON Facility:[facility] Start: 12-30-2022 End: 12-31-2022 ambulatory MIC SHAMMO Facility:[facility] Start: 10-22-2022 End: 10-22-2022 ambulatory MIC SHAMMO Facility:[facility] Start: 10-15-2022 End: 10-16-[address] MARIVEL JOHNSON Facility:[facility] Start: 10-06-2022 End: 10-06-2022 ambulatory MISSY BOCANEGRA . Facility:[facility] Start: 09-22-2022 Encounter for genera l adult medical examination without abnormal findings MIC SHAMMO [facility] Start: 09-17-2022 End: 09-18-2022 ambulatory MIC SHAMMO Facility:[facility] Start: 09-17-2022 End: 09-18-2022 Encounter for general adult medical examination without abnormal findings MIC SHAMMO Facility:[facility] Start: 09-03-2022 End: 09-04-2022 ambulatory MIC SHAMMO Facility:[facility] Start: 09-02-2022 Adult health examination Sarah Beth Deleon Other [employer] Other Start: 09-02-2022 Gynecological examination normal Sarah Beth Deleon Other [employer] Other Start: 07-31-2022 End: 08-01-2022 ambulatory MIC SHAMMO Facility:[facility] Start: 07-08-2022 End: 07-08-2022 ambulatory ESDRAS PLASCENCIA . Facility:[facility] Start: 07-07-2022 End: 07-07-[address] MARIVEL JOHNSON Facility:[facility] Start: 06-21-2022 End: 06-21-[address] RAJI GUERRERO Facility:[facility] Start: 06-20-2022 End: 06-21-[address] RAJI GUERRERO Facility:[facility] Start: 02-10-2022 End: 02-15-2022 Evaluation and management of inpatient DO Raji Guerrero Work Phone: [facility] Start: 01-29-2022 End: 02-02-2022 Evaluation and management of inpatient DO Raji Guerrero Work Phone: [facility] Start: 09-09-2021 Pre-procedure evaluation check Sarah Beth Deleon Other [employer] Other Start: 02-06-2021 End: 02-09-2021 ambulatory FAROOQ SON [facility] Start: 02-06-2021 End: 02-08-2021 Subsequent hospital visit by physician Antwon C-Arm 1 [facility] Radiology Comment on above: Cervical spondylosis with myelopathy Start: 08-08-2020 End: 08-08-2020 History of abnormal cervical Papanicolaou smear Sarah Beth Deleon Other [employer] [facility] [employer] Other Start: 06-22-2020 End: 06-25-2020 ambulatory RAJI GUERRERO [facility] Start: 06-16-2020 End: 06-19-2020 Patient encounter procedure ELTON JELENA RODRIGUEZ [facility] Start: 06-16-2020 End: 06-18-2020 Subsequent hospital visit by physician Claudio Mri Rm 119 [facility] MRI Comment on above: Pseudotumor cerebri Start: 05-07-2020 End: 05-07-2020 Subsequent hospital visit by physician Antwon Interventional Radiologist [facility] Procedures Comment on above: Canceled (Other) Start: 05-03-2020 End: 05-03-2020 Subsequent hospital visit by physician freedom Covid19 Pat Screening Schedule [facility] Pre-Admit Testing Comment on above: No Show Start: 05-02-2020 End: 05-04-2020 Evaluation and management of inpatient RAJI GUERRERO [facility] Start: 05-02-2020 End: 05-04-2020 Evaluation and management of inpatient Jesus Mora Work Phone: [facility]Med Surg Start: 12-07-2017 End: 12-08-2017 Ambulatory GINA PRAJAPATI Facility:[facility] Start: 05-14-2017 End: 05-15-2017 Ambulatory DEFAULT PHYSICIAN Facility:[facility] Procedures Date Procedure Procedure Detail Performing Clinician Start: 07-15-2023 Joint survey single view 2 or more joints Romero Sherman APRN.WATER [employer] Work Phone: Start: 06-17-2023 Urnls dip stick/tabl et reagent auto microscopy Bulk Order Provider Start: 04-09-2023 Mri brain brain stem w/o w/contrast material Nilam Hanson DO Work Phone: Start: 04-08-2023 Mri spinal canal cer vical w/o & w/contr matrl Nilam Hanson DO Work Phone: Start: 02-10-2022 SARS Antigen (LFIA) DO Raji [employer] Work Phone: Start: 01-29-2022 SARS Antigen (LFIA) DO Raji [employer] Work Phone: Start: 02-06-2021 Radex spine cervical 4 or 5 views Farooq Jarvis Alvin [employer] Work Phone: Start: 08-26-2020 Destructive procedure M saw Ruckerjuanedilberto Start: 06-24-2020 INITIATE OXYGEN THER APY PROTOCOL RAJI GUERRERO Start: 06-23-2020 INITIATE OXYGEN THER APY PROTOCOL RAJI GUERRERO Start: 06-22-2020 Cell count misc body fluids w/differential count RAJI GUERRERO Start: 06-22-2020 Cul bact xcpt urine blood/stool aerobic isol RAJI GUERRERO Start: 06-22-2020 Glucose body fluid o ther than blood RAJI GUERRERO Start: 06-22-2020 ASSESS RAJI Skagsg ALL Start: 06-22-2020 BEDREST RAJI Skaggs ALL Start: 06-22-2020 DISCHARGE PATIENT JONNY MARTINEZ YOLANDA Start: 06-22-2020 FULL CODE RAJI Skaggs ALL Start: 06-22-2020 INITIATE OXYGEN THER APY PROTOCOL RAJI GUERRERO Start: 06-22-2020 NOTIFY PHYSICIAN (SPECIFY) RAJI GUERRERO Start: 06-22-2020 VITAL SIGNS RAJI Skaggs ALL Start: 06-22-2020 Diagnostic lumbar sp inal puncture w/fluor or ct RAJI GUERRERO Start: 06-16-2020 Mri brain brain stem w/o w/contrast material ELTON RODRIGUEZ Start: 06-16-2020 Mri brain brain stem w/o w/contrast material Elton Tillmanderon Work Phone: Start: 05-26-2020 Lumbar puncture Devora Cerna Start: 05-04-2020 PULSE OXIMETRY, CONTINUOUS RAJI BALL Start: 05-04-2020 DISCHARGE PATIENT JONNY MIN BALL Start: 05-04-2020 Comprehensive metabo lic panel RAJI BALL Start: 05-04-2020 Drug screen quantita tive lithium RAJI BALL Start: 05-04-2020 PULSE OXIMETRY, CONTINUOUS RAJI BALL Start: 05-04-2020 BASIC METABOLIC PANE L W/ REFLEX TO MG FOR LOW K Torito Mirta Work Phone: Start: 05-04-2020 Drug screen quantita tive lithium Torito Mirta Work Phone: Start: 05-04-2020 Drug screen quantita tive lithium Jesus Mora Work Phone: Start: 05-04-2020 Drug screen quantita tive lithium RAJI BALL Start: 05-04-2020 INITIATE OXYGEN THER APY PROTOCOL RAJI BALL Start: 05-04-2020 PULSE OXIMETRY, CONTINUOUS RAJI BALL Start: 05-04-2020 Comprehensive metabo lic panel RAJI BALL Start: 05-04-2020 BASIC METABOLIC PANE L W/ REFLEX TO MG FOR LOW K Torito Mirta Work Phone: Start: 05-04-2020 PULSE OXIMETRY, CONTINUOUS RAJI BALL Start: 05-04-2020 Comprehensive metabo lic panel RAJI BALL Start: 05-04-2020 Drug screen quantita tive lithium RAJI BALL Start: 05-04-2020 BASIC METABOLIC PANE L W/ REFLEX TO MG FOR LOW K Torito Mirta Work Phone: Start: 05-04-2020 Drug screen quantita tive lithium Torito Mirta Work Phone: Start: 05-04-2020 INTAKE AND OUTPUT JONNY MIN BALL Start: 05-04-2020 PULSE OXIMETRY, CONTINUOUS RAJI BALL Start: 05-03-2020 Comprehensive metabo lic panel RAJI BALL Start: 05-03-2020 Drug screen quantita tive lithium RAJI BALL Start: 05-03-2020 PULSE OXIMETRY, CONTINUOUS RAJI BALL Start: 05-03-2020 BASIC METABOLIC PANE L W/ REFLEX TO MG FOR LOW K Toriot Mirta Work Phone: Start: 05-03-2020 Drug screen quantita tive lithium Torito Mirta Work Phone: Start: 05-03-2020 PULSE OXIMETRY, CONTINUOUS RAJI BALL Start: 05-03-2020 Comprehensive metabo lic panel RAJI BALL Start: 05-03-2020 Drug screen quantita tive lithium RAJI BALL Start: 05-03-2020 MISCELLANEOUS NURSIN G CARE ORDER (SPECIFY) RAJI BALL Start: 05-03-2020 CATHETER REMOVAL BENJAM IN BALL Start: 05-03-2020 BASIC METABOLIC PANE L W/ REFLEX TO MG FOR LOW K Torito Mirat Work Phone: Start: 05-03-2020 Drug screen quantita tive lithium Torito Mirta Work Phone: Start: 05-03-2020 PULSE OXIMETRY, CONTINUOUS RAJI BALL Start: 05-03-2020 IP CONSULT TO IV TEAM B ENJAMIN BALL Start: 05-03-2020 INITIATE OXYGEN THER APY PROTOCOL RAJI BALL Start: 05-03-2020 PULSE OXIMETRY, CONTINUOUS RAJI BALL Start: 05-03-2020 Comprehensive metabo lic panel RAJI BALL Start: 05-03-2020 Drug screen quantita tive lithium RAJI BALL Start: 05-03-2020 BASIC METABOLIC PANE L W/ REFLEX TO MG FOR LOW K Torito Mirta Work Phone: Start: 05-03-2020 Drug screen quantita tive lithium Torito Mirta Work Phone: Start: 05-03-2020 PULSE OXIMETRY, CONTINUOUS RAJI BALL Start: 05-03-2020 Blood count complete automated RAJI BALL Start: 05-03-2020 Drug screen quantita tive lithium RAJI BALL Start: 05-03-2020 DAILY WEIGHTS RAJI BALL Start: 05-03-2020 INTAKE AND OUTPUT JONNY MIN BALL Start: 05-03-2020 STRICT INTAKE AND OUTPUT RAJI BALL Start: 05-03-2020 Assay of magnesium Shon ant Mirta Work Phone: Start: 05-03-2020 BASIC METABOLIC PANE L W/ REFLEX TO MG FOR LOW K Torito Mirta Work Phone: Start: 05-03-2020 Blood count complete automated Mary Kate Cole Work Phone: Start: 05-03-2020 C-reactive protein Shon ant Mirta Work Phone: Start: 05-03-2020 Drug screen quantita tive lithium Torito Mirta Work Phone: Start: 05-03-2020 Prothrombin time Shirmee y Mgada Cole Work Phone: Start: 05-03-2020 PULSE OXIMETRY, CONTINUOUS RAJI BALL Start: 05-02-2020 PULSE OXIMETRY, CONTINUOUS RAJI BALL Start: 05-02-2020 PULSE OXIMETRY, CONTINUOUS RAJI BALL Start: 05-02-2020 Insj non-tunneled ce ntral venous cath age 6 yr/> RAJI BALL Start: 05-02-2020 PATIENT MAY USE CATHETER RAJI BALL Start: 05-02-2020 TELEMETRY MONITORING BE NJAMIN BALL Start: 05-02-2020 COVID-19 RAJI B ALL Start: 05-02-2020 Insj non-tunneled ce ntral venous cath age 6 yr/> Torito Mirta Work Phone: Start: 05-02-2020 Assay of ferritin JONNY MIN BALL Start: 05-02-2020 Drug screen quantita tive lithium RAJI BALL Start: 05-02-2020 TELEMETRY EKG INSTRUCTION RAJI BALL Start: 05-02-2020 TRANSFER PATIENT BENJAM IN BALL Start: 05-02-2020 HEMODIALYSIS INPATIENT RAJI YOLANDA Start: 05-02-2020 PULSE OXIMETRY, CONTINUOUS RAJI BALL Start: 05-02-2020 End: 05-02-2020 Drug screen quantitative lithium Torito Mirta Work Phone: Start: 05-02-2020 COVID-19 Jesus Mora Work Phone: Start: 05-02-2020 Assay of ferritin Finn Mora Work Phone: Start: 05-02-2020 Iron binding capacity S nereida Mora Work Phone: Start: 05-02-2020 VITAMIN B12 & FOLATE St roro Mora Work Phone: Start: 05-02-2020 Assay of acetaminophen RAJI GUERRERO Start: 05-02-2020 Assay of salicylate MELISSA GUERRERO Start: 05-02-2020 Chloride urine RAJI GUERRERO Start: 05-02-2020 Drug screen class list a RAJI GUERRERO Start: 05-02-2020 Urnls dip stick/tabl et reagent auto microscopy RAJI GUERRERO Start: 05-02-2020 Us retroperitoneal r eal time w/image complete RAJI GUERRERO Start: 05-02-2020 Ct cervical spine w/ o contrast material RAJI GUERRERO Start: 05-02-2020 Ct head/brain w/o co ntrast material RAJI GUERRERO Start: 05-02-2020 INITIATE OXYGEN THER APY PROTOCOL RAJI GUERRERO Start: 05-02-2020 PULSE OXIMETRY, CONTINUOUS RAJI GUERRERO Start: 05-02-2020 Assay of acetaminophen Torito Mirta Work Phone: Start: 05-02-2020 Assay of free thyroxine Torito Mirta Work Phone: Start: 05-02-2020 Assay of salicylate Nis hant Mirta Work Phone: Start: 05-02-2020 Assay of thyroid sti mulating hormone tsh Torito Mirta Work Phone: Start: 05-02-2020 BASIC METABOLIC PANE L W/ REFLEX TO MG FOR LOW K Torito Mirta Work Phone: Start: 05-02-2020 Assay of urine sodium N ishant Mirta Work Phone: Start: 05-02-2020 Chloride urine Torito Mirta Work Phone: Start: 05-02-2020 Drug screen class list a Torito Mirta Work Phone: Start: 05-02-2020 Protein total xcpt refractometry urine Torito Mirta Work Phone: Start: 05-02-2020 Urnls dip stick/tabl et reagent auto microscopy Torito Mirta Work Phone: Start: 05-02-2020 Us retroperitoneal r eal time w/image complete Mary Kate Cole Work Phone: Start: 05-02-2020 Ct cervical spine w/ o contrast material Madeline Olivia Work Phone: Start: 05-02-2020 Ct head/brain w/o co ntrast material Madeline Olivia Work Phone: Start: 05-02-2020 Blood count complete automated RAJI GUERRERO Start: 05-02-2020 Drug screen quantita tive lithium RAJI GUERRERO Start: 05-02-2020 Iaad ia hepatitis b surface antigen RAJI GUERRERO Start: 05-02-2020 ARTERIAL BLOOD GAS, POC RAJI GUERRERO Start: 05-02-2020 CULTURE, BLOOD 1 BENJAM IN YOLANDA Start: 05-02-2020 IP CONSULT TO NEPHROLOGY RAJI GUERRERO Start: 05-02-2020 C.TRACHOMATIS N.GONO RRHOEAE DNA, URINE RAJI GUERRERO Start: 05-02-2020 Assay of urine sodium B ENJAJUAN GUERRERO Start: 05-02-2020 Urine test visual color cmprsn meths RAJI GUERRERO Start: 05-02-2020 Urnls dip stick/tabl et reagent auto microscopy RAJI GUERRERO Start: 05-02-2020 IP CONSULT TO NEUROLOGY RAJI GUERRERO Start: 05-02-2020 PULSE OXIMETRY, CONTINUOUS RAJI GUERRERO Start: 05-02-2020 TRANSFER PATIENT JUDEIAM IN YOLANDA Start: 05-02-2020 CATHETER REMOVAL JUDIEAM IN YOLANDA Start: 05-02-2020 INSERT GRUBBS CATHETER B ENJAIRO GUERRERO Start: 05-02-2020 Assay of magnesium Joshual yoana Laws Work Phone: Start: 05-02-2020 Assay of phosphorus inorganic Mariann Laws Work Phone: Start: 05-02-2020 Blood count complete auto&auto difrntl wbc Mariann Laws Work Phone: Start: 05-02-2020 Blood count complete automated Mary Kate [employer] Work Phone: Start: 05-02-2020 Drug screen quantita tive lithium Mary Kate Ann Noah Work Phone: Start: 05-02-2020 Hepatitis b core ant ibody hbcab total Mary Kate Ann Noah Work Phone: Start: 05-02-2020 Hepatitis b surf ant ibody hbsab [facility] Noah Work Phone: Start: 05-02-2020 Hepatitis c antibody Sh malina Cole Work Phone: Start: 05-02-2020 Iaad ia hepatitis b surface antigen Mary Kate Cole Work Phone: Start: 05-02-2020 Procalcitonin (pct) Joshua Laws Work Phone: Start: 05-02-2020 Sedimentation rate r bc automated Mary Kate Cole Work Phone: Start: 05-02-2020 ARTERIAL BLOOD GAS, POC Jesus Mora Work Phone: Start: 05-02-2020 Glucose blood reagent strip RAJI YOLANDA Start: 05-02-2020 NOTIFY PHYSICIAN (SPECIFY) RAJI GUERRERO Start: 05-02-2020 PLACE INTERMITTENT P NEUMATIC COMPRESSION DEVICE RAJI GUERRERO Start: 05-02-2020 VITAL SIGNS RAJI Skaggs ALL Start: 05-02-2020 FULL CODE RAJI Skaggs ALL Start: 05-02-2020 INITIATE OXYGEN THER APY PROTOCOL RAJI GUERRERO Start: 05-02-2020 INTAKE AND OUTPUT JONNY MIN YOLANDA Start: 05-02-2020 DAILY WEIGHTS RAJI GUERRERO Start: 05-02-2020 DIET RENAL RAJI Skaggs ALL Start: 05-02-2020 Iadna chlamydia trac homatis amplified probe tq Mariann Laws Work Phone: Start: 05-02-2020 Assay of urine sodium S nereida Mora Work Phone: Start: 05-02-2020 Protein total xcpt refractometry urine Jesus Mora Work Phone: Start: 05-02-2020 Urine test visual color cmprsn meths Jesus Mora Work Phone: Start: 05-02-2020 Urnls dip stick/tabl et reagent auto microscopy Jesus Mora Work Phone: Start: 05-02-2020 Glucose blood reagent strip Jesus Mora Work Phone: Start: 04-30-2020 PATIENT STATUS (DIRECT) RAJI GUERRERO Start: 10-26-2002 Surgical removal of impacted third molar tooth Esperanza Cerna section Esperanza Louis rmini Cholecystectomy Esperanza Rucker mini Colonoscopy Esperanza Lares i Depression screening Sarah Beth Deleon Other H/O: tubal ligation Esperanza Cerna End: 08-08-2020 Ligation of fallopian tube Sarah Beth Maya er Other Plan of Treatment Date Care Activity Detail Author Start: 12-24-2023 End: 03-24-2024 CBC W Auto Differential panel - Blood CBC + DIFF Lab Routine MGUS (monoclonal gammopathy of unknown significance) Expected: 12/24/2023 (Approximate), Expires: 03/24/2024 [facility] Work Phone: Comment on above: Expected: 12/24/2023 (Approximate), Expi res: 03/24/2024 Start: 12-24-2023 End: 03-24-2024 Comprehensive metabolic 2000 panel - Serum or Plasma COMP METABOLIC PANEL Lab Routine MGUS (monoclonal gammopathy of unknown significance) Expected: 12/24/2023 (Approximate), Expires: 03/24/2024 [facility] Work Phone: Comment on above: Expected: 12/24/2023 (Approximate), Expi res: 03/24/2024 Start: 12-24-2023 End: 03-24-2024 MONOCLONAL PROTEIN, SERUM (BLOOD) MONOCLONAL PROTEIN, SERUM (BLOOD) Lab Routine MGUS (monoclonal gammopathy of unknown significance) Expected: 12/24/2023 (Approximate), Expires: 03/24/2024 [facility] Work Phone: Comment on above: Expected: 12/24/2023 (Approximate), Expi res: 03/24/2024 Start: 12-24-2023 End: 03-24-2024 PROTEIN ELECT RND UR W/INTERP PROTEIN ELECT RND UR W/INTERP Lab Routine MGUS (monoclonal gammopathy of unknown significance) Expected: 12/24/2023 (Approximate), Expires: 03/24/2024 [facility] Work Phone: Comment on above: Expected: 12/24/2023 (Approximate), Expi res: 03/24/2024 Start: 12-24-2023 End: 03-24-2024 PROTEIN ELECTROPHORESIS SERUM W/INTERP PROTEIN ELECTROPHORESIS SERUM W/INTERP Lab Routine MGUS (monoclonal gammopathy of unknown significance) Expected: 12/24/2023 (Approximate), Expires: 03/24/2024 [facility] Work Phone: Comment on above: Expected: 12/24/2023 (Approximate), Expi res: 03/24/2024 Start: 07-15-2023 End: 09-14-2023 25-hydroxyvitamin D3 [Mass/volume] in Serum or Plasma VITAMIN D 25 HYDROXY Lab Routine Polyarthralgia Expected: 07/15/2023, Expires: 09/14/2023 [facility] Work Phone: Comment on above: Expected: 07/15/2023, Expires: 3 Start: 07-15-2023 End: 09-14-2023 CBC W Auto Differential panel - Blood CBC + DIFF Lab Routine Polyarthralgia Expected: 07/15/2023, Expires: 09/14/2023 [facility] Work Phone: Comment on above: Expected: 07/15/2023, Expires: 3 Start: 07-15-2023 End: 09-14-2023 Comprehensive metabolic 2000 panel - Serum or Plasma COMP METABOLIC PANEL Lab Routine Polyarthralgia Expected: 07/15/2023, Expires: 09/14/2023 [facility] Work Phone: Comment on above: Expected: 07/15/2023, Expires: 3 Start: 07-15-2023 End: 09-14-2023 Cyclic citrullinated peptide IgG Ab [Units/volume] in Serum or Plasma CCP ANTIBODY IGG Lab Routine Polyarthralgia Expected: 07/15/2023, Expires: 09/14/2023 [facility] Work Phone: Comment on above: Expected: 07/15/2023, Expires: 3 Start: 07-15-2023 End: 09-14-2023 Rheumatoid factor [Units/volume] in Serum or Plasma RHEUMATOID FACTOR BL Lab Routine Polyarthralgia Expected: 07/15/2023, Expires: 09/14/2023 [facility] Work Phone: Comment on above: Expected: 07/15/2023, Expires: 3 Start: 06-26-[address] [facility] Start: 10-26-2022 DEPRESSION ASSESS[address] DEPRESSION ASSESSMENT [facility] Start: 07-19-2021 Creatinine measurement Creatinine monitoring [employer] Phone: Start: 07-19-2021 Potassium monitoring Potassium monitoring [employer] Phone: Start: 06-26-2021 Influenza vaccination Flu vaccine (Season Ended) [employer] Phone: Start: 05-04-2021 Creatinine measurement Creatinine monitoring [place] Start: 05-04-2021 [facility]assium [facility] [place] [place] Start: 05-03-2021 Creatinine measurement Creatinine monitoring [place] Start: 05-03-2021 Potassium monitoring [facility] [place] [place] Start: 04-02-2021 End: 04-02-2021 Telemedicine consultation with patient 04/02/2021 Telemedicine Neurology Elton Rodriguez MD [address], [address] [place] [address] [facility] Neurology Specialist Start: 02-21-2021 End: 02-21-2021 Telemedicine consultation with patient 02/21/2021 Telemedicine Neurosurgery Farooq Son, [employer] - WATER [employer]ER [address] [place], [place] [address] [facility] Neurosurgery [facility] Start: 06-26-2020 Influenza vaccination Flu vaccine (#1) [place], [place] Start: 06-25-2020 End: 06-25-2020 Office Visit 06/25/2020 Office Visit Neurology Elton Rodriguez MD [address], [address] [place] [address] [facility] Neurology Specialist Start: 06-22-2020 End: 06-22-2020 Appointment 06/22/2020 Appointment Radiology Special Procedures Radiologist, Stv Interventional [facility] Special Procedures Start: 05-07-2020 Hospital Encounter 05/07/2020 Hospital Encounter Radiology Special Procedures Radiologist, Stv Interventional [facility] Special Procedures Start: 2016 HPV TESTING HPV TESTING [facility] Start: 2007 PAP TESTING PAP TESTING [facility] Start: 2007 Screening for malignant neoplasm of cervix Cervical cancer screen [place], [place] Start: 2005 DTaP/Tdap/Td vaccine (1 - Tdap) DTaP/Tdap/Td vaccine (1 - Tdap) [place] Start: [address] [facility] Start: 2004 HEPATITIS C SCREENING HEPATITIS C SCREENING [facility] Start: 2004 HIV SCREENING HIV SCREENING [facility] Start: 2002 COVID-19 Vaccine (1) COVID-19 Vaccine (1) [facility] Phone: Start: 2001 HIV screening HIV screen [place], [place] Start: 1992 Pneumococcal 0-64 years Vaccine (1 of 1 - PPSV23) Pneumococcal 0-64 years Vaccine (1 of 1 - PPSV23) [facility] [address] Phone: Start: 1987 Varicella vaccine (1 of 2 - 2-dose childhood series) Varicella vaccine (1 of 2 - 2-dose childhood series) [place], [place] Start: 04-23-1987 COVID-19 VACCINE (#1) COVID-19 VACCINE (#1) [facility] Start: 1986 HEPATITIS B (1 of 3 - 3-dose series) HEPATITIS B (1 of 3 - 3-dose series) [facility] Start: 1986 Hepatitis B Vaccine (1 of 3 - 3-dose series) Hepatitis B Vaccine (1 of 3 - 3-dose series) [facility] Basic Metabolic Pane l w/ Reflex to MG Basic Metabolic Panel w/ Reflex to MG Lab Timed Every 6 Hours (Lab) until discontinued starting 05/03/2020, 7 completed [facility] [place] Comment on above: Every 6 Hours (Lab) until discontinued s tarting 05/03/2020, 7 completed End: 05-03-2020 COVID-19 COVID-19 Lab Routine One Time for 1 Occurrences starting 05/03/2020 until 05/03/2020 [facility] One Time for 1 Occurrences starting 06/2020 until 05/03/2020 End: 09-23-2024 CT WHOLE BODY SKULL TO KNEE WO IVCON CT WHOLE BODY SKULL TO KNEE WO IVCON Radiology Routine Multiple myeloma not having achieved remission (HCC) 1 Occurrences starting 08/25/2023 until 09/23/2024 [facility] Work Phone: Comment on above: 1 Occurrences starting 08/25/2023 until 09/23/2024 Culture, Blood 1 Culture, Blood 1 Microbiology STAT 05/02/2020 4:40 AM EDT [facility] [place] End: 05-02-2020 Hemodialysis inpatient Hemodialysis inpatient Dialysis Routine One Time for 1 Occurrences starting 05/02/2020 until 05/02/2020 [facility] [place] Comment on above: One Time for 1 Occurrences starting 05/2020 until 05/02/2020 Initiate Oxygen Ther apy Protocol Initiate Oxygen Therapy Protocol Respiratory Care Routine Daily until discontinued starting 05/02/2020 [facility] [place] Comment on above: Daily until discontinued starting 2019 LITHIUM LEVEL LITHIUM LEVEL La b Timed Every 6 Hours (Lab) until discontinued starting 05/03/2020, 6 completed [facility] [place] Comment on above: Every 6 Hours (Lab) until discontinued s tarting 05/03/2020, 6 completed End: 03-26-2024 Mri brain brain stem w/o w/contrast material MRI BRAIN WO/W IVCON Radiology Routine Benign intracranial hypertension 1 Occurrences starting 02/25/2023 until 03/26/2024 [facility] Work Phone: Comment on above: 1 Occurrences starting 02/25/2023 until 03/26/2024 End: 03-26-2024 Mri spinal canal cervical w/o & w/contr matrl MRI CERVICAL SPINE WO/W IVCON Radiology Routine Spinal stenosis of cervical region 1 Occurrences starting 02/25/2023 until 03/26/2024 [facility] Work Phone: Comment on above: 1 Occurrences starting 02/25/2023 until 03/26/2024 Patient Education [facility] Work Phone: Patient referral [facility] Work Phone: Pulse Oximetry Spot Check Pulse Oximetry Spot Check Respiratory Care Routine As Needed until discontinued starting 05/02/2020 [facility] [place] Comment on above: As Needed until discontinued starting Pulse oximetry, continuous Pulse oximetry, continuous Respiratory Care Routine Every 4hr until discontinued starting 05/02/2020 [facility] [place] Comment on above: Every 4hr until discontinued [facility] Immunizations Immunization Date Immunization Notes Care Provider Emili burger 10-21-2021 SARS-CoV-2 (COVID-19 ) mRNA BNT-162b2 vax Mata Sarmini [facility] 07-30-2018 influenza virus vaccine, unspecified formulation Mata Sarmini [facility] 07-26-2018 influenza virus vaccine, unspecified formulation Mata Sarmini [facility] 08-26-2016 influenza virus vaccine, unspecified formulation Mata Sarmini [facility] 08-26-2015 influenza, unspecifi ed formulation Mata Sarmini [facility] 02-14-1999 measles, mumps and rubella virus vaccine Mata Alkamini [facility] NEGATED: Highlighted row has not occurred!11-10-2023 influenza virus vaccine, unspecified formulation Mata Alkamini [facility] NEGATED: Highlighted row has not occurred!01-31-2020 influenza virus vaccine, live, attenuated, for intranasal use Mata Alkamini [facility] Payers Date Payer Category Payer Medicaid [employer] [id number] 2022-Present [phone] [address] [place] [address] Medicaid [id number] 2019 Unknown [employer] CARES [facility] MEDICAID xxxxxxxxxxx 2019-Present [phone] CLAIMS DEPARTMENT [address] [place] [address] xxxxxxxxxxx [id number] 2019 Unknown [employer] CAR[employer] [facility] MEDICAID [id number] 2019-Present [phone] CLAIMS DEPARTMENT [address] [place] [address] [id number]. [id number] 1986 Unknown [id number] [id number]6 1986 Unknown [id number] 2.16.840.1.353814.3.579.2.175 1986 Unknown [id number] 2.16.840.1.596879.3.579.2.175 1986 Unknown [id number] 2.16.840.1.004274.3.579.2.175 1986 Unknown [id number] 2.16.840.1.602806.3.579.2.175 1986 Unknown [id number] 2.16.840.1.757967.3.579.2.593 1986 Unknown [id number] 2.16.840.1.820838.3.579.2.593 1986 Unknown [id number] 2.16.840.1.796209.3.579.2.593 1986 Unknown [id number] 2.16.840.1.202156.3.579.2.593 1986 Unknown [id number] 2.16.840.1.716718.3.579.2.593 1986 Unknown [id number] 2.16.840.1.625600.3.579.2.593 1986 Unknown [id number] 2.16.840.1.140292.3.579.2.593 1986 Unknown [id number] 2.16.840.1.185644.3.579.2.593 1986 Unknown [id number] 2.16.840.1.694220.3.579.2.593 1986 Unknown [id number] 2.16.840.1.344777.3.579.2.593 1986 Unknown [id number] 2.16.840.1.715719.3.579.2.593 1986 Unknown [id number] 2.16.840.1.954906.3.579.2.593 1986 Unknown [id number] 2.16.840.1.349944.3.579.2.727 1986 Unknown [id number] 2.16.840.1.892178.3.579.2.727 1986 Unknown [id number] 2.16.840.1.832895.3.579.2.727 1959 Unknown [id number] 1.2.840.580232.1.13.239.2.7.3. [id number] 1959 Unknown [id number] Self-pay Self Pay [id number] Unknown [id number] Unknown Unknown [id number] Social History Date Type Detail Facility Start: 04-20-2020 Tobacco smoking stat us LAIS Unknown if ever smoked [facility] Start: 1985 Sex Assigned At Not on file M Tynker Exposure to SARS-CoV -2 (event) Unable to assess [facility] Exposure to SARS-CoV -2 (event) Not sure [facility] Start: 02-06-2021 End: 09-21-2020 Tobacco smoking status NHIS Current some day smoker [facility] Phone: End: 08-11-2023 History of tobacco use Cigarette Smoker [facility] Phone: Start: 02-06-2021 End: 06-17-2023 Cigarettes smoked current (pack per day) - Reported [facility] Start: 02-06-2021 End: 08-20-2023 Tobacco use and exposure Never used [facility] Phone: Start: 02-06-2021 End: 08-25-2023 Alcohol intake Lifetime non-drinker (finding) [facility] Phone: Start: 06-22-2020 History SDOH Alcohol Frequency 1 [facility] Phone: Start: 1985 Sex Assigned At Female M [employer] Phone: Start: 01-29-2022 End: 02-11-2022 Tobacco smoking status NHIS Smoker (finding) [facility] Start: 02-25-2023 End: 06-17-[address] [facility] Start: 02-25-2023 Tobacco smoking stat us NHIS Never smoked tobacco [facility] Start: 02-25-2023 End: 07-15-2023 Tobacco use and exposure User of smokeless tobacco [facility] Adult Depression Screening Assessment 2 [facility] Start: 06-17-2023 End: 11-12-2023 Tobacco smoking status NHIS Ex-smoker [facility] Start: 06-17-2023 Tobacco Comment vapes [facility] History of tobacco use Passive smoker [facility] Medical Equipment Procedure Code Equipment Code Equipment Original Text Equipment Identifier Dates Start: 02-18-2023 End: 08-25-2023 Comment on above: Inject 1 Each subcut aneously once daily. Goals Date Patient Goal Desired Activity /State Functional Status Date Assessment Result Facility 11-12-2023 [facility] Functional status Patient at Baseline [facility] Work Phone: 02-02-2022 Functional status Patient at Baseline [facility] Work Phone: Mental Status Date Assessment Result Facility 02-15-2022 Cognitive function Cognitive Sta tus Patient at Baseline [facility] Work Phone: 02-02-2022 Cognitive function Cognitive Sta tus Patient at Baseline [facility] Work Phone: Clinical Notes 05-02-2020 to 09-30-2023 Telephone Encounter - Munira Marrero - 09/30/2023 3:48 PM ESTTelephone Encounter - Alexis Hussein MD - 09/14/2023 12:01 PM ESTTelephone Encounter - Nathan Escamilla RN - 09/14/2023 10:57 AM EST Note Date & Type Note Facility 09-30-2023 Miscellaneous Notes Patient was notified about rescheduling appointment. She is going to follow up with gastro closer to home. documented in this encounter [facility] 09-14-2023 Miscellaneous Notes I can when I see her next Pt notified of Danny message and results. She was unaware of the adenoma within the adrenal gland. Discussed finding with her and the recommendation to monitor. She is agreeable and denies any additional questions, needs or concerns at this time. Danny: will you monitor or would you like a referral placed? Nathan Escamilla RN ----- Message from Shelia Jorge RN sent at 09/14/2023 10:52 AM EST ----- ----- Message ----- From: Alexis Hussein MD Sent: 09/13/2023 6:40 PM EST To: Shelia Jorge RN Call with engative CT and she has an adenoma on the adrenal gland which needs to be monitored documented in this encounter [facility] 09-11-2023 Note HNO ID: [id number] Author: Taniya Adame RT(R) Service: Radiology Author Type: Technologist Type: Progress Notes Filed: 09/11/2023 3:22 PM Note Text: Radiology Service Progress Note PATIENT NAME: Mercy Hebert DATE OF SERVICE: September 11, 2023 TIME: 3:22 PM PATIENT IDENTITY VERIFICATION COMPLETED USING TWO (2) IDENTIFIERS: Name and Date of confirmed by patient verbally and Name and Date of confirmed by identification band. FALL SCREENING: Has the patient had 2 falls in the last year or 1 fall with injury or currently using an Ambulatory Assistive Device (Walker, Cane, Wheelchair, Crutches, etc.)? No PATIENT GENDER DATA: Female. status: : No status: NO. PATIENT RELEVANT IMPLANT DATA REVIEWED: Yes RADIOLOGY DEPARTMENT: CT; Exam(s) Completed: Whole body skull to knee PERIPHERAL IV DATA: Not applicable SIGNED BY: RT Dora(R) September 11, 2023 3:22 PM [facility] 08-25-2023 Note HNO ID: [id number] Author: Alexis Hussein MD Service: ? Author Type: Physician Type: Progress Notes Filed: 08/25/2023 1:01 PM Note Text: PATIENT NAME: Mercy Hebert CLINIC NO.: [id number] ATTENDING PHYSICIAN: Alexis Hussein MD DATE OF SERVICE: August 25, [address] Valente Andino thank you for referring Miss Mercy Hebert for an opinion regarding IgA gammopathy. CHIEF COMPLAINT: I have abnormal labs HPI: Mercy Hebert is a 37 year old year old female with past medical history significant for obesity, bipolar disorder, fibromyalgia follows rheum on Lyrica and baclofen, asthma followed by Dr. Chakraborty, hypertension, previous history of mono: During close follow-up with Dr. Dow was noted to have an elevated IgA. Additional laboratory studies were done including a serum protein electrophoresis which did not reveal an M spike. Serum free light chain ratio which was slightly elevated free kappa light chain and a ratio of 1.82. Urine protein at pheresis in which the M protein could not be quantified due to low numbers but Bence-Betancourt protein was identified. The patient has had chronic pain mostly in the mid back to the hips for more than a year and a half. She states that marijuana smoke helps. She has undergone an autoimmune work-up by Dr. Andino including negative MARCELLA negative ANCA titers. Antimyeloperoxidase antibody slightly elevated, HIV negative. She is clinic for evaluation of monoclonal gammopathy. Current Outpatient Medications Medication Sig polyethylene glycol 3350 (MIRALAX) 17 gram/dose powder 1 scoop mixed with 8 ounces of fluid Orally Once a day ondansetron (ZOFRAN) 4 mg tablet TAKE 1 TABLET BY MOUTH 3 TIMES DAILY NEEDED FOR NAUSEA OR VOMITING rizatriptan (MAXALT) 10 mg tablet TAKE ONE TAB AT HEADACHE ONSET,MAY REPEAT IN 2 HOURS IF NEEDED, MAX 2/DAY 4 DAYS OUT OF THE WEEK verapamil ER 180 mg 24 hr capsule baclofen 10 mg tablet Take 0.5-1 tablets by mouth twice daily as needed (spasms or pain). acetaZOLAMIDE SR (DIAMOX SEQUELS) 500 mg capsule Take 1 capsule by mouth twice daily. pregabalin (LYRICA) 75 mg capsule TAKE 1 CAPSULE BY MOUTH TWICE DAILY FOR 150 DAYS. QUEtiapine XR (SEROQUEL XR) 300 mg 24 hr tablet Take 300 mg by mouth. acetaZOLAMIDE SR (DIAMOX SEQUELS) 500 mg capsule Take 500 mg by mouth twice daily. VENTOLIN HFA 90 mcg/actuation inhaler Inhale 1 Puff as instructed four times daily. DULoxetine (CYMBALTA) 60 mg capsule Take 60 mg by mouth every morning. WIXELA INHUB 500-50 mcg/dose dsdv Inhale 1 Puff as instructed twice daily. levothyroxine (SYNTHROID) 25 mcg tablet Take 0.5 tablets by mouth once daily. lisdexamfetamine (VYVANSE) 30 mg capsule Take 1 capsule by mouth q 24 HR. losartan (COZAAR) 100 mg tablet Take 1 tablet by mouth once daily. nystatin (MYCOSTATIN) 100,000 unit/mL suspension Take 1 Units by mouth as needed. omeprazole (PRILOSEC) 20 mg capsule Take 20 mg by mouth once daily. tiotropium bromide (SPIRIVA RESPIMAT) 1.25 mcg/actuation mist Inhale 2 Puffs as instructed once daily. hydrOXYzine pamoate (VISTARIL) 25 mg capsule TAKE 1 CAPSULE BY MOUTH 2 TIMES A DAY NEEDED FOR ANXIETY. nicotine (NICODERM) 14 mg/24 hr APPLY 1 PATCH IN THE AM, REMOVE AT BEDTIME baclofen 10 mg tablet TAKE 0.5-1 TABLETS BY MOUTH TWICE DAILY NEEDED (SPASMS OR PAIN). acetaminophen (TYLENOL) 500 mg tablet Take 500 mg by mouth. albuterol (PROVENTIL) 2.5 mg /3 mL (0.083 %) nebulizer solution Inhale 2.5 mg as instructed every 6 hours as needed. albuterol HFA (VENTOLIN HFA) 90 mcg/actuation inhaler Inhale 2 Puffs as instructed every 4 hours as needed. DULoxetine (CYMBALTA) 60 mg capsule Take 60 mg by mouth. fluticasone-salmeterol (WIXELA INHUB) 500-50 mcg/dose dsdv INHALE 1 PUFF BY MOUTH EVERY 12 HOURS furosemide (LASIX) 20 mg tablet levothyroxine (SYNTHROID) 25 mcg tablet Take 1 tablet by mouth once daily. lisdexamfetamine (VYVANSE) 30 mg capsule Take 30 mg by mouth. losartan (COZAAR) 100 mg tablet Take 1 tablet by mouth every afternoon. nystatin (MYCOSTATIN) 100,000 unit/mL suspension SWISH AND SWALLOW 5ML BY MOUTH 4 TIMES A DAY omeprazole (PRILOSEC) 20 mg capsule Take 20 mg by mouth. ondansetron (ZOFRAN) 4 mg tablet Take 4 mg by mouth. potassium chloride 20 mEq TbER SUMAtriptan (IMITREX) 100 mg tablet TAKE 1 TAB BY MOUTH AT ONSET OF HEADACHE*MAY REPEAT IN 1 HOUR*NO MORE THAN 2 PER DAY/4 DAYS PER WEEK tiotropium bromide (SPIRIVA RESPIMAT) 1.25 mcg/actuation mist verapamil SR (CALAN SR) 180 mg CR tablet TAKE ONE TABLET BY MOUTH ONCE DAILY AT NIGHT hydrOXYzine HCl (ATARAX) 50 mg tablet Take 50 mg by mouth four times daily as needed. Cholecalciferol, Vitamin D3, 25 mcg (1,000 unit) cap Take 1 capsule by mouth once daily. VICTOZA 3-DEB 0.6 mg/0.1 mL (18 mg/3 mL) Inject 1 mg subcutaneously once daily. EASY COMFORT PEN NEEDLES 31 gauge x 3/16 Inject 1 Each subcutaneously once daily. QUEtiapine ER (SEROQUEL XR (more content not included)... [facility] 08-25-2023 History of Present illness Narrative PATIENT NAME: Mercy Hebert CLINIC NO.: [id number] ATTENDING PHYSICIAN: Alexis Hussein MD DATE OF SERVICE: August 25, [address] Valente Andino thank you for referring Miss Mercy Hebert for an opinion regarding IgA gammopathy. CHIEF COMPLAINT: I have abnormal labs HPI: Mercy Hebert is a 37 year old year old female with past medical history significant for obesity, bipolar disorder, fibromyalgia follows rheum on Lyrica and baclofen, asthma followed by Dr. Chakraborty, hypertension, previous history of mono: During close follow-up with Dr. Dow was noted to have an elevated IgA. Additional laboratory studies were done including a serum protein electrophoresis which did not reveal an M spike. Serum free light chain ratio which was slightly elevated free kappa light chain and a ratio of 1.82. Urine protein at pheresis in which the M protein could not be quantified due to low numbers but Bence-Betancourt protein was identified. The patient has had chronic pain mostly in the mid back to the hips for more than a year and a half. She states that marijuana smoke helps. She has undergone an autoimmune work-up by Dr. Andino including negative MARCELLA negative ANCA titers. Antimyeloperoxidase antibody slightly elevated, HIV negative. She is clinic for evaluation of monoclonal gammopathy. Current Outpatient Medications Medication Sig polyethylene glycol 3350 (MIRALAX) 17 gram/dose powder 1 scoop mixed with 8 ounces of fluid Orally Once a day ondansetron (ZOFRAN) 4 mg tablet TAKE 1 TABLET BY MOUTH 3 TIMES DAILY NEEDED FOR NAUSEA OR VOMITING rizatriptan (MAXALT) 10 mg tablet TAKE ONE TAB AT HEADACHE ONSET,MAY REPEAT IN 2 HOURS IF NEEDED, MAX 2/DAY 4 DAYS OUT OF THE WEEK verapamil ER 180 mg 24 hr capsule baclofen 10 mg tablet Take 0.5-1 tablets by mouth twice daily as needed (spasms or pain). acetaZOLAMIDE SR (DIAMOX SEQUELS) 500 mg capsule Take 1 capsule by mouth twice daily. pregabalin (LYRICA) 75 mg capsule TAKE 1 CAPSULE BY MOUTH TWICE DAILY FOR 150 DAYS. QUEtiapine XR (SEROQUEL XR) 300 mg 24 hr tablet Take 300 mg by mouth. acetaZOLAMIDE SR (DIAMOX SEQUELS) 500 mg capsule Take 500 mg by mouth twice daily. VENTOLIN HFA 90 mcg/actuation inhaler Inhale 1 Puff as instructed four times daily. DULoxetine (CYMBALTA) 60 mg capsule Take 60 mg by mouth every morning. WIXELA INHUB 500-50 mcg/dose dsdv Inhale 1 Puff as instructed twice daily. levothyroxine (SYNTHROID) 25 mcg tablet Take 0.5 tablets by mouth once daily. lisdexamfetamine (VYVANSE) 30 mg capsule Take 1 capsule by mouth q 24 HR. losartan (COZAAR) 100 mg tablet Take 1 tablet by mouth once daily. nystatin (MYCOSTATIN) 100,000 unit/mL suspension Take 1 Units by mouth as needed. omeprazole (PRILOSEC) 20 mg capsule Take 20 mg by mouth once daily. tiotropium bromide (SPIRIVA RESPIMAT) 1.25 mcg/actuation mist Inhale 2 Puffs as instructed once daily. hydrOXYzine pamoate (VISTARIL) 25 mg capsule TAKE 1 CAPSULE BY MOUTH 2 TIMES A DAY NEEDED FOR ANXIETY. nicotine (NICODERM) 14 mg/24 hr APPLY 1 PATCH IN THE AM, REMOVE AT BEDTIME baclofen 10 mg tablet TAKE 0.5-1 TABLETS BY MOUTH TWICE DAILY NEEDED (SPASMS OR PAIN). acetaminophen (TYLENOL) 500 mg tablet Take 500 mg by mouth. albuterol (PROVENTIL) 2.5 mg /3 mL (0.083 %) nebulizer solution Inhale 2.5 mg as instructed every 6 hours as needed. albuterol HFA (VENTOLIN HFA) 90 mcg/actuation inhaler Inhale 2 Puffs as instructed every 4 hours as needed. DULoxetine (CYMBALTA) 60 mg capsule Take 60 mg by mouth. fluticasone-salmeterol (WIXELA INHUB) 500-50 mcg/dose dsdv INHALE 1 PUFF BY MOUTH EVERY 12 HOURS furosemide (LASIX) 20 mg tablet levothyroxine (SYNTHROID) 25 mcg tablet Take 1 tablet by mouth once daily. lisdexamfetamine (VYVANSE) 30 mg capsule Take 30 mg by mouth. losartan (COZAAR) 100 mg tablet Take 1 tablet by mouth every afternoon. nystatin (MYCOSTATIN) 100,000 unit/mL suspension SWISH AND SWALLOW 5ML BY MOUTH 4 TIMES A DAY omeprazole (PRILOSEC) 20 mg capsule Take 20 mg by mouth. ondansetron (ZOFRAN) 4 mg tablet Take 4 mg by mouth. potassium chloride 20 mEq TbER SUMAtriptan (IMITREX) 100 mg tablet TAKE 1 TAB BY MOUTH AT ONSET OF HEADACHE*MAY REPEAT IN 1 HOUR*NO MORE THAN 2 PER DAY/4 DAYS PER WEEK tiotropium bromide (SPIRIVA RESPIMAT) 1.25 mcg/actuation mist verapamil SR (CALAN SR) 180 mg CR tablet TAKE ONE TABLET BY MOUTH ONCE DAILY AT NIGHT hydrOXYzine HCl (ATARAX) 50 mg tablet Take 50 mg by mouth four times daily as needed. Cholecalciferol, Vitamin D3, 25 mcg (1,000 unit) cap Take 1 capsule by mouth once daily. VICTOZA 3-DEB 0.6 mg/0.1 mL (18 mg/3 mL) Inject 1 mg subcutaneously once daily. EASY COMFORT PEN NEEDLES 31 gauge x 3/16 Inject 1 Each subcutaneously once daily. QUEtiapine ER (SEROQUEL XR) 200 mg 24 hr tablet Take 1 tablet by mouth once daily. Taking 300 mg daily rOPINIRole (REQUIP) 0.5 mg tablet Take 1 tablet by mouth once daily. SUMAtriptan (IMITREX) 100 mg tablet Take 1 tablet by mouth as needed. pregabalin (LYRICA) 75 mg capsule Take 1 capsule by mouth twice daily for 150 days. (Patient taking differently: Take 75 mg by mouth twice daily. 100 mg) No current facility-administered medications for this visit. ALLERGIES Allergen Reactions Amoxicillin Other: See Comments Amoxicillin Intolerance Pt reports it gives her bad yeast infections Gluten GI Upset, Unknown Ibuprofen Other: See Comments Liraglutide Swelling [place] Mental Status Change [place] Unknown Nsaids (Non-Steroid* Other: See Comments kidney failure Nsaids (Non-Steroid* Unknown Pt reports it effects her kdineys PAST MEDICAL HISTORY Diagnosis Date ADD (attention deficit disorder) Anxiety state Asthma Bipolar 2 disorder (HCC) Cervical stenosis of spine Chronic pain Essential hypertension GERD (gastroesophageal reflux disease) Hypothyroidism IgA monoclonal gammopathy 07/2023 Insomnia Intracranial hypertension Migraines PTSD (post-traumatic stress disorder) Renal lithiasis Restless leg syndrome Schizoaffective disorder (HCC) Sleep apnea PAST SURGICAL HISTORY Procedure Laterality Date SECTION HX 2006 REMOVAL GALLBLADDER 2008 FAMILY HISTORY Problem Relation Age of Onset other (kidney cancer) Father Heart disease Father No Known Problems Sister No Known Problems Brother Social History Tobacco Use Smoking status: Former Packs/day: 0.25 Years: 21.00 Additional pack years: 0.00 Total pack years: 5.25 Types: Cigarettes Quit date: 08/11/2023 Years since quittin.0 Passive exposure: Past Smokeless tobacco: Never Tobacco comments: vapes Vaping Use Vaping Use: Never used Substance Use Topics Alcohol use: Never Drug use: Yes Types: Marijuana REVIEW OF SYSTEMS GENERAL: No weight loss, malaise or fevers. No night sweats. HEENT: Negative for headaches, No changes in hearing or vision, no nose bleeds or other nasal problems. RESPIRATORY: Negative for cough, wheezing and shortness of breath CARDIOVASCULAR: Negative for chest pain, leg swelling and palpitations GI: Negative for abdominal discomfort, blood in stools or black stools and change in bowel habits : Negative for dysuria, frequency and incontinence MUSCULOSKELETAL: Negative for joint pain or swelling, back pain, and muscle pain. SKIN: Negative for lesions, rash, and itching. HEMATOLOGY/LYMPHOLOGY Negative for prolonged bleeding, bruising easily, and swollen nodes. NEURO: Negative for numbness or tingling of hands/feet. No weakness. PHYSICAL EXAMINATION: BP 128/67 Pulse 81 Temp 36.6 C (97.8 F) (Temporal) Resp 16 Ht 160 cm (5' 2.99 ) Wt (!) 139.6 kg (307 lb 12.8 oz) SpO2 99% BMI 54.54 kg/m Wt 139.6 kg (307 lb 12.8 oz) BMI 54.54 kg/m2 Last 3 Encounter Wt Readings: Date: Wt: 08/25/2023 139.6 kg (307 lb 12.8 oz) 07/15/2023 140 kg (308 lb 9.6 oz) 06/17/2023 140.1 kg (308 lb 12.8 oz) General appearance:ECOG PERFORMANCE STATUS: 1- Restricted in physically strenuous activity. Carries out light duty. Patient in NAD. Skin: Skin color, texture, turgor normal. No rashes or lesions. Eyes: Anicteric sclera. Pupils are equally round and reactive to light. Extraocular movements are intact. Breast: No palpable breast masses. No nipple change or discharge. Lymph Nodes: No cervical, supraclavicular, axillary or inguinal adenopathy. Oropharynx: Lips, mucosa, and tongue normal. Back: No pain to percussion. Negative SLR test Lungs clear to auscultation, No wheezing or rhonchi Heart: RRR without murmur, gallop, or rubs. Abdomen soft, non-tender. No masses, organomegaly Extremities: No deformities. No edema Neuro: Gait and speech normal. Reflexes normal and symmetric. Muscular strength intact. Sensation grossly intact. Rectal: Deferred : Deferred LABS: Glucose (mg/dL) Date Value 06/16/2023 102 Potassium (mmol/L) Date Value 06/16/2023 3.8 Sodium (mmol/L) Date Value 06/16/2023 133 Chloride (mmol/L) Date Value 06/16/2023 103 CO2 (mmol/L) Date Value 06/16/2023 23 Creatinine (mg/dL) Date Value 06/16/2023 0.89 BUN (mg/dL) Date Value 06/16/2023 7 Anion Gap (mmol/L) Date Value 06/16/2023 7 Calcium, Total (mg/dL) Date Value 06/16/2023 9.1 Protein, Total (g/dL) Date Value 06/16/2023 6.9 Albumin (g/dL) Date Value 06/16/2023 4.0 Bilirubin, Total (mg/dL) Date Value 06/16/2023 0.2 Alkaline Phosphatase (U/L) Date Value 06/16/2023 137 AST (U/L) Date Value 06/16/2023 13 ALT (U/L) Date Value 06/16/2023 12 WBC Date Value Ref Range Status 06/16/2023 10.65 3.70 - 11.00 k/uL Final RBC Date Value Ref Range Status 06/16/2023 4.18 3.90 - 5.20 m/uL Final Hemoglobin Date Value Ref Range Status 06/16/2023 10.8 (L) 11.5 - 15.5 g/dL Final Hematocrit Date Value Ref Range Status 06/16/2023 35.8 (L) 36.0 - 46.0 % Final MCV Date Value Ref Range Status 06/16/2023 85.6 80.0 - 100.0 fL Final MCH Date Value Ref Range Status 06/16/2023 25.8 (L) 26.0 - 34.0 pg Final MCHC Date Value Ref Range Status 06/16/2023 30.2 (L) 30.5 - 36.0 g/dL Final RDW-CV Date Value Ref Range Status 06/16/2023 19.9 (H) 11.5 - 15.0 % Final Platelet Count Date Value Ref Range Status 06/16/2023 454 (H) 150 - 400 k/uL Final MPV Date Value Ref Range Status 06/16/2023 9.5 9.0 - 12.7 fL Final Abs Neut Date Value Ref Range Status 06/16/2023 6.69 1.45 - 7.50 k/uL Final Lymphocytes % Date Value Ref Range Status 06/16/2023 30.5 % Final Abs Lymph Date Value Ref Range Status 06/16/2023 3.25 1.00 - 4.00 k/uL Final Monocytes % Date Value Ref Range Status 06/16/2023 4.9 % Final Abs [place] Date Value Ref Range Status 06/16/2023 0.52 <0.87 k/uL Final Eosinophils % Date Value Ref Range Status 06/16/2023 1.0 % Final Abs Eosin Date Value Ref Range Status 06/16/2023 0.11 <0.46 k/uL Final Basophils % Date Value Ref Range Status 06/16/2023 0.4 % Final Abs Baso Date Value Ref Range Status 06/16/2023 0.04 <0.11 k/uL Final PATH: IMAGING: ASSESSMENT AND PLAN: Mercy Hebert is a 37 year old year old female past medical history significant for fibromyalgia, obesity, bipolar disorder, hypertension as well as moderate asthma with IgA gammopathy likely IgA MGUS. Patient does have some unique laboratory abnormalities including persistently elevated alkaline phosphatase as well as ongoing back and hip pain. Although, unlikely that her alkaline phosphatase is bone related in the setting of her small M spike I did suggest proceeding with low-dose CT scan of the lungs to rule out any bony etiology for her elevated alk phos. Also suggested a GI referral for ongoing elevated alk phos to rule out underlying autoimmune processes such as primary sclerosing cholangitis. In the meantime in regards to her gammopathy I suggested repeating her gammopathy parameters in 4 months that she agreed. Plan would be to see back in 4 months repeat labs, CT body low-dose whole-body, referral to GI for elevated alk phos. Dear Dr. Valente Andino [address] [place] [address] thank you for allowing me to participate in Miss Mercy Hebert care, if there are any questions or concerns please do not hesitate to contact me at the number below. Alexis Hussein M.D. Hematology/Medical Oncology [facility] [phone] CC: DO Varsha Ochoa Lucas, CNP documented in this encounter [facility] 07-22-2023 Note HNO ID: [id number] Author: Romero Sherman APRN.BECCA Service: ? Author Type: Nurse Practitioner Type: Progress Notes Filed: 07/22/2023 10:33 AM Note Text: Rheumatology FOLLOW UP VISIT Date of Service: 07/22/2023 Patient: Mercy Hebert Medical Record: [id number] Primary Care Physician: Mic Maddox CNP Last Rheumatology visit: 07/15/2023 (with Romero Sherman) I have communicated my name and active licensure. The patient's identity and physical location were verified at the time of this visit. Either the patient or their legal provider relations representative has been informed of the risks and benefits of -- and alternatives to -- treatment through a remote evaluation and consents to proceed with the evaluation remotely. History of Present Illness Mercy Hebert is a 37 year old White female who presents on 07/22/2023 for a virtual visit for evaluation of Joint Pain. Mercy reports a current pain level of 6 (Other: See Comment). She describes the pain as Aching, Bloating, Burning, Contraction, Dull, Itching, Numbness, Radiating, Sharp, Shooting, Sore, Spasm, Stiffness, Tightness, Tingling. The pain is Continuous, and has lasted for 36 Months. Interventions tried include Medication, Reposition, Relaxation, Aromatherapy to promote a healing environment, Cold, Distractions, Education, Emotional Support/Reassurance, Exercise, Heat, Music, Pillow support, Positioning, Rocking/holding. Pain from neck on down, joints very stiff. Continue to have the same symptoms of pain, brain fog and fatigue. 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 Last flare up with EBV was a year ago. Initial Visit 07/15/23 Self referred - fatigue, chronic pain Dr Mic Maddox is her PCP. Overall body pain all the time. States her joints are very stiff. Feels Pain in her both heels which is more prominent in the AM. Stopped gluten for a week which she thinks helping her. Stiffness in the AM from mid back to buttock areas. Noticed Joint swelling intermittently in her wrists. 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 She had lumbar puncture in 2019 secondary to suspicion of intracranial hypertension. Result was unremarkable per patient. C/o LBP since then. New Rash medial side of the left elbow for a week. Dry rash between 2nd and 3rd fingers for a month. C/o Brain fog all the time. Had seen neurologist in [place]. Hx of schizoaffective disorder sees psychiatrist every 4-6 weeks. Also sees therapist. C/o body spasm. Takes baclofen which helps has Medical marijuana card. Uses marijuana in different forms - smoke, edible and lotion. She also uses vape. Every day she feel Off balance - feels wobbly. Cardiac work up was unremarkable. Reports had EKG, ECHO She logged in to online account which showed Previous lab from outside of [facility], CCP, ANCA, ESR are negative Did PT couple of years ago. Chronic pain got worse. No known family hx of autoimmune disorder. Denies Chest pain, shortness of breath, history of pleural effusion or pericarditis, oral/nasal ulcers, photosensitivity, rash, history of DVT/PE/ANDor miscarriages (X1, very early in the ), renal disease, seizures, dry eyes, dry mouth, cervical lymphadenopathy or parotid gland swelling, Raynaud's phenomenon, alopecia, psoriasis, history of iritis/uveitis or scleritis, nail pitting, dactylitis, history of sacroilitis or inflammatory bowel disease, arm weakness in raising arms above head, leg weakness in standing up from a seated position, skin tightening, dysphagia, changes in vision, scalp tenderness, jaw claudication, stiffness in shoulders/hip girdle, auricular or nasal chondritis Pain Evaluation Pain Evaluation 07/13/2023 07/13/2023 07/15/2023 07/15/2023 07/21/2023 Pain Score 6 6 6 6 6 Location Other: See Comment Other: See Comment Other: See Comment - Other: See Comment Description Aching;Bloating;Burning;Contractio n;Numbness;Radiating;Sharp;Shootin g;Sore; Spasm;Stiffness;Tightness;Tingling Aching;Bloating;Burning;Contractio n;Numbness;Radiating;Sharp;Shootin g;Sore; Spasm;Stiffness;Tightness;Tingling Aching;Bloating;Burning;Contractio n;Numbness;Radiating;Sharp;Shootin g;Sore; Spasm;Stiffness;Tightness;Tingling - Aching;Bloating;Burning;Contractio n;Dull;Itching;Numbness;Radiating; Sharp;S hooting;Sore;Spasm;Stiffness;Tight ness;Tingling Duration (#) 36 36 36 - 36 Duration (Timeframe) Months Months Months Unknown Months Frequency Continuous Continuous Continuous Continuous Continuous Intervention Medication;Reposition;Relaxation;A romatherapy to promote a healing environment;Cold;Distractions;Educ ation;Emotional Support/Reassurance;Exercise;Heat; Music;Pillow support;Positioning;Other: See comment Medication;Reposition;Relaxation;A romatherapy to promote a healing environment;Cold;Distractions;Educ ation;Emotional Support/Reassurance;Exercise;Heat; Music;Pillow support;Positioning;Other: See comment Medication;Reposition;Relaxation;A romatherapy to promote a healing envi (more content not included)... [facility] 07-15-2023 Note HNO ID: [id number] Author: Janeth Agustin Tech Service: ? Author Type: Inside Technical Sales Representative Type: Progress Notes Filed: 07/15/2023 3:54 PM Note Text: Radiology Service Progress Note PATIENT NAME: Mercy Hebert DATE OF SERVICE: July 15, 2023 TIME: 3:54 PM PATIENT IDENTITY VERIFICATION COMPLETED USING TWO (2) IDENTIFIERS: Name and Date of confirmed by patient verbally. FALL SCREENING: Has the patient had 2 falls in the last year or 1 fall with injury or currently using an Ambulatory Assistive Device (Walker, Cane, Wheelchair, Crutches, etc.)? No PATIENT GENDER DATA: Female. status: : No status: NO. PATIENT RELEVANT IMPLANT DATA REVIEWED: Not Applicable RADIOLOGY DEPARTMENT: General X-ray: Exam(s) Completed: Lower Extremity X-Ray(s): Knee, AP / LAT Bilateral Upper Extremity X-Ray(s): Shoulder, AP / TRUE AP bilateral and Hand, bilateral PERIPHERAL IV DATA: Not applicable SIGNED BY: Lisa Rodriguez July 15, 2023 3:54 PM [facility] 07-15-2023 Instructions Romero Sherman APRN.[facility] - 07/15/2023 4:58 PM EDT Obtain XR Fax the previous lab results to [phone] If you choose to mail the questionnaire that was provided in the office during the visit please send the form to Rheumatologic and Immunology diseases [address] [place] [address]/[place] [address]. Follow up in a week. documented in this encounter [facility] 07-15-2023 History of Present illness Narrative Radiology Service Progress Note PATIENT NAME: Mercy Hebert DATE OF SERVICE: July 15, 2023 TIME: 3:54 PM PATIENT IDENTITY VERIFICATION COMPLETED USING TWO (2) IDENTIFIERS: Name and Date of confirmed by patient verbally. FALL SCREENING: Has the patient had 2 falls in the last year or 1 fall with injury or currently using an Ambulatory Assistive Device (Walker, Cane, Wheelchair, Crutches, etc.)? No PATIENT GENDER DATA: Female. status: : No status: NO. PATIENT RELEVANT IMPLANT DATA REVIEWED: Not Applicable RADIOLOGY DEPARTMENT: General X-ray: Exam(s) Completed: Lower Extremity X-Ray(s): Knee, AP / LAT Bilateral Upper Extremity X-Ray(s): Shoulder, AP / TRUE AP bilateral and Hand, bilateral PERIPHERAL IV DATA: Not applicable SIGNED BY: Lisa Rodriguez July 15, 2023 3:54 PM documented in this encounter [facility] 07-15-2023 Note HNO ID: [id number] Author: Romero Sherman APRN.CNP Service: ? Author Type: Nurse Practitioner Type: Progress Notes Filed: 07/15/2023 5:12 PM Note Text: Rheumatology CONSULTATION Date of Service: 07/15/2023 Patient: Mercy Hebert Medical Record: [id number] Primary Care Physician: No primary care provider on file. Last Rheumatology visit: None at [facility] Referring Provider: No referring provider defined for this encounter. History of Present Illness Mercy Hebert is a 37 year old Declined female who presents on 07/15/2023 for an in-person visit for evaluation of Joint Pain. Mercy reports a current pain level of 6 (Other: See Comment). She describes the pain as Aching, Bloating, Burning, Contraction, Numbness, Radiating, Sharp, Shooting, Sore, Spasm, Stiffness, Tightness, Tingling. The pain is Continuous, and has lasted for 36 Unknown. Interventions tried include Medication, Reposition, Relaxation, Aromatherapy to promote a healing environment, Cold, Distractions, Education, Emotional Support/Reassurance, Exercise, Heat, Music, Pillow support, Positioning, Other: See comment. Pain is all the time (full body spasms often) and gets worse throughout the day with joint stiffness all the time. I medicate with medical marijuana in the evening to relax my body to get more comfortable for sleep.. Mercy Hebert has a past medical history of ADD (attention deficit disorder), Anxiety state, Asthma, Bipolar 2 disorder (HCC), Cervical stenosis of spine, Chronic pain, Essential hypertension, GERD (gastroesophageal reflux disease), Hypothyroidism, Insomnia, Intracranial hypertension, Migraines, PTSD (post-traumatic stress disorder), Renal lithiasis, Restless leg syndrome, Schizoaffective disorder ([facility]), and Sleep apnea.. There is no problem list on file for this patient. Self referred - fatigue, chronic pain Dr Mic Maddox is her PCP. Overall body pain all the time. States her joints are very stiff. Feels Pain in her both heels which is more prominent in the AM. Stopped gluten for a week which she thinks helping her. Stiffness in the AM from mid back to buttock areas. Noticed Joint swelling intermittently in her wrists. 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 She had lumbar puncture in 2019 secondary to suspicion of intracranial hypertension. Result was unremarkable per patient. C/o LBP since then. New Rash medial side of the left elbow for a week. Dry rash between 2nd and 3rd fingers for a month. C/o Brain fog all the time. Had seen neurologist in [place]. Hx of schizoaffective disorder sees psychiatrist every 4-6 weeks. Also sees therapist. C/o body spasm. Takes baclofen which helps has Medical marijuana card. Uses marijuana in different forms - smoke, edible and lotion. She also uses vape. Every day she feel Off balance - feels wobbly. Cardiac work up was unremarkable. Reports had EKG, ECHO She logged in to online account which showed Previous lab from outside of [facility], CCP, ANCA, ESR are negative Did PT couple of years ago. Chronic pain got worse. No known family hx of autoimmune disorder. Denies Chest pain, shortness of breath, history of pleural effusion or pericarditis, oral/nasal ulcers, photosensitivity, rash, history of DVT/PE/ANDor miscarriages (X1, very early in the ), renal disease, seizures, dry eyes, dry mouth, cervical lymphadenopathy or parotid gland swelling, Raynaud's phenomenon, alopecia, psoriasis, history of iritis/uveitis or scleritis, nail pitting, dactylitis, history of sacroilitis or inflammatory bowel disease, arm weakness in raising arms above head, leg weakness in standing up from a seated position, skin tightening, dysphagia, changes in vision, scalp tenderness, jaw claudication, stiffness in shoulders/hip girdle, auricular or nasal chondritis Pain Evaluation Pain Evaluation 04/11/2023 07/13/2023 07/13/2023 07/15/2023 07/15/2023 Pain Score 7 6 6 6 6 Location Other: See Comment Other: See Comment Other: See Comment Other: See Comment - Description Burning;Numbness;Radiating;Shootin g;Sore;Spasm;Stiffness;Tightness Aching;Bloating;Burning;Contractio n;Numbness;Radiating;Sharp;Shootin g;Sore; Spasm;Stiffness;Tightness;Tingling Aching;Bloating;Burning;Contractio n;Numbness;Radiating;Sharp;Shootin g;Sore; Spasm;Stiffness;Tightness;Tingling Aching;Bloating;Burning;Contractio n;Numbness;Radiating;Sharp;Shootin g;Sore; Spasm;Stiffness;Tightness;Tingling - Duration (#) 36 36 36 36 - Duration (Timeframe) Months Months Months Months Unknown Frequency Continuous Continuous Continuous Continuous Continuous Intervention Medication;Reposition;Relaxation;A romatherapy to promote a healing environment;Cold;Distractions;Educ ation;Emotional Support/Reassurance;Exercise;Heat; Imagery;Massage;Music;Pillow support;Positioning Medication;Reposition;Relaxation;A romatherapy to promote a healing environment;Cold;Distractions;Educ ation;Emotional Sup (more content not included)... [facility] 07-15-2023 History of Present illness Narrative Images from the original note were not included. Rheumatology CONSULTATION Date of Service: 07/15/2023 Patient: Mercy Hebert Medical Record: [id number] Primary Care Physician: No primary care provider on file. Last Rheumatology visit: None at [facility] Referring Provider: No referring provider defined for this encounter. History of Present Illness Mercy Hebert is a 37 year old Declined female who presents on 07/15/2023 for an in-person visit for evaluation of Joint Pain. Mercy reports a current pain level of 6 (Other: See Comment). She describes the pain as Aching, Bloating, Burning, Contraction, Numbness, Radiating, Sharp, Shooting, Sore, Spasm, Stiffness, Tightness, Tingling. The pain is Continuous, and has lasted for 36 Unknown. Interventions tried include Medication, Reposition, Relaxation, Aromatherapy to promote a healing environment, Cold, Distractions, Education, Emotional Support/Reassurance, Exercise, Heat, Music, Pillow support, Positioning, Other: See comment. Pain is all the time (full body spasms often) and gets worse throughout the day with joint stiffness all the time. I medicate with medical marijuana in the evening to relax my body to get more comfortable for sleep.. Mercy Hebert has a past medical history of ADD (attention deficit disorder), Anxiety state, Asthma, Bipolar 2 disorder (HCC), Cervical stenosis of spine, Chronic pain, Essential hypertension, GERD (gastroesophageal reflux disease), Hypothyroidism, Insomnia, Intracranial hypertension, Migraines, PTSD (post-traumatic stress disorder), Renal lithiasis, Restless leg syndrome, Schizoaffective disorder (HCC), and Sleep apnea.. There is no problem list on file for this patient. Self referred - fatigue, chronic pain Dr Mic Maddox is her PCP. Overall body pain all the time. States her joints are very stiff. Feels Pain in her both heels which is more prominent in the AM. Stopped gluten for a week which she thinks helping her. Stiffness in the AM from mid back to buttock areas. Noticed Joint swelling intermittently in her wrists. 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 She had lumbar puncture in 2019 secondary to suspicion of intracranial hypertension. Result was unremarkable per patient. C/o LBP since then. New Rash medial side of the left elbow for a week. Dry rash between 2nd and 3rd fingers for a month. C/o Brain fog all the time. Had seen neurologist in [place]. Hx of schizoaffective disorder sees psychiatrist every 4-6 weeks. Also sees therapist. C/o body spasm. Takes baclofen which helps has Medical marijuana card. Uses marijuana in different forms - smoke, edible and lotion. She also uses vape. Every day she feel Off balance - feels wobbly. Cardiac work up was unremarkable. Reports had EKG, ECHO She logged in to online account which showed Previous lab from outside of [facility] RF, CCP, ANCA, ESR are negative Did PT couple of years ago. Chronic pain got worse. No known family hx of autoimmune disorder. Denies Chest pain, shortness of breath, history of pleural effusion or pericarditis, oral/nasal ulcers, photosensitivity, rash, history of DVT/PE/&or miscarriages (X1, very early in the ), renal disease, seizures, dry eyes, dry mouth, cervical lymphadenopathy or parotid gland swelling, Raynaud's phenomenon, alopecia, psoriasis, history of iritis/uveitis or scleritis, nail pitting, dactylitis, history of sacroilitis or inflammatory bowel disease, arm weakness in raising arms above head, leg weakness in standing up from a seated position, skin tightening, dysphagia, changes in vision, scalp tenderness, jaw claudication, stiffness in shoulders/hip girdle, auricular or nasal chondritis Pain Evaluation Pain Evaluation 04/11/2023 07/13/2023 07/13/2023 07/15/2023 07/15/2023 Pain Score 7 6 6 6 6 Location Other: See Comment Other: See Comment Other: See Comment Other: See Comment - Description Burning;Numbness;Radiating;Shootin g;Sore;Spasm;Stiffness;Tightness Aching;Bloating;Burning;Contractio n;Numbness;Radiating;Sharp;Shootin g;Sore;Spasm;Stiffness;Tightness;T ingling Aching;Bloating;Burning;Contractio n;Numbness;Radiating;Sharp;Shootin g;Sore;Spasm;Stiffness;Tightness;T ingling Aching;Bloating;Burning;Contractio n;Numbness;Radiating;Sharp;Shootin g;Sore;Spasm;Stiffness;Tightness;T ingling - Duration (#) 36 36 36 36 - Duration (Timeframe) Months Months Months Months Unknown Frequency Continuous Continuous Continuous Continuous Continuous Intervention Medication;Reposition;Relaxation;A romatherapy to promote a healing environment;Cold;Distractions;Educ ation;Emotional Support/Reassurance;Exercise;Heat; Imagery;Massage;Music;Pillow support;Positioning Medication;Reposition;Relaxation;A romatherapy to promote a healing environment;Cold;Distractions;Educ ation;Emotional Support/Reassurance;Exercise;Heat; Music;Pillow support;Positioning;Other: See comment Medication;Reposition;Relaxation;A romatherapy to promote a healing environment;Cold;Distractions;Educ ation;Emotional Support/Reassurance;Exercise;Heat; Music;Pillow support;Positioning;Other: See comment Medication;Reposition;Relaxation;A romatherapy to promote a healing environment;Cold;Distractions;Educ ation;Emotional Support/Reassurance;Exercise;Heat; Music;Pillow support;Positioning;Other: See comment - Patient-Entered Data PROMIS Assessments PROMIS Global Health - (T-Scores - the mean of general population = 50. Five points is a clinically meaningful difference.) 07/13/2023 07/13/2023 07/15/2023 Physical T-Score 26.7 26.7 26.7 Mental T-Score 31.3 31.3 31.3 PROMIS CAT Pain Interference 02/25/2023 04/11/2023 07/13/2023 PROMIS Pain Interference T-Score (range: 10 - 90) 72 (severe) 71 (severe) 71 (severe) PROMIS Pain Interference Percentile 1 % 2 % 2 % PROMIS CAT Fatigue 04/11/2023 07/13/2023 PROMIS Fatigue T-Score 74 (severe) 69 (moderate) PROMIS Fatigue Percentile 1 % 3 % PROMIS PHYSICAL FUNCTION T-SCORE 02/25/2023 04/11/2023 07/13/2023 PROMIS Physical Function T-Score 27 (severe dysfunction) 27 (severe dysfunction) 34 (moderate dysfunction) Physical Function Percentile 1 % 1 % 5 % RAPID 3 [place] Activities of Daily Living 07/15/2023 8:14 AM 07/13/2023 12:10 PM 04/11/2023 1:21 PM Dress self? With SOME difficulty With SOME difficulty With SOME difficulty Get in and out of bed? With SOME difficulty With SOME difficulty With SOME difficulty Walk outdoors? With SOME difficulty With SOME difficulty With SOME difficulty Wash and dry body? With SOME difficulty With SOME difficulty With SOME difficulty Get in and out of car? With SOME difficulty With SOME difficulty With SOME difficulty RAPID 3 Disease Activity Weighed Score Levels: 0 - 1: Near Remission 1.3 - 2.0: Low Severity 2.3 - 4.0: Moderate Severity 4.3 - 10.0: High Severity RAPID-3 Weighed Score 04/11/2023 07/13/2023 07/15/2023 RAPID 3 Weighed Score 7.44 (High Severity (HS)) 7.44 (High Severity (HS)) 7.44 (High Severity (HS)) RAPID-3 07/15/2023 Weighed Score Percentage Change Compared to Last Score 0 % Review of Systems Review of Systems CONSTITUTION: Positive for: Recent weight change Negative for: Fever HEENT: Positive for: Dry mouth Negative for: Nosebleeds, Mouth sores and Trouble swallowing RESPIRATORY: Positive for: Cough Negative for: Shortness of breath, Pain with breathing and Coughing up blood GASTROINTESTINAL: Positive for: Heartburn Negative for: Melena, Diarrhea and Abdominal pain MUSCULOSKELETAL: Positive for: Arthralgias, Myalgias, Muscle weakness, Joint swelling and Morning Joint Stiffness NEUROLOGICAL: Positive for: Headaches, Numbness and Memory loss SKIN: Positive for: Rash and Hair loss Negative for: Sun Sensitive Rash, Skin changes and Nail changes EYES: Negative for: Eye pain, Eye redness, Eye dryness and visual disturbance CARDIOVASCULAR: Negative for: Chest pain and Leg swelling GENITOURINARY: Negative for: Dysuria and Hematuria HEMATOLOGIC/LYMPHATIC: Negative for: Swollen glands All other reviewed and negative other than HPI. Past Medical History PAST MEDICAL HISTORY Diagnosis Date ADD (attention deficit disorder) Anxiety state Asthma Bipolar 2 disorder (HCC) Cervical stenosis of spine Chronic pain Essential hypertension GERD (gastroesophageal reflux disease) Hypothyroidism Insomnia Intracranial hypertension Migraines PTSD (post-traumatic stress disorder) Renal lithiasis Restless leg syndrome Schizoaffective disorder (HCC) Sleep apnea Past Surgical History PAST SURGICAL HISTORY Procedure Laterality Date SECTION HX 2006 REMOVAL GALLBLADDER 2008 Family History FAMILY HISTORY Problem Relation Age of Onset other (kidney cancer) Father Heart disease Father No Known Problems Sister No Known Problems Brother Social History Social History Tobacco Use Smoking status: Former Packs/day: 0.25 Years: 21.00 Additional pack years: 0.00 Total pack years: 5.25 Types: Cigarettes Smokeless tobacco: Current Vaping Use Vaping Use: current everyday user Substances: Nicotine Substance Use Topics Alcohol use: Never Drug use: Yes Types: Marijuana Current Medications Current Outpatient Medications Medication Sig ondansetron (ZOFRAN) 4 mg tablet TAKE 1 TABLET BY MOUTH 3 TIMES DAILY NEEDED FOR NAUSEA OR VOMITING rizatriptan (MAXALT) 10 mg tablet TAKE ONE TAB AT HEADACHE ONSET,MAY REPEAT IN 2 HOURS IF NEEDED, MAX 2/DAY 4 DAYS OUT OF THE WEEK verapamil ER 180 mg 24 hr capsule hydrOXYzine pamoate (VISTARIL) 25 mg capsule TAKE 1 CAPSULE BY MOUTH 2 TIMES A DAY NEEDED FOR ANXIETY. nicotine (NICODERM) 14 mg/24 hr APPLY 1 PATCH IN THE AM, REMOVE AT BEDTIME baclofen 10 mg tablet Take 0.5-1 tablets by mouth twice daily as needed (spasms or pain). acetaZOLAMIDE SR (DIAMOX SEQUELS) 500 mg capsule Take 500 mg by mouth twice daily. VENTOLIN HFA 90 mcg/actuation inhaler Inhale 1 Puff as instructed four times daily. DULoxetine (CYMBALTA) 60 mg capsule Take 60 mg by mouth every morning. WIXELA INHUB 500-50 mcg/dose dsdv Inhale 1 Puff as instructed twice daily. levothyroxine (SYNTHROID) 25 mcg tablet Take 0.5 tablets by mouth once daily. lisdexamfetamine (VYVANSE) 30 mg capsule Take 1 capsule by mouth q 24 HR. losartan (COZAAR) 100 mg tablet Take 1 tablet by mouth once daily. nystatin (MYCOSTATIN) 100,000 unit/mL suspension Take 1 Units by mouth as needed. omeprazole (PRILOSEC) 20 mg capsule Take 20 mg by mouth once daily. QUEtiapine ER (SEROQUEL XR) 200 mg 24 hr tablet Take 1 tablet by mouth once daily. Taking 300 mg daily tiotropium bromide (SPIRIVA RESPIMAT) 1.25 mcg/actuation mist Inhale 2 Puffs as instructed once daily. pregabalin (LYRICA) 75 mg capsule Take 1 capsule by mouth twice daily for 150 days. (Patient taking differently: Take 75 mg by mouth twice daily. 100 mg) Cholecalciferol, Vitamin D3, 25 mcg (1,000 unit) cap Take 1 capsule by mouth once daily. VICTOZA 3-DEB 0.6 mg/0.1 mL (18 mg/3 mL) Inject 1 mg subcutaneously once daily. EASY COMFORT PEN NEEDLES 31 gauge x 3/16 Inject 1 Each subcutaneously once daily. rOPINIRole (REQUIP) 0.5 mg tablet Take 1 tablet by mouth once daily. SUMAtriptan (IMITREX) 100 mg tablet Take 1 tablet by mouth as needed. Labs Patient logged in to her online medical portfolio. RF, CCP, WSR, CRP and ANCA were WNL. Imaging MRI Brain 03/2023 IMPRESSION: Unremarkable MRI brain with and without contrast. MRI Cervical 03/2023 IMPRESSION: Degenerative changes most severe at C5-C6 and C6-C7 as itemized above. Findings appear comparable to prior exam. Health Maintenance Current Immunizations Reviewed on 07/15/2023 No immunizations on file. Physical Exam GENERAL APPEARANCE: Well groomed. Alert and oriented x 3. In no distress. VITAL SIGNS: BP 127/71 Pulse 68 Wt 308 lb 9.6 oz (140.0kg) Physical Exam Constitutional: Appearance: Normal appearance. Cardiovascular: Rate and Rhythm: Normal rate and regular rhythm. Pulses: Normal pulses. Pulmonary: Effort: Pulmonary effort is normal. Breath sounds: Normal breath sounds. Musculoskeletal: General: Tenderness present. Normal range of motion. Cervical back: Normal range of motion. Skin: General: Skin is warm. Capillary Refill: Capillary refill takes less than 2 seconds. Findings: Rash present. Neurological: General: No focal deficit present. Mental Status: She is alert and oriented to person, place, and time. Psychiatric: Mood and Affect: Mood normal. Joint Exam 07/15/2023 Right Left Glenohumeral Tender Tender Elbow Tender Tender MCP 5 Tender Thoracic Spine Tender Lumbar Spine Tender Knee Tender Tender MTP 3 Tender MTP 5 Tender The following joints were examined and normal: Left Sternoclavicular, Right Sternoclavicular, Left Acromioclavicular, Right Acromioclavicular, Left Wrist, Right Wrist, Left MCP 1, Right MCP 1, Left MCP 2, Right MCP 2, Left MCP 3, Right MCP 3, Left MCP 4, Right MCP 4, Right MCP 5, Left IP, Right IP, Left PIP 2, Right PIP 2, Left PIP 3, Right PIP 3, Left PIP 4, Right PIP 4, Left PIP 5, Right PIP 5, Left Ankle, Right Ankle, Left MTP 1, Right MTP 1, Left MTP 2, Right MTP 2, Left MTP 3, Left MTP 4, Right MTP 4, Right MTP 5 Joint Exam Data (across time) Joint Exam 07/15/2023 Total Tender 7 Total Swollen 0 Impression ASSESSMENT/PLAN: 1. Polyarthralgia - ICD9: 719.49, ICD10: M25.50 Multi site pain on exam. Joint pain but no synovitis on exam. C/o brain fog. Fatigue. Hx of anxiety and depression. Previous labs negative for RF, CCP, ESR, CRP and ANCA. She was instructed to fax the results to my office. Chronic LBP. Sees spine and neurology. Chronic neck pain. Will do PT for neck. Less likely inflammatory arthritis. Suspicion of fibromyalgia. Provided Fibro questionnaire. After filling it up She will either leave it at the front maker or mail it back to us. If outside lab results are not available will do the labs later. XR today. - XR HAND/WRIST SURVEY ARTHRITIS 1V PA BILATERAL - XR SHOULDER GENERAL 3V OR MORE AP/TRUE AP/OTHER LEFT - XR SHOULDER GENERAL 3V OR MORE AP/TRUE AP/OTHER RIGHT - XR KNEE GENERAL 4V AP BOTH/PA BOTH/LAT/MERC BILATERAL - VITAMIN D 25 HYDROXY - CBC + DIFF - COMP METABOLIC PANEL - RHEUMATOID FACTOR BL - CCP ANTIBODY IGG Romero Sherman APRN.WATER PUMPER Return in about 2 weeks (around 07/29/2023). I spent a total of 75 minutes on the date of the service which included preparing to see the patient, [id number] patient care, completing clinical documentation, obtaining and/or reviewing separately obtained history, performing a medically appropriate examination, counseling and educating the patient/family/caregiver, and ordering medications, tests, or procedures. Medical Decision Making: Medical Decision Making Level: 1 - N/A ___ Romero Sherman APRN.CNP Rheumatology Date: July 13, 2023 Time: 4:50 PM documented in this encounter [facility] 06-17-2023 Note Patient Outreach (UR OLMN) JOSEMERCY ([id number]) 1985 F Date Time Provider Department 06/17/23 [facility] During your visit today, we recorded the following information about you: Allergies As of Date: 06/17/2023 Noted Allergy Reaction AMOXICILLIN 06/16/2023 5 - Intolerance Comments: Pt reports it gives her bad yeast infections LITHIUM 06/16/2023 1 - Mental Status Change NSAIDS (NON-STEROIDAL ANTI-INFLAM*06/16/2023 16 - Unknown Comments: Pt reports it effects her kdineys Date Reviewed: 06/16/2023 Reviewed by: Jessica Gutierrez, RN - Fully Assessed Visit Diagnosis:Screening for genitourinary condition [Z13.89] Order(s):URINALYSIS, REFLEX MICROSCOPIC [[id number]] Order #: [id number]. #:[id number] Prescriptions as of 06/22/2023 - baclofen 10 mg tablet TAKE 0.5-1 TABLETS BY MOUTH TWICE DAILY NEEDED (SPASMS OR PAIN). - acetaminophen (TYLENOL) 500 mg tablet Take 500 mg by mouth. - acetaZOLAMIDE SR (DIAMOX SEQUELS) 500 mg capsule Take 1 capsule by mouth twice daily. - albuterol (PROVENTIL) 2.5 mg /3 mL (0.083 %) nebulizer solution Inhale 2.5 mg as instructed every 6 hours as needed. - albuterol HFA (VENTOLIN HFA) 90 mcg/actuation inhaler Inhale 2 Puffs as instructed every 4 hours as needed. - DULoxetine (CYMBALTA) 60 mg capsule Take 60 mg by mouth. - fluticasone-salmeterol (WIXELA INHUB) 500-50 mcg/dose dsdv INHALE 1 PUFF BY MOUTH EVERY 12 HOURS - furosemide (LASIX) 20 mg tablet - levothyroxine (SYNTHROID) 25 mcg tablet Take 1 tablet by mouth once daily. - lisdexamfetamine (VYVANSE) 30 mg capsule Take 30 mg by mouth. - losartan (COZAAR) 100 mg tablet Take 1 tablet by mouth every afternoon. - nystatin (MYCOSTATIN) 100,000 unit/mL suspension SWISH AND SWALLOW 5ML BY MOUTH 4 TIMES A DAY - omeprazole (PRILOSEC) 20 mg capsule Take 20 mg by mouth. - ondansetron (ZOFRAN) 4 mg tablet Take 4 mg by mouth. - potassium chloride 20 mEq TbER - pregabalin (LYRICA) 75 mg capsule TAKE 1 CAPSULE BY MOUTH TWICE DAILY FOR 150 DAYS. - QUEtiapine XR (SEROQUEL XR) 300 mg 24 hr tablet Take 300 mg by mouth. - SUMAtriptan (IMITREX) 100 mg tablet TAKE 1 TAB BY MOUTH AT ONSET OF HEADACHE*MAY REPEAT IN 1 HOUR*NO MORE THAN 2 PER DAY/4 DAYS PER WEEK - tiotropium bromide (SPIRIVA RESPIMAT) 1.25 mcg/actuation mist - verapamil SR (CALAN SR) 180 mg CR tablet TAKE ONE TABLET BY MOUTH ONCE DAILY AT NIGHT - hydrOXYzine HCl (ATARAX) 50 mg tablet Take 50 mg by mouth four times daily as needed. Problem List As Of Date: 06/17/2023 (None) Encounter Status:Closed by [place], PRODUSER on 06/22/23 [facility] 06-17-2023 Note HNO ID: [id number] Author: Cher Lynch PA Service: ? Author Type: Physician Integrated Circuit Fabricator Type: Progress Notes Filed: 06/17/2023 11:17 AM Note Text: [facility] FEMALE PATIENT - HISTORY AND PHYSICAL EXAMINATION Consultation requested by Dr. Bobby for an opinion regarding microscopic hematuria. My final recommendations will be communicated back to the requesting physician by way of shared Medical record or letter to requesting physician via US mail. PATIENT: Mercy Hebert (37 year old) PCP: Mic Maddox CNP CHIEF COMPLAINT: ED follow up, microscopic hematuria HISTORY OF PRESENT ILLNESS: Mercy Hebert is a 37 year old female who presents for ED follow up and microscopic hematuria She is referred by Dr. Bobby She presented to [place] ED on 06/16/2023 for general body swelling. An acute process was not found, however she was incidentally noted to have microscopic hematuria on UA 3+ hemoglobin and 6-10 RBC/HPF Notes that May 09, she gained 20 lbs overnight. 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 No longer takes lithium She notes that she is currently menstruating - this began about 2 days ago She has never had microscopic or gross hematuria before Positive hx of kidney stones 2 years ago - passed this on her own Denies any current urinary issues - denies frequency, urgency or dysuria Denies recent unintentional weight loss, fever or chills PMH: hx of CARMENZA requiring dialysis, pseudotumor cerebri, asthma, HTN, hypothyroidism, hx of encephalopathy, bipolar disorder, hx of vitamin D deficiency, hx of anemia, GERD, IBS, fatty liver, endometriosis, CARMEN on C-PAP, schizoaffective disorder PSH: , cholecystectomy, 2 ex-laps, tubal ligation Social hx: former smoker quit 1.5 years ago 10 pack year hx Family hx: father with kidney cancer REVIEW OF SYSTEMS: CONSTITUTIONAL: no recent illnesses, normal energy levels, no pain GASTROINTESTINAL: positive constipation, no diarrhea, no bloody stool GENITOURINARY: see history of present illness HISTORY: No past medical history on file. No past surgical history on file. No family history on file. MEDICATIONS: Current Outpatient Medications Medication Sig baclofen 10 mg tablet TAKE 0.5-1 TABLETS BY MOUTH TWICE DAILY NEEDED (SPASMS OR PAIN). acetaminophen (TYLENOL) 500 mg tablet Take 500 mg by mouth. acetaZOLAMIDE SR (DIAMOX SEQUELS) 500 mg capsule Take 1 capsule by mouth twice daily. albuterol (PROVENTIL) 2.5 mg /3 mL (0.083 %) nebulizer solution Inhale 2.5 mg as instructed every 6 hours as needed. albuterol HFA (VENTOLIN HFA) 90 mcg/actuation inhaler Inhale 2 Puffs as instructed every 4 hours as needed. DULoxetine (CYMBALTA) 60 mg capsule Take 60 mg by mouth. fluticasone-salmeterol (WIXELA INHUB) 500-50 mcg/dose dsdv INHALE 1 PUFF BY MOUTH EVERY 12 HOURS furosemide (LASIX) 20 mg tablet levothyroxine (SYNTHROID) 25 mcg tablet Take 1 tablet by mouth once daily. lisdexamfetamine (VYVANSE) 30 mg capsule Take 30 mg by mouth. losartan (COZAAR) 100 mg tablet Take 1 tablet by mouth every afternoon. nystatin (MYCOSTATIN) 100,000 unit/mL suspension SWISH AND SWALLOW 5ML BY MOUTH 4 TIMES A DAY omeprazole (PRILOSEC) 20 mg capsule Take 20 mg by mouth. ondansetron (ZOFRAN) 4 mg tablet Take 4 mg by mouth. potassium chloride 20 mEq TbER pregabalin (LYRICA) 75 mg capsule TAKE 1 CAPSULE BY MOUTH TWICE DAILY FOR 150 DAYS. QUEtiapine XR (SEROQUEL XR) 300 mg 24 hr tablet Take 300 mg by mouth. SUMAtriptan (IMITREX) 100 mg tablet TAKE 1 TAB BY MOUTH AT ONSET OF HEADACHE*MAY REPEAT IN 1 HOUR*NO MORE THAN 2 PER DAY/4 DAYS PER WEEK tiotropium bromide (SPIRIVA RESPIMAT) 1.25 mcg/actuation mist verapamil SR (CALAN SR) 180 mg CR tablet TAKE ONE TABLET BY MOUTH ONCE DAILY AT NIGHT hydrOXYzine HCl (ATARAX) 50 mg tablet Take 50 mg by mouth four times daily as needed. No current facility-administered medications for this visit. PHYSICAL EXAMINATION: VITALS: BP 112/79 (BP Site: Left Arm, BP Position: Sitting, BP Cuff Size: Extra Large Adult) Pulse 79 Wt (!) 140.1 kg (308 lb 12.8 oz) BMI 54.70 kg/m? GENERAL: alert, in no acute distress, normal affect RESPIRATORY: normal effort, regular rate, no audible wheeze ABDOMEN: soft, non-tender, non-distended GENITOURINARY: no flank tenderness EXTREMITIES: warm, no dependent edema, no malformations OFFICE DATA: URINALYSIS: pending OTHER DATA: Creatinine Date Value Ref Range Status 06/16/2023 0.89 0.58 - 0.96 mg/dL Final ASSESSMENT: Mercy Hebert is a 37 year old female who was referred for microscopic hematuria Microscopic hematuria - She informed me that she started her menstrual cycle about 3 days. The smalla mount of blood in her urine is most likely due to menstruation (more content not included)... [facility] 06-16-2023 Note HNO ID: [id number] Author: Ruth Donohue RT(R) Service: Radiology Author Type: Technologist Type: Progress Notes Filed: 06/16/2023 4:26 PM Note Text: Radiology Service Progress Note PATIENT NAME: Mercy Greenberg DATE OF SERVICE: June 16, 2023 TIME: 4:25 PM PATIENT IDENTITY VERIFICATION COMPLETED USING TWO (2) IDENTIFIERS: Name and Date of confirmed by patient verbally and Name and Date of confirmed by identification band. FALL SCREENING: Has the patient had 2 falls in the last year or 1 fall with injury or currently using an Ambulatory Assistive Device (Walker, Cane, Wheelchair, Crutches, etc.)? Emergency Room Patient: Screened in ED PATIENT GENDER DATA: Female. status: : No status: NO. PATIENT RELEVANT IMPLANT DATA REVIEWED: Not Applicable RADIOLOGY DEPARTMENT: General X-ray: Exam(s) Completed: Chest X-Ray PERIPHERAL IV DATA: Not applicable SIGNED BY: RT Nita(R) June 16, 2023 4:25 PM [facility] 06-05-2023 Miscellaneous Notes v documented in this encounter [facility] 05-20-2023 Evaluation note Encounter Date Diagnosis Assessment Notes Apr, Obesity (ICD-10 - E66.9) Continue Victoza at the low-dose 0.6 mg she seems to be tolerating well and making decent progress. She reports that her weight was down to 277 per her home scale prior to her allergic reaction and steroid doses a couple weeks ago. She feels positive effects of the Victoza being able to control portion sizes and make some better choices. Praised her in her efforts so far. Again there are a lot of variables to tease out with her reported weight (40 pounds?) She did not follow through with recommended follow-up x6 weeks therefore unsure of her tracked progress in between. Continue Victoza 0.6 mg (she has multiple contraindications to other medications for weight loss) I am not overtly concerned about a allergic reaction specifically however thyroid and neck ultrasound monitoring may be considered. We will request previous ultrasound studies for baseline she denies that there were any abnormalities identified previously. Will obtain ER records from [facility] [facility] for review as well as the thyroid ultrasound that she states she had in November or December of this year Continue to engage with the dietitian she is scheduled on 06/16 Hopefully as she gets further away from the steroid dosing and allergic reaction things will stablize We will follow with mental health concerns and new diagnosis of hair pulling disorder Follow-up with and continue to follow with Dr. Mendez due to complex medical comorbidities Apr, Anxiety (ICD-10 - F41.9) Apr, Bipolar disorder (ICD-10 - F31.9) She is on some weight positive medications including Seroquel at a high dose which may be contributing as well to her weight gain. She is aware of the risks and benefits of these medications and is working with her psychiatrist Apr, Back pain (ICD-10 - M54.9) Apr, Depression (ICD-10 - F32.9) Apr, Asthma (ICD-10 - J45.909) Apr, ADHD (ICD-10 - F90.9) Apr, GERD (gastroesophageal reflux disease) (ICD-10 - K21.9) Apr, Migraine (ICD-10 - G43.909) Apr, CARMEN on CPAP (ICD-10 - G47.33) Continues to be compliant with her sleep apnea machine. Praised her for doing so Apr, Pre-diabetes (ICD-10 - R73.09) Apr, Fatty liver (ICD-10 - K76.0) Apr, Restless leg syndrome (ICD-10 - G25.81) Apr, Sciatica (ICD-10 - M54.30) Apr, Daytime sleepiness (ICD-10 - R40.0) Apr, Hypothyroid (ICD-10 - E03.9) Apr, Pseudotumor cerebri syndrome (ICD-10 - G93.2) Apr, Schizoaffective disorder (ICD-10 - F25.9) Apr, Hyperlipidemia (ICD-10 - E78.5) Apr, Chronic pain (ICD-10 - G89.29) Apr, Encounter for weight management (ICD-10 - Z76.89) [employer] Other 06-30-2023 Miscellaneous Notes* Telephone Encounter - Snehal Cotadmitri - 04/24/2023 3:10 PM EDT 04/24/2023 Pt at this time wants to continue with medication management per my phone call to her and will reach out via [employer] if she has any changes to this plan. 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 Mary'[facility]06-15-2023 Miscellaneous Notes* [facility] - Blessed Dey RT(R) - 04/09/2023 3:20 PM EDT Radiology Service Progress Note PATIENT NAME: Mercy Hebert DATE OF SERVICE: April 09, 2023 TIME: 4:45 PM PATIENT IDENTITY VERIFICATION COMPLETED USING TWO (2) IDENTIFIERS: Name and Date of confirmedby patient verbally and Name and Date of confirmed by identification band. FALL SCREENING: Has the patient had 2 falls in the last year or 1 fall with injury or currently using an Ambulatory Assistive Device (Walker, Cane, Wheelchair, Crutches, etc.)? No PATIENT GENDER DATA: Female. status: : No status: NO. PATIENT RELEVANT IMPLANT DATA REVIEWED: Yes RADIOLOGY DEPARTMENT: MR; Exam(s) Completed: Head: Multiple Sclerosis PERIPHERAL IV DATA: Site assessment: Clean,Dry and Intact, Site disposition Discontinued SIGNED BY: RT Ryan(Ksenia) April 09, 2023 4:45 PM documented in this encounterSt. Mary'[facility]06-15-2023 Nurse Note* Emili Greene RN - 04/09/2023 3:20 PM EDT Radiology Service Progress Note DATE OF SERVICE: April 09, 2023 TIME: 3:43 PM PATIENT WEIGHT: 299 LBS PATIENT IDENTITY VERIFICATION COMPLETED USING TWO (2) STANDARD IDENTIFIERS: Name and Date of confirmed by patient verbally. FALL SCREENING: Has the patient had 2 falls in the last year or 1 fall with injury or currently using an Ambulatory Assistive Device (Walker, Cane, Wheelchair, Crutches, etc.)? No PATIENT GENDER DATA: Female. status: : No status: NO. ALLERGIES: Reviewed and unchanged CONTRAST ALLERGY: No EXAM: MRI - CONTRAST TYPE: GROUP I OR GROUP III RISK FACTORS: History of hypertension requiring medical therapy CREATININE: No results found for: CREAT, EGFROTH, EGFRAA P.O.C.T. RESULTS: N/A April 09, 2023 TREATMENT: N/A and No Hydration needed. IV SITE: Ambulatory: A peripheral IV was started in the Right forearm with a Angio cath: 20 gauge. IV SITE APPEARANCE: Clean,Dry and Intact placed with ultrasound guidance by Milena Plascencia RN SIGNATURE: Emili Greene RN PATIENT NAME: Mercy Hebert DATE: April 09, 2023 TIME: 3:43 PM documented in this encounterSt. Mary'[facility]06-14-2023 Miscellaneous Notes* [facility] - Mary Nuñez, RT(R) - 04/08/2023 2:40 PM EDT Radiology Service Progress Note PATIENT NAME: Mercy Hebert DATE OF SERVICE: April 08, 2023 TIME: 4:49 PM PATIENT IDENTITY VERIFICATION COMPLETED USING TWO (2) IDENTIFIERS: Name and Date of confirmedby patient verbally and Name and Date of confirmed by identification band. FALL SCREENING: Has the patient had 2 falls in the last year or 1 fall with injury or currently using an Ambulatory Assistive Device (Walker, Cane, Wheelchair, Crutches, etc.)? No PATIENT GENDER DATA: Female. status: : No status: NO. PATIENT RELEVANT IMPLANT DATA REVIEWED: Yes RADIOLOGY DEPARTMENT: MR; Exam(s) Completed: Spine: Cervical spine PERIPHERAL IV DATA: Site assessment: Clean,Dry and Intact, Site disposition Discontinued SIGNED BY: RT Barak(R) April 08, 2023 4:49 PM documented in this encounterSt. Mary'S [facility] Center06-14-2023 Nurse Note* Mitali Dang RN - 04/08/2023 2:40 PM EDT Radiology Service Progress Note DATE OF SERVICE: April 08, 2023 TIME: 3:31 PM PATIENT WEIGHT: 305 LBS PATIENT IDENTITY VERIFICATION COMPLETED USING TWO (2) STANDARD IDENTIFIERS: Name and Date of confirmed by patient verbally and Name and Date of confirmed by identification band. FALL SCREENING: Has the patient had 2 falls in the last year or 1 fall with injury or currently using an Ambulatory Assistive Device (Walker, Cane, Wheelchair, Crutches, etc.)? No PATIENT GENDER DATA: Female. status: : No status: NO. ALLERGIES: Reviewed and unchanged CONTRAST ALLERGY: No EXAM: MRI - CONTRAST TYPE: GROUP II IV SITE: Ambulatory: A peripheral IV was started in the Right forearm with a Angio cath: 20 gauge. 2 inch catheter via ultrasound IV SITE APPEARANCE: Clean,Dry and Intact SIGNATURE: Mitali Dang RN PATIENT NAME: Mercy Hebert DATE: April 08, 2023 TIME: 3:31 PM documented in this encounterSt. Mary'S [facility] Center05-05-2023 Miscellaneous Notes* Telephone Encounter - Snehal Small - 02/27/2023 11:24 AM EDT 02/27/2023 Pt's after visit note faxed to Dr. Alvin Das [phone], Valente Maddox [facility] [phone],Elton Rodriguez [place] [phone] all 3 with confirmations received. Snehal Small Lpn documented in this encounterSt. Mary'S [facility] Center05-04-2023 Miscellaneous Notes* Telephone Encounter - Snehal Small - 02/26/2023 10:51 AM EDT 02/26/2023 Disc 1 [facility] testing from 02/06/21 through 05/02/2020 downloaded. Disc 2 [facility] testing from 10/15/2021 through 03/26/2020 downloaded. Original Discs mailed back to pts home address. Snehal Small Lpn documented in this encounterSt. Mary'S Medical Center05-03-2023 NoteHNO ID: [id number] Author: Nilam Hanson, DO Service: ? Author Type: Physician Type: Progress Notes Filed: 02/26/2023 5:34 PM Note Text: [facility] [place] New Patient Consultation February 25, 2023 HPI: Ms. Hebert, who is accompanied today by her father, presents today secondary to issues of neurologic concerns. She states that she has a lumbar puncture in 06/22/2020 and had lower back pains since then. She describes having pain that began in the lower back that has spread to now involve the entire body. She notes activity seems to be the trigger. She states she has issues taking care of ADL's such as standing at the stove and cooking, cleaning. She has been seeing a local neurologist and had the spinal tap secondary to suspicion of intracranial hypertension. She believes the opening pressure was 27 and closing pressure 14 as via radiology.. In the spinal tap she states her anxiety was high and muscle were tense. She notes pain afterwards in the area of the procedure. She denies there was any redness or irritation. She did not have fever or stiffness in the neck afterwards. She cannot recall exactly how the pain spread onlyt that is begins in her lower back and then radiates down into her legs. After a few months she began to notice pain in other parts of the body including the neck. Currently she describes pain in her lower back that begins each morning and then pain throughout other parts of the body. She notes if she does any activities the pain intensifies and then lasts all day long. In the last two weeks she notes feeling weakness in the left upper extremity. She also feels a loss of balance as of two weeks ago. She can recall having a door handle hit her in the lower thoracic region as a door came back to hit her near the same time as only real change. In workup she saw the neurologist and had the spinal tap and was started on diamox at 500 mg BID and verapamil. She denies side effects to these and notes improvement in her overall headaches since these were started. For the weakness and pains she has had physical therapy targeted to the lower back and hips. She stopped this as it increased her overall pains. Her greatest pains are in the lower back. She had x-rays and MRI imaging brain and cervical, and lumbar spine. In this she was told that her brain and lumbar spine were normal. In the cervical spine showed two level discogenic changes with spinal stenosis C5-7 levels. She was referred to neurosurgery at [facility] in [place] and she was told that they did not want to pursue surgery at that time. This was all in 2020. After this she states not much else has been done. She has not had any repeat imaging since 2020. She walks 1/4 mile daily. She is taking gabapentin at 300 mg twice a day. She does not feels this controls he pains. She had been up to 600 mg twice a day but had tiredness with this so it was reduced back down to 300 mg twice a day as of 03/2022. She denies she has had wearing off effect. She can tell a difference when taken versus when not. She has been using essential oils on the bottom of her feet. She has also used tumeric with Devil's claw which she feels helps some. She is on duloxetine as via her psychiatrist for anxiety, depression, bipolar II, and schizoaffective, disorder. She takes the duloxetine at 60 mg in the AM. She denies side effects to this she is aware of. She tried a higher amount as of 2 weeks but then decreased this down due to her being on seroquel with manic episode/insomnia. She has an appointment with distributed generation project manager but has not seen one before. She has seen a pain specialist who wanted to try injections, she cannot recall to what area, she decided against this due to fear of needles. For pains she states she lies in bed. Tylenol is of minimal to no help, she cannot take NSAID's due to renal issues/failure. She has old prescription for muscle for cyclobenzaprine which helps reduce muscle tightness and spasms by 50%. She has not used this all that often until the last two weeks. She denies use of this or other muscle relaxant for the last 2 years. 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 He notes in the last 4-6 weeks she has not worked much and when working she stands or sits at the counter and the concrete floor felt to increase her pain. When trying to increase her work hours her lower back pains increased to the point she was off work for nearly 2 weeks. PAST MEDICAL HISTORY Diagnosis Date ADD (attention deficit disorder) Anxiety state Asthma Bipolar 2 disorder (HCC) Cervical stenosis of spine Chronic pain Essential hypertension GERD (gastroesophageal reflux disease) Hypothyroidism Insomnia Intracranial hypertension Migraines PTSD (post-traumatic stress disorder) Renal lithiasis Restless leg syndrome Schizoaffective disorder (HCC) Sleep apnea History reviewed. N (more content not included)...[facility] 02-25-2023 History of Present illness Narrative* Nilam Hanson, - 02/25/2023 6:[address] [facility] [place] New Patient Consultation February 25, 2023 HPI: Ms. Hebert, who is accompanied today by her father, presents today secondary to issues of neurologic concerns. She states that she has a lumbar puncture in 06/22/2020 and had lower back pains since then. She describes having pain that began in the lower back that has spread to now involve the entire body. She notes activity seems to be the trigger. She states she has issues taking care of ADL's such as standing at the stove and cooking, cleaning. She has been seeing a local neurologist and had the spinal tap secondary to suspicion of intracranial hypertension. She believes the opening pressure was 27 and closing pressure 14 as via radiology..In the spinal tap she states her anxiety was high and muscle were tense. She notes pain afterwards in the area of the procedure. She denies there was any redness or irritation. She did not have feveror stiffness in the neck afterwards. She cannot recall exactly how the pain spread onlyt that is begins in her lower back and then radiates down into her legs. After a few months she began to notice pain in other parts of the body including the neck. Currently she describes pain in her lower back that begins each morning and then pain throughout other parts of the body. She notes if she does any activities the pain intensifies and then lasts all day long. In the last two weeks she notes feeling weakness in the left upper extremity. She also feels a loss of balance as of two weeks ago. She can recall having a door handle hit her in the lower thoracic region as a door came back to hit her near the same time as only real change. In workup she saw the neurologist and had the spinal tap and was started on diamox at 500 mg BID and verapamil. She denies side effects to these and notes improvement in her overall headaches since these were started. For the weakness and pains she has had physical therapy targeted to the lower back and hips. She stopped this as it increased her overall pains. Her greatest pains are in the lower back. She had x-rays and MRI imaging brain and cervical, and lumbar spine. In this she was told that her brain and lumbar spine were normal. In the cervical spine showed two level discogenic changes with spinal stenosis C5-7 levels. She was referred to neurosurgery at [facility] in [place] and she was told that theydid not want to pursue surgery at that time. This was all in 2020. After this she states not much else has been done. She has not had any repeat imaging since 2020. She walks 1/4 mile daily. She is taking gabapentin at 300 mg twice a day. She does not feels this controls he pains. She had been up to 600 mg twice a day but had tiredness with this so it was reduced back down to 300 mg twice a day as of 03/2022. She denies she has had wearing off effect. She can tell a difference when taken versus when not. She has been using essential oils on the bottom of her feet. She has also used tumeric with Devil's claw which she feels helps some. She is on duloxetine as via her psychiatrist for anxiety, depression, bipolar II, and schizoaffective, disorder. She takes the duloxetine at 60 mg in the AM. She denies side effects to this she is aware of. She tried a higher amount as of 2 weeks but then decreased this down due to her being on seroquel with manic episode/insomnia. She has an appointment with distributed generation project manager but has not seen one before. She has seen a pain specialist who wanted to try injections, she cannot recall to what area, she decided against this due to fear of needles. For pains she states she lies in bed. Tylenol is of minimal to no help, she cannot take NSAID's dueto renal issues/failure. She has old prescription for muscle for cyclobenzaprine which helps reducemuscle tightness and spasms by 50%. She has not used this all that often until the last two weeks. She denies use of this or other muscle relaxant for the last 2 years. 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 He notes in the last 4-6 weeks she has not worked much andwhen working she stands or sits at the counter and the concrete floor felt to increase her pain. When trying to increase her work hours her lower back pains increased to the point she was off work for nearly 2 weeks. PAST MEDICAL HISTORY Diagnosis Date ADD (attention deficit disorder) Anxiety state Asthma Bipolar 2 disorder ([facility]) Cervical stenosis of spine Chronic pain Essential hypertension GERD (gastroesophageal reflux disease) Hypothyroidism Insomnia Intracranial hypertension Migraines PTSD (post-traumatic stress disorder) Renal lithiasis Restless leg syndrome Schizoaffective disorder ([facility]) Sleep apnea History reviewed. No pertinent surgical history. Current Outpatient Medications on File Prior to Visit Medication Sig acetaZOLAMIDE SR (DIAMOX SEQUELS) 500 mg capsule Take 500 mg by mouth twice daily. VENTOLIN HFA 90 mcg/actuation inhaler Inhale 1 Puff as instructed four times daily. Cholecalciferol, Vitamin D3, 25 mcg (1,000 unit) cap Take 1 capsule by mouth once daily. DULoxetine (CYMBALTA) 60 mg capsule Take 60 mg by mouth every morning. WIXELA INHUB 500-50 mcg/dose dsdv Inhale 1 Puff as instructed twice daily. gabapentin (NEURONTIN) 300 mg capsule Take 300 mg by mouth twice daily. levothyroxine (SYNTHROID) 25 mcg tablet Take 0.5 tablets by mouth once daily. VICTOZA 3-DEB 0.6 mg/0.1 mL (18 mg/3 mL) Inject 1 mg subcutaneously once daily. lisdexamfetamine (VYVANSE) 30 mg capsule Take 1 capsule by mouth q 24 HR. losartan (COZAAR) 100 mg tablet Take 1 tablet by mouth once daily. nystatin (MYCOSTATIN) 100,000 unit/mL suspension Take 1 Units by mouth as needed. omeprazole (PRILOSEC) 20 mg capsule Take 20 mg by mouth once daily. EASY COMFORT PEN NEEDLES 31 gauge x 3/16 Inject 1 Each subcutaneously once daily. QUEtiapine ER (SEROQUEL XR) 200 mg 24 hr tablet Take 1 tablet by mouth once daily. rOPINIRole (REQUIP) 0.5 mg tablet Take 1 tablet by mouth once daily. SUMAtriptan (IMITREX) 100 mg tablet Take 1 tablet by mouth as needed. tiotropium bromide (SPIRIVA RESPIMAT) 1.25 mcg/actuation mist Inhale 2 Puffs as instructed once daily. No current facility-administered medications on file prior to visit. Social History Tobacco Use Smoking status: Never Smokeless tobacco: Current Substance Use Topics Alcohol use: Never Drug use: Yes Types: Marijuana ALLERGIES Allergen Reactions Amoxicillin Other: See Comments Gluten GI Upset, Unknown Nsaids (Non-Steroid* Other: See Comments kidney failure Review of Systems: Constitutional: denies fever, weight loss, loss of appetite, +weight gain ENT: + loss of hearing, vertigo Vision: denies blurring vison, double vision/diplopia Dermatologic: denies rash Cardiopulmonary: denies chest pain, palpitations, or skipped heart beats Respiratory: denies shortness of breath GI: + nausea, -vomiting, -diarrhea, -constipation : +stress incontinence Psych: +depression, +anxiety, -suicidal thoughts Sleep: + issues with sleeping Heme: denies easy bruising/bleeding Musculoskeletal: + weakness, muscle atrophy, +joint ache/pain Back/spine: + low back, +mid back, +cervical pains Neuro: denies tremors, +weakness, +loss of feeling, dizziness, seizure, blackout, +paresthesia, facial paresthesia, facial weakness, difficulty in speech, slurring of words, dysarthria, dysphagia, +memory loss, headache Physical Exam: 02/25/23 1808 BP: 110/77 BP Site: Right Arm BP Position: Sitting BP Cuff Size: Large Adult Pulse: 93 Patient is alert and in no distress. Dress is appropriate. Mood is appropriate Heart is regular rate and rhythm with no murmur or bruit auscultated Breathing appears regular and unstressed Neurologic examination: Cognitively intact. No deficits. No formal MMSE performed. CN: Pupils equal and reactive to light, extraocular movements intact with no nystagmus, face is symmetric with no facial droop, facial sensation intact bilaterally to light touch V1-3, hearing intactbilaterally, shoulder shrug is symmetric Ophthalmologic exam: Fundis with slight blurrig at the margins Motor exam shows 5/5 strength symmetric through the upper and lower extremities in all groups tested Sensory intact to light touch and temperature in all extremities.with decreased light touch in the lateral thighs bilaterally Vibratory sensation is intact and symmetric all extremities Deep tendon reflexes are symmetric +3/4 at the biceps, brachioradialis, triceps, +2/4 right,+3/4 patella, and 2/4. Achilles bilaterally No clonus noted. Lynn's responses are both flexion. Coordination: No dysmetria on finger to nose. No tremors noted. No drift seen Gait widened base Labs/studies: CT brain 04/30/2020 report noting No intracranial hemorrhage or mass effect. CT brain 10/10/2021 report noting No evidence of acute intracranial process in this unenhanced study as described. PSG 08/18/2020 report noting Sleep apnea responding to pressure of 8 cm H2O using airtouch F20 mask MRI cervical spine report 01/17/2021 report noting discogenic changes at the C5- 6 and C6-7. This results in central canal stenosis at both levels, most significant at C6-7. MRI lumbar spine 01/17/2021 report noting Normal MRI of the lumbar spine. Assessment: R53.1 Weakness (primary encounter diagnosis) Comment: Minimal weakness noted on exam. Most of patient's concern has more to do with pain issues. M79.10 Myalgia/Chronic pain Comment: Noting diffuse pain across variable areas of her body with greatest areas of pain noted inthe lower back. She states relation of pain to lumbar puncture of 05/2020 but as via description uncertain how this would cause the degree and areas of pain described as she reports no meningeal signsor symptoms such as might be caused by induced infection. With upper body and extremities involved would look either for brain or cervical area from nerve standpoint or more diffuse metabolic or inflammatory cause. She notes upcoming referral to rheumatology which I agree with to rule out inflammatory cause such as polymyalgia rheumatica or fibromyalgia. She has known cervical spine stenosis at the C5-7 levels with indentation of the spinal cord noted back in 2020 which with worsened symptoms and described upper extremity symptoms may have worsened or may need re-evaluation and follow-up withneurosurgery. Hyperreflexia noted would be consistent with this diagnosis. Noted her history psychogenic overlay not ruled out but is a diagnosis of exclusion. Cervical stenosis- question of relation to pain and weakness versus other process such as fibromyalgia (see above) . PLAN: Chart reviewed including previous/interval progress notes, messages, recent imaging, and laboratoryresults. 2. Discussed options with the patient and in this discussion she elects to treat this encounter as a second opinion but with co-management with her local neurologists. 3. Have ordered MRI brain and cervical spine looking got any changes in progression of spinal stenosis noting new issues of weakness in her left arm and progression of pain issues over time. 4. In discussing medication options with her for pain prevention including changes to gabapentin with alternatives being adding mid day dose versus change from gabapentin to lyrica. She elects for change of gabapentin to lyrica to see if more effective in pain control. Not willing to make changes to her psychiatric medications as she is being managed by psychiatry and do wish to disturb the balance and treatment of her mood issues, though may be consideration for increases to duloxetine by psychiatry which could further help pain if felt able from their perspective, defer this to psychiatry. 5. Will have stop cyclobenzaprine and replace with baclofen as needed for tension 6. More than one 100 pages of records presented at the time of appointment that were not available prior. These records reviewed and thinned after appointment, above plan laid out at the time of the appointment/encounter with the information available in discussion at the time and records received prior to encounter. These included previous sleep consultation notes, MRI results. Post encounter reviewed documents include previous neurosurgeon note (had noted improvement at the time as to reason why surgery was not recommended but not seen again), and neurologist's notes. Thank you for allowing me to see this patient if there are any question or concerns please feel free to contact me at my clinic. Sincerely, Nilam Hanson D.O. documented [facility]* Encounter Date Diagnosis Assessment Notes Treatment Notes Treatment Clinical Notes Jan, Obesity (ICD-10 - E66.9) Findings consistent with obesity. Patient understands that this increases risk of multiple comorbidities associated with weight gain especially if there is a genetic predisposition. Discussed the complexity behind obesity and its multifactorial causes including genetics, the biological changes that occur with processed foods as well as lack of physical activity. We will assess for underlying causes of abnormal weight gain including thyroid dysfunction, poor sleep, medications, diet, etc. Discussed importance of adopting a healthier lifestyle in order to decrease or eliminate risk of impending diseases associated with excessive weight. Initial goal of modest weight loss approximately 3 to 5% can help to improve risk factors and some comorbidities. Our second goal of 10 to 15% weight loss can result in even more potentially disease modifying, remission, or improved mortality benefits. Initial goals include decreasing or eliminating her Sprite/sugary beverages Avoid skipping meals and getting regular meals/snacks throughout the day. Multiple handouts given for quick and easy cheaper meals Goal of 7 to 9 hours of quality sleep praised patient for wearing CPAP Set goal of incorporating exercise with 2-3 laps per week as an initial at a local track She has previously been on Mounjaro for several months and states her thyroid got puffy she does not desire to start back on this medication. She also did not tolerate Adipex and her side effects outweighed any benefit with that medication. After patient provider discussion she is open to injection such as Victoza which may be better covered by insurance. She has contraindication to bupropion as she felt with that. She also did not tolerate metformin in the past due to severe GI upset. Strongly consider connecting with pediatric urologist when she returns to work in Jan, Anxiety (ICD-10 - F41.9) Jan, Bipolar disorder (ICD-10 - F31.9) Jan, Back pain (ICD-10 - M54.9) Patient admits to pain likely exacerbated/second dianne to increased weight. Treat with exercise incorporating low impact exercises or modifications as needed. Advised to that there are multiple different exercise programs available many of which can be done within the home that required little to no impact. Encouraged swimming as feasible. Slowly increase activity over time to reach goal of 30 minutes most days of the week. Encouraged to take advantage of pediatric urologist available at [facility] that can help work around limitations. Jan, Depression (ICD-10 - F32.9) Initial PHQ-9 is positive for moderate to severe depression with a score of 18 most notable for little interest or pleasure in doing things, poor appetite, feeling bad about herself and trouble concentrating on things. Patient states mood is stable overall today and denies any significant mood swings or depressive thoughts. Continued vigilance throughout our weight loss journey. Patient is to inform provider immediately if any extreme mood changes occur or severe depressive thoughts. Mood can play a role in eating habits, food choices and overall weight regulation. Jan, Asthma (ICD-10 - J45.909) Jan, ADHD (ICD-10 - F90.9) Jan, GERD (gastroesophageal reflux disease) (ICD-10 - K21.9) Patient does suffer from GERD likely related to increased weight especially central obesity. Treat with weight loss and dietary changes. With weight loss patient could achieve complete relief from GERD symptoms due to increased intraabdominal pressure with the goal of being weaned off of medication. Patient to work closely with dietitian to help make healthy dietary choices and avoid reflux inducing foods. Briefly discussed these including avoiding citrus, high fat dairy, high fat meats and beverages including alcohol and coffee. Jan, Migraine (ICD-10 - G43.909) Jan, CARMEN on CPAP (ICD-10 - G47.33) Patient has had sleep study and diagnosis of sleep apnea with compliance of CPAP. Patient understands that sleep apnea significantly increases risk of cardiac complications as well as hypertension, daytime fatigue, and brain fog among others. Educated that CPAP compliance is of utmost importance to help prevent related comorbidities. Treat with weight loss with a goal of less positive pressure needed. Pt understands that even with moderate weight loss, often a positive pressure device may still be necessary. We will perform surveillance t/o our visits. Jan, Pre-diabetes (ICD-10 - R73.09) Patient meets criteria for prediabetes with A1c of 6.2, most recently 5.7 and elevated fasting glucose. First-line treatment with long-term healthy lifestyle change, decrease simple sweets and refined starches, increased exercise and activity and continue with long-term weight loss goals. Will need close long-term follow-up for this condition to prevent diabetes. Consider metformin or GLP-1 agonist. Jan, Fatty liver (ICD-10 - K76.0) Jan, Restless leg syndrome (ICD-10 - G25.81) Jan, Sciatica (ICD-10 - M54.30) Jan, Daytime sleepiness (ICD-10 - R40.0) Encouraged good sleep hygiene by going to bed at approximately the same time each night and similar waking hours each day, not eating too close to bedtime, avoid excessive fluids and eating shortly before bed, turning off blue light on phone/computers, silencing notifications, etc. Fatigue during the day could also be related to blood sugar spikes and subsequent crashes related to poor dietary habits of high glucose or high carbohydrate meals and snacks. Increase water intake. Jan, Hypothyroid (ICD-10 - E03.9) Jan, Pseudotumor cerebri syndrome (ICD-10 - G93.2) Jan, Schizoaffective disorder (ICD-10 - F25.9) Jan, Hyperlipidemia (ICD-10 - E78.5) Discussed etiology of hyperlipidemia. Treat with decreasing the simple sweets, added sugars, refined starches and bad fats. Encouraged increased activity and exercise and continue long-term weight loss goals. Jan, Chronic pain (ICD-10 - G89.29) [employer] Other 11-09-2022 NotePROCEDURE: XR KNEE LT 4V or > COMPARISON: None. HISTORY: Chronic instability of left knee joint FINDINGS: BONES:No acute fracture or dislocation. Mild degenerative changes with marginal osteophyte formation the medial compartment SOFT TISSUES:Negative. No visible soft tissue swelling. EFFUSION:Small joint effusion OTHER: Negative. IMPRESSION: Mild degenerative changes with joint effusion Electronically authenticated by: BUCK GARCIA Date: 2022-09-03 15:38[facility]04-22-2022 Progress note Author Andres otero [facility] February 14, 2022 8:57am Note Date/Time February 14, 2022 8:5 7am [facility] [address] [place] [address] Psychiatry Progress Note Signed Patient: Mercy Hebert MR#: [id number] : 1985 Acct:[id number] Age/Sex: 36 / F Adm Date: 2 Loc: 1S Room: 3V7097-2 Type : ADM IN Attending Dr: Licha Russ MD Copies to: ~ Date of Service: 02/14/2022 Subjective Subjective Narrative: Ms. Hebert reported improvement of symptoms She tolerated Seroquel and increasingthe dose of Cymbalta without side effects. Depression and anxiety are ongoing but stabilizing gradually on the current medication regimen. She has been utilizing Zyprexa PRN. Anxiety is mild in intensity with attempted utilization of coping skills. She denies SI/HI and verbalized the intent to notify staff if she has such thoughts. She continues to be compliant with prescribed medicationsand is visible within the unit milieu. She would like to stay one day to monitor medication response. We have agreed to continue the current medications regimen. Risks, benefits, andindications of medications were discussed. Mental Status Exam: Appearance: grossly normal Mental Status: mental status grossly normal Mood: anxious Affect: constricted affect Speech and Movement: speech and movement normal and speech clear Attitude: cooperative Thought Process: normal Thought Content:Denied auditory hallucinations, suicidality and paranoia, denieshomicidality Insight: fair Judgment: fair Exam Physical Exam Vital Signs: Temp Pulse Resp BP Pulse Ox 97.6 F 102 H 16 104/70 100 02/14/22 07:58 02/14/22 07:58 02/14/22 07:58 02/14/22 07:58 02/14/22 07:58 Assessment/Plan Assessment/Plan (1) Anxiety: Code(s): F41.9 - Anxiety disorder, unspecified Status: Acute (2) Depression: Code(s): F32.A - Depression, unspecified Status: Acute (3) Schizoaffective disorder: Code(s): F25.9 - Schizoaffective disorder, unspecified Status: Acute Plan Patient reported feeling better. Continue Seroquel to 100 mg QHS, and continue Cymbalta to 60 mg daily, may utilize Zyprexa PRN. Anticipate discharge tomorrow. We discussed the importance of outpatient treatment Monitor suicidal behaviors for safety of self (15-minute face check). Recommend?attending groups and psychoeducation for building coping skills. Risks, benefits and indications of medications were discussed with the patient. The patient verbalized understanding. Documented By: Andres Russ MD 2 [id number] Signed By: <Electronically signed by Andres Russ MD> 02/14/22 0857 [facility] Work Phone: 1(459) 482-525704-21-2022 Progress note Author Andres otero [facility] February 13, 2022 8:28am Note Date/Time February 13, 2022 8:2 8am [facility] [address] [place] [address] Psychiatry Progress Note Signed Patient: Mercy Hebert MR#: [id number] : 1985 Acct:[id number] Age/Sex: 36 / F Adm Date: 2 Loc: Room: [address] [place] [address] Type : ADM IN Attending Dr: Licha Russ MD Copies to: ~ Date of Service: 02/13/2022 Subjective Subjective Narrative: Ms. Hebert reported improvement AH. She tolerated Seroquel and increasing the dose of Cymbalta without side effects. She is worried about going home stating that medications did not work for enough time when she was discharged. I explained to her the benefits and importance of outpatient treatment and she should see her outpatient psychiatrist within 5 days of discharge. She reports improvement of her suicidal thoughts Mental Status Exam: Appearance: grossly normal Mental Status: mental status grossly normal Mood: anxious Affect: constricted affect Speech and Movement: speech and movement normal and speech clear Attitude: cooperative Thought Process: normal Thought Content: Reports improvement of auditory destinations, suicidality and paranoia, denies homicidality Insight: fair Judgment: fair Exam Physical Exam Vital Signs: Temp Pulse Resp BP Pulse Ox 97.7 F 90 16 129/69 100 02/13/22 07:30 02/13/22 07:30 02/12/22 20:00 02/13/22 07:30 02/13/22 07:30 Assessment/Plan Assessment/Plan (1) Anxiety: Code(s): F41.9 - Anxiety disorder, unspecified Status: Acute (2) Depression: Code(s): F32.A - Depression, unspecified Status: Acute (3) Schizoaffective disorder: Code(s): F25.9 - Schizoaffective disorder, unspecified Status: Acute Plan Patient reported feeling better. Continue Seroquel to 100 mg QHS, and continue Cymbalta to 60 mg daily, may utilize Zyprexa PRN. Monitor suicidal behaviors for safety of self (15-minute face check). Recommend?attending groups and psychoeducation for building coping skills. Risks, benefits and indications of medications were discussed with the patient. The patient verbalized understanding. Documented By: Andres Russ MD [id number] Signed By: <Electronically signed by Andres Russ MD> 02/13/22827 [facility] Work Phone: 1(992) 806-412904-20-2022 Progress note Author Andres otero [facility] February 12, 2022 8:31am Note Date/Time February 12, 2022 8:3 1am [facility] [address] [place] [address] Psychiatry Progress Note Signed Patient: Mercy Hebert MR#: [id number] : 1985 Acct:[id number] Age/Sex: 36 / F Adm Date: 2 Loc: Room: [address] [place] [address] Type : ADM IN Attending Dr: Licha Russ MD Copies to: ~ Date of Service: 02/12/2022 Subjective Subjective Narrative: Ms. Hebert reported ongoing AH. She tolerated Seroquel and increasing the dose ofCymbalta without side effects. She states she is not accepted by her family. Shedenies audiovisual hallucinations. She noted that Zyprexa PRN has been helpful. She reports feeling overwhelmed and crying at times. She says the thoughts of paranoia are still ongoing. She reports intermittent SI. Mental Status Exam: Appearance: grossly normal Mental Status: mental status grossly normal Mood: anxious and depressed mood Affect: constricted affect Speech and Movement: speech and movement normal and speech clear Attitude: cooperative Thought Process: normal Thought Content: positive for suicidality and paranoia, denies homicidality Insight: fair Judgment: fair Exam Physical Exam Vital Signs: Temp Pulse Resp BP Pulse Ox 97.4 F L 79 16 134/75 95 02/12/22 07:45 02/12/22 07:45 02/11/22 19:53 02/12/22 07:45 02/12/22 07:45 Assessment/Plan Assessment/Plan (1) Anxiety: Code(s): F41.9 - Anxiety disorder, unspecified Status: Acute (2) Depression: Code(s): F32.A - Depression, unspecified Status: Acute (3) Schizoaffective disorder: Code(s): F25.9 - Schizoaffective disorder, unspecified Status: Acute Plan Patient reported feeling suicidal and paranoid. Increase Seroquel to 100 mg QHS, and continue Cymbalta to 60 mg daily, may utilize Zyprexa PRN. Monitor suicidal behaviors for safety of self (15-minute face check). Recommend?attending groups and psychoeducation for building coping skills. Risks, benefits and indications of medications were discussed with the patient. The patient verbalized understanding. Documented By: Andres Russ MD [id number] Signed By: <Electronically signed by Andres Russ MD> 02/12/22 0831 [facility] Work Phone: 1(658) 888-862604-19-2022 History and physical note Author Andres otero [facility] February 11, 2022 2:27pm Note Date/Time February 11, 2022 2:2 7pm [facility] [address] [place] [address] Psychiatry H&P Signed Patient: Mercy Hebert MR#: [id number] : 1985 Acct:[id number] Age/Sex: 36 / F Adm Date: 2 Loc: Room: [address] [place] [address] Type : ADM IN Attending Dr: Licha Russ MD Copies to: MD Raji Ye DO~ Date of Service: 02/11/2022 HPI History of Present Illness History of present illness: Ms. Hebert is a 36-year-old female with past psychiatric history of anxiety, depression, PTSD, ADHD, and bipolar disorder presenting to for suicidal ideation and paranoia. Patient states that she has an appointment with Dr. Das at [facility] this Thursday and states that people have told her to try to wait it out until her appointment and says People do not get it. If I wait, I won't be here Thursday. Patient states that she has a plan to drive her car into a tree. Patient was recently seen at [address] for auditory hallucinations which she reports no longer having. She states that during her hospital stay at , she was placed on Invega 3 mg that helped some with the auditory hallucinations but not with the paranoia. She was discharged home to discontinue Latuda and replace it with Invega 6 mg. She states that the paranoid thoughts were controlled for the first couple fo days following discharge, they started to trickle back, and then the flood back all at once. She reports not liking how the Invega makes her feel, that she feels like she is jumping out of her skin, and she does not want to take Invega anymore. Patient reports that the paranoid thoughts started back in September 2022 but has recently worsened. She says she is paranoid about everything, every minute detail. Patient was personally seen by me on the day of the encounter.? I reviewed the history and performed the garvey elements of the assessment.? I formulated the planof care and confirmed this with the Medical student as noted below Patient feels that her meds are not working. She says she is paranoid that the government is going to take her daughter away from her because of her mental health. She said she recently found out her 16-year-old daughter smokes marijuana, that this worsened her paranoia, and says that the government is going to take her daughter away because of this too. She states she is not accepted by her family. She denies audiovisual hallucinations. She reports feeling overwhelmed and crying at times. She says the thoughts of paranoia do not let up. She states she knows that is doesn't sound logical. Patient reports her suicidal ideation worsens pretty quickly as the day progresses if she is overwhelmed. She says that she notices it started to bulk picker after her morning coffee. She reports that she used to drink 3 cups of coffeein the morning and now drinks 1.5 cups and this has not helped. She started drinking only 1.5 cups in the morning 2 days ago. She reports racing thoughts, feeling shaky, and like she wants to jump out of her skin. I asked if she likes hot tea and she agreed to consider trying hot tea in the morning as a replacement to coffee to see if that helps. Patient denies homicidality. She rates her depression 10/10 and anxiety 8/10. She is eating well. She reports waking up between midnight and staying up until 0100 then going back to sleep and waking up for the day at 0530. She reports hermood as being on edge. Patient reports that her brother had hallucinations that were brought on when he smoked marijuana. Patient reports she quit smoking marijuana in October to see if this would help her and it hasn't. She said she is trying to stop vaping because it gives her more energy. Patient reports that she wants to stop Invega. She reports trying Geodon in the past and not having agood experience with it. She reports being on Seroquel in the past for mood stabilization and she liked it. She says she is okay trying Seroquel. Past psych history: anxiety, depression, PTSD, ADHD, bipolar disorder Past hospitalizations: yes, [place] [facility] [place] Past suicide attempts: yes, with the most recent being in middle school Family psych history: brother - schizophrenia, onset late 20s; sister - bipolar disorder, onset early 20s; father - anxiety Home medications: Invega, Cymbalta, Acetazolamide, Verapamil, Lisinopril, Levothyroxine, Omeprazole, Vitamin D Alcohol and drug use: Denies use of alcohol, recreational drugs. Reports last drink was a 1 [place] 1 month ago. Does have a medical marijuana card but hasnot used marijuana since October. Does vape, reports trying to quit. Patient hasnicotine patch currently. Living: Lives at home with 16-year-old daughter. 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 Review of symptoms: Constitutional: Denies fatigue, fever, chills. Eyes: Denies change in vision ENT: Endorses congestion. Denies change in hearing or sore throat. Cardiovascular: Denies chest pain or palpitations. Respiratory: Denies trouble breathing or shortness of breath. Gastrointestinal: Denies constipation, diarrhea, abdominal pain, vomiting. Genitourinary: Denies dysuria. Musculoskeletal: Denies pain in muscles, bones, joints. Integumentary/Breasts: Endorses dry skin. Denies mass in breasts. Neurologic: Denies tingling or numbness in hands or feet. Denies imbalance. Psychiatric: Endorses suicidal ideation and thoughts of paranoia. Denies homicidality. Physical exam: Const: cooperative, pleasant Nutritional Appearance: obese body habitus Orientation: alert, awake and oriented x3 HEENT: Head normal to inspection, hearing grossly normal bilaterally, external nose normal, face symmetric Eyes: appearance normal, both eyes and all related structures, sclerae normal Neck: normal visual inspection and full ROM Resp: normal respiratory effort, able to speak in complete sentences and symmetric chest movement Cardio: regular rate GI: normal to inspection and non-distended : deferred Skin: no rashes or lesions noted Neuro: CNII: Visual shahid intact, CNIII,IV,: EOM intact, no nystagmus. Pupilsequal, round, reactive to light and accommodation, CNV: Sensation intact to light touch, ? CNVII: Raises eyebrows, smile/frown, puff out cheeks symmetrically, CNVIII: Hearing intact bilaterally, CNIX,X: Voice normal, soft palate elevation normal, symmetrical, CNXI: Shoulder shrug strong, equal bilaterally, CNXII: Tongue protrusion midline, movement symmetrical. Extremities: normal to inspection and full ROM Mental Status Exam: Appearance: grossly normal Mental Status: mental status grossly normal Mood: anxious and depressed mood Affect: flat affect Speech and Movement: speech and movement normal and speech clear Attitude: cooperative Thought Process: normal Thought Content: positive for suicidality and paranoia, denies homicidality Insight: fair Judgment: fair PMFSH Vaccinated for COVID-19?: No Medical History (Updated 02/11/22 @ 14:27 by Licha Russ MD) Asthma Back problem Bipolar disorder delivery delivered Hallucinations, visual Hypertension Hypothyroid Neck problem Nerve disorder Pseudotumor cerebri PTSD (post-traumatic stress disorder) Restless leg syndrome Surgical History H/O exploratory laparotomy History of cholecystectomy History of tubal ligation Family History Father Cancer of kidney Diabetes Hypertension Mother Hypertension Borderline diabetes mellitus Social History Smoking Status: Current every day smoker Tobacco Type: cigarettes Substance Use Type: Former User Substance Abuse Comment: Benzos Social History Comments: Parents, daughter Meds Medications and Allergies Allergies gluten Allergy (Verified 02/10/22 15:39) unknown NSAIDS (Non-Steroidal Anti-Inflamma Allergy (Verified 02/10/22 15:39) Unknown Reaction oats Allergy (Verified 02/10/22 15:39) Diarrhea amoxicillin Adverse Reaction (Verified 02/10/22 15:39) Yeast infection dairy Allergy (Uncoded 02/10/22 15:39) Diarrhea Home Medications levothyroxine 25 mcg tablet 25 mcg PO QAM 01/17/19 [History Confirmed 02/10/22] lisinopril 20 mg tablet 10 mg PO DAILY 01/17/19 [History Confirmed 02/10/22] ropinirole 0.5 mg tablet 0.5 mg PO HS 01/17/19 [History Confirmed 02/10/22] cholecalciferol (vitamin D3) 25 mcg (1,000 unit) capsule 1 cap PO DAILY 01/18/19[History Confirmed 02/10/22] gabapentin 600 mg tablet 600 mg PO BID 08/28/21 [History Confirmed 02/10/22] omeprazole 20 mg capsule,delayed release 20 mg PO DAILY 08/28/21 [History Confirmed 02/10/22] verapamil 180 mg 24 hr capsule,extended release 180 mg PO HS 08/28/21 [History Confirmed 02/10/22] acetazolamide 500 mg capsule,extended release 500 mg PO BID 01/29/22 [History Confirmed 02/10/22] duloxetine 40 mg capsule,delayed release 40 mg PO DAILY 01/29/22 [History Confirmed 02/10/22] sumatriptan succinate 100 mg tablet 100 mg PO DAILY PRN 01/29/22 [History Confirmed 02/10/22] nicotine 21 mg/24 hr daily transdermal patch 1 ea TRANSDERMAL DAILY #30 ea 02/02/22 [Rx Confirmed 02/10/22] paliperidone 6 mg tablet,extended release 24 hr (Invega) 6 mg PO QHS #30 tab 02/02/22 [Rx Confirmed 02/10/22] clindamycin phosphate 1 % topical gel 1 applic TOPICAL DAILY 02/10/22 [History Confirmed 02/10/22] tretinoin 0.05 % topical cream 1 applic TOPICAL QHS 02/10/22 [History Confirmed 02/10/22] Exam Physical Exam Vital Signs: Temp Pulse Resp BP Pulse Ox 97.9 F 92 H 16 132/78 98 02/11/22 07:30 02/11/22 07:30 02/11/22 07:30 02/11/22 07:30 02/11/22 07:30 Results Labs CBC & Chem 7: 02/10/22 13:15 02/10/22 13:15 Psychiatry Labs: 02/10/22 02/10/22 02/10/22 13:11 13:15 13:15 RBC 4.11 Hgb 12.2 Hct 37.8 MCV 92.1 MCH 29.8 MCHC 32.4 RDW 15.6 H Plt Count 434 MPV 7.3 Sodium 139 Potassium 3.7 Chloride 107 Carbon Dioxide 23.0 BUN 6 L Creatinine 0.98 Calcium 9.1 Total Bilirubin 0.4 AST 16 ALT 25 Alkaline Phosphatase 120 H Total Protein 6.9 Albumin 3.6 Urine Color Yellow Urine Appearance Clear Urine pH 8.0 Ur Specific [place] 1.006 Urine Protein Negative Urine Glucose (UA) Normal Urine Ketones Negative Urine Occult Blood Negative Urine Nitrite Negative Ur Leukocyte Esterase Negative Microbiology Microbiology: Microbiology - Results from entire visit 02/10/22 13:46 Nasal SARS Antigen (LFIA) - Final Assessment/Plan (1) Anxiety: Code(s): F41.9 - Anxiety disorder, unspecified Status: Acute (2) Depression: Code(s): F32.A - Depression, unspecified Status: Acute (3) Schizoaffective disorder: Code(s): F25.9 - Schizoaffective disorder, unspecified Status: Acute Plan Admit to for management of depression, paranoia, and to ensure safety of selfdue to SI. Start Seroquel 50 mg QHS, increase Cymbalta to 60 mg daily, discontinue Invega 6mg. Monitor suicidal behaviors for safety of self (15-minute face check). Recommend?attending groups and psychoeducation for building coping skills. Risks, benefits and indications of medications were discussed with the patient. The patient verbalized understanding. Documented By: Andres Russ MD 2 1055 Signed By: <Electronically signed by Andres Russ MD> 02/11/22 [address] [facility] Work Phone: 1(301) 829-309204-10-2022 Discharge summary Author Krzysztof Patel [facility] February 02, 2022 11:13am Note Date/Time February 02, 2022 11: 11am [facility] [address] [place] [address] Discharge Summary Signed Patient: Mercy eHbert MR#: [id number] : 1985 Acct:[id number] Age/Sex: 36 / F Adm Date: 2 Loc: Room: [address] [place] [address]: Krzysztof Patel MD Copies to: MD Raji Montoya,DO~ Providers Date of Discharge: 02/02/22 Discharging Provider: Krzysztof Patel Primary Care Provider: Raji Guerrero Discharge Diagnosis (1) Major depressive disorder, recurrent episode: (2) Suicidal ideation: (3) Anxiety: (4) Auditory hallucination: (5) Hallucinations, visual: Final Diagnosis Final Discharge Diagnosis: Major depressive disorder with psychotic features Summary Hospital Course Hospital course: According to admission note: Ms. Hebert is a 36-year-old female with PMH including bipolar disorder, PTSD, and pseudotumor cerebri who presented to the ED with a friend after communicating to this friend that she really was not doing well mentally. She states that she has recently new-onset auditory hallucinations and worsening depression. Patient reports that about 4 months agoin September, she abruptly got herself out of a toxic relationship. Shortly after, she started hearing voices in her head telling her that her mission on [place] is to help humanity. She states that these voices are her own. She says that she knows it sounds crazy, and at times she recognizes these voices to not be real but at other times she fully believes them. She says she helps humanity by being there to support others, to give them guidance, and to inform them of the bad things the bad people around us are doing. She states these voices in her head are new and scary. She states the voice tell her they are sad because she has failed her mission to help humanity because she gt the COVIDvaccine and is admitted to the hospital. She states she voluntarily got the COVID vaccine in September after getting out of the relationship she was in because she was scared of getting COVID. The voices tell her that the punishmentfor failing her mission is that she will have to come back to [place] again when she dies and relive this hell hole life. She reports having visual hallucinations as well. The first time she had visual hallucinations was in 2018around the time she was hospitalized [place] [facility]. At that time, she reports seeing her then grandfather walking around. She recently saw someone walking along the side of the road while she was driving and when she looked again no one was there. She also reports hearing a process coordinator but was surprised someone was mowing their lawn in the rain and when she looked outside there wasn't anyone outside. Patient reports that she use to enjoy watching tv but in the past 4 months does not even turn the tv on because there are bad people on the tv who are evil. She states that the government knows she is here in the hospital and that they always have surveillance on her. She states that she had a plan to end her life yesterday by taking pills. She did not act on this plan and instead called her friend who then took her to the ED. Patient states her depression has worsened drastically in the last 4 months. She said her thoughts are racing and that the Vistaril she was given yesterday did not help. She is anxious today but denies current depression. She sees Dr. Das in [place] through [facility] as an outpatient and has counseling through [facility] in [place] with Coral Puga. She reports eating better here than she was at home. She states she is sleeping okay but it is hard for her to fall asleep due to the racing thoughts in her head. She plans to go to group today. She reports her mood is sad and here as in she is just existing. She denies homicidal ideation. She states shehas a 16-year-old daughter at home who she always makes sure is well taken care of. She says she cleans, cooks, and always makes sure her daughter has what she needs. Her daughter is staying with her brother while she is in the hospital. She reports having a great support system, that her parents are involved as wellas her friend who brought her to the hospital. ? Patient lists home medications and states dosages and time of day taken for each. Patient states that she is compliant with home medications, she uses an organizational pill box, and refills this box every Thursday. Patient states she is not allowed to take her acetazolamide here and that it is for her pseudotumorcerebri. She says that she has fascial acne and has her face wash, tretinoin cream, and clindamycin gel in her bag. She asks if she can have these 3 items from her bag for skin care. Past psych history: anxiety, depression, PTSD, ADHD, bipolar disorder Past hospitalizations: yes, last hospitalization at [facility] was in [place] Past suicide attempts: yes, with the most recent being in middle school Family psych history: brother - schizophrenia, onset late 20s; sister - bipolar disorder, onset early 20s; father - anxiety Home medications: Latuda, Cymbalta, Acetazolamide, Verapamil, Lisinopril, Levothyroxine, Omeprazole, Vitamin D. Alcohol and drug use: Denies use of alcohol, recreational drugs. Does have a medical marijuana card but has not used marijuana since October. Does vape. Patient has nicotine patch currently. Living: Lives at home with 16-year-old daughter who she states she makes sure totake care of, explaining that she cooks, cleans, and makes sure her daughter is provided for. 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 She speaks highly of her job and seems to really enjoy it. Patient was restarted on her home medications. However she was transition from Latuda to Invega. As medications was adjusted, her hallucinations started to improve. She started to state that her symptoms were better and did not report any hallucinations. She slept better during hospitalization and appetite was normal. She started to socialize with peers and attended groups. She was out in the common area socializing appropriately and seemed to have a good time. She did not exhibit any behavior concerning for suicidality. She did not have any conflict with peers or staff. On the day of discharge she reported that sheis feeling better. She stated that her paranoia was under better control and she felt comfortable discharge home and following up with outpatient services. Time spent discussing smoking cessation with patient: 3 to 10 minutes Condition Condition at Discharge: Stable Status at Discharge Cognitive/behavioral status at discharge: Mental Status Exam: Appearance: grossly normal Mental Status: mental status grossly normal Mood: Euthymic mood Affect: Normal affect Speech and Movement: speech and movement normal and speech clear Attitude: cooperative Thought Process: normal Thought Content: Denied hallucinations, no homicidality and no suicidality Insight: Good Judgment: Good Functional status at discharge: independent ambulation Overall status at discharge: patient is back to baseline Time Spent with Patient Time spent providing/coordinating discharge services (# min): 30 Exam Physical Exam Vital Signs: Temp Pulse Resp BP Pulse Ox 97.8 F 98 H 16 119/82 96 02/02/22 07:30 02/02/22 07:30 02/02/22 07:30 02/02/22 07:30 02/02/22 07:30 Discharge Plan Discharge Plan Patient Disposition: Home Activity: No Activity Restriction Diet: Regular Additional Instructions: Regular Diet No Activity Restrictions Instructions: Depression, Adult (DC), [facility] [place] Instructions Stand Alone Forms: Work/School Release Form Prescriptions: New nicotine 21 mg/24 hr Patch 24 Hour 1 ea transdermal DAILY Qty: 30 RF: 0 paliperidone [Invega] 6 mg tablet extended release 24 hr 6 mg PO QHS Qty: 30 RF: 0 Continued lisinopril 20 mg tablet 10 mg PO DAILY RF: 0 levothyroxine 25 mcg tablet 25 mcg PO QAM RF: 0 ropinirole 0.5 mg tablet 0.5 mg PO HS RF: 0 cholecalciferol (vitamin D3) 1,000 unit capsule 1 cap PO DAILY RF: 0 acetazolamide 500 mg capsule, extended release 500 mg PO BID RF: 0 duloxetine 40 mg capsule,delayed release(DR/EC) 40 mg PO DAILY RF: 0 sumatriptan succinate 100 mg tablet 100 mg PO DAILY PRN (Reason: Migraine Headache) RF: 0 gabapentin 600 mg Tablet 600 mg PO BID RF: 0 verapamil 180 mg Capsule,Ext Rel. Pellets 24 Hr 180 mg PO HS RF: 0 omeprazole 20 mg Capsule,Delayed Release(Dr/Ec) 20 mg PO DAILY RF: 0 Discontinued Latuda 40 mg Tablet 80 mg PO QPM RF: 0 Medical Marijuana 1 dose PO DIRECTED RF: 0 Follow Up: [facility] [Other] (Please call and make an appointment on Thursday, February 03 2022.) [facility] [Other] (Coral Carreon, Therapist Please call and make an appointment on Thursday, February 03, 2022. ) [facility]line [Outside] Documented By: Krzysztof Patel MD 02/02/221108 Signed By: <Electronically signed by Krzysztof Patel MD> 02/02/22 [address] [facility] Work Phone: [phone]) 507-363004-09-2022 Progress note Author Krzysztof Patel [facility] February 01, 2022 1:05pm Note Date/Time February 01, 2022 12:4 1pm [facility] [address] [place] [address] Psychiatry Progress Note Signed Patient: Mercy Hebert MR#: [id number] : 1985 Acct:[id number] Age/Sex: 36 / F Adm Date: 2 Loc: Room: [address] [place] [address] Type : ADM IN Attending Dr: Krzysztof Patel MD Copies to: ~ Date of Service: 02/01/2022 Subjective Subjective Narrative: Ms. Hebert reported that she is doing good. She reported that she slept well andappetite has been good. She stated that her mood has been stable. She denied any hallucinations at this time. Mental Status Exam: Appearance: grossly normal Mental Status: mental status grossly normal Mood: Good Affect: Normal Speech and Movement: speech and movement normal and speech clear Attitude: cooperative Thought Process: normal Thought Content: denies audiovisual hallucinations, negative for suicidality andhomicidality Insight: fair Judgment: fair Exam Physical Exam Vital Signs: Temp Pulse Resp BP Pulse Ox 97.3 F L 85 16 120/76 99 02/01/22 07:30 02/01/22 07:30 02/01/22 07:30 02/01/22 07:30 02/01/22 07:30 Assessment/Plan Assessment/Plan (1) Major depressive disorder, recurrent episode: Plan: Patient reported that symptoms have improved Continue Cymbalta 40 mg Last day of Latuda will be tonight and Invega will be used Monitor suicidal behaviors for safety of self (15-minute face check). Recommend?attending groups and psychoeducation for building coping skills. Risks, benefits and indications of medications were discussed with the patient.?The patient verbalized understanding. Code(s): F33.9 - Major depressive disorder, recurrent, unspecified Status: Acute (2) Suicidal ideation: Code(s): R45.851 - Suicidal ideations Status: Acute (3) Anxiety: Code(s): F41.9 - Anxiety disorder, unspecified Status: Acute (4) Auditory hallucination: Code(s): R44.0 - Auditory hallucinations Status: Acute (5) Hallucinations, visual: Code(s): R44.1 - Visual hallucinations Status: Acute Documented By: Krzysztof Patel MD 02/01/22 1240 Signed By: <Electronically signed by Krzysztof Patel MD> 02/01/22 130[address] [facility] Work Phone: [phone]) 675-126304-08-2022 Progress note Author Krzysztof Patel [facility] January 31, 2022 12:52pm Note Date/Time January 31, 2022 12:5 2pm [facility] [address] [place] [address] Psychiatry Progress Note Signed Patient: Mercy Hebert MR#: [id number] : 1985 Acct:[id number] Age/Sex: 36 / F Adm Date: 2 Loc: Room: [address] [place] [address] Type : ADM IN Attending Dr: Krzysztof Patel MD Copies to: ~ Date of Service: 01/31/2022 Subjective Subjective Narrative: Ms. Hebert reports that her anxiety has made of huge jump of improvement and rates it 3/10. She states feelings of depression are improving but just more slowly, rating her depression 8/10 today. She denies homicidal and suicidal ideation. She reports not having any visual hallucinations but does describe auditory hallucinations and racing thoughts last night. She states that the auditory hallucinations are not as bad, but that she felt like she was by a landing strip at an airport because she was hearing planes landing while she wastrying to go to sleep. She does not hear voices in her head today and denies racing thoughts and other auditory hallucinations today. She states she is eating and sleeping well. She went to group 4 or 5 times yesterday and really enjoyed going. She states she is tolerating the change in medication well and that these changes have helped. She states that she feels groggy with slow processing, like she is in a tired high. This does not worry her as she has felt this way before immediately after medication adjustments in the past and states that she was made aware that these symptoms may occur for the first couple of days after starting Invega. She describes her mood as talkative and explains she is more easily engaging socially with others. Patient states that she has been having trouble focusing since June, at which time she was taken off Vyvanse due to her use of medical marijuana. She states she has not used medical marijuana since October because she feels it hascontributed to her new symptoms of auditory hallucinations. She would like to berestarted on Vyvanse now that she is not using medical marijuana anymore. Mental Status Exam: Appearance: grossly normal Mental Status: mental status grossly normal Mood: talkative and tired high Affect: constricted Speech and Movement: speech and movement normal and speech clear Attitude: cooperative Thought Process: normal Thought Content: denies audiovisual hallucinations today, negative for suicidality and homicidality Insight: fair Judgment: fair Patient was personally seen by me on the day of the encounter. I reviewed the history and performed the garvey elements of the physical examination. I formulated the plan of care and confirmed this with the medical student as notedbelow. Patient reported that things are getting better. She denied any auditory hallucinations at this time, but she did report struggling with this last night.Shereported that her anxiety has been gradually improving. Exam Physical Exam Vital Signs: Temp Pulse Resp BP Pulse Ox 97.6 F 71 16 123/75 96 01/31/22 08:02 01/31/22 08:02 01/30/22 20:00 01/31/22 08:02 01/31/22 08:02 Assessment/Plan Assessment/Plan (1) Major depressive disorder, recurrent episode: Plan: Will consider major depressive disorder with psychotic features versus schizoaffective disorder. Patient reported feeling slightly better today and has noticed improving hallucinations Continue Cymbalta 40 mg Continue transition from Invega to Latuda Monitor suicidal behaviors for safety of self (15-minute face check). Recommend?attending groups and psychoeducation for building coping skills. Risks, benefits and indications of medications were discussed with the patient.?The patient verbalized understanding. Code(s): F33.9 - Major depressive disorder, recurrent, unspecified Status: Acute (2) Suicidal ideation: Code(s): R45.851 - Suicidal ideations Status: Acute (3) Anxiety: Code(s): F41.9 - Anxiety disorder, unspecified Status: Acute (4) Auditory hallucination: Code(s): R44.0 - Auditory hallucinations Status: Acute (5) Hallucinations, visual: Code(s): R44.1 - Visual hallucinations Status: Acute Documented By: Krzysztof Patel MD 01/31/22 0925 Signed By: <Electronically signed by Krzysztof Patel MD> 01/31/22 125[address] [facility] Work Phone: [phone]) 937-655804-07-2022 History and physical note Author Krzysztof Patel [facility] January 30, 2022 1:38pm Note Date/Time January 30, 2022 1:38 pm [facility] [address] [place] [address] Psychiatry H&P Signed Patient: Mercy Hebert MR#: [id number] : 1985 Acct:[id number] Age/Sex: 36 / F Adm Date: 2 Loc: Room: [address] [place] [address] Type : ADM IN Attending Dr: Krzysztof Patel MD Copies to: MD Raji Montoya DO~ Date of Service: 01/30/2022 HPI History of Present Illness History of present illness: Ms. Hebert is a 36-year-old female with PMH including bipolar disorder, PTSD, andpseudotumor cerebri who presented to the ED with a friend after communicating tothis friend that she really was not doing well mentally. She states that she hasrecently new-onset auditory hallucinations and worsening depression. Patient reports that about 4 months ago in September, she abruptly got herself out of a toxic relationship. Shortly after, she started hearing voices in her head telling her that her mission on [place] is to help humanity. She states that thesevoices are her own. She says that she knows it sounds crazy, and at times she recognizes these voices to not be real but at other times she fully believes them. She says she helps humanity by being there to support others, to give themguidance, and to inform them of the bad things the bad people around us are doing. She states these voices in her head are new and scary. She states the voice tell her they are sad because she has failed her mission to help humanity because she gt the COVID vaccine and is admitted to the hospital. She states shevoluntarily got the COVID vaccine in September after getting out of the relationship she was in because she was scared of getting COVID. The voices tellher that the punishment for failing her mission is that she will have to come back to [place] again when she dies and relive this hell hole life. She reports having visual hallucinations as well. The first time she had visual hallucinations was in 2018 around the time she was hospitalized at [facility]. At that time, she reports seeing her then grandfather walking around. She recently saw someone walking along the side of the road while she was driving and when she looked again no one was there. She also reports hearing a process coordinator but was surprised someone was mowing their lawn in the rain and when she looked outside there wasn't anyone outside. Patient reports that she use to enjoy watching tv but in the past 4 months does not even turn the tv on because there are bad people on the tv who are evil. She states that the government knows she is here in the hospital and that they always have surveillance on her. She states that she had a plan to end her life yesterday by taking pills. She did not act on this plan and instead called her friend who then took her to the ED. Patient states her depression has worsened drastically in the last 4 months. She said her thoughts are racing and that the Vistaril she was given yesterday did not help. She is anxious today but denies current depression. She sees Dr. Das in [place] through [facility] as an outpatient and has counseling through [facility] in [place] with Coral Puga. She reports eating better here than she was at home. She states she is sleeping okay but it is hard for her to fall asleep due to the racing thoughts in her head. She plans to go to group today. She reports her mood is sad and here as in she is just existing. She denies homicidal ideation. She states she has a 16-year-old daughter at home who she always makes sure is well taken care of. She says she cleans, cooks, and always makes sure her daughter has what she needs. Her daughter is staying with her brother while she is in the hospital. She reports having a great support system, that her parents are involved as wellas her friend who brought her to the hospital. Patient lists home medications and states dosages and time of day taken for each. Patient states that she is compliant with home medications, she uses an organizational pill box, and refills this box every Thursday. Patient states she is not allowed to take her acetazolamide here and that it is for her pseudotumorcerebri. She says that she has fascial acne and has her face wash, tretinoin cream, and clindamycin gel in her bag. She asks if she can have these 3 items from her bag for skin care. Past psych history: anxiety, depression, PTSD, ADHD, bipolar disorder Past hospitalizations: yes, last hospitalization at [facility] [place] Past suicide attempts: yes, with the most recent being in middle school Family psych history: brother - schizophrenia, onset late 20s; sister - bipolar disorder, onset early 20s; father - anxiety Home medications: Latuda, Cymbalta, Acetazolamide, Verapamil, Lisinopril, Levothyroxine, Omeprazole, Vitamin D. Alcohol and drug use: Denies use of alcohol, recreational drugs. Does have a medical marijuana card but has not used marijuana since October. Does vape. Patient has nicotine patch currently. Living: Lives at home with 16-year-old daughter who she states she makes sure totake care of, explaining that she cooks, cleans, and makes sure her daughter is provided for. 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 She speaks highly of her job and seems to really enjoy it. Review of symptoms: Constitutional: Endorses fatigue. Denies fever and chills. Eyes: Denies change in vision ENT: Denies change in hearing, runny nose, sore throat. Cardiovascular: Denies chest pain or palpitations. Respiratory: Denies trouble breathing or shortness of breath. Gastrointestinal: Denies constipation, diarrhea, abdominal pain, vomiting. Genitourinary: Denies dysuria. 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 Denies mass in breasts. Neurologic: Endorses intermittent tingling and numbness in upper extremities dueto occasional spinal cord compression in neck and imbalance at times stating shesometimes falls into a wall but always catches herself; no tingling, numbness, or ataxia today Psychiatric: Endorses anxiety, suicidal ideation with a plan, auditory and verbal hallucinations. Denies depression today. Physical exam: Const: cooperative Nutritional Appearance: obese body habitus Orientation: alert, awake and oriented x3 HEENT: Head normal to inspection, hearing grossly normal bilaterally, external nose normal, face symmetric Eyes: appearance normal, both eyes and all related structures, sclerae normal Neck: normal visual inspection and full ROM Resp: normal respiratory effort, able to speak in complete sentences and symmetric chest movement Cardio: regular rate GI: normal to inspection and non-distended : deferred Skin: no rashes or lesions noted Neuro: CNII: Visual shahid intact, CNIII,IV,: EOM intact, no nystagmus. Pupilsequal, round, reactive to light and accommodation, CNV: Sensation intact to light touch, ? CNVII: Raises eyebrows, smile/frown, puff out cheeks symmetrically, CNVIII: Hearing intact bilaterally, CNIX,X: Voice normal, soft palate elevation normal, symmetrical, CNXI: Shoulder shrug strong, equal bilaterally, CNXII: Tongue protrusion midline, movement symmetrical. Extremities: normal to inspection and full ROM Mental Status Exam: Appearance: grossly normal Mental Status: mental status grossly normal Mood: anxious mood, described as sad and just here Affect: Normal affect Speech and Movement: speech and movement normal and speech clear Attitude: cooperative Thought Process: normal Thought Content: positive for suicidality and hallucinations, denies homicidality Insight: fair Judgment: fair Patient was personally seen by me on the day of the encounter. I reviewed the history and performed the garvey elements of the physical examination. I formulated the plan of care and confirmed this with the medical student as noted below. Patient presented due to concern for depression and suicidal ideation with plan to overdose on pills or drive into a tree. She stated that she has been dealingwith a lot of paranoid and delusional ideas. She also reported experiencing auditory and visual hallucinations. She reported that they have been worsening over the past couple weeks. She stated that she has been compliant with her medication. She reported in the past she has tried other antipsychotics including Vraylar, Seroquel, Geodon. She is also been tried on lithium and Lamictal. PMFSH Vaccinated for COVID-19?: No Medical History (Updated 01/30/22 @ 11:07 by Yessi Naik) Asthma Back problem Bipolar disorder delivery delivered Hallucinations, visual Hypertension Hypothyroid Neck problem Nerve disorder Pseudotumor cerebri PTSD (post-traumatic stress disorder) Restless leg syndrome Surgical History H/O exploratory laparotomy History of cholecystectomy Family History (Updated 01/29/22 @ 17:34 by Bob Rain LPN) Father Cancer of kidney Diabetes Hypertension Mother Hypertension Borderline diabetes mellitus Social History Smoking Status: Current every day smoker Tobacco Type: e-cigarettes Substance Use Type: Former User, Alcohol, Marijuana and Opiates Substance Abuse Comment: Benzos Social History Comments: Parents, daughter Meds Medications and Allergies Allergies gluten Allergy (Verified 09/02/19 08:02) unknown NSAIDS (Non-Steroidal Anti-Inflamma Allergy (Verified 08/28/21 14:08) Unknown Reaction oats Allergy (Verified 08/28/21 14:08) Diarrhea amoxicillin Adverse Reaction (Verified 09/02/19 08:02) Yeast infection dairy Allergy (Uncoded 01/29/22 13:48) Diarrhea Home Medications levothyroxine 25 mcg tablet 25 mcg PO QAM 01/17/19 [History Confirmed 01/29/22] lisinopril 20 mg tablet 10 mg PO DAILY 01/17/19 [History Confirmed 01/29/22] ropinirole 0.5 mg tablet 0.5 mg PO HS 01/17/19 [History Confirmed 01/29/22] cholecalciferol (vitamin D3) 25 mcg (1,000 unit) capsule 1 cap PO DAILY 01/18/19[History Confirmed 01/29/22] Medical Marijuana 1 dose PO DIRECTED 08/28/21 [History Confirmed 08/28/21] gabapentin 600 mg tablet 600 mg PO BID 08/28/21 [History Confirmed 01/29/22] lurasidone 40 mg tablet (Latuda) 80 mg PO QPM 08/28/21 [History Confirmed 01/29/22] omeprazole 20 mg capsule,delayed release 20 mg PO DAILY 08/28/21 [History Confirmed 01/29/22] verapamil 180 mg 24 hr capsule,extended release 180 mg PO HS 08/28/21 [History Confirmed 01/29/22] acetazolamide 500 mg capsule,extended release 500 mg PO BID 01/29/22 [History Confirmed 01/29/22] duloxetine 40 mg capsule,delayed release 40 mg PO DAILY 01/29/22 [History Confirmed 01/29/22] sumatriptan succinate 100 mg tablet 100 mg PO DAILY PRN 01/29/22 [History Confirmed 01/29/22] Exam Physical Exam Vital Signs: Temp Pulse Resp BP Pulse Ox 97.7 F 67 18 107/63 100 01/30/22 07:30 01/30/22 07:30 01/30/22 07:30 01/30/22 07:30 01/30/22 07:30 Results Labs CBC & Chem 7: 01/29/22 14:25 01/29/22 14:25 Psychiatry Labs: 01/29/22 01/29/22 01/29/22 14:25 14:25 14:40 RBC 4.11 Hgb 12.1 Hct 37.4 MCV 91.0 MCH 29.4 MCHC 32.3 RDW 15.9 H Plt Count 416 MPV 7.6 Sodium 136 Potassium 3.7 Chloride 105 Carbon Dioxide 20.2 L BUN 10 Creatinine 1.08 H Calcium 8.9 Total Bilirubin 0.5 AST 16 ALT 19 Alkaline Phosphatase 114 H Total Protein 7.0 Albumin 3.6 Urine Color Yellow Urine Appearance Clear Urine pH 7.5 Ur Specific [place] 1.014 Urine Protein Negative Urine Glucose (UA) Normal Urine Ketones Negative Urine Occult Blood Negative Urine Nitrite Negative Ur Leukocyte Esterase Negative Microbiology Microbiology: Microbiology - Results from entire visit 01/29/22 15:02 Nasal SARS Antigen (LFIA) - Final Assessment/Plan (1) Major depressive disorder, recurrent episode: Plan: Will consider major depressive disorder with psychotic features versus schizoaffective disorder Admit to for management of depression, anxiety, and hallucinations to ensure safety of self due to SI. We will restart Cymbalta. We will decrease Latuda to 40 mg and start Invega Monitor suicidal behaviors for safety of self (15-minute face check). Recommend?attending groups and psychoeducation for building coping skills. Risks, benefits and indications of medications were discussed with the patient.?The patient verbalized understanding. Code(s): F33.9 - Major depressive disorder, recurrent, unspecified Status: Acute (2) Suicidal ideation: Code(s): R45.851 - Suicidal ideations Status: Acute (3) Anxiety: Code(s): F41.9 - Anxiety disorder, unspecified Status: Acute (4) Auditory hallucination: Code(s): R44.0 - Auditory hallucinations Status: Acute (5) Hallucinations, visual: Code(s): R44.1 - Visual hallucinations Status: Acute Documented By: Krzysztof Patel MD 01/30/22 1010 Signed By: <Electronically signed by Krzysztof Patel MD> 01/30/22 [address] [facility] Work Phone: [phone] NotePROCEDURE: ULTRASOUND GUIDED VASCULAR ACCESS. FLUOROSCOPY GUIDED PLACEMENT OF A NON-TUNNELED CATHETER. 05/02/2020. HISTORY: ORDERING SYSTEM PROVIDED HISTORY: lithium toxicity TECHNOLOGIST PROVIDED HISTORY: lithium toxicity Is the patient ?->No [place] toxicity, acute kidney injury SEDATION: None FLUOROSCOPY DOSE AND TYPE OR TIME AND EXPOSURES: Fluoro time 1.0 minutes D AP 665 cGy cm 2 TECHNIQUE: This procedure was performed by Jose David ESTRADA under direct supervision of Dr. Abernathy. Informed consent was obtained after a detailed explanation of the procedure including risks, benefits, and alternatives. [place] protocol was observed. The right neck and chest were prepped and draped in sterile fashion using maximum sterile barrier technique. Local anesthesia was achieved with lidocaine. A micropuncture needle was used to access the right internal jugular vein using ultrasound guidance. An ultrasound image demonstrating patency of the vein with needle tip located within it. An image was obtained and stored in PACs. A 0.035 guidewire was used to place a 13 [place] by 15 cm duo split non tunneled hemodialysis catheter using fluoroscopic guidance with tip in the right atrium after fascial tract dilation. The catheter flushed easily and there was a good blood return. The catheter was sutured to the skin. The catheter was locked with heparinized saline. The patient tolerated the procedure well and there were no immediate complications. FINDINGS: Fluoroscopic image demonstrates the tip of the catheter in the right atrium. IMPRESSION: Successful ultrasound and fluoroscopy guided non-tunneled 13 [place] by 15 cm dual split hemodialysis catheter placement. Interpreted by: MD Jose David Valentin PA Signed by: Mateus Rausch MD 05/02/20 Final resultFirelands [facility] Medical Center South CampusChief complaint+Reason for visit Narrative* Chief Complaint sore throat, cough Reason for Visit Contact with and (mayer spected) exposure to covid-19 Viral sinusitis [facility] Work Phone: Discharge summary Author Andres otero [facility] February 15, 2022 9:56am Note Date/Time February 15, 2022 9:5 6am [facility] [address] [place] [address] Discharge Summary Signed Patient: Mercy Hebert MR#: [id number] : 1985 Acct:[id number] Age/Sex: 36 / F Adm Date: 2 Loc: Room: [address] [place] [address]: Licha Russ MD Copies to: MD Raji Ye,DO~ Providers Date of Discharge: 02/15/22 Discharging Provider: Licha Russ Primary Care Provider: Raji Guerrero Discharge Diagnosis (1) Anxiety: (2) Depression: (3) Schizoaffective disorder: Final Diagnosis Final Discharge Diagnosis: Schizoaffective disorder Summary Hospital Course Hospital course: Ms. Hebert is a 36-year-old female with past psychiatric history of anxiety, depression, PTSD, ADHD, and bipolar disorder presenting to for suicidal ideation and paranoia. Patient states that she has an appointment with Dr. Das at [facility] this Thursday and states that people have told her to try to wait it out until her appointment and says People do not get it. If I wait, I won't be here Thursday. Patient states that she has a plan to drive her car into a tree. Patient was recently seen at [address] for auditory hallucinations which she reports no longer having. She states that during her hospital stay at , she was placed on Invega 3 mg that helped some with the auditory hallucinations but not with the paranoia. She was discharged home to discontinue Latuda and replace it with Invega 6 mg. She states that the paranoid thoughts were controlledfor the first couple fo days following discharge, they started to trickle back, and then the flood back all at once. She reports not liking how the Invega makesher feel, that she feels like she is jumping out of her skin, and she does not want to take Invega anymore. Patient reports that the paranoid thoughts started back in September 2022 but has recently worsened. She says she is paranoid about everything, every minute detail. Patient was personally seen by me on the day of the encounter.? I reviewed the history and performed the garvey elements of the assessment.? I formulated the planof care and confirmed this with the Medical student as noted below Patient feels that her meds are not working. She says she is paranoid that the government is going to take her daughter away from her because of her mental health. She said she recently found out her 16-year-old daughter smokes marijuana, that this worsened her paranoia, and says that the government is going to take her daughter away because of this too. She states she is not accepted by her family. She denies audiovisual hallucinations. She reports feeling overwhelmed and crying at times. She says the thoughts of paranoia do notlet up. She states she knows that is doesn't sound logical. Patient reports her suicidal ideation worsens pretty quickly as the day progresses if she is overwhelmed. She says that she notices it started to bulk picker after her morning coffee. She reports that she used to drink 3 cups of coffeein the morning and now drinks 1.5 cups and this has not helped. She started drinking only 1.5 cups in the morning 2 days ago. She reports racing thoughts, feeling shaky, and like she wants to jump out of her skin. I asked if she likes hot tea and she agreed to consider trying hot tea in the morning as a replacement to coffee to see if that helps. Patient denies homicidality. She rates her depression 10/10 and anxiety 8/10. She is eating well. She reports waking up between midnight and staying up until 0100 then going back to sleep and waking up for the day at 0530. She reports hermood as being on edge. Patient reports that her brother had hallucinations that were brought on when he smoked marijuana. Patient reports she quit smoking marijuana in October to see if this would help her and it hasn't. She said she is trying to stop vaping because it gives her more energy. Patient reports that she wants to stop Invega. She reports trying Geodon in the past and not having agood experience with it. She reports being on Seroquel in the past for mood stabilization and she liked it. She says she is okay trying Seroquel. Past psych history: anxiety, depression, PTSD, ADHD, bipolar disorder Past hospitalizations: yes, [place] [facility] [place] Past suicide attempts: yes, with the most recent being in middle school Family psych history: brother - schizophrenia, onset late 20s; sister - bipolar disorder, onset early 20s; father - anxiety Home medications: Invega, Cymbalta, Acetazolamide, Verapamil, Lisinopril, Levothyroxine, Omeprazole, Vitamin D Alcohol and drug use: Denies use of alcohol, recreational drugs. Reports last drink was a 1 [place] 1 month ago. Does have a medical marijuana card but hasnot used marijuana since October. Does vape, reports trying to quit. Patient hasnicotine patch currently. Living: Lives at home with 16-year-old daughter. 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 The course of treatment: The patient was familiar with the mental health therapy services available whileon the unit and was encouraged to participate. Patient noted that her medication needs to be adjusted. She did not find Invega consistently helpful in reducing her racing thoughts and hallucinations. Psychotropic medications targeting racing thoughts, hallucinations, depression and anxiety were started and she was provided supportive and reality oriented therapy. Her Invega was switched to Seroquel which was titrated up to 200 mg p.o. nightly. Cymbalta wasincreased to 60 mg p.o. daily. She felt that her symptoms have improved on the current medication regimen, and has been compliant with treatment, and reported no side effects. Her sleep and appetite were okay. She has been attending groups and described them as useful building coping skills. The patient has denied any access to firearms or lethal weapons. She is advised utilize Zyprexa as needed for racing thoughts and trazodone as needed for insomnia. She felt better than before coming to the hospital and feels hopeful regarding her future. She rated her depression 1/10 and anxiety 2/10, with 10 being the worst. She understands the importance of outpatient follow-up to ensure the stability of her symptoms. She denied suicidal or homicidal ideation and verbalized the intent to notify the staff if she has suchthoughts. No suicidal or self- injurious behaviors occurred during inpatient treatment. The patient described that her depressive feelings have been relieved, and she has a better understanding of how to cope with stress due to her inpatient admission. She was given emotional support, counseled, and educated regarding the prognosis of her diagnosis. She expresses understanding and says she is better after learning coping skills and the medications prescribed in the inpatient unit. She was in a good place to return home and engage fully in her life The patient reported that she was ready to go. She did not meet criteria for involuntary psychiatric hospitalization. Patient achieved maximum benefit from attending inpatient treatment and was suitable for outpatient follow up. I explained to the patient that her discharge from the hospital does not mean that her medical care ends here. She needs consistent outpatient follow-up, cognitive behavioral therapy, and treatment plan to be handled from this point on by out patient providers including but noted limited to outpatient psychiatrist, primary care team and specialists. She has an appointment next week with Dr. Das. Discharge disposition Home with her family Safe discharge Planning: With the cessation of all suicidal ideation, improvements in mood, and absence of any psychotic symptoms at the time of discharge, aftercare plans were solidified. She was able to formulate a believable Safety Plan. Discharge plans were discussed with the patient and the treatment team. All agreed with the discharge plan. On the day of discharge, she was evaluated and had no complaints. She denied any SI/HI. She agreed to follow up with outpatient treatment as arranged by case management. She had no complications during her stay. Suicide risk assessment: A thorough review of risk and protective factors was conducted. Discussed with the patient the following recommendations that would help reduce suicide which includes limiting the number of medications to a 14-day supply with one refill at the time of discharge to avoid potential overdose,consistent outpatient follow up preferably within seven days of release, involving family members in her care, and her desire to live. She reports [facility], good response to medication management and therapy, availability of local mental health services and willingness to follow up, lack of suicidal ideation, intent or plan, lack of impulsivity, agitation, or psychotic behavior. Pt is future- oriented and understands the importance of outpatient follow-up. Considering positive factors like family and jad, lack of access to firearms, and desire to continue treatment makes suicide risk minimal. Given the chronicity of suicidality, we discussed measures to help her with long-term safety. The patient is not suicidal or psychotic now. To help decreaseher suicide risk, as best I can, I am referring her for outpatient treatment andCBT for long-term follow-up to have somewhere to go and someone to manage her assymptoms and stressors develop. This is the best way to keep her alive. So, we discussed a crisis plan for future suicidality: at the first sign of distress, she will call the hotline; if this is not sufficient, she will 911, then call family members or friends; ultimately, she will come to the ER. Safety: The patient is not acutely psychotic and is safe to continue treatment on an outpatient basis. The patient was made aware of the 18/05 emergency services of the crisis center. She was advised to call 911 or go to the nearest ER in case of a crisis ( (including having thoughts of harming herself or others). Risks (metabolic, EPS, the effect on heart), benefits, and alternatives for medications were discussed. She verbalized understanding. Her consent was obtained. She was advised not to drink alcohol while taking medications. I advised patientthat using drugs can increase risk of impulsiveness and making poor decisions. Continue supportive therapy with some CBT techniques. Psycho-education and compliance counseling were provided. She denies current and is aware to notify her psychiatrist if she becomes due to the risk of harm to the fetus. MSE: Orientation: Alert and oriented to person, place, and time. Appearance/Behavior: Fair grooming and hygiene, calm, cooperative, engaged in the interview. Good eye contact. Normal psychomotor activity. Speech: normal rate, rhythm, volume, and tone. Non pressured. Knowledge: Appropriate for age and level of education Mood: okay Affect: reactive, mood-congruent Thought process: linear, logical, and goal-oriented Thought content: No SI/HI. No AVH. No delusions. Does not appear to be responding to internal stimuli. Concentration: Grossly intact based on track during the interview Associations: No loosening of associations Memory: Able to recall recent and remote historical information Insight: Fair, able to appreciate current symptoms and need for outpatient treatment Judgment: fair, agreed to follow treatment recommendations, socially appropriate with interviewer and staff. Time spent discussing smoking cessation with patient: more than 10 minutes Condition Condition at Discharge: Fair Status at Discharge Functional status at discharge: independent ambulation Time Spent with Patient Time spent providing/coordinating discharge services (# min): 99 Exam Physical Exam Vital Signs: Temp Pulse Resp BP Pulse Ox 97.6 F 71 20 137/83 100 02/14/22 20:20 02/14/22 20:20 02/14/22 20:20 02/14/22 20:20 02/14/22 20:20 Discharge Plan Discharge Plan Patient Disposition: Home Activity: No Activity Restriction Diet: Regular Additional Instructions: Regular diet. No activity restrictions. Instructions: Schizoaffective Disorder (DC), [facility] [place] Instructions Stand Alone Forms: Work/School Release Form Prescriptions: New trazodone 50 mg Tablet 50 mg PO QHS PRN (Reason: Insomnia) 15 Days Qty: 15 RF: 1 olanzapine 5 mg Tablet 5 mg PO Q12HR PRN (Reason: Agitation) 15 Days Qty: 15 RF: 0 hydroxyzine pamoate 50 mg Capsule 50 mg PO Q6H PRN (Reason: Anxiety) 15 Days Qty: 30 RF: 0 quetiapine 100 mg Tablet 100 mg PO QHS 15 Days Qty: 15 RF: 1 duloxetine 60 mg Capsule,Delayed Release(Dr/Ec) 60 mg PO DAILY 15 Days Qty: 15 RF: 1 Continued lisinopril 20 mg tablet 10 mg PO DAILY RF: 0 levothyroxine 25 mcg tablet 25 mcg PO QAM RF: 0 ropinirole 0.5 mg tablet 0.5 mg PO HS RF: 0 cholecalciferol (vitamin D3) 1,000 unit capsule 1 cap PO DAILY RF: 0 acetazolamide 500 mg capsule, extended release 500 mg PO BID RF: 0 sumatriptan succinate 100 mg tablet 100 mg PO DAILY PRN (Reason: Migraine Headache) RF: 0 nicotine 21 mg/24 hr Patch 24 Hour 1 ea transdermal DAILY Qty: 30 RF: 0 gabapentin 600 mg Tablet 600 mg PO BID RF: 0 verapamil 180 mg Capsule,Ext Rel. Pellets 24 Hr 180 mg PO HS RF: 0 omeprazole 20 mg Capsule,Delayed Release(Dr/Ec) 20 mg PO DAILY RF: 0 clindamycin phosphate 1 % Gel 1 applic TOPICAL DAILY RF: 0 Discontinued duloxetine 40 mg capsule,delayed release(DR/EC) 40 mg PO DAILY RF: 0 paliperidone [Invega] 6 mg tablet extended release 24 hr 6 mg PO QHS Qty: 30 RF: 0 No Action tretinoin 0.05 % Cream 1 applic TOPICAL QHS RF: 0 Follow Up: [facility] [employer] [Other] - 02/18/22 12:00 pm (Therapy: Thursday02/18/22 @ 12:00pm with Coral Carreon, Therapist) [facility] [Other] - 02/17/22 10:00 am (Psychiatry: Thursday02/17/22 @ 10:00am with Dr. Alvin Das) [facility]ing Hotline [Outside] Documented By: Andres Russ MD 2 [id number] Signed By: <Electronically signed by Andres Russ MD> 02/15/22 [address] [facility] Work Phone: Evaluation + Plan note Future Appointments Appointment Date:11/16/2023 10:00:00 AM Scheduled Provider: Location:[facility] Appointment Type:Surgery FT Appointment Date:12/17/2023 03:00:00 PM Scheduled Provider: Location:[facility] Appointment Type:Surgery FT Future Scheduled Tests Laboratory* [id number] 11/12/23 * Ceruloplasmin 11/12/23 * Antimitochondrial Antibody, Quantitative 11/12/23 * Antimitochondrial Antibody, Quantitative 11/12/23 * Smooth Muscle Antibody Screen 11/12/23 * MARCELLA w/Reflex if POS 11/12/23 * IgG, Quant. 11/12/23 * TIBC Calculated 11/12/23 * Celiac Disease Comprehensive 11/12/23 * CBC w/ Auto Diff 11/12/23 * Comprehensive Metabolic Panel 11/12/23 * Ferritin 11/12/23 * Folate Level 11/12/23 * Iron Level 11/12/23 * Vitamin B12 Level 11/12/23 [facility] Evaluation + Plan note Future Appointments Appointment Date:12/21/2023 03:00:00 PM Scheduled Provider: Location:[facility] Future Appointments Appointment Date:12/21/2023 03:00:00 PM Scheduled Provider: Location:[facility] Appointment Type:Surgery FT Diagnostic Tests Pending * Celiac Disease Comprehensive 11/16/23 * Antimitochondrial Antibody, Quantitative 11/16/23 * MARCELLA w/Reflex if POS 11/16/23 * Antimitochondrial Antibody, Quantitative 11/16/23 * Ceruloplasmin 11/16/23 * IgG, Quant. 11/16/23 * Smooth Muscle Antibody Screen 11/16/23 * [id number] 11/16/23 [facility] Diagnosis Cervical spondylosis with myelopathy documented in this encounter [facility] Work Phone: evaluation note* Diagnosis Onset Date Resolution Status Major depressive disorder, recurrent episode acute [facility] Work Phone: evaluation note* Diagnosis Onset Date Resolution Status Anxiety acute Auditory hallucination acute Hallucinations, visual acute Major depressive disorder, recurrent episode acute Suicidal ideation [facility] [facility] Work Phone: Evaluation note* Diagnosis Onset Date Resolution Status Anxiety acute Auditory hallucination acute Hallucinations, visual acute Major depressive disorder, recurrent episode acute Suicidal ideation acute Anxiety acute Bipolar II disorder acute Depression acute Schizoaffective disorder acu [facility] Work Phone: evaluation note* Diagnosis Weakness- Primary Other malaise and fatigue Benign intracranial hypertension Spinal stenosis of cervical region Spinal stenosis in cervical region Myalgia Mylagia and myositis, unspecified [facility] Screening for genitourinary condition Screening for other and unspecified genitourinary condition documented [facility] this [facility] Diagnosis Polyarthralgia- Primary Pain in joint, multiple sites documented in this encounter [facility] note* Diagnosis Polyarthralgia Pain in joint, multiple sites documented in this encounter [facility] note* Diagnosis MGUS (monoclonal gammopathy of unknown significance)- Primary Monoclonal paraproteinemia Elevated alkaline phosphatase level Other nonspecific abnormal serum enzyme levels Multiple myeloma not having achieved remission (HCC) Multiple myeloma, without mention of having achieved remission documented in this encounter [facility] note* Diagnosis Benign intracranial hypertension documented in this encounter [facility] note* Diagnosis Spinal stenosis of cervical region Spinal stenosis in cervical region documented in this encounter [facility] noteNo assessment [facility] Work Phone: Evaluation note* Diagnosis Onset Date Resolution Status Contact with and (suspected) exposure to covid-19 noneactive Viral sinusitis noneactive [facility] Work Phone: [place] general Narrative - Reported* Type Description Date Medical History ADHD Medical History Anxiety Medical History Asthma Medical History Bipolar disorder Medical History Chronic low back pain that limit s activity Medical History Day time fatigue Medical History Depression Medical History High HDL Medical History GERD Medical History Hypertension Medical History History of passing out Medical History Migraine Medical History CARMEN on CPAP Medical History Pre-diabetes Medical History Fatty liver Medical History Pseudotumor cerebri Medical History Restless Leg Syndrome Medical History Sciatica Medical History Schizoaffective disorder Medical History Chronic pain from neck down Medical History Hypothyroidism Medical History Past or current drug or alcohol problems Surgical History C section 2006 Surgical History Lap Cholesystectomy 2007 Surgical History Explarotory laps 2006 Surgical History Tubal 2020 Surgical History [place] teeth 2002 Hospitalization History See above [facility] Other Histpjx general Narrative - Reported* Type Description Date Medical History ADHD Medical History Anxiety Medical History Asthma Medical History Bipolar disorder Medical History Chronic low back pain that limit s activity Medical History Day time fatigue Medical History Depression Medical History High HDL Medical History GERD Medical History Hypertension Medical History History of passing out Medical History Migraine Medical History CARMEN on CPAP Medical History Pre-diabetes Medical History Fatty liver Medical History Pseudotumor cerebri Medical History Restless Leg Syndrome Medical History Sciatica Medical History Schizoaffective disorder Medical History Chronic pain from neck down Medical History Hypothyroidism Medical History Past or current drug or alcohol problems Medical History Allergic reaction to bee pollen Medical History Trichotillomania Surgical History C section 2006 Surgical History Lap Cholesystectomy 2007 Surgical History Explarotory laps 2006 Surgical History Tubal 2020 Surgical History [place] teeth 2001 Hospitalization History [facility] for bee poll en reaction 05/14/2023 [facility] Other Hospital course Narrative No data available for this section [facility] Hospital Discharge instructions Additional Instructions Regular Diet [facility] Discharge instructions Additional Instructions Regular diet. No activity restrictions.[facility] Work Phone: Hospital Discharge instructions No data available for this section [facility] Progress note No data available for this section [facility] Reason for referral (narrative)* Diagnostic Procedure Only (Routine) - Closed Specialty Diagnoses / Procedures Referred By Halie johnson Referred To Contact XR IMAGING Diagnoses Polyarthralgia Procedures XR KNEE GENERAL 4V AP BOTH/PA BOTH/LAT/MERC BILATERAL RADIOLOGIC EXAM KNEE COMPLETE 4/MORE VIEWS Romero Sherman APRN.CNP [phone] [place] [address] Referral ID Status Reason Start Date Expiration Date V isits Requested Visits Authorized [id number] Closed Auto-Generate d Referral 07/15/2023 08/13/2024 1 1 * Diagnostic Procedure Only (Routine) - Closed Specialty Diagnoses / Procedures Referred By Halie johnson Referred To Contact XR IMAGING Diagnoses Polyarthralgia Procedures XR SHOULDER GENERAL 3V OR MORE AP/TRUE AP/OTHER RIGHT RADEX SHOULDER COMPLETE MINIMUM 2 VIEWS Romero Sherman APRN.CNP [phone] [place] [address] Referral ID Status Reason Start Date Expiration Date V isits Requested Visits Authorized [id number] Closed Auto-Generate d Referral 07/15/2023 08/13/2024 1 1 * Diagnostic Procedure Only (Routine) - Closed Specialty Diagnoses / Procedures Referred By Contac t Referred To Contact XR IMAGING Diagnoses Polyarthralgia Procedures XR SHOULDER GENERAL 3V OR MORE AP/TRUE AP/OTHER LEFT RADEX SHOULDER COMPLETE MINIMUM 2 VIEWS Romero Sherman APRN.WATER PUMPER [phone] [place] [address] Referral ID Status Reason Start Date Expiration Date V isits Requested Visits Authorized [id number] Closed Auto-Generate d Referral 07/15/2023 08/13/2024 1 1 * Diagnostic Procedure Only (Routine) - Closed Specialty Diagnoses / Procedures Referred By Contac t Referred To Contact XR IMAGING Diagnoses Polyarthralgia Procedures XR HAND/WRIST SURVEY ARTHRITIS 1V PA BILATERAL JOINT SURVEY SINGLE VIEW 2 OR MORE JOINTS Romero Sherman APRN.WATER PUMPER [address] [phone] [facility] Referral ID Status Reason Start Date Expiration Date V isits Requested Visits Authorized [id number] Closed Auto-Generate d Referral 07/15/2023 08/13/2024 1 1 [facility] for referral (narrative)* Diagnostic Procedure Only (Routine) - Closed Specialty Diagnoses / Procedures Referred By Contac t Referred To Contact XR IMAGING Diagnoses Polyarthralgia Procedures XR KNEE GENERAL 4V AP BOTH/PA BOTH/LAT/MERC BILATERAL RADIOLOGIC EXAM KNEE COMPLETE 4/MORE VIEWS Romero Sherman APRN.WATER PUMPER [phone] [place] [address] Referral ID Status Reason Start Date Expiration Date V isits Requested Visits Authorized [id number] Closed Auto-Generate d Referral 07/15/2023 08/13/2024 1 1 * Diagnostic Procedure Only (Routine) - Closed Specialty Diagnoses / Procedures Referred By Contac t Referred To Contact XR IMAGING Diagnoses Polyarthralgia Procedures XR SHOULDER GENERAL 3V OR MORE AP/TRUE AP/OTHER RIGHT RADEX SHOULDER COMPLETE MINIMUM 2 VIEWS Romero Sherman APRN.WATER PUMPER [address] [address] [place] [address] Referral ID Status Reason Start Date Expiration Date V isits Requested Visits Authorized [id number] Closed Auto-Generate d Referral 07/15/2023 08/13/2024 1 1 * Diagnostic Procedure Only (Routine) - Closed Specialty Diagnoses / Procedures Referred By Contac t Referred To Contact XR IMAGING Diagnoses Polyarthralgia Procedures XR SHOULDER GENERAL 3V OR MORE AP/TRUE AP/OTHER LEFT RADEX SHOULDER COMPLETE MINIMUM 2 VIEWS Romero Sherman APRN.WATER PUMPER [phone] [place] [address] Referral ID Status Reason Start Date Expiration Date V isits Requested Visits Authorized [id number] Closed Auto-Generate d Referral 07/15/2023 08/13/2024 1 1 * Diagnostic Procedure Only (Routine) - Closed Specialty Diagnoses / Procedures Referred By Contac t Referred To Contact XR IMAGING Diagnoses Polyarthralgia Procedures XR HAND/WRIST SURVEY ARTHRITIS 1V PA BILATERAL JOINT SURVEY SINGLE VIEW 2 OR MORE JOINTS Romero Sherman APRN.WATER PUMPER [address] [phone] [place] [address] Referral ID Status Reason Start Date Expiration Date V isits Requested Visits Authorized [id number] Closed Auto-Generate d Referral 07/15/2023 08/13/[address] [facility] Summary Purpose Family History Relationship Condition Age at Onset Recorded Date/T efrem father Malignant neoplasm of kidney Unknown Diabetes mellitus Unknown Hypertension Unknown Not Specified Hypertension Unknown Borderline diabetes mellitus Unknown Relationship Condition Age at Onset Recorded Date/T efrem father Malignant neoplasm of kidney Unknown Diabetes mellitus Unknown Hypertension Unknown Not Specified Hypertension Unknown Borderline diabetes mellitus Unknown brother Hypertension Unknown Family history of mental disorder Unknown father Hypertension Unknown Heart disease Unknown Malignant neoplasm Unknown sister Hypertension Unknown Advance Directives Documents on File Type Date Recorded Patient Branch Account Executive Expl anation Advance Directives and Living Will Power of Governor Assembler Hydraulic Latest Code Status on File Code Status Date Activated Date Inactivated Comments Full Code 05/02/2020 2:18 AM Documents on File Type Date Recorded Patient Branch Account Executive Expl anation Advance Directives and Living Will Power of Governor Assembler Hydraulic Latest Code Status on File Code Status Date Activated Date Inactivated Comments Full Code 05/02/2020 2:18 AM 05/04/2020 7:52 PM Latest Code Status on File Code Status Date Activated Date Inactivated Comments Full Code 05/02/2020 2:18 AM 05/04/2020 7:52 PM Documents on File Type Date Recorded Patient Branch Account Executive Expl anation ACP-Advance Directive ACP-Power of Governor Assembler Hydraulic Documents on File Type Date Recorded Patient Branch Account Executive Expl anation ACP-Advance Directive ACP-Power of Governor Assembler Hydraulic Latest Code Status on File Code Status Date Activated Date Inactivated Comments Full Code 06/22/2020 11:53 AM 06/25/2020 2:38 AM Full Code 05/02/2020 2:18 AM 05/04/2020 7:52 PM Advance Directive Response Recorded Date/ Time Advance Directives No January 16, 2 019 11:52pm Hospital Course * Jesus Mora DO - 05/04/2020 2:14 PM EDT [facility]-PATIENT SERVICE [facility] Discharge Summary Patient ID: Mercy Hebert : 1985 ACCOUNT: [id number] Patient's PCP: Raji Guerrero DO Admit Date: 05/02/2020 Discharge Date: 05/04/2020 Length of Stay: 2 Code Status: Full Code Admitting Physician: Jesus Mora DO Discharge Physician: Jesus Mora DO Active Discharge Diagnoses: Hospital Problem Lists: Principal Problem: Acute kidney injury (HCC) Active Problems: Acute cystitis Leukocytosis Elevated lithium level Pseudotumor cerebri Bipolar affective disorder, currently active (HCC) Acute metabolic encephalopathy Essential hypertension Severe obesity (BMI >= 40) (HCC) Normocytic anemia [place] toxicity Encephalopathy, unspecified Abnormal thyroid function test CARMENZA (acute kidney injury) (HCC) Vitamin D deficiency Resolved Problems: * No resolved hospital problems. * Admission Condition: fair Discharged Condition: stable Hospital Stay: Hospital Course: Mercy Hebert is a 34 y.o. female who was admitted for the management of Acute kidney injury (HCC) , presented to ER with altered mental status, lethargy This is a 34-year-old white female with history of pseudotumor cerebri as well as bipolar disorder.In the last few weeks prior to admission she had her lithium dose increased by her psychiatrist as well as started on Diamox by neurology for recurrent pseudotumor cerebri. Shortly after the medication adjustments she started developing intermittent confusion and decreased level of functioning. Sheis found to have elevated lithium levels as well as acute renal failure. She on urgent hemodialysisto clear the lithium and had improvement in her renal function with IV hydration etc. Significant therapeutic interventions: Urgent dialysis Significant Diagnostic Studies: Labs / Micro: CBC: Lab Results Component Value Date WBC 17.8 05/03/2020 RBC 3.52 05/03/2020 HGB 10.5 05/03/2020 HCT 34.9 05/03/2020 MCV 99.1 05/03/2020 MCH 29.8 05/03/2020 MCHC 30.1 05/03/2020 RDW 19.9 05/03/2020 PLT 409 05/03/2020 BMP: Lab Results Component Value Date GLUCOSE 112 05/04/2020 NA 133 05/04/2020 K 3.7 05/04/2020 CL 104 05/04/2020 CO2 22 05/04/2020 ANIONGAP 7 05/04/2020 BUN 10 05/04/2020 CREATININE 0.75 05/04/2020 BUNCRER NOT REPORTED 05/04/2020 CALCIUM 9.1 05/04/2020 LABGLOM >60 05/04/2020 GFRAA >60 05/04/2020 GFR 05/04/2020 GFR NOT REPORTED 05/04/2020 Radiology: Ct Head Wo Contrast Result Date: 05/02/[address] brain with no acute intracranial abnormality. Ct Cervical Spine Wo Contrast Result Date: 05/02/[address] examination with no acute abnormality of the cervical spine. Us Renal Complete Result Date: 05/02/2020 1. Normal sonographic appearance of the kidneys. 2. No visualization of the decompressed urinary bladder. 3. Incidental note of hepatic steatosis. Ir Nontunneled Vascular Catheter > 5 Years Result Date: 05/02/2020 Successful ultrasound and fluoroscopy guided non-tunneled 13 Uzbek by 15 cm dual split hemodialysis catheter placement. Consultations: Consults: Final Specialist Recommendations/Findings: IP CONSULT TO NEUROLOGY IP CONSULT TO NEPHROLOGY IP CONSULT TO IV TEAM The patient was seen and examined on day of discharge and this discharge summary is in conjunction with any daily progress note from day of discharge. Discharge plan: Disposition: Home Physician Follow Up: Raji Guerrero DO [address] [address] Requiring Further Evaluation/Follow Up POST HOSPITALIZATION/Incidental Findings: Repeat labs at discretion of PCP Diet: regular diet Activity: As tolerated Instructions to Patient: Take medications as prescribed Discharge Medications: Medication List CONTINUE taking these medications acetaZOLAMIDE 250 MG tablet Commonly known as: DIAMOX Take 1 tablet by mouth 2 times daily ALBUTEROL IN DULoxetine 60 MG extended release capsule Commonly known as: CYMBALTA FLONASE NA hydroCHLOROthiazide 25 MG tablet Commonly known as: HYDRODIURIL Iron 325 (65 Fe) MG Tabs Latuda 20 MG Tabs tablet Generic drug: lurasidone LEVOTHYROXINE SODIUM PO lisinopril 20 MG tablet Commonly known as: PRINIVIL;ZESTRIL lithium 300 MG tablet naproxen 500 MG tablet Commonly known as: Naprosyn Take 1 po bid PRN omeprazole 20 MG EC tablet rOPINIRole 0.5 MG tablet Commonly known as: REQUIP traZODone 50 MG tablet Commonly known as: DESYREL Vyvanse 50 MG capsule Generic drug: lisdexamfetamine * ZOFRAN PO * ondansetron 4 MG tablet Commonly known as: ZOFRAN Take 1 tablet by mouth 3 times daily as needed for Nausea or Vomiting * This list has 2 medication(s) that are the same as other medications prescribed for you. Read thedirections carefully, and ask your doctor or other care provider to review them with you. No discharge procedures on file. Time Spent on discharge is 24 minutes in patient examination, evaluation, counseling as well as medication reconciliation, prescriptions for required medications, discharge plan and follow up. Electronically signed by Jesus Mora DO 05/04/2020 2:[address] Raji Guerrero DO for the opportunity to be involved in this patient's care. documented in this encounter Discharge Instructions * Attachments The following attachments cannot be sent through Care Everywhere. * lithium (Gabonese) documented in this encounter History of Present Illness * Jesus Mora DO - 05/04/2020 9:39 AM EDT [facility]PATIENT SERV[facility] Progress Note 05/04/2020 9:39 AM Name: Mercy Hebert Acct: [id number] Room: 0331/0331-01 IP Day: 2 Admit Date: 05/02/2020 2:00 AM PCP: Raji Guerrero DO Code Status: Full Code Subjective: C/C: Altered mental status Interval History Status: improved. Patient is seen up in [facility]. Had episode of nausea and vomiting this morning for breakfast but otherwise feels well at this time. Denies any chest pain, shortness of breath, abdominal pain, fevers or chills or complaints. Brief History: This is a 34-year-old white female with history of bipolar disorder and pseudotumor cerebri which had recent follow-up with neurology for possible recurrence. She was started on Diamox and since starting the diuretic has had increased confusion/lethargy and presented to an outside facility. Upon janene luation she is found have acute kidney injury and elevated lithium levels and has been transferred here for nephrology evaluation and management. Due to continue lithium toxicity she underwent urgentdialysis on the eighth for correction of the lithium toxicity. She is had improvement in her mentation as her labs have been improving. Review of Systems: Constitutional: negative for chills, fevers, sweats Respiratory: negative for cough, dyspnea on exertion, shortness of breath, wheezing Cardiovascular: negative for chest pain, chest pressure/discomfort, lower extremity edema, palpitations Gastrointestinal: negative for abdominal pain, constipation, diarrhea, positive for nausea, vomiting Neurological: negative for dizziness, headache Medications: Allergies: No Known Allergies Current Meds: Scheduled Meds: sodium chloride flush 10 mL Intravenous 2 times per day heparin (porcine) 5,000 Units Subcutaneous 3 times per day Continuous Infusions: sodium chloride 75 mL/hr at 05/02/20 0239 PRN Meds: potassium chloride, promethazine, acetaminophen OR acetaminophen, nicotine, promethazine OR ondansetron, sodium chloride flush Data: Past Medical History: has no past medical history on file. Social History: Family History: No family history on file. Vitals: BP 135/70 Pulse 88 Temp 98.2 F (36.8 C) (Axillary) Resp 18 Wt (!) 306 lb (138.8 kg) SpO2 97% BMI 54.21 kg/m Temp (24hrs), Av.4 F (36.9 C), Min:98.2 F (36.8 C), Max:98.5 F (36.9 C) Recent Labs 05/02/20 0221 POCGLU 99 I/O (24Hr): Intake/Output Summary (Last 24 hours) at 05/04/2020 0939 Last data filed at 05/03/2020 1726 Gross per 24 hour Intake Output 825 ml Net -825 ml Labs: Hematology: Recent Labs 05/02/2044405/03/20208 WBC 25.9* 17.8* RBC 3.58* 3.52* HGB 10.8* 10.5* HCT 34.8* 34.9* MCV 97.2 99.1 MCH 30.2 29.8 MCHC 31.0 30.1 RDW 19.7* 19.9* PLT 446 409 MPV 10.2 9.9 SEDRATE 16 -- CRP -- 63.8* INR -- 1.0 Chemistry: Recent Labs 05/02/2044405/03/20 02005/03/205 05/04/20 0247 05/04/20 0744 NA 137 < > 136 < > 138 136 133* K 3.5* < > 3.4* < > 4.0 3.8 3.7 CL 112* < > 104 < > 104 104 104 CO2 13* < > 20 < > 21 20 22 GLUCOSE 106* < > 123* < > 116* 105* 112* BUN 39* < > 12 < > 10 9 10 CREATININE 2.14* < > 0.87 < > 0.80 0.72 0.75 MG 2.8* -- 2.2 -- -- -- -- ANIONGAP 12 < > 12 < > 13 12 7* LABGLOM 27* < > >60 < > >60 >60 >60 GFRAA 32* < > >60 < > >60 >60 >60 CALCIUM 7.8* < > 8.0* < > 8.8 8.8 9.1 PHOS 2.8 -- -- -- -- -- -- < > = values in this interval not displayed. Recent Labs 05/02/20 0221 05/02/20 0445 05/02/20 0959 PROT -- 5.8* -- LABALBU -- 3.0* -- TSH -- -- 7.03* AST -- 16 -- ALT -- 16 -- ALKPHOS -- 138* -- BILITOT -- <0.10* -- POCGLU 99 -- -- ABG: Lab Results Component Value Date POCPH 7.270 05/02/2020 POCPCO2 34.1 05/02/2020 POCPO2 94.0 05/02/2020 POCHCO3 15.6 05/02/2020 NBEA 10 05/02/2020 PBEA NOT REPORTED 05/02/2020 OXV9EXB 17 05/02/2020 TTWH6ATO 96 05/02/2020 FIO2 21.0 05/02/2020 Lab Results Component Value Date/Time SPECIAL LT ARM 6ML 05/02/2020 04:40 AM Lab Results Component Value Date/Time CULTURE NO GROWTH 2 DAYS 05/02/2020 04:40 AM Radiology: Ct Head Wo Contrast Result Date: 05/02/[address] brain with no acute intracranial abnormality. Ct Cervical Spine Wo Contrast Result Date: 05/02/[address] examination with no acute abnormality of the cervical spine. Us Renal Complete Result Date: 05/02/2020 1. Normal sonographic appearance of the kidneys. 2. No visualization of the decompressed urinary bladder. 3. Incidental note of hepatic steatosis. Ir Nontunneled Vascular Catheter > 5 Years Result Date: 05/02/2020 Successful ultrasound and fluoroscopy guided non-tunneled 13 Uzbek by 15 cm dual split hemodialysis catheter placement. Physical Examination: General appearance: alert, cooperative and no distress Mental Status: oriented to person, place and time and normal affect Lungs: clear to auscultation bilaterally, normal effort Heart: regular rate and rhythm, no murmur Abdomen: soft, nontender, nondistended, normal bowel sounds, no masses, hepatomegaly, splenomegaly Extremities: no edema, redness, tenderness in the calves Skin: no gross lesions, rashes, induration Assessment: Hospital Problems Last Modified POA * (Principal) Acute kidney injury (HCC) 05/02/2020 Yes Acute cystitis 05/02/2020 Yes Leukocytosis 05/02/2020 Yes Elevated lithium level 05/02/2020 Yes Pseudotumor cerebri 05/02/2020 Yes Bipolar affective disorder, currently active ([facility]) 05/02/2020 Yes Acute metabolic encephalopathy 05/02/2020 Yes Essential hypertension 05/02/2020 Yes Severe obesity (BMI >= 40) ([facility]) 05/02/2020 Yes Normocytic anemia 05/02/2020 Yes [place] toxicity 05/02/2020 Yes Encephalopathy, unspecified 05/02/2020 Yes Abnormal thyroid function test 05/02/2020 Yes CARMENZA (acute kidney injury) ([facility]) 05/02/2020 Yes Vitamin D deficiency 05/03/2020 Yes Plan: 1. Continue present medications 2. Increase activity, PT and OT as needed 3. Neurology and nephrology evaluations noted 4. Outpatient psychiatry follow-up 5. GI and DVT prophylaxis 6. Discharge up once if tolerating diet Jesus Mora DO 05/04/2020 9:39 AM * Bronwyn Sanches MD - 05/03/2020 3:09 PM EDT Renal Progress Note Patient : Mercy Hebert; 34 y.o. Location: 0331/0331-01 Attending: Jesus Mora DO Admit Date: 05/02/2020 Hospital Day: 1 Subjective: Oral intake still somewhat suboptimal. Having nausea and lethargy persist. Urine output good. Patient herself feels well. No shortness of breath orthopnea. Eager for discharge. Creatinine down to 0.7. Right IJ vein temporary dialysis catheter in place. [place] level 1.2. With normalized creatinine that level is now nontoxic. Diuretics discontinued. Hemodynamically stable. Required 1 dialysis treatment. Outpatient Medications: Medications Prior to Admission: acetaZOLAMIDE (DIAMOX) 250 MG tablet, Take 1 tablet by mouth 2 times daily lithium 300 MG tablet, Take 300 mg by mouth 2 times daily Patient takes 300 mg in the morning and 900 mg in the evening omeprazole 20 MG EC tablet, Take 20 mg by mouth daily rOPINIRole (REQUIP) 0.5 MG tablet, Take 0.5 mg by mouth nightly DULoxetine (CYMBALTA) 60 MG extended release capsule, Take 60 mg by mouth 2 times daily lurasidone (LATUDA) 20 MG TABS tablet, Take 20 mg by mouth nightly lisdexamfetamine (VYVANSE) 50 MG capsule, Take 50 mg by mouth every morning. lisinopril (PRINIVIL;ZESTRIL) 20 MG tablet, Take 20 mg by mouth every morning LEVOTHYROXINE SODIUM PO, Take 25 mcg by mouth every morning traZODone (DESYREL) 50 MG tablet, Take 50 mg by mouth nightly ALBUTEROL IN, Inhale into the lungs hydroCHLOROthiazide (HYDRODIURIL) 25 MG tablet, Take 25 mg by mouth every morning Fluticasone Propionate (FLONASE NA), by Nasal route as needed Ferrous Sulfate (IRON) 325 (65 Fe) MG TABS, Take by mouth daily Ondansetron HCl (ZOFRAN PO), Take by mouth as needed naproxen (NAPROSYN) 500 MG tablet, Take 1 po bid PRN ondansetron (ZOFRAN) 4 MG tablet, Take 1 tablet by mouth 3 times daily as needed for Nausea or Vomiting Current Medications: Scheduled Meds: sodium chloride flush 10 mL Intravenous 2 times per day heparin (porcine) 5,000 Units Subcutaneous 3 times per day Continuous Infusions: sodium chloride 75 mL/hr at 05/02/20 0239 PRN Meds: potassium chloride, promethazine, acetaminophen OR acetaminophen, nicotine, promethazine OR ondansetron, sodium chloride flush Input/Output: I/O last 3 completed shifts: In: 225 [P.O.:50] Out: 3545 [Urine:2725; Emesis/NG output:250]. Patient Vitals for the past 96 hrs (Last 3 readings): Weight 05/02/20 2035 (!) 306 lb (138.8 kg) 05/02/20 1615 (!) 306 lb 3.5 oz (138.9 kg) Vital Signs: Temperature: Temp: 98.5 F (36.9 C) TMax: Temp (24hrs), Av.2 F (36.8 C), Min:98 F (36.7 C), Max:98.5 F (36.9 C) Respirations: Resp: 18 Pulse: Pulse: 93 BP: BP: 118/65 BP Range: Systolic (24hrs), Av , Min:90 , Max:148 Diastolic (24hrs), Av, Min:35, Max:115 Physical Examination: General: AAO x 3, speaking in full sentences, no accessory muscle use. HEENT: Atraumatic, normocephalic, no throat congestion, moist mucosa. Eyes: Pupils equal, round and reactive to light, EOMI. Neck: No JVD, no thyromegaly, no lymphadenopathy. Chest: Bilateral vesicular breath sounds, no rales or wheezes. Cardiac: S1 S2 RR, no murmurs, gallops or rubs, JVP not raised. Abdomen: Soft, non-tender, no masses or organomegaly, BS audible. : No suprapubic or flank tenderness. Neuro: AAO x 3, No FND. SKIN: No rashes, good skin turgor. Extremities: No edema, palpable peripheral pulses, no calf tenderness. Labs: Recent Labs 05/02/20 0445 05/03/20 0209 WBC 25.9* 17.8* RBC 3.58* 3.52* HGB 10.8* 10.5* HCT 34.8* 34.9* MCV 97.2 99.1 MCH 30.2 29.8 MCHC 31.0 30.1 RDW 19.7* 19.9* PLT 446 409 MPV 10.2 9.9 BMP: Recent Labs 05/02/20 0959 05/03/20 0209 05/03/20 0754 NA 136 136 139 K 4.4 3.4* 3.6* CL 113* 104 107 CO2 12* 20 20 BUN 38* 12 12 CREATININE 1.86* 0.87 0.78 GLUCOSE 101* 123* 123* CALCIUM 7.8* 8.0* 8.6 Phosphorus: Recent Labs 05/02/20 0445 PHOS 2.8 Magnesium: Recent Labs 05/02/20 0445 05/03/20 0209 MG 2.8* 2.2 Albumin: Recent Labs 05/02/20 0445 LABALBU 3.0* BNP: No results found for: BNP MARCELLA: No results found for: MARCELLA SPEP: Lab Results Component Value Date PROT 5.8 05/02/2020 UPEP: No results found for: LABPE C3: No results found for: C3 C4: No results found for: C4 MPO ANCA: No results found for: MPO PR3 ANCA: No results found for: PR3 Anti-GBM: No results found for: GBMABIGG Hep BsAg: Lab Results Component Value Date HEPBSAG NONREACTIVE 05/02/2020 Hep C AB: Lab Results Component Value Date HEPCAB NONREACTIVE 05/02/2020 Urinalysis/Chemistries: Lab Results Component Value Date NITRU NEGATIVE 05/02/2020 COLORU YELLOW 05/02/2020 PHUR 6.0 05/02/2020 WBCUA 2 TO 5 05/02/2020 RBCUA 2 TO 5 05/02/2020 MUCUS NOT REPORTED 05/02/2020 TRICHOMONAS NOT REPORTED 05/02/2020 YEAST NOT REPORTED 05/02/2020 BACTERIA NOT REPORTED 05/02/2020 SPECGRAV 1.011 05/02/2020 LEUKOCYTESUR NEGATIVE 05/02/2020 UROBILINOGEN Normal 05/02/2020 BILIRUBINUR NEGATIVE 05/02/2020 GLUCOSEU NEGATIVE 05/02/2020 KETUA NEGATIVE 05/02/2020 AMORPHOUS NOT REPORTED 05/02/2020 Urine Sodium: Lab Results Component Value Date ISRAEL 58 05/02/2020 Urine Potassium: No results found for: KUR Urine Chloride: Lab Results Component Value Date CLUR 33 05/02/2020 Urine Osmolarity: No results found for: OSMOU Urine Protein: No components found for: TOTALPROTEIN, URINE Urine Creatinine: Lab Results Component Value Date LABCREA 106.8 05/02/2020 Urine Eosinophils: No components found for: UEOS Radiology: CXR: Assessment: 1. Acute Kidney Injury: Secondary to ischemic ATN from intravascular depletion related to diuretics, NSAIDs and THAO inhibitor's. Baseline 0.7-0.8 peaked up to 2.1 now resolving, received 1 dialysis treatment yesterday 2. Brightwood toxicity secondary to acute kidney injury further aggravated by thiazides, level was up to 2.3, repeat level thereafter has been down to 1.2. 3. Bipolar disorder 4. morbid obesity Plan: 1. Continue IV fluids for now as patient is not still able to keep up with her intake 2. Discontinue Grubbs 3. Await lithium level level from 2:00 pm expect that to improve further, if level is 1 or less patient can be discharged 4. Discontinue dialysis catheter 5. Nothing else to add will sign off please call for questions no need for nephrology follow-up. Nutrition Please ensure that patient is on a renal diet/TF. Avoid nephrotoxic drugs/contrast exposure. We will continue to follow along with you. * Jesus Mora DO - 05/03/2020 10:08 AM EDT [facility] IN-PATIENT SERVICE [facility] Progress Note 05/03/2020 10:08 AM Name: Mercy Hebert Acct: [id number] Room: 0331/0331-01 IP Day: 1 Admit Date: 05/02/2020 2:00 AM PCP: Raji Guerrero DO Code Status: Full Code Subjective: C/C: Altered mental status, lethargy Interval History Status: improved. Patient more alert today. Denies any chest pain, shortness of breath, nausea or vomiting. Brief History: This is a 34-year-old white female with history of bipolar disorder and pseudotumor cerebri which had recent follow-up with neurology for possible recurrence. She was started on Diamox and since starting the diuretic has had increased confusion/lethargy and presented to an outside facility. Upon janene luation she is found have acute kidney injury and elevated lithium levels and has been transferred here for nephrology evaluation and management. Due to continue lithium toxicity she underwent urgentdialysis on the eighth for correction of the lithium toxicity. She is had improvement in her mentation as her labs have been improving. Review of Systems: Constitutional: negative for chills, fevers, sweats Respiratory: negative for cough, dyspnea on exertion, shortness of breath, wheezing Cardiovascular: negative for chest pain, chest pressure/discomfort, lower extremity edema, palpitations Gastrointestinal: negative for abdominal pain, constipation, diarrhea, nausea, vomiting Neurological: negative for dizziness, headache Medications: Allergies: No Known Allergies Current Meds: Scheduled Meds: sodium chloride flush 10 mL Intravenous 2 times per day heparin (porcine) 5,000 Units Subcutaneous 3 times per day Continuous Infusions: sodium chloride 75 mL/hr at 05/02/20 0239 PRN Meds: potassium chloride, promethazine, acetaminophen OR acetaminophen, nicotine, promethazine OR ondansetron, sodium chloride flush Data: Past Medical History: has no past medical history on file. Social History: Family History: No family history on file. Vitals: BP 120/62 Pulse 91 Temp 98.5 F (36.9 C) (Oral) Resp 20 Wt (!) 306 lb (138.8 kg) SpO2 95% BMI 54.21 kg/m Temp (24hrs), Av.1 F (36.7 C), Min:98 F (36.7 C), Max:98.5 F (36.9 C) Recent Labs 05/02/20 0221 POCGLU 99 I/O (24Hr): Intake/Output Summary (Last 24 hours) at 05/03/2020 1008 Last data filed at 05/03/2020 0854 Gross per 24 hour Intake 225 ml Output 3220 ml Net -2995 ml Labs: Hematology: Recent Labs 05/02/20 0445 05/03/20 0209 WBC 25.9* 17.8* RBC 3.58* 3.52* HGB 10.8* 10.5* HCT 34.8* 34.9* MCV 97.2 99.1 MCH 30.2 29.8 MCHC 31.0 30.1 RDW 19.7* 19.9* PLT 446 409 MPV 10.2 9.9 SEDRATE 16 -- CRP -- 63.8* INR -- 1.0 Chemistry: Recent Labs 05/02/20 04405/02/20 0959 05/03/20 0209 05/03/20 0754 NA 137 136 136 139 K 3.5* 4.4 3.4* 3.6* CL 112* 113* 104 107 CO2 13* 12* 20 20 GLUCOSE 106* 101* 123* 123* BUN 39* 38* 12 12 CREATININE 2.14* 1.86* 0.87 0.78 MG 2.8* -- 2.2 -- ANIONGAP 12 11 12 12 LABGLOM 27* 31* >60 >60 GFRAA 32* 38* >60 >60 CALCIUM 7.8* 7.8* 8.0* 8.6 PHOS 2.8 -- -- -- Recent Labs 05/02/20 02205/02/2044405/02/20 0959 PROT -- 5.8* -- LABALBU -- 3.0* -- TSH -- -- 7.03* AST -- 16 -- ALT -- 16 -- ALKPHOS -- 138* -- BILITOT -- <0.10* -- POCGLU 99 -- -- ABG: Lab Results Component Value Date POCPH 7.270 05/02/2020 POCPCO2 34.1 05/02/2020 POCPO2 94.0 05/02/2020 POCHCO3 15.6 05/02/2020 NBEA 10 05/02/2020 PBEA NOT REPORTED 05/02/2020 QBS4FJP 17 05/02/2020 FESH8UBY 96 05/02/2020 FIO2 21.0 05/02/2020 Lab Results Component Value Date/Time SPECIAL LT ARM 6ML 05/02/2020 04:40 AM Lab Results Component Value Date/Time CULTURE NO GROWTH 15 HOURS 05/02/2020 04:40 AM Radiology: Ct Head Wo Contrast Result Date: 05/02/[address] brain with no acute intracranial abnormality. Ct Cervical Spine Wo Contrast Result Date: 05/02/[address] examination with no acute abnormality of the cervical spine. Us Renal Complete Result Date: 05/02/2020 1. Normal sonographic appearance of the kidneys. 2. No visualization of the decompressed urinary bladder. 3. Incidental note of hepatic steatosis. Ir Nontunneled Vascular Catheter > 5 Years Result Date: 05/02/2020 Successful ultrasound and fluoroscopy guided non-tunneled 13 Uzbek by 15 cm dual split hemodialysis catheter placement. Physical Examination: General appearance: alert, cooperative and no distress Mental Status: oriented to person, place and time and normal affect Lungs: clear to auscultation bilaterally, normal effort Heart: regular rate and rhythm, no murmur Abdomen: soft, nontender, nondistended, normal bowel sounds, no masses, hepatomegaly, splenomegaly Extremities: no edema, redness, tenderness in the calves Skin: no gross lesions, rashes, induration Assessment: Hospital Problems Last Modified POA * (Principal) Acute kidney injury (HCC) 05/02/2020 Yes Acute cystitis 05/02/2020 Yes Leukocytosis 05/02/2020 Yes Elevated lithium level 05/02/2020 Yes Pseudotumor cerebri 05/02/2020 Yes Bipolar affective disorder, currently active ([facility]) 05/02/2020 Yes Acute metabolic encephalopathy 05/02/2020 Yes Essential hypertension 05/02/2020 Yes Severe obesity (BMI >= 40) ([facility]) 05/02/2020 Yes Normocytic anemia 05/02/2020 Yes Brightwood toxicity 05/02/2020 Yes Encephalopathy, unspecified 05/02/2020 Yes Abnormal thyroid function test 05/02/2020 Yes CARMENZA (acute kidney injury) ([facility]) 05/02/2020 Yes Plan: 1. Fluids per nephrology 2. Antiemetics as ordered 3. Continue antibiotics as ordered 4. Monitor and control blood pressure 5. GI and DVT prophylaxis 6. Increase activity as tolerated 7. Neurology evaluation Jesus Mora DO 05/03/2020 10:08 AM * Evan Stokes MD - 05/03/2020 8:52 AM EDT NEUROLOGY INPATIENT PROGRESS NOTE 05/03/2020 Subjective: Mercy Hebert is a 34 y.o. female admitted on 05/02/2020 with Acute kidney injury (HCC) [N17.9] Briefly, this is a 34 y.o. female admitted on 05/02/2020 with PMH of bipolar disorder, HTN, Hypothyroidism, recent diagnosis of pseudotumor cerebri who [facility] She was transferred over to [facility] on 05/02 for continued AMS, CARMENZA, and lithium toxicity. Mother, Brandi, at bedside provided most of the information in addition to chart review. She states patient's lithium dose was increased by her psychiatrist about 2 months ago and patient was advised to follow up with lithium levels, which she did not do. For about 5 days, patient's mentation changed. Patient was on diuretics as well which exacerbated it. Today, patient is more awake. Brightwood levels have improved down to 1.2 today compared to 2.3 yesterday. Does not recall events leading up to hospitalization. Does endorse missing outpatient lab draws forlithium levels. No current facility-administered medications on file prior to encounter. Current Outpatient Medications on File Prior to Encounter Medication Sig Dispense Refill acetaZOLAMIDE (DIAMOX) 250 MG tablet Take 1 tablet by mouth 2 times daily 60 tablet 2 lithium 300 MG tablet Take 300 mg by mouth 2 times daily Patient takes 300 mg in the morning and 900 mg in the evening omeprazole 20 MG EC tablet Take 20 mg by mouth daily rOPINIRole (REQUIP) 0.5 MG tablet Take 0.5 mg by mouth nightly DULoxetine (CYMBALTA) 60 MG extended release capsule Take 60 mg by mouth 2 times daily lurasidone (LATUDA) 20 MG TABS tablet Take 20 mg by mouth nightly lisdexamfetamine (VYVANSE) 50 MG capsule Take 50 mg by mouth every morning. lisinopril (PRINIVIL;ZESTRIL) 20 MG tablet Take 20 mg by mouth every morning LEVOTHYROXINE SODIUM PO Take 25 mcg by mouth every morning traZODone (DESYREL) 50 MG tablet Take 50 mg by mouth nightly ALBUTEROL IN Inhale into the lungs hydroCHLOROthiazide (HYDRODIURIL) 25 MG tablet Take 25 mg by mouth every morning Fluticasone Propionate (FLONASE NA) by Nasal route as needed Ferrous Sulfate (IRON) 325 (65 Fe) MG TABS Take by mouth daily Ondansetron HCl (ZOFRAN PO) Take by mouth as needed naproxen (NAPROSYN) 500 MG tablet Take 1 po bid PRN 60 tablet 3 ondansetron (ZOFRAN) 4 MG tablet Take 1 tablet by mouth 3 times daily as needed for Nausea or Vomiting 30 tablet 2 Allergies: Mercy Hebert has No Known Allergies. No past medical history on file. No past surgical history on file. Medications: sodium chloride flush 10 mL Intravenous 2 times per day heparin (porcine) 5,000 Units Subcutaneous 3 times per day PRN Meds include: potassium chloride, acetaminophen OR acetaminophen, nicotine, promethazine OR ondansetron, sodium chloride flush Objective: BP 120/62 Pulse 91 Temp 98.5 F (36.9 C) (Oral) Resp 20 Wt (!) 306 lb (138.8 kg) SpO2 95% BMI 54.21 kg/m Blood pressure range: Systolic (24hrs), Av , Min:90 , Max:148 ; Diastolic (24hrs), Av, Min:35, Max:115 ROS: CONSTITUTIONAL: negative for fatigue and malaise EYES: negative for double vision and photophobia HEENT: negative for tinnitus and sore throat RESPIRATORY: negative for cough, shortness of breath CARDIOVASCULAR: negative for chest pain, palpitations, or syncope GASTROINTESTINAL: negative for abdominal pain, nausea, vomiting, diarrhea, or constipation GENITOURINARY: negative for incontinence or retention MUSCULOSKELETAL: negative for neck or back pain, negative for extremity pain NEUROLOGICAL: Negative for seizures, headaches, weakness, numbness, confusion, aphasia, dysarthria PSYCHIATRIC: negative for agitation, hallucination, SI/HI SKIN Negative for spontaneous contusions, rashes, or lesions NEUROLOGIC EXAMINATION GENERAL Appears comfortable and in no distress HEENT NC/ AT HEART S1 and S2 heard; palpation of pulses: radial pulse NECK Supple and no bruits heard MENTAL STATUS: Alert, oriented, intact memory, no confusion, normal speech, normal language, no hallucination or delusion CRANIAL NERVES: II - Visual shahid intact to confrontation III,IV, - PERR, EOMs full, no ptosis V - Normal facial sensation VII - Normal facial symmetry VIII - Intact hearing IX,X - Symmetrical palate XI - Symmetrical shoulder shrug XII - Midline tongue, no atrophy MOTOR FUNCTION: RUE: Significant for good strength of grade 5/5 in proximal and distal muscle groups LUE: Significant for good strength of grade 5/5 in proximal and distal muscle groups RLE: Significant for good strength of grade 5/5 in proximal and distal muscle groups LLE: Significant for good strength of grade 5/5 in proximal and distal muscle groups Normal bulk, normal tone and no involuntary movements, no tremor SENSORY FUNCTION: Normal touch, normal pin, normal vibration, normal proprioception CEREBELLAR FUNCTION: Intact fine motor control over upper limbs and lower limbs REFLEX FUNCTION: Symmetric in upper and lower extremities, 4+ in lower limbs b/l STATION and GAIT Not tested Data: Lab Results: CBC: Recent Labs 05/02/20 0445 05/03/20 0209 WBC 25.9* 17.8* HGB 10.8* 10.5* PLT 446 409 BMP: Recent Labs 05/02/20 0959 05/03/20 0209 05/03/20 0754 NA 136 136 139 K 4.4 3.4* 3.6* CL 113* 104 107 CO2 12* 20 20 BUN 38* 12 12 CREATININE 1.86* 0.87 0.78 GLUCOSE 101* 123* 123* Lab Results Component Value Date ALT 16 05/02/2020 AST 16 05/02/2020 TSH 7.03 (H) 05/02/2020 INR 1.0 05/03/2020 [id number] 809 05/02/2020 No results found for: PHENYTOIN, PHENYTOIN, VALPROATE, CBMZ IMAGING CT Head WO Contrast 05/03/[address] brain with no acute intracranial abnormality. Assessment and Plan 34 y.o. right-handed female admitted for Metabolic encephalopathy secondary to lithium toxicity Bipolar disorder CARMENZA Pseudotumor cerebri Mentation improving. Medical management per primary Will need to follow up outpatient with psychiatry and neurology No further neurologic intervention at this time. Evan Stokes MD PGY-2 Neurology 05/03/2020 8:53 AM Associated attestation - Naga Sam MD - 05/03/2020 8:29 PM EDT I reviewed and discussed with the resident of his/her note, the documented findings and plan of care. I have personally seen and evaluated the patient and test results. I agree with the documentationexcept following modifications/additions: 34 year old WF was admitted for AMS in setting of lithium toxicity, metabolic derangement (THS 8, creatinine 7 with normal free T4), UDS positive for amphetamine 1.Encephalopathy, metabolic resolved after dialysis, fully oriented on exam Brightwood back to normal range (1.2); per pt, lithium dose was increased recently by psychiatrist. 2. CARMENZA: resolved. 3. Thyroid dysfunction 4. Pseudotumor cerebri: continue diamox 5. Vitamin D deficiency: supplement per primary team 6. psychiatric disorder: follow with psychiatry/psychology Thanks for this interesting consult, neurology is signing off, please call with any questions. Naga Sam MD, MS Neurology Attending [facility], Neurology * Idalia Yancey RN - 05/02/2020 8:44 PM EDT Dialysis Post Treatment Note Vitals: 05/02/202034 BP: (!) 106/45 Pulse: 95 Resp: 16 Temp: 98 F (36.7 C) SpO2: Dialyzer clotted with one hour remaining, despite all interventions provided. Re set up HD and re initiated tx per orders. Pt tolerated tx well, no further complications noted. Pre-Weight =138.9kg Post-weight = Weight: (!) 306 lb (138.8 kg) Total Liters Processed = Total Liters Processed (l/min): 60.1 l/min Rinseback Volume (mL) = Rinseback Volume (ml): 300 ml Net Removal (mL) = 95 mL Type of access used= RT IJ Length of treatment=4 hours * Torito Kirby MD - 05/02/2020 4:49 PM EDT Patient was seen and examined on HD at bedside. Orders were confirmed with the HD nurse. S/P Edison Cath placed today by IR. Covid-19 testing was negative. Running on HD due to Brightwood toxicity. Run time 4 hrs. Tolerating the procedure well. Torito Kirby MD [facility] This note is created with the assistance of a speech-recognition program. While intending to generate a document that actually reflects the content of the visit, no guarantees can be provided that every mistake has been identified and corrected by editing. * Sushila Romero RCP - 05/02/2020 1:22 PM EDT RAPID Covid 19 swab taken from left nare, labeled, placed in red dot bag, and handed off to second healthcare worker outside of room for transport to laboratory per hospital policy and procedure. Patient tolerated procedure well. * Sebastian Parra MD - 05/02/2020 6:10 AM EDT 34-year-old female patient with past medical history of bipolar disorder on lithium and lurasidone,restless leg syndrome on Requip, hypertension on lisinopril, hypothyroidism on replacement, was transferred from outside facility for altered mental status and elevated lithium level. Neurology was consulted for altered mental status. At bedside, the patient was lethargic, very slow in following simple commands. The patient was ableto raise the right upper extremity antigravity, left upper extremity along the surface, withdraw topain in bilateral lower extremities. The patient was able to track the objects visually, no double vision or blurry vision. Negative meningeal signs. No neck rigidity. Positive Babinski sign in the left side, positive Skyler sign in the left upper extremity, nonsustained clonus in the left lower extremity. Exaggerated deep tendon reflexes more in the left side. Pupils are round and reactive bilaterally. Ophthalmoscope was obtained and was difficult to see due to small pupils. No fever. Significant imaging and labs from outside facility, lithium level of 2.3 for the last 5 days. AK I with creatinine around 4.4. TSH around 8. UA was unremarkable. UDS was positive for amphetamine, sheis taking lisdexamfetamine at home. Ammonia level within normal limits. White blood cells of 35. CThead was done and was unremarkable for acute changes. Of note, the patient was seen recently by Dr. Rodriguez in the clinic for headaches associated with nausea and light sensitivity, per patient's report, the patient went to eye doctor mid of March and she was told that she has elevated optic pressure bilaterally. The patient mentioned that she has history of pseudotumor cerebri that was diagnosed by LP in July 2019, the headaches was resolved after the LP at that time. The patient was started on Diamox 250 mg twice daily by Dr. Rodriguez with some improvement after that. The patient has EEG in 2019 which was unremarkable. We do not have any images or LP findings in our system. Labs at [facility]; Brightwood level 2.3 Creatinine 2.3, BUN 39 Bicarb of 13 White blood cells of 26 UA was unremarkable. DD; -Acute lithium toxicity that presents with confusion/lethargy, tremor, acute kidney injury, hypothyroidism, leukocytosis. -Metabolic encephalopathy secondary to metabolic acidosis, acute kidney injury, possible underlyinginfection with leukocytosis. Plan -Stat CT head, stat CT C-spine due to the presence of left Skyler sign, Babinski sign and nonsustained clonus in the left lower extremity -MRI of the brain without contrast -ESR, CRP and procalcitonin -Nephrology consultation for possible dialysis per persistent elevated lithium level -CARMENZA, treatment per primary -Metabolic acidosis, treatment per primary. -Consider LP if no improvement in mental status. Sebastian Parra MD PGY-3, Neurology resident [facility]. 6:33 AM 05/02/2020 * Sameer Jolly RN - 05/02/2020 5:38 AM EDT Patient has orders to be transferred to step down bed. Per house management there are no available beds at this time and patient will be transferred when a bed is open. * Sameer Jolly RN - 05/02/2020 2:41 AM EDT Watershed Engineer unable to complete admission d/t patient lethargy, patient is currently being assessed by nurse practitioner. documented in this encounter Assessments Diagnosis Acute kidney injury (HCC) Acute kidney failure, unspecified Acute cystitis Leukocytosis Leukocytosis, unspecified Elevated lithium level Pseudotumor cerebri Benign intracranial hypertension Bipolar affective disorder, currently active (HCC) Acute metabolic encephalopathy Essential hypertension Unspecified essential hypertension Severe obesity (BMI >= 40) (HCC) Morbid obesity Normocytic anemia Anemia, unspecified Brightwood toxicity Toxic effect of other specified metals Encephalopathy, unspecified Abnormal thyroid function test Nonspecific abnormal results of thyroid function study CARMENZA (acute kidney injury) (HCC) Acute kidney failure, unspecified Vitamin D deficiency Unspecified vitamin D deficiency Diagnosis Pseudotumor cerebri Benign intracranial hypertension Reason for Referral Status Reason Specialty Diagnoses / Procedures Referred By Contact Referred To Contact Pending Review Radiology Diagnoses Pseudotumor cerebri Procedures MRI Brain W WO Contrast Elton Rodriguez MD [address] [facility], [address] [place] [address] Specialty Diagnoses / Procedures Referred By Contac t Referred To Contact MR IMAGING Diagnoses Spinal stenosis of cervical region Procedures MRI CERVICAL SPINE WO/W IVCON MRI SPINAL CANAL CERVICAL W/O & W/[place] [address] [place] [address] Mr Imaging Referral ID Status Reason Start Date Expiration Date Visits Requested Visits Authorized [id number] Pending Review Auto-Generat ed Referral 02/25/2023 03/26/2024 1 1 Specialty Diagnoses / Procedures Referred By Contac t Referred To Contact MR IMAGING Diagnoses Benign intracranial hypertension Procedures MRI BRAIN WO/W IVCON MRI BRAIN BRAIN STEM W/O W/[place] [address] [place] [address] Mr Imaging Referral ID Status Reason Start Date Expiration Date Visits Requested Visits Authorized [id number] Pending Review Auto-Generat ed Referral 02/25/2023 03/26/2024 1 1 Specialty Diagnoses / Procedures Referred By Contac t Referred To Contact CT IMAGING Diagnoses Multiple myeloma not having achieved remission (HCC) Procedures CT WHOLE BODY SKULL TO KNEE WO IVCON UNLISTED COMPUTED TOMOGRAPHY PROCEDURE Alexis Hussein MD [address] [place], [place] [id number] [place] [address] Referral ID Status Reason Start Date Expiration Date Visits Requested Visits Authorized [id number] Additional Clinical Info Needed Auto-Generat ed Referral 09/23/2024 1 1 Specialty Diagnoses / Procedures Referred By Contac t Referred To Contact Gastroenterology Diagnoses Elevated alkaline phosphatase level Procedures CONSULT TO GASTROENTEROLOGY OFFICE/OUTPATIENT NEW HIGH MDM 60-74 MINUTES Alexis Hussein MD [address] [place] [id number] Referral ID Status Reason Start Date Expiration Date Visits Requested Visits Authorized [id number] Authorized PCP Requested Referral 08/24/2024 1 1 Specialty Diagnoses / Procedures Referred By Contac t Referred To Contact MR IMAGING Diagnoses Benign intracranial hypertension Procedures MRI BRAIN WO/W IVCON MRI BRAIN BRAIN STEM W/O W/[place] [address] [place] [address] [place] [address] Referral ID Status Reason Start Date Expiration Date V isits Requested Visits Authorized [id number] Closed Auto-Generat ed Referral Clearance Not Met - Admin/Chairm an/Director Advise to Postpone/Res chedule or Not Proceed 04/09/2023 06/08/2023 1 1 Specialty Diagnoses / Procedures Referred By Contac t Referred To Contact MR IMAGING Diagnoses Spinal stenosis of cervical region Procedures MRI CERVICAL SPINE WO/W IVCON MRI SPINAL CANAL CERVICAL W/O & [place] [address] [place] [address] [place] [address] Referral ID Status Reason Start Date Expiration Date V isits Requested Visits Authorized [id number] Closed Auto-Generate d Referral 04/08/2023 06/07/2023 1 1 Chief Complaint and Reason for Visit Chief Complaint SI Reason for Visit Major depressive dis order, recurrent episode Chief Complaint SI Reason for Visit Anxiety Auditory hallucination Hallucinations, visual Major depressive disorder, recurrent episode Suicidal ideation Chief Complaint SI mental eval Reason for Visit Anxiety Auditory hallucination Hallucinations, visual Major depressive disorder, recurrent episode Suicidal ideation Anxiety Bipolar II disorder Depression Schizoaffective disorder Additional Source Comments INFORMATION SOURCE (unrecogn ized section and content) DATE CREATED AUTHOR 04/16/2018 [facility] DATE CREATED AUTHOR AUTHOR'S ORGANIZ ATION 06/19/2020 [facility] DATE CREATED AUTHOR AUTHOR'S ORGANIZ ATION 02/13/2021 [facility] DATE CREATED AUTHOR AUTHOR'S ORGANIZ ATION 09/24/2021 [facility] DATE CREATED AUTHOR AUTHOR'S ORGANIZ ATION 01/13/2023 [facility] DATE CREATED AUTHOR AUTHOR'S ORGANIZ ATION 04/10/2023 [facility] DATE CREATED AUTHOR AUTHOR'S ORGANIZ ATION 04/25/2023 [facility] DATE CREATED AUTHOR AUTHOR'S ORGANIZ ATION 07/19/2023 [facility] DATE CREATED AUTHOR AUTHOR'S ORGANIZ ATION 10/04/2023 [facility] DATE CREATED AUTHOR AUTHOR'S ORGANIZ ATION 11/17/2023 [facility] DATE CREATED AUTHOR AUTHOR'S ORGANIZ ATION 12/10/2023 [facility] Reason for Visit (unrecogniz ed section and content) Status Reason Specialty Diagnoses / Procedures Referre d By Contact Referred To Contact Diagnoses Acute kidney injury (HCC) acute kidney injury acute kidney injury Procedures acute kidney injury Jesus Mora DO [address], [address] [place] [address] [facility] Status Reason Specialty Diagnoses / Procedures Referred By Contact Referred To Contact Pending Review Radiology Diagnoses Pseudotumor cerebri Procedures IR LUMBAR PUNCTURE FOR DIAGNOSIS Elton Rodriguez MD [address] [place] [address], [address] [place] [address] Status Reason Specialty Diagnoses / Procedures Referred By Contact Referred To Contact Pending Review Radiology Diagnoses Pseudotumor cerebri Procedures MRI Brain W WO Contrast Elton Rodriguez MD [address] [place] [address], [address] [place] [address] Reason Comments Patient Update Radiology Disc's sca nned and mailed back to home address Reason Comments New Patient Reason Comments Patient Update Reason Onset Date Comments Refill Request 03/25/2023 Reason Comments Results Reason Onset Date Comments Refill Request 06/25/2023 Reason Comments Joint Pain Reason Comments Radio Gen A21 Specialty Diagnoses / Procedures Referred By Contac t Referred To Contact XR IMAGING Diagnoses Polyarthralgia Procedures XR KNEE GENERAL 4V AP BOTH/PA BOTH/LAT/MERC BILATERAL RADIOLOGIC EXAM KNEE COMPLETE 4/MORE VIEWS Romero Sherman, PURSE MAKER.WATER PUMPER [address] [address] [place] [address] Referral ID Status Reason Start Date Expiration Date V isits Requested Visits Authorized [id number] Closed Auto-Generate d Referral 07/15/2023 08/13/2024 1 1 Reason Comments Monoclonal gammopathy New patient consul t Specialty Diagnoses / Procedures Referred By Contac t Referred To Contact MR IMAGING Diagnoses Benign intracranial hypertension Procedures MRI BRAIN WO/W IVCON MRI BRAIN BRAIN STEM W/O W/[place] [address] [place] [address] [place] [address] Referral ID Status Reason Start Date Expiration Date V isits Requested Visits Authorized [id number] Closed Auto-Generat ed Referral Clearance Not Met - Admin/Chairm an/Director Advise to Postpone/Res chedule or Not Proceed 04/09/2023 06/08/2023 1 1 Specialty Diagnoses / Procedures Referred By Contac t Referred To Contact MR IMAGING Diagnoses Spinal stenosis of cervical region Procedures MRI CERVICAL SPINE WO/W IVCON MRI SPINAL CANAL CERVICAL W/O & W/[place] [address] [place] [address] [place] [address] Referral ID Status Reason Start Date Expiration Date V isits Requested Visits Authorized [id number] Closed Auto-Generate d Referral 04/08/2023 06/07/2023 1 1 Care Teams (unrecognized sec tion and content) Team Status: Active Member Role Status Dates Raji Guerrero , DO Primary Care Provider Active Desean Massey , DO Emergency Provider Active Krzysztof Patel MD Admit Provider, Attending Provider Active Team Status: Active Member Role Status Dates Raji Guerrero DO Primary Care Provider Active Team Status: Inactive Member Role Status Dates Raji Guerrero DO Primary Care Provider Active Desean Massey DO Emergency Provider Active Krzysztof Patel MD Admit Provider, Attending Provider Active Team Status: Inactive Member Role Status Dates Raji Guerrero , DO Primary Care Provider Active Antwan Sierra MD Emergency Provider Active Licha Russ MD Admit Provider, Attending Pr ovider Active Parachute Supervisor Relationship Specialty Start Date End Date Shammo, Mic [address] [facility] [place] [address] 02/19/23 Parachute Supervisor Relationship Specialty Start Date End Date Shammo, Mic [address] [facility] [place] [address] 02/19/23 Parachute Supervisor Relationship Specialty Start Date End Date Shammo, Mic [address] [facility] [place] [address] 02/19/23 Parachute Supervisor Relationship Specialty Start Date End Date Shammo, Mic [address] [facility] [place] [address] 02/19/23 Parachute Supervisor Relationship Specialty Start Date End Date Shammo, Mic [address] [place] [address] 02/19/23 Parachute Supervisor Relationship Specialty Start Date End Date Aleydamo, BECCA Haile [address] [place] [address] PCP - General Family Medicine 06/16/23 Parachute Supervisor Relationship Specialty Start Date End Date Shammo, Mic 02/19/23 Parachute Supervisor Relationship Specialty Start Date End Date Shammo, Mic 02/19/23 Parachute Supervisor Relationship Specialty Start Date End Date Shammo, Mic 02/19/23 Parachute Supervisor Relationship Specialty Start Date End Date Aleydamo, BECCA Haile [address] [place] [address] PCP - General Family Medicine 06/16/23 Shammo, Mic [address] [place] [address] 02/19/23 Parachute Supervisor Relationship Specialty Start Date End Date Shammo, Mic 02/19/23 Parachute Supervisor Relationship Specialty Start Date End Date Shammo, BECCA Haile [address] [place] [address] PCP - General Family Medicine 06/16/23 Mic Maddox [address] [place] [address] 02/19/23 Parachute Supervisor Relationship Specialty Start Date End Date Mic Maddox CNP [address] [place] [address] PCP - General Family Medicine 06/16/23 Mic Maddox [address] [place] [address] 02/19/23 Team Status: Active Member Role Status Dates Mic Maddox , WIRE COILER MACHINE OPERATOR-BC Primary Care Provider Active Team Status: Inactive Member Role Status Dates Mic Maddox , WIRE COILER MACHINE OPERATOR-BC Primary Care Provider Active Start: January 13, 2024 End: January 13, 2024 VIANEY Springer Attending Provider Active S tart: January 13, 2024 End: January 13, 2024 Goals (unrecognized section and content) Goals may be documented in a n alternate sectionNo InformationNo Information No data available for this sectionGoals may be documented in an alternate section No data available for this section No data available for this sectionGoals may be documented in an alternate section Source Comments (unrecognize d section and content) In the event this informatio n is protected by the Federal Confidentiality of Alcohol and Drug Abuse Patient Records regulations: The Federal rules restrict any use of the information to criminally investigate or prosecute any alcohol or drug abuse patient.[facility] the event this information is protected by the Federal Confidentiality of Alcohol and Drug Abuse Patient Records regulations: The Federal rules restrict any use of the information to criminally investigate or prosecute any alcohol or drug abuse patient.[facility] the event this information is protected by the Federal Confidentiality of Alcohol and Drug Abuse Patient Records regulations: The Federal rules restrict any use of the information to criminally investigate or prosecute any alcohol or drug abuse patient.[facility] the event this information is protected by the Federal Confidentiality of Alcohol and Drug Abuse Patient Records regulations: The Federal rules restrict any use of the information to criminally investigate or prosecute any alcohol or drug abuse patient.[facility] the event this information is protected by the Federal Confidentiality of Alcohol and Drug Abuse Patient Records regulations: The Federal rules restrict any use of the information to criminally investigate or prosecute any alcohol or drug abuse patient.[facility] the event this information is protected by the Federal Confidentiality of Alcohol and Drug Abuse Patient Records regulations: The Federal rules restrict any use of the information to criminally investigate or prosecute any alcohol or drug abuse patient.[facility] Center[facility] the event this information is protected by the Federal Confidentiality of Alcohol and Drug Abuse Patient Records regulations: The Federal rules restrict any use of the information to criminally investigate or prosecute any alcohol or drug abuse patient.[facility] the event this information is protected by the Federal Confidentiality of Alcohol and Drug Abuse Patient Records regulations: The Federal rules restrict any use of the information to criminally investigate or prosecute any alcohol or drug abuse patient.[facility] Center[facility] the event this information is protected by the Federal Confidentiality of Alcohol and Drug Abuse Patient Records regulations: The Federal rules restrict any use of the information to criminally investigate or prosecute any alcohol or drug abuse patient.[facility] Center[facility] the event this information is protected by the Federal Confidentiality of Alcohol and Drug Abuse Patient Records regulations: The Federal rules restrict any use of the information to criminally investigate or prosecute any alcohol or drug abuse patient.[facility] Center[facility] the event this information is protected by the Federal Confidentiality of Alcohol and Drug Abuse Patient Records regulations: The Federal rules restrict any use of the information to criminally investigate or prosecute any alcohol or drug abuse patient.[facility] Center[facility] the event this information is protected by the Federal Confidentiality of Alcohol and Drug Abuse Patient Records regulations: The Federal rules restrict any use of the information to criminally investigate or prosecute any alcohol or drug abuse patient.[facility] CenterIn the event this information is protected by the Federal Confidentiality of Alcohol and Drug Abuse Patient Records regulations: The Federal rules restrict any use of the information to criminally investigate or prosecute any alcohol or drug abuse patient.[facility] Center[facility] the event this information is protected by the Federal Confidentiality of Alcohol and Drug Abuse Patient Records regulations: The Federal rules restrict any use of the information to criminally investigate or prosecute any alcohol or drug abuse patient.[facility] CenterIn the event this information is protected by the Federal Confidentiality of Alcohol and Drug Abuse Patient Records regulations: The Federal rules restrict any use of the information to criminally investigate or prosecute any alcohol or drug abuse patient.[facility] FOR RECORDS PERTAINING TO PATIENTS WHO ARE OR HAVE BEEN ENROLLED IN A CHEMICAL DEPENDENCY/SUBSTANCEABUSE PROGRAM, SOME INFORMATION MAY BE OMITTED. This clinical summary was aggregated from multiple sources. Caution should be exercised in using it in the provision of clinical care. This summary normalizes information from multiple sources, and as a consequence, information in this document may materially change the coding, format and clinical context of patient data. In addition, data may be omitted in some cases. CLINICAL DECISIONS SHOULD BE BASED ON THE PRIMARY CLINICAL RECORDS. [facility] [facility]. provides no warranty or guarantee of the accuracy or completeness of information in this document.
[2024-01-22 16:16] LABS: Basophils Percent Auto 0.3 % (0.2-2.0); Eosinophils Absolute Auto 0.2 10^3/uL (0.0-0.7); Eosinophils Percent Auto 1.5 % (0.9-7.0); Hematocrit 35.7 % (36.0-48.0); Hemoglobin 10.9 g/dL (12.0-16.0); Immature Granulocytes Abs Auto 0.06 10^3/uL (0.00-0.03); Immature Granulocytes Pct Auto 0.5 % (0.0-0.5); Lymphocytes Absolute Auto 4.1 10^3/uL (1.2-3.8); Lymphocytes Percent Auto 31.8 % (20.5-60.0); Mean Corpuscular HGB Conc 30.5 g/dL (29.9-35.2); Mean Corpuscular Hemoglobin 27.2 pg (26.7-34.0); Monocytes Absolute Auto 0.6 10^3/uL (0.3-0.8); Monocytes Percent Auto 4.8 % (1.7-12.0); Neutrophils Absolute Auto 7.9 10^3/uL (1.4-6.5); Neutrophils Percent Auto 61.1 % (43.0-75.0); Platelet Count 382 10^3/uL (150-450); Red Blood Count 4.01 10^6/uL (4.20-5.40); Red Cell Distribution Width 18.8 % (11.0-15.0)
[2024-01-22 16:28] LABS: Alanine Aminotransferase 20 U/L (14-59); Albumin Globulin Ratio 0.9; Albumin Level 3.4 g/dL (3.4-5.0); Alkaline Phosphatase 138 U/L (46-116); Anion Gap 15.1; Aspartate Amino Transferase 9 U/L (15-37); BUN Creatinine Ratio 7.8; Bilirubin Total 0.3 mg/dL (0.2-1.0); Calcium 8.6 mg/dL (8.5-10.1); Carbon Dioxide 23.6 mmol/L (21.0-32.0); Chloride 105 mmol/L (98-107); Estimated GFR (African America >60 (>=60); Estimated GFR (Non-African Ame >60 (>=60); Globulin 3.7 g/dL; Glucose 88 mg/dL (74-106); Potassium 3.7 mmol/L (3.5-5.1); Sodium 140 mmol/L (136-145); TSH W/ REFLEX FT4 1.661 uIU/mL (0.358-3.740); Total Protein 7.1 g/dL (6.4-8.2)
== END 2024-01-22 15:42 | disposition home or self-care (01) ==
LOC: LAB 15:44
PROVIDERS: PCP Nurse Practitioner
DX: G25.3 Myoclonus (principal)
CPT/HCPCS: 36415; 80053; 84443; 85025

== ENCOUNTER 2024-04-19 15:36 | Outpatient (OUT) | payer OTHER, SELFPAY ==
[2024-04-19 16:10] LABS: Hematocrit 37.3 % (36.0-48.0); Hemoglobin 11.8 g/dL (12.0-16.0); Mean Corpuscular HGB Conc 31.6 g/dL (29.9-35.2); Mean Corpuscular Hemoglobin 28.1 pg (26.7-34.0); Mean Corpuscular Volume 88.8 fL (81.0-99.0); Mean Platelet Volume 10.2 fL (9.5-13.5); Platelet Count 381 10^3/uL (150-450); Red Cell Distribution Width 19.3 % (11.0-15.0); White Blood Count 11.1 10^3/uL (4.0-11.0)
[2024-04-19 16:11] LABS: Estimated Average Glucose 111 mg/dL; Glycohemoglobin A1C 5.5 % (4.5-6.2)
[2024-04-19 16:52] LABS: Alanine Aminotransferase 10 U/L (14-59); Albumin Globulin Ratio 0.9; Albumin Level 3.5 g/dL (3.4-5.0); Alkaline Phosphatase 137 U/L (46-116); Aspartate Amino Transferase 8 U/L (15-37); BUN Creatinine Ratio 10.6; Bilirubin Total 0.4 mg/dL (0.2-1.0); Calcium 8.7 mg/dL (8.5-10.1); Chloride 107 mmol/L (98-107); Estimated GFR (African America >60 (>=60); Estimated GFR (Non-African Ame >60 (>=60); Globulin 3.8 g/dL; Glucose 97 mg/dL (74-106); Sodium 139 mmol/L (136-145); Total Protein 7.3 g/dL (6.4-8.2)
== END 2024-04-19 15:37 | disposition home or self-care (01) ==
LOC: LAB 15:42
PROVIDERS: PCP Nurse Practitioner; Visit Provider Nurse Practitioner
DX: R73.03 Prediabetes (principal); I10 Essential (primary) hypertension
CPT/HCPCS: 36415; 80053; 83036; 85027